=== PATIENT | male | born 1965 | race Caucasian/White ===

== ENCOUNTER → 2019-11-19 10:59 | Outpatient (BNVA) | payer OTHER, SELFPAY | PROVIDERS: PCP Internal Medicine; Visit Provider Urology | DX: Z76.89 Persons encountering health services in other specified circumstances (principal) ==

== ENCOUNTER 2020-01-13 11:42 | Outpatient (REF) | payer OTHER, SELFPAY | END 2020-01-13 11:43 | disposition home or self-care (01) | LOC: HO.XRAY 11:42 | PROVIDERS: PCP Internal Medicine; Visit Provider Physical Medicine & Rehabilitation | DX: Z13.89 Encounter for screening for other disorder (principal) ==

== ENCOUNTER 2020-01-25 09:16 | Outpatient (REF) | payer OTHER, SELFPAY ==
--- NOTE | 2020-01-25 09:24 | XR_ITS ---
EXAMINATION: XR SHOULDER, LEFT CLINICAL INFORMATION: Pain left shoulder. COMPARISON: None TECHNIQUE: AP external rotation, Grashey, scapular Y, and axillary views of the left shoulder. FINDINGS: The bones and soft tissues are normal. No fracture. Glenohumeral and acromioclavicular alignment is anatomic with normal joint space. No abnormal soft tissue calcifications. XR/XR shoulder LT min 2V IMPRESSION: Unremarkable left shoulder exam.
== END 2020-01-25 09:17 | disposition home or self-care (01) ==
LOC: HO.XRAY 09:16
PROVIDERS: PCP Internal Medicine; Visit Provider Physical Medicine & Rehabilitation
DX: M25.512 Pain in left shoulder (principal)
CPT/HCPCS: 73030

== ENCOUNTER 2020-04-26 10:04 | Outpatient (REF) | payer OTHER, SELFPAY ==
--- NOTE | ~2020-04-26 | XR_ITS ---
EXAMINATION: XR LUMBOSACRAL SPINE CLINICAL INFORMATION: Dorsal pain. COMPARISON: None TECHNIQUE: Three views of the lumbosacral spine. FINDINGS: There is normal lumbar lordosis. The vertebral heights and alignment is normal. There is loss of L1-L2, L2-L3, L4-L5 and L5-S1 disc heights. No visible acute fracture, dislocation or lytic process seen. There is mild ventral spondylosis at the L3-L4 and L4-L5 disc levels. No visible acute fracture, dislocation or lytic process seen. SI joints are symmetrical. The soft tissues are unremarkable. XR/XR lumbar spine 2-3V IMPRESSION: Mild degenerative disc changes of lumbar spine without visible acute fracture or dislocation. There is ventral spondylosis at the L4-L5 and L3-L4 disc levels.
== END 2020-04-26 10:05 | disposition home or self-care (01) ==
LOC: HO.XRAY 10:04
PROVIDERS: PCP Internal Medicine; Visit Provider Internal Medicine
DX: M54.9 Dorsalgia, unspecified (principal)
CPT/HCPCS: 72100

== ENCOUNTER 2020-07-26 07:45 | Outpatient (REF) | payer OTHER, SELFPAY ==
[2020-07-26 08:16] LABS: MANUAL DIFF FLAG NO
[2020-07-26 08:22] LABS: Basophils Absolute Auto 0.1 X10*3/uL (0.0-0.2); Basophils Percent Auto 0.8 % (0-2); Eosinophils Absolute Auto 0.4 X10*3/uL (0.0-0.4); Eosinophils Percent Auto 5.9 % (0-4); Hemoglobin 13.3 g/dl (14.0-18.0); Imm Gran Abs Auto 0.02 X10*3/uL (0.00-0.03); Imm Gran Pct Auto 0.3 % (0.0-0.4); Lymphocytes Absolute Auto 1.8 X10*3/uL (1.2-4.9); Lymphocytes Percent Auto 24.4 % (20-40); Mean Corpuscular HGB Conc 33.3 g/dl (31.0-36.0); Mean Corpuscular Volume 84.2 fL (80-98); Mean Platelet Volume 10.8 fL (9.4-12.4); Monocytes Absolute Auto 0.6 X10*3/uL (0.1-1.2); Monocytes Percent Auto 7.8 % (2-11); Neutrophils Absolute Auto 4.5 X10*3/uL (2.0-8.3); Neutrophils Percent Auto 60.8 % (45-73); Platelet Count 348 X10*3/uL (160-400); Red Blood Count 4.75 X10*6/uL (4.60-5.80); Red Cell Distribution Width 13.1 % (11.0-16.0); White Blood Count 7.3 X10*3/uL (4.8-10.8)
[2020-07-26 08:48] LABS: Alanine Aminotransferase 26 U/L (0-40); Albumin Level 4.6 g/dL (3.5-5.0); Alkaline Phosphatase 131 U/L (39-117); Anion Gap 10 (12-20); Aspartate Amino Transferase 23 U/L (5-37); Bilirubin Total 0.8 mg/dL (0.0-1.0); Blood Urea Nitrogen 17 mg/dL (9-16); Calcium 9.8 mg/dL (8.4-10.2); Carbon Dioxide 29 mmol/L (22-29); Chloride 106 mmol/L (96-108); Cholesterol 224 mg/dL; Estimated Glomerular Filt Rate > 60; Glucose Fasting 104 mg/dL (60-99); HDL Cholesterol 35 mg/dL; LDL Cholesterol Calculated 148 mg/dl; Potassium 4.4 mmol/L (3.3-5.1); Sodium 141 mmol/L (135-145); Total Protein 6.8 g/dL (6.5-8.0); Triglycerides 207 mg/dL
[2020-07-26 09:09] LABS: Thyroid Stimulating Hormone 5.77 uIU/mL (0.32-4.0)
== END 2020-07-26 07:46 | disposition home or self-care (01) ==
LOC: HO.LAB 07:45
PROVIDERS: PCP Internal Medicine; Visit Provider Internal Medicine
DX: Z00.00 Encounter for general adult medical examination without abnormal findings (principal); E11.9 Type 2 diabetes mellitus without complications; E03.9 Hypothyroidism, unspecified
CPT/HCPCS: 36415; 80053; 80061; 84443; 85025

== ENCOUNTER 2021-10-06 08:03 | Outpatient (REF) | payer OTHER, SELFPAY ==
[2021-10-06 08:21] LABS: MANUAL DIFF FLAG NO
[2021-10-06 08:33] LABS: Basophils Absolute Auto 0.1 X10*3/uL (0.0-0.2); Basophils Percent Auto 1.1 % (0-2); Eosinophils Absolute Auto 0.3 X10*3/uL (0.0-0.4); Eosinophils Percent Auto 5.6 % (0-4); Hematocrit 36.6 % (42.0-52.0); Hemoglobin 12.5 g/dl (14.0-18.0); Imm Gran Abs Auto 0.02 X10*3/uL (0.00-0.03); Imm Gran Pct Auto 0.3 % (0.0-0.4); Lymphocytes Absolute Auto 1.3 X10*3/uL (1.2-4.9); Mean Corpuscular HGB Conc 34.2 g/dl (31.0-36.0); Mean Corpuscular Hemoglobin 28.7 pg (27.0-33.0); Mean Corpuscular Volume 84.1 fL (80.0-98.0); Mean Platelet Volume 10.2 fL (9.4-12.4); Monocytes Absolute Auto 0.5 X10*3/uL (0.1-1.2); Monocytes Percent Auto 7.7 % (2-11); Neutrophils Absolute Auto 3.9 x10*3/uL (2.0-8.3); Neutrophils Percent Auto 63.3 % (45-73); Platelet Count 320 X10*3/uL (160-400); Red Blood Count 4.35 X10*6/uL (4.60-5.80); Red Cell Distribution Width 13.2 % (11.0-16.0); White Blood Count 6.1 X10*3/uL (4.8-10.8)
[2021-10-06 09:10] LABS: Alanine Aminotransferase 25 U/L (0-40); Albumin Level 4.4 g/dL (3.5-5.0); Alkaline Phosphatase 163 U/L (39-117); Anion Gap 13 (12-20); Aspartate Amino Transferase 26 U/L (5-37); Bilirubin Total 0.6 mg/dL (0.0-1.0); Blood Urea Nitrogen 16 mg/dL (9-16); Calcium 9.3 mg/dL (8.4-10.2); Carbon Dioxide 28 mmol/L (22-29); Chloride 106 mmol/L (96-108); Cholesterol 189 mg/dL; Estimated Glomerular Filt Rate > 60; Glucose Fasting 94 mg/dL (60-99); HDL Cholesterol 40 mg/dL; LDL Cholesterol Calculated 131 mg/dl; Potassium 4.2 mmol/L (3.3-5.1); Sodium 143 mmol/L (135-145); Total Protein 6.6 g/dL (6.5-8.0); Triglycerides 93 mg/dL
== END 2021-10-06 08:04 | disposition home or self-care (01) ==
LOC: HO.LAB 08:03
PROVIDERS: PCP Internal Medicine; Visit Provider Internal Medicine
DX: Z13.0 Encounter for screening for diseases of the blood and blood-forming organs and certain disorders involving the immune mechanism (principal); I10 Essential (primary) hypertension; E78.5 Hyperlipidemia, unspecified; E03.9 Hypothyroidism, unspecified
CPT/HCPCS: 36415; 80053; 80061; 84443; 85025

== ENCOUNTER 2022-02-23 09:40 | Outpatient (REF) | payer OTHER, SELFPAY ==
--- NOTE | ~2022-02-23 | XR_ITS ---
EXAMINATION: XR RIBS, RIGHT. Chest PA CLINICAL INFORMATION: Injury. COMPARISON: None TECHNIQUE: 3 views of the right ribs were obtained. FINDINGS: CHEST: The lungs are hyperexpanded. No consolidation, pneumothorax, or pleural effusion. The cardiomediastinal silhouette and pulmonary vasculature are normal. RIGHT RIBS: Osseous structures are unremarkable. Ribs are intact. No fractures are identified. XR/XR ribs RT min 3V w CXR1V IMPRESSION: Unremarkable chest and right rib examination.
== END 2022-02-23 09:41 | disposition home or self-care (01) ==
LOC: HO.XRAY 09:40
PROVIDERS: PCP Internal Medicine; Visit Provider Internal Medicine
DX: S29.9XXA Unspecified injury of thorax, initial encounter (principal); X58.XXXA Exposure to other specified factors, initial encounter; Y93.9 Activity, unspecified; Y92.9 Unspecified place or not applicable; Y99.9 Unspecified external cause status
CPT/HCPCS: 71101

== ENCOUNTER 2022-07-20 11:08 | Outpatient (REF) | payer OTHER, SELFPAY ==
--- NOTE | ~2022-07-20 | XR_ITS ---
EXAMINATION: XR LUMBOSACRAL SPINE WITH OBLIQUES CLINICAL INFORMATION: Back pain COMPARISON: Previous lumbar spine x-ray April 2020 TECHNIQUE: 4 views including flexion extension FINDINGS: Bone alignment is normal. No fracture or dislocation. Multilevel degenerative disc disease and spondylosis greatest at L4-L5 and L5-S1. No instability on flexion-extension views. Lower lumbar spine facet arthritis. Atherosclerotic disease. XR/XR lumbar spine 4V min IMPRESSION: Multilevel degenerative changes.
== END 2022-07-20 11:09 | disposition home or self-care (01) ==
LOC: HO.HOSX 11:08
PROVIDERS: PCP Internal Medicine; Visit Provider Physician Assistant
DX: M54.40 Lumbago with sciatica, unspecified side (principal)
CPT/HCPCS: 72110

== ENCOUNTER 2022-08-24 08:28 | Outpatient (REF) | payer OTHER, SELFPAY ==
--- NOTE | ~2022-08-24 | MR_ITS ---
EXAMINATION: MR LUMBAR SPINE WITHOUT CONTRAST CLINICAL INFORMATION: 57-year-old, lumbago with sciatica, unspecified laterality. Self-reported low back and bilateral leg pain and tingling in the right lower leg. COMPARISON: 08/15/2007 MRI, partial images. Axial images from the prior study are not available. TECHNIQUE: MRI of the lumbar spine was obtained using routine sequences without contrast. FINDINGS: Coronal Alignment: Normal. Sagittal Alignment: Normal. Lumbosacral Junction: Normal. There are 5 mtg-flt-elrplxx lumbar-type vertebral bodies. Vertebral Bodies: Stable vertebral body heights. No interval compression fractures. Disc Spaces and Endplates: Severe disc space height loss is at L4-L5, progressed from previous study now with partial ankylosis at this level. Itkthuoz-ua-gynhyd disc space height loss with disc desiccation at L5-S1 with a Schmorl's node along the superior endplate of S1 similar to previous study. Mild disc volume loss with disc desiccation and central Schmorl's nodes at L3-L4, unchanged, now with minor spondylosis. Moderate disc volume loss at L2-L3 progressed from previous study with progression of Schmorl's nodes along the superior endplate of L3 and a stable central Schmorl's node, with disc desiccation and minor spondylosis. Xhly-nr-dwzndvtr intervertebral disc space height loss at L1-L2 slightly progressed posteriorly, with Schmorl's nodes similar to the prior exam. Disc desiccation has progressed, now with the a linear zone of probable intradiscal calcification on the current study consistent with progression of disc degenerative changes. Disc desiccation and central Schmorl's nodes noted at the levels between T12-L1 and T10-T11 inclusive with progression of disc desiccation at these levels and progression of disc height loss posteriorly at T12-L1. Spinal Canal: No abnormal developmental findings. Bone Marrow: There are type I degenerative bone marrow signal changes seen along the endplates at L5-S1 progressed from previous study. There are type I marrow signal changes along the anterosuperior aspect of the L4 vertebral body progressed from previous exam. Type I marrow signal changes seen posteriorly asymmetric to the left at L2-L3 have developed since previous exam. Type I marrow signal changes along the superior endplate of L1 are new findings. There are type II degenerative marrow signal changes seen along the endplates at multiple levels progressed from the previous study, particularly at L4-L5 and L1-L2. Conus Medullaris: Terminates at L1. Morphology and signal is normal. Intradural Nerve Roots: Within normal limits. L5-S1: Mild concentric disc osteophyte complex with slight flattening of the ventral dural sac. Gwdc-cv-dpnukddi right and mild left-sided facet arthropathy noted with question of chronic postoperative changes involving the posterior elements on the right at this level with no significant central spinal canal stenosis. Mild crowding of the subarticular zones is noted bilaterally. There is mild Foraminal narrowing bilaterally. L4-L5: There is concentric osteophytic ridging with partial ankylosis at this level and chronic postoperative changes involving the posterior elements on the right. There is moderate right and mild left-sided facet hypertrophic changes with no significant canal stenosis. There is minor foraminal narrowing bilaterally. L3-L4: Mild right subarticular to foraminal disc protrusion noted without neural impingement. Broad-based central to left lateral foraminal disc osteophyte complex noted with mbdt-se-wadvdjps flattening the ventral thecal sac asymmetric to the left. Bvxe-it-qcrfntli bilateral facet hypertrophic degenerative changes are noted without significant central canal stenosis. Slight narrowing of the subarticular zones are noted bilaterally with mild left-sided foraminal stenosis. Facet spurring abuts the exiting left L3 nerve root. L2-L3: Concentric disc osteophyte complex is noted with slight flattening of the ventral dural sac and vudp-dh-twmwvakp facet arthrosis, left more than right, without significant canal or neuroforaminal stenosis. L1-L2: Concentric disc osteophyte complex is noted with no significant facet arthrosis, canal or neuroforaminal stenosis. Paravertebral and Included Extraspinal Soft Tissues: The visualized paravertebral soft tissues appear unremarkable. There are simple-appearing left renal parapelvic cysts, with the largest of these measuring 3.3 cm. Limited evaluation.?No specific follow up recommended based on the current ACR Best Practice Guidelines. There is a partially imaged 1.1 cm zone of low T1 signal in the left sacral alum adjacent to the left SI joint seen on the last axial T1-weighted images, which is a nonspecific finding. MR/MR lumbar spine wo con IMPRESSION: 1. Multilevel DDD and spondylosis, as described above, with partial ankylosis at the L4-L5 level and multilevel disc osteophyte complexes and a small right subarticular to foraminal disc protrusion at L3-L4 without neural impingement. No significant central spinal canal stenosis. See above for details. 2. Multilevel bilateral facet arthropathy with no significant neural foraminal stenosis or evidence of neural impingement. 3. Presumed chronic postoperative changes involving the posterior elements on the right at L4-L5 and L5-S1. Correlate with any previous surgical procedures. 4. A 1.1 cm zone of low T1 signal in the left sacral alum adjacent to the left SI joint which is a nonspecific finding. If clinically warranted, this could be further assessed with a CT of the pelvis.
== END 2022-08-24 08:29 | disposition home or self-care (01) ==
LOC: HO.MRI 08:28
PROVIDERS: PCP Internal Medicine; Visit Provider Physician Assistant
DX: M54.40 Lumbago with sciatica, unspecified side (principal)
CPT/HCPCS: 72148

== ENCOUNTER 2022-08-31 13:03 | Outpatient (AMB) | payer OTHER, SELFPAY ==
--- NOTE | 2022-08-31 13:06 | A.SPINEOV_ITS ---
Intake Intake Visit Reasons: MRI f/u Intake Note: Mr. Gibson is here today for follow up MRI done @ [facility] [place]. CT Scan still pending scheduling. 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 He has severe back pain giving him a severe pressure-like sensation which goes down into his hips. He had a previous L4-5 decompression done about 15 years ago which gave him great relief from leg pains. It was not until last year when back pain got significantly worse. There is no formal read back yet, but he has similar findings to last year on his MRI, this would include is severely collapsed disc with Modic endplate changes at L4-5. He also has degeneration higher up at L2-3. I do not see any nerve root compression. Unfortunately did not have the lumbar CT done yet so we can better evaluate if the L4-5 disc is already fused itself. That would be meaningful to review so his daughter is going to set that up. In the interim, he tells me he is had an injection at your office done a few weeks ago and that did give him 2-3 days of decent relief. Not complete relief but it did take the edge off things. He is not sure what part of the spine was injected or what was done. I would like to get that information as well as the CT scan and then call him with a better idea of what we can do for him. Total amount of time spent in this visit was 20 minutes in discussion of symptoms, lumbar MRI imaging results and subsequent plan of care Jason Gonzáles MD,PhD [facility] Coding Level of Care Code Est Pt Level 3 (45973) Diagnoses Back pain of lumbar region with sciatica M54.40
== END 2022-08-31 14:17 | disposition home or self-care (01) ==
PROVIDERS: PCP Internal Medicine; Visit Provider Physician Assistant
DX: M54.40 Lumbago with sciatica, unspecified side (principal)
CPT/HCPCS: 99213

== ENCOUNTER → 2022-08-31 13:03 | Outpatient (BNVA) | payer OTHER, SELFPAY | PROVIDERS: PCP Internal Medicine; Visit Provider Physician Assistant ==

== ENCOUNTER 2022-09-05 13:55 | Outpatient (REF) | payer OTHER, SELFPAY ==
--- NOTE | ~2022-09-05 | CT_ITS ---
EXAMINATION: CT LUMBAR SPINE WITHOUT CONTRAST CLINICAL INFORMATION: Dorsalgia. COMPARISON: MRI lumbar spine 08/15/2007. TECHNIQUE: Axial 2 mm thin and reformatted 2 mm thin sagittal and coronal images of lumbar spine were obtained. This CT examination was performed using dose optimization techniques as appropriate, variously including the following: *Automated exposure control *Adjustment of mA and/or kV according to patient size (this includes techniques or standardized protocols for targeted exams where dose is matched to indication/reason for exam; i.e. extremities or head) *Use of iterative reconstruction technique DLP; 400 mGy-cm FINDINGS: On sagittal reconstructed images is maintained lumbar lordosis. There is loss of L4-L5 and L5-S1 disc heights. The rest of the disc heights are normal. The vertebral heights and alignment is preserved normal. The L1-L2 and L2-L3 disc levels are unremarkable. At the L3-L4 disc level, there is mild flattening of ventral thecal sac from disc bulge resulting in mild canal stenosis. There is underlying mild facet joint hypertrophy as well. At the L4-L5 disc level, there is a left laminotomy defect. There is a posterior endplate spondylosis but no underlying disc bulge or spinal canal stenosis. There is mild bilateral narrowing of neural foramina from endplate spondylosis. At the L5-S1 disc level, there are endplate Schmorl's node and sclerosis. No aggressive lytic or sclerotic process seen. The neural foramina are patent bilaterally. The prevertebral and paravertebral soft tissues are normal. CT/CT lumbar spine wo IV con IMPRESSION: Degenerative disc changes with almost disc fusion L4-L5 disc level. There are degenerative disc changes at other disc levels but no visible disc herniation or nerve root impingement. There is mild disc bulge L3-L4 disc level with facet joint hypertrophy resulting in mild circumferential canal stenosis. There is possible left laminotomy defect at L4 vertebra from previous intervention. This findings was noted on the previous MRI lumbar spine 08/15/2007.
== END 2022-09-05 13:56 | disposition home or self-care (01) ==
LOC: HO.CT 13:55
PROVIDERS: Visit Provider Physician Assistant
DX: M54.50 Low back pain, unspecified (principal)
CPT/HCPCS: 72131

== ENCOUNTER 2022-09-26 08:42 | Outpatient (AMB) | payer OTHER, SELFPAY ==
--- NOTE | 2022-09-26 08:56 | A.OFFPC_ITS ---
Vital Signs 09/26/22 08:57 Height 5 ft 5 in Weight 151 lb 4 oz BMI 25.2 BP 132/78 Blood Pressure Location Lt brachial Position Sitting Pulse 80 Pulse Source Pulse Oximeter Pulse Oximetry (%) 97 Oxygen Delivery Method Room Air Intake Visit Reasons: Annual exam Intake Note: Patient is here today for a physical. Pharmacy Clinical Coordinator Required: No Silo Filler: Not Required per policy Accompanied by: Self / Same As Patient Allergies No Known Allergies Allergy (Verified 09/26/22 08:57) Medication List - Last Reconciled 09/26/22 by Morales Oneil MD acetaminophen (Tylenol Extra Strength) 1,000 mg PO Q6H PRN amlodipine 2.5 mg PO DAILY naproxen (Naprosyn) 500 mg PO BID PRN oxycodone mg PO topiramate 25 mg PO BID Tobacco use date assessed: 09/26/22 Dental Screening Dental Screen Date: 09/26/22 Did you have a dental visit in the last 12 months?: No Did you have a dental problem in the last 6 months where you did not have access to dental care?: No Was dental information given to patient?: No HPI Annual exam HPI Details HTN and chronic back pain; will be going to pain management [facility] Medical History (Updated 07/20/22 @ 11:59 by JANIS Bhakta) Hypertension Surgical History History of back surgery Family History (Updated 09/26/22 @ 08:56 by MOE Hanks) Father No problems noted. Mother No problems noted. Social History Housing: House Alcohol intake: never Patient Tobacco Use Status: Current everyday Tobacco user Tobacco use type: Smokeless Tobacco e-Cigarette/Vaping Use: Never Used Second Hand Smoke Exposure: No service: No Current occupational status: employed Cognitive needs: No Hearing needs: No Vision needs: No Questionnaire Thrive Questionnaire Date Thrive assessed: 02/23/22 OSORIO-7 AMB Questionnaire OSORIO-7 Date OSORIO - 7 assessed: 02/23/22 Source: Developed by Drs. Vipul Syed, Danielle Salas, Narayan Raines and colleagues, with an educational omar from [employer]. Review of Systems Const Denies chills, Denies fatigue, Denies headache(s) and Denies weight loss Eyes Denies change in vision, Denies diplopia and Denies eye pain ENT Denies vertigo, Denies dizziness, Denies headache(s) and Denies nasal discharge Card Denies chest pain, Denies rapid heart rate and Denies dyspnea on exertion Resp Denies chest congestion, Denies cough, Denies pain with cough and Denies dyspnea on exertion GI Denies abdominal pain, Denies hematochezia and Denies change in bowel habits Musc Denies myalgias, Denies arthralgias and Denies joint swelling Skin/Breast Denies lesions and Denies unusual bruising Neuro Denies vertigo, Denies dizziness, Denies headache(s) and Denies focal weakness Endo Denies fatigue Physical exam (Primary Care) Vital Signs: Last Vital Signs Pulse 80 09/26/22 08:57 BP 132/78 09/26/22 08:57 Pulse Ox 97 09/26/22 08:57 Oxygen Delivery Method Room Air 09/26/22 08:57 BMI result Body Mass Index 25.2 Tobacco/Smoking Status: Tobacco use Status Tobacco use date assessed 09/26/22 09/26/22 09:03 Patient Tobacco Use Status Current everyday Tobacco 09/26/22 09:03 Tobacco use type Smokeless Tobacco 09/26/22 09:03 e-Cigarette/Vaping Use Never Used 09/26/22 09:03 Thrive Assessment: Date of Thrive Assessment Date Thrive assessed 02/23/22 09/26/22 09:03 Const General: cooperative, healthy appearing and no acute distress Orientation/consciousness: oriented to person, oriented to place and oriented to time [facility] Head: Yes normal to inspection, Yes normocephalic and Yes atraumatic Mouth: Normal oral and palatal mucosa present and tongue normal Throat: Yes posterior oropharynx normal and Yes uvula midline Eyes General: appearance normal, both eyes and all related structures Neck Neck: Yes normal visual inspection, Yes full ROM and Yes no lymphadenopathy Thyroid: Thyroid normal Carotids: normal carotid upstroke Chest Chest palpation & inspection: normal inspection of the chest Resp Effort & Inspection: normal respiratory effort and able to speak in complete sentences Auscultation: clear to auscultation bilaterally Cardio Jugular venous distension: no JVD Palpation: normal PMI Rate: regular rate Rhythm: regular rhythm Heart sounds: S1 normal heart sound present and S2 normal heart sound present GI Inspection: Yes normal to inspection Palpation (GI): Soft to palpation and No hepatosplenomegaly present Auscultation: normal bowel sounds General: Yes no CVA tenderness Back/Spine/Pelvis Back: no CVA tenderness Skin General skin exam: no rashes or lesions noted Neuro General: oriented to person, oriented to place and oriented to time Extrem General: Yes normal to inspection and Yes full ROM Assessment and Plan Assessment & Plan (1) Physical exam: Code(s): Z00.00 - Encounter for general adult medical examination without abnormal findings Plan: do labs (2) Hypertension: Code(s): I10 - Essential (primary) hypertension Plan: same rx (3) Back pain: Code(s): M54.9 - Dorsalgia, unspecified Plan: as per pain management Orders: Orders Comprehensive Longs. Panel Fast Today N28.9 - Disorder of kidney and ureter, un specified Lipid Panel Today E78.5 - Hyperlipidemia, unspecified Complete Blood Count Auto Diff Today D64.9 - Anemia, unspecified Coding Level of Care Code Est Pt Prev Care 40-64y(95582) Diagnoses Physical exam Z00.00 Hypertension I10 Back pain M54.9
[2022-09-26 08:57] VITALS: BP 132/78; PULSE 80; O2SAT 97; BMI 25.2
== END 2022-09-26 09:33 | disposition home or self-care (01) ==
PROVIDERS: PCP Internal Medicine; Visit Provider Internal Medicine
DX: Z00.00 Encounter for general adult medical examination without abnormal findings (principal); I10 Essential (primary) hypertension; M54.9 Dorsalgia, unspecified
CPT/HCPCS: 99396

== ENCOUNTER 2022-09-26 09:48 | Outpatient (REF) | payer OTHER, SELFPAY ==
[2022-09-26 10:03] LABS: MANUAL DIFF FLAG NO
[2022-09-26 10:46] LABS: Basophils Absolute Auto 0.1 X10*3/uL (0.0-0.2); Basophils Percent Auto 1.4 % (0-2); Eosinophils Absolute Auto 0.5 X10*3/uL (0.0-0.4); Eosinophils Percent Auto 6.7 % (0-4); Hematocrit 37.1 % (42.0-52.0); Hemoglobin 12.3 g/dl (14.0-18.0); Imm Gran Abs Auto 0.02 X10*3/uL (0.00-0.03); Imm Gran Pct Auto 0.3 % (0.0-0.4); Lymphocytes Absolute Auto 1.7 X10*3/uL (1.2-4.9); Lymphocytes Percent Auto 24.6 % (20-40); Mean Corpuscular HGB Conc 33.2 g/dl (31.0-36.0); Mean Corpuscular Hemoglobin 28.2 pg (27.0-33.0); Mean Corpuscular Volume 85.1 fL (80.0-98.0); Mean Platelet Volume 10.7 fL (9.4-12.4); Monocytes Absolute Auto 0.6 X10*3/uL (0.1-1.2); Neutrophils Absolute Auto 4.1 x10*3/uL (2.0-8.3); Platelet Count 358 X10*3/uL (160-400); Red Blood Count 4.36 X10*6/uL (4.60-5.80); Red Cell Distribution Width 13.2 % (11.0-16.0); White Blood Count 6.9 X10*3/uL (4.8-10.8)
[2022-09-26 11:17] LABS: Alanine Aminotransferase 32 U/L (0-40); Albumin Level 4.3 g/dL (3.5-5.0); Alkaline Phosphatase 164 U/L (39-117); Anion Gap 11 (12-20); Aspartate Amino Transferase 34 U/L (5-37); Bilirubin Total 0.3 mg/dL (0.0-1.0); Blood Urea Nitrogen 15 mg/dL (9-16); Calcium 9.8 mg/dL (8.4-10.2); Carbon Dioxide 28 mmol/L (22-29); Chloride 107 mmol/L (96-108); Cholesterol 177 mg/dL; Estimated Glomerular Filt Rate > 60; Glucose Fasting 101 mg/dL (60-99); HDL Cholesterol 37 mg/dL; LDL Cholesterol Calculated 114 mg/dl; Potassium 3.9 mmol/L (3.3-5.1); Sodium 142 mmol/L (135-145); Total Protein 6.9 g/dL (6.5-8.0); Triglycerides 134 mg/dL
== END 2022-09-26 09:49 | disposition home or self-care (01) ==
LOC: HO.LAB 09:48
PROVIDERS: PCP Internal Medicine; Visit Provider Internal Medicine
DX: D64.9 Anemia, unspecified (principal); E78.5 Hyperlipidemia, unspecified; N28.9 Disorder of kidney and ureter, unspecified
CPT/HCPCS: 36415; 80053; 80061; 85025

== ENCOUNTER 2022-10-09 10:59 | Outpatient (AMB) | payer OTHER, SELFPAY ==
--- NOTE | 2022-10-09 11:00 | MHC.OFFVIS ---
Intake Vital Signs 10/09/22 11:06 Height 5 ft 5 in Weight 150 lb 2 oz BMI 25.0 BP 134/93 H Blood Pressure Location Lt brachial Position Sitting Pulse 97 Pulse Source Pulse Oximeter Pulse Oximetry (%) 99 Oxygen Delivery Method Room Air Intake Visit Reasons: Radiculopathy, lumbar region Intake Note: Pain today 09/27. Lead Systems Developer Required: No Accompanied by: Daughter Allergies No Known Allergies Allergy (Verified 10/09/22 11:11) HPI Radiculopathy, lumbar region HPI Details Patient is a pleasant 57 years old female with prior L4-L5 decompression in 2006 and lumbar degenerative disc disease presents today with significant low back pain with bilateral leg pain for over one year. Patient also reports right shoulder pain. He is accompanied by his daughter who assists with translation. Denies any recent trauma, injury or falls. Reports increase in right shoulder pain with overhead and backside pocket reaches due to repetitive motion at his work. He was seen in [facility] ER recently for right shoulder pain and received Ketorolac and lidocaine injection without any relief with imaging showing calcific tendinitis and bursitis. Patient reports increased falling due to worsening back pain and bilateral leg weakness and legs giving out due to pain. Back pain is axial and also radiates in lateral distribution of both legs and dorsal feet with numbness and tingling, worse on the right side. Patient describes his pain as sharp, shooting and significant pressure sensation that radiates into his lateral hips bilaterally. He was seen by multiple providers, including Dr. Bill at [facility] and Jason BRUCE at [facility] due to lumbar L4-L5 almost complete fusion but was deemed non surgical at this time. Per recent lumbar spine MRI and CT scan reports, patient also has significant degenerative changes on the endplates with almost disc fusion L4-L5 disc level, with Schmorl's nodes and Modic changes. These findings correlate with his symptoms of bilateral lower extremity pain and weakness as well as axial low back pain that has been interfering with his ability to ambulate. Reports history of back injections at [facility] with partial pain relief. He is currently takes oxycodone and Tylenol that provides him mild analgesia. Pain affects his daily activities, functioning, sleep, mood and quality of life. Given worsening of back pain with recent right shoulder pain, he does not believe he can continue to work, even with light duty arrangements. Denies any fever, weight loss, abdominal or groin pain, foot drop, bladder/bowel dysfunction or saddle anesthesia. Location Lower back pain with radiation to lower extremities, right shoulder pain Duration Chronic pain >1.5 years Characteristics of symptom or complaint Aching, heavy, pressure, numbness, burning, pinching, sharp, throbbing Aggravating or associated factors Walking, standing, prolonged sitting, bending, twisting, movements Relieving factors Oxycodone 10mg, Tylenol, ice/heat therapy, rest, activity modifications Treatment PT, back injections, right shoulder injection-minimal effects [facility] Medical History (Updated 10/13/22 @ 08:05 by RAYMOND Goetz) Cervicalgia Hemiplegia and hemiparesis following cerebral infarction affecting left non-dominant side History of kidney stones Hypertension Myalgia Occipital neuralgia Opioid dependence Pain in right shoulder Pain in thoracic spine Radiculopathy, cervical region Radiculopathy, lumbar region Segmental and somatic dysfunction of rib cage Stroke Surgical History (Updated 10/09/22 @ 11:20 by Akiko Ng) History of back surgery Family History (Updated 09/26/22 @ 08:56 by MOE Hanks) Father No problems noted. Mother No problems noted. Social History (Updated 10/09/22 @ 11:21 by Akiko Ng) Housing: House Alcohol intake: never Patient Tobacco Use Status: Former Tobacco user Quit Date: 2011 Tobacco use type: Cigarette e-Cigarette/Vaping Use: Never Used Second Hand Smoke Exposure: No service: No Current occupational status: employed Cognitive needs: No Hearing needs: No Vision needs: No Review of Systems Const All systems reviewed & are unremarkable except as noted in HPI and below Physical Exam Vital Signs: Last Vital Signs Pulse 97 10/09/22 11:06 BP 134/93 H 10/09/22 11:06 Pulse Ox 99 10/09/22 11:06 Oxygen Delivery Method Room Air 10/09/22 11:06 BMI result Body Mass Index 25.0 General: Appears afebrile. Alert and oriented. Mood and affect appropriate. Follows and participates in conversation appropriately. Respiratory effort is unlabored. No cough. Able to transition from sit to stand unassisted. Ambulates with bilaterally normal heel strike and toe off but unsteady with standing on toes or heels, worse on the right. Back/Spine/Pelvis Other: Patient is able to walk and stand on heels and tip toes with moderate difficulties bilaterally, right>left. Antalgic gait, no limping. Can flex forward to 65-70 degrees and extend to 5-10 degrees before experiencing lumbar pain. Demonstrates 5/5 strength of quadriceps bilaterally as well as flexion/dorsiflexion of bilateral feet against resistance. 2+ pedal pulses bilaterally. Seated straight leg rise with dorsiflexion negative bilaterally. +1 patellar and achilles reflexes bilaterally. Facet loading test positive bilaterally. Lynette sign, Daren?s, Gaenslen, Pelvic compression and Stinchfield tests are positive bilaterally. FADDIR negative bilaterally. No groin pain with I/E hip rotations. Valsalva maneuver negative. Cervical Spine: cervical ROM normal, No cervical muscular tenderness, Cervical spine tenderness and No step off deformity Thoracic/Lumbar Spine: thoracic and lumbar spine normal to inspection, Thoracic/lumbar spine scar(s), Lasegue's sign positive bilateral and localized, pain with thoraco-lumbar ROM, paraspinal muscle tenderness (L3-S1) bilaterally, thoraco-lumbar ROM limited, No thoracic spinal tenderness and lumbar spinal tenderness at L4 and at L5 Pelvis: buttock tenderness bilaterally Sacroiliac joints: bilaterally tender to palpation Results Reviewed Results Reviewed: Right Shoulder Xray 10/04/22 [facility] CT LUMBAR SPINE WITHOUT CONTRAST 09/05/22 COMPARISON: MRI lumbar spine 08/15/2007. FINDINGS: On sagittal reconstructed images is maintained lumbar lordosis. There is loss of L4-L5 and L5-S1 disc heights. The rest of the disc heights are normal. The vertebral heights and alignment is preserved normal. The L1-L2 and L2-L3 disc levels are unremarkable. At the L3-L4 disc level, there is mild flattening of ventral thecal sac from disc bulge resulting in mild canal stenosis. There is underlying mild facet joint hypertrophy as well. At the L4-L5 disc level, there is a left laminotomy defect. There is a posterior endplate spondylosis but no underlying disc bulge or spinal canal stenosis. There is mild bilateral narrowing of neural foramina from endplate spondylosis. At the L5-S1 disc level, there are endplate Schmorl's node and sclerosis. No aggressive lytic or sclerotic process seen. The neural foramina are patent bilaterally. The prevertebral and paravertebral soft tissues are normal. IMPRESSION: Degenerative disc changes with almost disc fusion L4-L5 disc level. There are degenerative disc changes at other disc levels but no visible disc herniation or nerve root impingement. There is mild disc bulge L3-L4 disc level with facet joint hypertrophy resulting in mild circumferential canal stenosis. There is possible left laminotomy defect at L4 vertebra from previous intervention. This findings was noted on the previous MRI lumbar spine 08/15/2007. MR LUMBAR SPINE WITHOUT CONTRAST 08/24/22 CLINICAL INFORMATION: 57-year-old, lumbago with sciatica, unspecified laterality. Self-reported low back and bilateral leg pain and tingling in the right lower leg. COMPARISON: 08/15/2007 MRI, partial images. Axial images from the prior study are not available. FINDINGS: Coronal Alignment: Normal. Sagittal Alignment: Normal. Lumbosacral Junction: Normal. There are 5 qgh-yck-wmgcgef lumbar-type vertebral bodies. Vertebral Bodies: Stable vertebral body heights. No interval compression fractures. Disc Spaces and Endplates: Severe disc space height loss is at L4-L5, progressed from previous study now with partial ankylosis at this level. Aerelicw-sw-izrlrr disc space height loss with disc desiccation at L5-S1 with a Schmorl's node along the superior endplate of S1 similar to previous study. Mild disc volume loss with disc desiccation and central Schmorl's nodes at L3-L4, unchanged, now with minor spondylosis. Moderate disc volume loss at L2-L3 progressed from previous study with progression of Schmorl's nodes along the superior endplate of L3 and a stable central Schmorl's node, with disc desiccation and minor spondylosis. Nptu-jg-hdftoeun intervertebral disc space height loss at L1-L2 slightly progressed posteriorly, with Schmorl's nodes similar to the prior exam. Disc desiccation has progressed, now with the a linear zone of probable intradiscal calcification on the current study consistent with progression of disc degenerative changes. Disc desiccation and central Schmorl's nodes noted at the levels between T12-L1 and T10-T11 inclusive with progression of disc desiccation at these levels and progression of disc height loss posteriorly at T12-L1. Spinal Canal: No abnormal developmental findings. Bone Marrow: There are type I degenerative bone marrow signal changes seen along the endplates at L5-S1 progressed from previous study. There are type I marrow signal changes along the anterosuperior aspect of the L4 vertebral body progressed from previous exam. Type I marrow signal changes seen posteriorly asymmetric to the left at L2-L3 have developed since previous exam. Type I marrow signal changes along the superior endplate of L1 are new findings. There are type II degenerative marrow signal changes seen along the endplates at multiple levels progressed from the previous study, particularly at L4-L5 and L1-L2. Conus Medullaris: Terminates at L1. Morphology and signal is normal. Intradural Nerve Roots: Within normal limits. L5-S1: Mild concentric disc osteophyte complex with slight flattening of the ventral dural sac. Hgqg-px-ppjjuyqq right and mild left-sided facet arthropathy noted with question of chronic postoperative changes involving the posterior elements on the right at this level with no significant central spinal canal stenosis. Mild crowding of the subarticular zones is noted bilaterally. There is mild Foraminal narrowing bilaterally. L4-L5: There is concentric osteophytic ridging with partial ankylosis at this level and chronic postoperative changes involving the posterior elements on the right. There is moderate right and mild left-sided facet hypertrophic changes with no significant canal stenosis. There is minor foraminal narrowing bilaterally. L3-L4: Mild right subarticular to foraminal disc protrusion noted without neural impingement. Broad-based central to left lateral foraminal disc osteophyte complex noted with rdzk-xg-hqjvcizk flattening the ventral thecal sac asymmetric to the left. Orjh-uo-yxamtnxu bilateral facet hypertrophic degenerative changes are noted without significant central canal stenosis. Slight narrowing of the subarticular zones are noted bilaterally with mild left-sided foraminal stenosis. Facet spurring abuts the exiting left L3 nerve root. L2-L3: Concentric disc osteophyte complex is noted with slight flattening of the ventral dural sac and mffn-vn-crrcatkp facet arthrosis, left more than right, without significant canal or neuroforaminal stenosis. L1-L2: Concentric disc osteophyte complex is noted with no significant facet arthrosis, canal or neuroforaminal stenosis. Paravertebral and Included Extraspinal Soft Tissues: The visualized paravertebral soft tissues appear unremarkable. There are simple-appearing left renal parapelvic cysts, with the largest of these measuring 3.3 cm. Limited evaluation.?No specific follow up recommended based on the current ACR Best Practice Guidelines. There is a partially imaged 1.1 cm zone of low T1 signal in the left sacral alum adjacent to the left SI joint seen on the last axial T1-weighted images, which is a nonspecific finding. IMPRESSION: 1. Multilevel DDD and spondylosis, as described above, with partial ankylosis at the L4-L5 level and multilevel disc osteophyte complexes and a small right subarticular to foraminal disc protrusion at L3-L4 without neural impingement. No significant central spinal canal stenosis. See above for details. 2. Multilevel bilateral facet arthropathy with no significant neural foraminal stenosis or evidence of neural impingement. 3. Presumed chronic postoperative changes involving the posterior elements on the right at L4-L5 and L5-S1. Correlate with any previous surgical procedures. 4. A 1.1 cm zone of low T1 signal in the left sacral alum adjacent to the left SI joint which is a nonspecific finding. If clinically warranted, this could be further assessed with a CT of the pelvis. XR LUMBOSACRAL SPINE WITH OBLIQUES 07/20/22 CLINICAL INFORMATION: Back pain COMPARISON: Previous lumbar spine x-ray April 2020 FINDINGS: Bone alignment is normal. No fracture or dislocation. Multilevel degenerative disc disease and spondylosis greatest at L4-L5 and L5-S1. No instability on flexion-extension views. Lower lumbar spine facet arthritis. Atherosclerotic disease. IMPRESSION: Multilevel degenerative changes. Assessment & Plan Assessment & Plan (1) Lumbar post-laminectomy syndrome: Code(s): M96.1 - Postlaminectomy syndrome, not elsewhere classified (2) Back pain of lumbar region with sciatica: Code(s): M54.40 - Lumbago with sciatica, unspecified side (3) Degeneration of lumbar intervertebral disc: Code(s): M51.36 - Other intervertebral disc degeneration, lumbar region (4) Chronic pain syndrome: Code(s): G89.4 - Chronic pain syndrome (5) Pain in right shoulder: Code(s): M25.511 - Pain in right shoulder (6) Vertebrogenic low back pain: Code(s): M54.51 - Vertebrogenic low back pain (7) Calcific tendinitis of right shoulder: Code(s): M75.31 - Calcific tendinitis of right shoulder Plan 1. For his axial low back pain and degenerative changes on the endplates with Modic Changes and Schmorl's nodes , he is a good candidate for Intracept procedure. 2. For his gait instability and frequent falls, recommend enrollment in Aqua therapy as well as continue physical therapy and daily physical activity to optimize his strength and balance. Patient reports due to significant pain, he is unable to participate in PT or HEP but will consider it after therapeutic injections for his back and right shoulder. 3. Caudal ANIA with catheter with local and fluoroscopy for radicular symptoms and frequent falls due to throbbing, sharp and shooting pain. Will also tentatively plan for bilateral SIJ injections. 4. Schedule Right Subacromial Steroid shoulder injection with local and US guidance for right shoulder pain related to calcific tendonitis. Recommend PT after injection to strengthen muscles. Continue ice/heat therapy, rest and NSAIDs. 4. We also discussed longer term pain management for patient's post laminectomy syndrome with multilevel degenerative changes and significant chronic daily pain that affects his general daily activity, sleep, and quality of life. He is interested in neuromodulation with SCS trial. Expectations, risks and benefits were reviewed for SCS trial and implant. Behavioral evaluation referral placed today. Informational pamphlets provided to patient and his family. All questions and concerns have been answered and patient agreed with the plan. Follow up after injections and sooner if needed. Coding Level of Care Code New Pt Level 4 (29098) Diagnoses Lumbar post-laminectomy syndrome M96.1 Back pain of lumbar region with sciatica M54.40 Degeneration of lumbar intervertebral disc M51.36 Chronic pain syndrome G89.4 Pain in right shoulder M25.511 Vertebrogenic low back pain M54.51 Calcific tendinitis of right shoulder M75.31
[2022-10-09 11:06] VITALS: BP 134/93; PULSE 97; O2SAT 99; BMI 25.0
== END 2022-10-09 11:50 | disposition home or self-care (01) ==
PROVIDERS: PCP Internal Medicine; Visit Provider Nurse Practitioner Family
DX: M96.1 Postlaminectomy syndrome, not elsewhere classified (principal); M54.40 Lumbago with sciatica, unspecified side; M51.36 Other intervertebral disc degeneration, lumbar region; G89.4 Chronic pain syndrome; M25.511 Pain in right shoulder; M54.51 Vertebrogenic low back pain; M75.31 Calcific tendinitis of right shoulder
CPT/HCPCS: 99204

== ENCOUNTER → 2022-10-09 10:59 | Outpatient (BNVA) | payer OTHER, SELFPAY | PROVIDERS: PCP Internal Medicine; Visit Provider Nurse Practitioner Family ==

== ENCOUNTER 2022-10-18 09:08 | Outpatient (AMB) | payer OTHER, SELFPAY ==
--- NOTE | 2022-10-18 09:08 | MHC.PC.OV ---
Vital Signs 10/18/22 09:09 Height 5 ft 5 in Weight 152 lb BMI 25.3 BP 128/76 Blood Pressure Location Lt brachial Position Sitting Pulse 78 Pulse Source Pulse Oximeter Pulse Oximetry (%) 98 Oxygen Delivery Method Room Air Intake Visit Reasons: [facility] Shoulder pain Slot Floorperson Required: No Fuel Attendant: Not Required per policy Allergies No Known Allergies Allergy (Verified 10/18/22 09:09) Medication List - Last Reconciled 10/18/22 by Morales Oneil MD acetaminophen (Tylenol Extra Strength) 1,000 mg PO Q6H PRN amlodipine 2.5 mg PO DAILY ibuprofen 600 mg PO QID naproxen (Naprosyn) 500 mg PO BID PRN oxycodone mg PO topiramate 25 mg PO BID Tobacco use date assessed: 09/26/22 Dental Screening Dental Screen Date: 10/18/22 Did you have a dental visit in the last 12 months?: No Did you have a dental problem in the last 6 months where you did not have access to dental care?: No Was dental information given to patient?: No HPI [facility]10/[facility] Shoulder pain HPI Details has chronic neck shoulder and back pain; going to [facility] pain management; has been on daily oxycodone through them and going to the ER too; [facility] Medical History Cervicalgia Hemiplegia and hemiparesis following cerebral infarction affecting left non-dominant side History of kidney stones Hypertension Myalgia Occipital neuralgia Opioid dependence Pain in right shoulder Pain in thoracic spine Radiculopathy, cervical region Radiculopathy, lumbar region Segmental and somatic dysfunction of rib cage Stroke Surgical History History of back surgery Family History Father No problems noted. Mother No problems noted. Social History Housing: House Alcohol intake: never Patient Tobacco Use Status: Former Tobacco user Quit Date: 2011 Tobacco use type: Cigarette e-Cigarette/Vaping Use: Never Used Second Hand Smoke Exposure: No service: No Current occupational status: employed Cognitive needs: No Hearing needs: No Vision needs: No Questionnaire PHQ-9 Over the last 2 weeks, how often have you been bothered by any of the following problems? 1. Little interest or pleasure in doing things: not at all 2. Feeling down, depressed, or hopeless: not at all 3. Trouble falling or staying asleep, or sleeping too much: not at all 4. Feeling tired or having little energy: not at all 5. Poor appetite or overeating: not at all 6. Feeling bad about yourself - or that you are a failure or have let yourself or your family down: not at all 7. Trouble concentrating on things, such as reading the newspaper or watching television: not at all 8. Moving or speaking so slowly that other people could have noticed. Or the opposite - being so fidgety or restless that you have been moving around a lot more than usual: not at all 9. Thoughts that you would be better off or of hurting yourself in some way: not at all Total score: 0 Depression Screening Interpretation: Negative 95573 - PHQ-9 Billing: Yes Source: Developed by Drs. Vipul Syed, Danielle Salas, Narayan Raines and colleagues, with an educational omar from [employer]. Thrive Questionnaire Date Thrive assessed: 02/23/22 AUDIT C Alcohol Use Questionnaire (AUDIT-C) 1. How often do you have a drink containing alcohol?: Never Total Score: 0 OSORIO-7 AMB Questionnaire OSORIO-7 Date OSORIO - 7 assessed: 02/23/22 Source: Developed by Drs. Vipul Syed, Danielle Salas, Narayan Raines and colleagues, with an educational omar from [employer]. Review of Systems Const Denies chills, Denies headache(s) and Denies weight loss ENT Denies headache(s) Card Denies chest pain, Denies syncope, Denies irregular heart rhythm and Denies dyspnea Resp Denies chest congestion, Denies cough and Denies dyspnea GI Denies abdominal pain, Denies change in stool character, Denies nausea and Denies vomiting Musc Denies deformity and Denies joint swelling Neuro Denies syncope and Denies headache(s) Physical exam (Primary Care) Vital Signs: Last Vital Signs Pulse 78 10/18/22 09:09 BP 128/76 10/18/22 09:09 Pulse Ox 98 10/18/22 09:09 Oxygen Delivery Method Room Air 10/18/22 09:09 BMI result Body Mass Index 25.3 Tobacco/Smoking Status: Tobacco use Status Tobacco use date assessed 09/26/22 10/18/22 09:11 Patient Tobacco Use Status Former Tobacco user 10/18/22 09:11 Tobacco use type Cigarette 10/18/22 09:11 e-Cigarette/Vaping Use Never Used 10/18/22 09:11 PHQ-9: PHQ-9 Score PHQ-9: Total score 0 10/18/22 12:32 Depression Screening Interpretation: Negative Thrive Assessment: Date of Thrive Assessment Date Thrive assessed 02/23/22 10/18/22 09:11 Const General: cooperative, healthy appearing and no acute distress Orientation/consciousness: oriented to person, oriented to place and oriented to time HENMT Head: Yes normal to inspection, Yes normocephalic and Yes atraumatic Mouth: Normal oral and palatal mucosa present and tongue normal Throat: Yes posterior oropharynx normal and Yes uvula midline Eyes General: appearance normal, both eyes and all related structures Neck Neck: Yes normal visual inspection, Yes full ROM and Yes no lymphadenopathy Thyroid: Thyroid normal Carotids: normal carotid upstroke Chest Chest palpation & inspection: normal inspection of the chest Resp Effort & Inspection: normal respiratory effort and able to speak in complete sentences Auscultation: clear to auscultation bilaterally Cardio Jugular venous distension: no JVD Palpation: normal PMI Rate: regular rate Rhythm: regular rhythm Heart sounds: S1 normal heart sound present and S2 normal heart sound present GI Inspection: Yes normal to inspection Palpation (GI): Soft to palpation and No hepatosplenomegaly present Auscultation: normal bowel sounds General: Yes no CVA tenderness Back/Spine/Pelvis Back: no CVA tenderness Skin General skin exam: no rashes or lesions noted Neuro General: oriented to person, oriented to place and oriented to time Extrem General: Yes normal to inspection and Yes full ROM Assessment and Plan Assessment & Plan (1) Vertebrogenic low back pain: Code(s): M54.51 - Vertebrogenic low back pain Plan: f/u with pain management (2) Pain in right shoulder: Code(s): M25.511 - Pain in right shoulder Plan: pain management (3) Chronic pain syndrome: Code(s): G89.4 - Chronic pain syndrome Plan: pain management Coding Level of Care Code Est Pt Level 3 (39867) Diagnoses Vertebrogenic low back pain M54.51 Pain in right shoulder M25.511 Chronic pain syndrome G89.4
[2022-10-18 09:09] VITALS: BP 128/76; PULSE 78; O2SAT 98; BMI 25.3
== END 2022-10-18 09:47 | disposition home or self-care (01) ==
PROVIDERS: PCP Internal Medicine; Visit Provider Internal Medicine
DX: M54.51 Vertebrogenic low back pain (principal); M25.511 Pain in right shoulder; G89.4 Chronic pain syndrome
CPT/HCPCS: 99213

== ENCOUNTER 2022-10-29 15:23 | Outpatient (AMB) | payer OTHER, SELFPAY ==
--- NOTE | 2022-10-29 15:35 | A.OFFVIS_ITS ---
Intake Vital Signs 10/29/22 15:46 Height 5 ft 5 in Weight 148 lb BMI 24.6 BP 134/82 Blood Pressure Location Rt brachial Position Sitting Respiration 14 Pulse 100 Pulse Source Pulse Oximeter Pulse Oximetry (%) 99 Oxygen Delivery Method Room Air Intake Visit Reasons: Right theraputic subacromial inj Allergies No Known Allergies Allergy (Verified 10/18/22 09:09) HPI Right theraputic subacromial inj HPI Details 57-year-old male who presents today to t office for a right therapeutic subacromial injections. Denies any recent cough, cold, infection, fever or other significant changes in medical history since last office visit. [facility] Medical History Cervicalgia Hemiplegia and hemiparesis following cerebral infarction affecting left non- dominant side History of kidney stones Hypertension Myalgia Occipital neuralgia Opioid dependence Pain in right shoulder Pain in thoracic spine Radiculopathy, cervical region Radiculopathy, lumbar region Segmental and somatic dysfunction of rib cage Stroke Surgical History History of back surgery Family History Father No problems noted. Mother No problems noted. Social History Housing: House Alcohol intake: never Patient Tobacco Use Status: Former Tobacco user Quit Date: 2011 Tobacco use type: Cigarette e-Cigarette/Vaping Use: Never Used Second Hand Smoke Exposure: No service: No Current occupational status: employed Cognitive needs: No Hearing needs: No Vision needs: No Review of Systems Const All systems reviewed & are unremarkable except as noted in HPI and below Physical Exam Vital Signs: Last Vital Signs Pulse 100 10/29/22 15:46 Resp 14 10/29/22 15:46 BP 134/82 10/29/22 15:46 Pulse Ox 99 10/29/22 15:46 Oxygen Delivery Method Room Air 10/29/22 15:46 BMI result Body Mass Index 24.6 General: Appears afebrile. Alert and oriented. Mood and affect appropriate. Follows and participates in conversation appropriately. Respiratory effort is unlabored. Able to transition from sit to stand unassisted. Ambulates with bilaterally normal heel strike and toe off. Office Procedures Joint Injection/Drain Joint Injection/Drain Details: Right therapeutic subacromial injection, US guided. Primary Site: right shoulder Prep: site was prepped using aseptic technique and site was prepped using sterile technique Injected: 40 mg of, Kenalog, with 3 mL of, 0.25% bupivacaine and in the subcromial space (right ) Procedure: The patient tolerated the procedure well Coding Details: An ultrasound image of the injection was taken and stored in the permanent record. [id number] - Acromioclavicular with ultrasound guidance Procedure code (CPT) selection complete Results Reviewed Results Reviewed: No imaging is available for review. Assessment & Plan Assessment & Plan (1) Pain in right shoulder: Code(s): M25.511 - Pain in right shoulder Plan Patient is status post right therapeutic subacromial injections. Patient tolerated procedure well and was discharged home in stable condition with discharge instructions. All questions were answered. We will follow-up in two weeks via telephone or in clinic to assess response to therapy. A follow-up appointment was made during today's visit. Scribed for Dr. Barksdale by Kirill Woods, medical office representative, on 10/29/2022. I, Dr. Barksdale, have personally reviewed and agree with the information entered by the scribe. Coding Level of Care Code Procedure Only Diagnoses Pain in right shoulder M25.511 CPT Codes Coding - Joint 6: - Acromioclavicular with ultrasound guidance ([id number])
[2022-10-29 15:46] VITALS: BP 134/82; PULSE 100; RESP 14; O2SAT 99; BMI 24.6
== END 2022-10-29 15:44 | disposition home or self-care (01) ==
PROVIDERS: PCP Internal Medicine; Visit Provider Internal Medicine
DX: M25.511 Pain in right shoulder (principal)
CPT/HCPCS: 20606; 20611

== ENCOUNTER → 2022-10-29 15:23 | Outpatient (BNVA) | payer OTHER, SELFPAY | PROVIDERS: PCP Internal Medicine; Visit Provider Internal Medicine | DX: M25.511 Pain in right shoulder (principal) | CPT/HCPCS: 20606; 20611; J3301 ==

== ENCOUNTER 2022-11-08 12:57 | Outpatient (AMB) | payer OTHER, SELFPAY ==
[2022-11-08 13:05] VITALS: BP 132/70; PULSE 85; O2SAT 98; BMI 24.6
--- NOTE | 2022-11-08 13:05 | A.OFFPC_ITS ---
Vital Signs 11/08/22 13:05 Height 5 ft 5 in Weight 148 lb BMI 24.6 BP 132/70 Blood Pressure Location Lt brachial Position Sitting Pulse 85 Pulse Source Pulse Oximeter Pulse Oximetry (%) 98 Oxygen Delivery Method Room Air Intake Visit Reasons: 3 week f/u [employer] Ii Inspector: Not Required per policy Accompanied by: Self / Same As Patient Allergies No Known Allergies Allergy (Verified 11/08/22 13:06) Medication List - Last Reconciled 11/08/22 by Morales Oneil MD acetaminophen (Tylenol Extra Strength) 1,000 mg PO Q6H PRN amlodipine 2.5 mg PO DAILY ibuprofen 600 mg PO QID naproxen (Naprosyn) 500 mg PO BID PRN oxycodone mg PO topiramate 25 mg PO BID Tobacco use date assessed: 09/26/22 Dental Screening Dental Screen Date: 11/08/22 Did you have a dental visit in the last 12 months?: Yes Did you have a dental problem in the last 6 months where you did not have access to dental care?: No Was dental information given to patient?: Patient has dentist HPI 3 week f/u HPI Details chronic back pain; has seen [facility] and getting injections; perhaps a nerve stimulator ir intra thecal device; can not work at present; receiving oxycodone from them too [facility] Medical History Segmental and somatic dysfunction of rib cage Occipital neuralgia Cervicalgia Pain in right shoulder Myalgia Hemiplegia and hemiparesis following cerebral infarction affecting left non- dominant side Radiculopathy, cervical region Pain in thoracic spine Radiculopathy, lumbar region Opioid dependence History of kidney stones Stroke Hypertension Surgical History History of back surgery Family History Father No problems noted. Mother No problems noted. Social History Housing: House Alcohol intake: never Patient Tobacco Use Status: Former Tobacco user Quit Date: 2011 Tobacco use type: Cigarette e-Cigarette/Vaping Use: Never Used Second Hand Smoke Exposure: No service: No Current occupational status: employed Cognitive needs: No Hearing needs: No Vision needs: No Questionnaire PHQ-9 Over the last 2 weeks, how often have you been bothered by any of the following problems? 1. Little interest or pleasure in doing things: not at all 2. Feeling down, depressed, or hopeless: not at all 3. Trouble falling or staying asleep, or sleeping too much: not at all 4. Feeling tired or having little energy: not at all 5. Poor appetite or overeating: not at all 6. Feeling bad about yourself - or that you are a failure or have let yourself or your family down: not at all 7. Trouble concentrating on things, such as reading the newspaper or watching television: not at all 8. Moving or speaking so slowly that other people could have noticed. Or the opposite - being so fidgety or restless that you have been moving around a lot more than usual: not at all 9. Thoughts that you would be better off or of hurting yourself in some way: not at all Total score: 0 Depression Screening Interpretation: Negative 14333 - PHQ-9 Billing: Yes Source: Developed by Drs. Vipul Syed, Danielle Salas, Narayan Raines and colleagues, with an educational omar from [employer]. Thrive Questionnaire Date Thrive assessed: 02/23/22 AUDIT C Alcohol Use Questionnaire (AUDIT-C) 1. How often do you have a drink containing alcohol?: Never Total Score: 0 OSORIO-7 AMB Questionnaire OSORIO-7 Date OSORIO - 7 assessed: 02/23/22 Source: Developed by Drs. Vipul Syed, Dnaielle Salas, Narayan Raines and colleagues, with an educational omar from [employer]. Review of Systems Const Denies chills, Denies headache(s) and Denies weight loss ENT Denies headache(s) Card Denies chest pain, Denies syncope, Denies irregular heart rhythm and Denies dyspnea Resp Denies chest congestion, Denies cough and Denies dyspnea GI Denies abdominal pain, Denies change in stool character, Denies nausea and Denies vomiting Musc Denies deformity and Denies joint swelling Neuro Denies syncope and Denies headache(s) Physical exam (Primary Care) Vital Signs: Last Vital Signs Pulse 85 11/08/22 13:05 BP 132/70 11/08/22 13:05 Pulse Ox 98 11/08/22 13:05 Oxygen Delivery Method Room Air 11/08/22 13:05 BMI result Body Mass Index 24.6 Tobacco/Smoking Status: Tobacco use Status Tobacco use date assessed 09/26/22 11/08/22 13:09 Patient Tobacco Use Status Former Tobacco user 11/08/22 13:09 Tobacco use type Cigarette 11/08/22 13:09 e-Cigarette/Vaping Use Never Used 11/08/22 13:09 PHQ-9: PHQ-9 Score PHQ-9: Total score 0 11/08/22 13:09 Depression Screening Interpretation: Negative Thrive Assessment: Date of Thrive Assessment Date Thrive assessed 02/23/22 11/08/22 13:09 Const General: cooperative, comfortable, no acute distress and alert Neck Neck: Yes no lymphadenopathy Thyroid: Thyroid normal Resp Effort & Inspection: normal respiratory effort Auscultation: clear to auscultation bilaterally Percussion: percussion normal Cardio Jugular venous distension: no JVD Palpation: normal PMI Rate: regular rate Rhythm: regular rhythm Heart sounds: S1 normal heart sound present and S2 normal heart sound present GI Inspection: Yes normal to inspection Palpation (GI): No hepatosplenomegaly present Skin General skin exam: no rashes or lesions noted Extrem General: Yes no clubbing, cyanosis or edema Assessment and Plan Assessment & Plan (1) Back pain, lumbosacral: Code(s): M54.50 - Low back pain, unspecified Plan: per [facility] Coding Level of Care Code Est Pt Level 3 (41872) Diagnoses Back pain, lumbosacral M54.50
== END 2022-11-08 13:29 | disposition home or self-care (01) ==
PROVIDERS: PCP Internal Medicine; Visit Provider Internal Medicine
DX: M54.50 Low back pain, unspecified (principal)
CPT/HCPCS: 99213

== ENCOUNTER 2022-11-09 09:52 | Outpatient (REF) | payer OTHER, SELFPAY ==
--- NOTE | ~2022-11-09 | XR_ITS ---
EXAMINATION: XR SHOULDER, LEFT CLINICAL INFORMATION: Left shoulder pain COMPARISON: X-ray 01/25/2020 TECHNIQUE: AP external rotation, Grashey, scapular Y, and axillary views of the left shoulder. FINDINGS: No fracture. Glenohumeral and acromioclavicular alignment is anatomic with normal joint space. No abnormal soft tissue calcifications. XR/XR shoulder LT min 2V IMPRESSION: No significant osseous abnormality
--- NOTE | ~2022-11-09 | XR_ITS ---
EXAMINATION: XR CERVICAL SPINE CLINICAL INFORMATION: Cervicalgia. COMPARISON: None available. TECHNIQUE: 3 views of the cervical spine were obtained. FINDINGS: The cervical spine is visualized from C1-mid C7 vertebral body. Slight straightening of the cervical curvature. There is mild retrolisthesis of C3 on C4, C4 on C5, C5 on C6. Vertebral body heights are maintained. No evidence of acute fracture. Multilevel disc degenerative changes. This includes mild-moderate disc degeneration at C3-C4, C5-C6. Alignment of the posterior elements appears intact. No significant prevertebral soft tissue swelling. Base of the dens is intact. On the swimmer's view, the visualized vertebral bodies grossly demonstrate normal height. Lung apices are clear. XR/XR cervical spine 3V IMPRESSION: Cervical spondylosis. This includes mild-moderate disc degeneration at C3-C4, C5-C6. No radiographic evidence of acute fracture.
== END 2022-11-09 09:53 | disposition home or self-care (01) ==
LOC: HO.XRAY 09:52
PROVIDERS: PCP Internal Medicine; Visit Provider Nurse Practitioner Family
DX: M25.512 Pain in left shoulder (principal); M54.2 Cervicalgia
CPT/HCPCS: 72040; 73030

== ENCOUNTER 2022-11-09 09:52 | Outpatient (AMB) | payer OTHER, SELFPAY ==
--- NOTE | 2022-11-09 10:19 | MHC.OFFVIS ---
Intake Vital Signs 11/09/22 10:22 Height 5 ft 5 in Weight 148 lb 5 oz BMI 24.7 BP 134/86 Blood Pressure Location Rt brachial Position Sitting Pulse 84 Pulse Source Pulse Oximeter Pulse Oximetry (%) 97 Oxygen Delivery Method Room Air Intake Visit Reasons: Left Shoulder Inj Discussion Intake Note: Pain today 08/27 Jewel Diameter Gauger Required: No Accompanied by: Self / Same As Patient Allergies No Known Allergies Allergy (Verified 11/09/22 10:23) HPI HPI Comments History of Present Illness Details Patient presents today for follow up to assess response to right therapeutic subacromial injections on 10/29/[address] Barksdale. Patient reports ongoing 50% pain relief in right shoulder with satisfactory improvement in his range of motion and movements on the right. Patient now reports similar symptoms on his left anterior aspect of shoulder with pain radiation to both sides of the neck. Patient denies any recent injury, trauma or falls. He has been on FMLA leave from work and finds some relief for his ongoing back and right shoulder symptoms but would like to proceed with injections for his left shoulder as well. Denies any recent cough, cold, infection, fever. headaches, visual changes, chest pain, shortness of breaths or other significant changes in medical history since last office visit. Past Procedures: 10/29/22: Right therapeutic subacromial injection-50% pain relief, ongoing [facility] Medical History (Updated 11/09/22 @ 10:30 by RAYMOND Goetz) Segmental and somatic dysfunction of rib cage Occipital neuralgia Cervicalgia Pain in right shoulder Myalgia Hemiplegia and hemiparesis following cerebral infarction affecting left non-dominant side Radiculopathy, cervical region Pain in thoracic spine Radiculopathy, lumbar region Opioid dependence History of kidney stones Stroke Hypertension Surgical History History of back surgery Family History Father No problems noted. Mother No problems noted. Social History Housing: House Alcohol intake: never Patient Tobacco Use Status: Former Tobacco user Quit Date: 2011 Tobacco use type: Cigarette e-Cigarette/Vaping Use: Never Used Second Hand Smoke Exposure: No service: No Current occupational status: employed Cognitive needs: No Hearing needs: No Vision needs: No Review of Systems Const All systems reviewed & are unremarkable except as noted in HPI and below Physical Exam Vital Signs: Last Vital Signs Pulse 84 11/09/22 10:22 BP 134/86 11/09/22 10:22 Pulse Ox 97 11/09/22 10:22 Oxygen Delivery Method Room Air 11/09/22 10:22 BMI result Body Mass Index 24.7 General: Appears afebrile. Alert and oriented. Mood and affect appropriate. Follows and participates in conversation appropriately. Respiratory effort is unlabored. Able to transition from sit to stand unassisted. Ambulates with bilaterally normal heel strike and toe off. Extrem General: Yes capillary refill normal and Yes no clubbing, cyanosis or edema Right upper extremity: shoulder/upper arm Details: normal to inspection, tenderness Location: of the A-C joint (mild TTP) and normal ROM Left upper extremity: shoulder/upper arm (Pain with overhead reaches. ) Details: inspection abnormal and tenderness Location: of the clavicle, of the A-C joint and over the biceps tendon; no swelling and no crepitus Assessment & Plan Assessment & Plan (1) Cervicalgia: Code(s): M54.2 - Cervicalgia (2) Left shoulder pain: Code(s): M25.512 - Pain in left shoulder (3) Pain in right shoulder: Code(s): M25.511 - Pain in right shoulder Plan Patient is status post right therapeutic subacromial injection with ongoing 50% pain relief with partial improvement in his function and pain. Left shoulder and neck x-rays to assess degree of degenerative changes prior to proceeding with interventional treatments for left shoulder pain and axial cervical pain. All questions and concerns have been answered and patient agreed with the plan. Follow up for xray results and sooner if needed. Orders: Orders XR shoulder LT min 2V 11/09/22 M25.512 - Pain in left shoulder XR cervical spine 3V 11/09/22 M54.2 - Cervicalgia Coding Level of Care Code Est Pt Level 3 (57447) Diagnoses Cervicalgia M54.2 Left shoulder pain M25.512 Pain in right shoulder M25.511
[2022-11-09 10:22] VITALS: BP 134/86; PULSE 84; O2SAT 97; BMI 24.7
== END 2022-11-09 10:29 | disposition home or self-care (01) ==
PROVIDERS: PCP Internal Medicine; Visit Provider Nurse Practitioner Family
DX: M54.2 Cervicalgia (principal); M25.512 Pain in left shoulder; M25.511 Pain in right shoulder
CPT/HCPCS: 99213

== ENCOUNTER 2022-11-21 05:58 | Outpatient (REF) | payer OTHER, SELFPAY | END 2022-11-21 05:59 | disposition home or self-care (01) | LOC: CF 05:58 | PROVIDERS: Visit Provider Internal Medicine | DX: M96.1 Postlaminectomy syndrome, not elsewhere classified (principal); M54.16 Radiculopathy, lumbar region | CPT/HCPCS: 62323; J1040 ==

== ENCOUNTER 2022-11-21 09:07 | Outpatient (AMB) | payer OTHER, SELFPAY ==
[2022-11-21 09:11] VITALS: BP 116/68; PULSE 81; RESP 14; O2SAT 100
--- NOTE | 2022-11-21 09:11 | MHC.OFFVIS ---
Intake Vital Signs 11/21/22 09:11 11/21/22 10:12 BP 116/68 140/62 H Blood Pressure Location Rt brachial Rt brachial Position Sitting Sitting Respiration 14 14 Pulse 81 81 Pulse Source Pulse Oximeter Pulse Oximeter Pulse Oximetry (%) 100 100 Oxygen Delivery Method Room Air Room Air Intake Visit Reasons: caudal ANIA w/ cath Allergies No Known Allergies Allergy (Verified 11/21/22 09:11) HPI caudal ANIA w/ cath HPI Details Patient presents for scheduled procedure. Denies any recent cough, cold, infection, fever or other significant changes in medical history since last office visit. [facility] Medical History (Updated 11/21/22 @ 09:40 by Adam Barksdale MD) Segmental and somatic dysfunction of rib cage Occipital neuralgia Cervicalgia Pain in right shoulder Myalgia Hemiplegia and hemiparesis following cerebral infarction affecting left non-dominant side Radiculopathy, cervical region Pain in thoracic spine Radiculopathy, lumbar region Opioid dependence History of kidney stones Stroke Hypertension Surgical History History of back surgery Family History Father No problems noted. Mother No problems noted. Social History Housing: House Alcohol intake: never Patient Tobacco Use Status: Former Tobacco user Quit Date: 2011 Tobacco use type: Cigarette e-Cigarette/Vaping Use: Never Used Second Hand Smoke Exposure: No service: No Current occupational status: employed Cognitive needs: No Hearing needs: No Vision needs: No Physical Exam Vital Signs: Last Vital Signs Pulse 81 11/21/22 10:12 Resp 14 11/21/22 10:12 BP 140/62 H 11/21/22 10:12 Pulse Ox 100 11/21/22 10:12 Oxygen Delivery Method Room Air 11/21/22 10:12 Office Procedures Joint Injection/Drain Joint Injection/Drain Details: Caudal ANIA with catheter After obtaining written consent, pre-procedure blood pressure and pulse were measured. Standard monitors were applied. The patient was placed in the prone position. The lumbosacral area was widely prepped with chloraprep and draped in sterile fashion. The skin overlying the target was anesthetized with 0.5% lidocaine. A 17 G needle was used to access the caudal epidural space using anatomic landmarks and x-ray guidance. We then threaded a catheter up to the S1 level and injected contrast 1cc omnipaque 180 for verification of epidural spread. Following negative aspiration of heme or CSF, 10 mL of normal saline was injected followed by a mixture of 5 ml 0.5% lidocaine with 80 mg methylprednisolone with minimal pressure into the epidural space. The needle was removed, skin cleansed and a sterile bandage was applied. The patient tolerated the procedure well and no complications were encountered. Following the procedure the patient's vital signs were stable. The patient was discharged home in good condition with post-procedural instructions. Time Out: Immediately prior to the procedure, the following was verbally confirmed that there is a signed consent form and that the correct patient, planned procedure, site and side are consistent with documentation and that necessary equipment and/or blood products are available prior to the start of the case. Complications: none EBL: <5 cc Coding 16308 - Caudal/Lumbar Epidural/Interlaminar with fluoroscopy Procedure code (CPT) selection complete Assessment & Plan Assessment & Plan (1) Lumbar post-laminectomy syndrome: Code(s): M96.1 - Postlaminectomy syndrome, not elsewhere classified (2) Lumbar radicular pain: Code(s): M54.16 - Radiculopathy, lumbar region Plan Patient is status post caudal ANIA with catheter. Patient tolerated procedure well and was discharged home in stable condition with discharge instructions. All questions were answered. We will follow-up via telephone or in clinic to assess response to therapy. A follow-up appointment was made during today's visit. Orders: Orders FL guidance in treatment room Today M96.1 - Postlaminectomy syndrome, not elsewhere classified Coding Level of Care Code Procedure Only Diagnoses Lumbar post-laminectomy syndrome M96.1 Lumbar radicular pain M54.16 CPT Codes Coding - Joint 11: 27992 - Caudal/Lumbar Epidural/Interlaminar with fluoroscopy ([id number])
[2022-11-21 10:12] VITALS: BP 140/62; PULSE 81; RESP 14; O2SAT 100
== END 2022-11-21 10:06 | disposition home or self-care (01) ==
LOC: HO.PMCPRC 09:07
PROVIDERS: PCP Internal Medicine; Visit Provider Internal Medicine
DX: M96.1 Postlaminectomy syndrome, not elsewhere classified (principal); M54.16 Radiculopathy, lumbar region
CPT/HCPCS: 62323

== ENCOUNTER 2022-12-07 09:54 | Outpatient (AMB) | payer OTHER, SELFPAY ==
--- NOTE | 2022-12-07 10:03 | MHC.OFFVIS ---
Intake Vital Signs 12/07/22 10:07 Height 5 ft 5 in Weight 145 lb 2 oz BMI 24.1 BP 140/89 H Blood Pressure Location Rt brachial Position Sitting Pulse 100 Pulse Source Pulse Oximeter Pulse Oximetry (%) 99 Oxygen Delivery Method Room Air Intake Visit Reasons: s/p caudal ANIA Allergies No Known Allergies Allergy (Verified 12/07/22 10:08) HPI HPI Comments History of Present Illness Details Patient presents today to assess response to Caudal ANIA with catheter on 11/21/[address] Barksdale. Patient reports 0% pain relief since procedure with ongoing low back pain and bilateral leg pain, worse on the left. Patient reports he has been deemed non surgical by two Neurosurgeons, including our [facility]. Patient has passed behavioral assessment and would like to proceed with Spinal Cord Stimulation trial for post laminectomy syndrome. He also reports occasional mid back pain without midline tenderness. He reports neck pain has been better. Cervical spine xray was reviewed with patient today and is noted below. Denies any fever, bladder or bowel dysfunction or saddle anesthesia. Past Procedures: 11/21/22: Caudal ANIA with catheter-0% pain relief 10/29/22: Right therapeutic subacromial injection-50% pain relief, ongoing PRIOR: Patient is a pleasant 57 years old female with prior L4-L5 decompression in 2006 and lumbar degenerative disc disease presents today with significant low back pain with bilateral leg pain for over one year. Patient also reports right shoulder pain. He is accompanied by his daughter who assists with translation. Denies any recent trauma, injury or falls. Reports increase in right shoulder pain with overhead and backside pocket reaches due to repetitive motion at his work. He was seen in [facility] ER recently for right shoulder pain and received Ketorolac and lidocaine injection without any relief with imaging showing calcific tendinitis and bursitis. Patient reports increased falling due to worsening back pain and bilateral leg weakness and legs giving out due to pain. Back pain is axial and also radiates in lateral distribution of both legs and dorsal feet with numbness and tingling, worse on the right side. Patient describes his pain as sharp, shooting and significant pressure sensation that radiates into his lateral hips bilaterally. He was seen by multiple providers, including Dr. Bill at [facility] and Jason BRUCE at [facility] due to lumbar L4-L5 almost complete fusion but was deemed non surgical at this time. Per recent lumbar spine MRI and CT scan reports, patient also has significant degenerative changes on the endplates with almost disc fusion L4-L5 disc level, with Schmorl's nodes and Modic changes. These findings correlate with his symptoms of bilateral lower extremity pain and weakness as well as axial low back pain that has been interfering with his ability to ambulate. Reports history of back injections at [facility] with partial pain relief. He is currently takes oxycodone and Tylenol that provides him mild analgesia. Pain affects his daily activities, functioning, sleep, mood and quality of life. Given worsening of back pain with recent right shoulder pain, he does not believe he can continue to work, even with light duty arrangements. Denies any fever, weight loss, abdominal or groin pain, foot drop, bladder/bowel dysfunction or saddle anesthesia. Location Lower back pain with radiation to lower extremities, right shoulder pain Duration Chronic pain >1.5 years Characteristics of symptom or complaint Aching, heavy, pressure, numbness, burning, pinching, sharp, throbbing Aggravating or associated factors Walking, standing, prolonged sitting, bending, twisting, movements Relieving factors Oxycodone 10mg, Tylenol, ice/heat therapy, rest, activity modifications Treatment PT, back injections, right shoulder injection-minimal effects [facility] Medical History Segmental and somatic dysfunction of rib cage Occipital neuralgia Cervicalgia Pain in right shoulder Myalgia Hemiplegia and hemiparesis following cerebral infarction affecting left non-dominant side Radiculopathy, cervical region Pain in thoracic spine Radiculopathy, lumbar region Opioid dependence History of kidney stones Stroke Hypertension Surgical History History of back surgery Family History Father No problems noted. Mother No problems noted. Social History Housing: House Alcohol intake: never Patient Tobacco Use Status: Former Tobacco user Quit Date: 2014 Tobacco use type: Cigarette Smoked in Last 30 Days: No e-Cigarette/Vaping Use: Never Used Second Hand Smoke Exposure: No Are you DNR?: No Advance Directives: No Advance Directives Information Provided: Yes Recently lost weight without trying: Yes How much weight loss: 24-33 pounds Eating poorly because of decreased appetite: No Nutrition screen score: 5 Nutrition Risks: No Nutritional Risk Poor oral hygiene: No service: No Current occupational status: employed Cognitive needs: No Hearing needs: No Vision needs: No Review of Systems Const All systems reviewed & are unremarkable except as noted in HPI and below Physical Exam Vital Signs: Last Vital Signs Pulse 100 12/07/22 10:07 BP 140/89 H 12/07/22 10:07 Pulse Ox 99 12/07/22 10:07 Oxygen Delivery Method Room Air 12/07/22 10:07 BMI result Body Mass Index 24.1 General: Appears afebrile. Alert and oriented. Mood and affect appropriate. Follows and participates in conversation appropriately. Respiratory effort is unlabored. No cough. Able to transition from sit to stand unassisted. Ambulates with bilaterally normal heel strike and toe off but reports unsteadiness on the left. Neck Neck: Yes normal visual inspection, Yes no lymphadenopathy, Yes supple, No anterior neck swelling and Yes no JVD Back/Spine/Pelvis Other: Limited lumbar ROM, bending, extension, flexion reproduce his mid to lower back pain. Antalgic gait, no limping. Seated straight leg rise with dorsiflexion positive on the left. +1 patellar and achilles reflexes bilaterally. Facet loading test positive bilaterally. Daren's test and pelvic compression reproduces left lateral hip pain and left lower back pain. Cervical Spine: cervical muscular tenderness, Cervical spine tenderness and No step off deformity Thoracic/Lumbar Spine: thoracic and lumbar spine normal to inspection, Thoracic/lumbar spine scar(s), Lasegue's sign positive on the left and localized, pain with thoraco-lumbar ROM, paraspinal muscle tenderness (L3-S1) bilaterally, thoraco-lumbar ROM limited, thoracic spinal tenderness at T9 and at T10 and lumbar spinal tenderness at L4 and at L5 Pelvis: buttock tenderness on the left Sacroiliac joints: bilaterally tender to palpation Results Reviewed Results Reviewed: XR CERVICAL SPINE 11/09/22 FINDINGS: The cervical spine is visualized from C1-mid C7 vertebral body. Slight straightening of the cervical curvature. There is mild retrolisthesis of C3 on C4, C4 on C5, C5 on C6. Vertebral body heights are maintained. No evidence of acute fracture. Multilevel disc degenerative changes. This includes mild-moderate disc degeneration at C3-C4, C5-C6. Alignment of the posterior elements appears intact. No significant prevertebral soft tissue swelling. Base of the dens is intact. On the swimmer's view, the visualized vertebral bodies grossly demonstrate normal height. Lung apices are clear. IMPRESSION: Cervical spondylosis. This includes mild-moderate disc degeneration at C3-C4, C5-C6. No radiographic evidence of acute fracture. CT LUMBAR SPINE WITHOUT CONTRAST CLINICAL INFORMATION: Dorsalgia. COMPARISON: MRI lumbar spine 08/15/2007. FINDINGS: On sagittal reconstructed images is maintained lumbar lordosis. There is loss of L4-L5 and L5-S1 disc heights. The rest of the disc heights are normal. The vertebral heights and alignment is preserved normal. The L1-L2 and L2-L3 disc levels are unremarkable. At the L3-L4 disc level, there is mild flattening of ventral thecal sac from disc bulge resulting in mild canal stenosis. There is underlying mild facet joint hypertrophy as well. At the L4-L5 disc level, there is a left laminotomy defect. There is a posterior endplate spondylosis but no underlying disc bulge or spinal canal stenosis. There is mild bilateral narrowing of neural foramina from endplate spondylosis. At the L5-S1 disc level, there are endplate Schmorl's node and sclerosis. No aggressive lytic or sclerotic process seen. The neural foramina are patent bilaterally. The prevertebral and paravertebral soft tissues are normal. IMPRESSION: Degenerative disc changes with almost disc fusion L4-L5 disc level. There are degenerative disc changes at other disc levels but no visible disc herniation or nerve root impingement. There is mild disc bulge L3-L4 disc level with facet joint hypertrophy resulting in mild circumferential canal stenosis. There is possible left laminotomy defect at L4 vertebra from previous intervention. This findings was noted on the previous MRI lumbar spine 08/15/2007. Assessment & Plan Assessment & Plan (1) Thoracic back pain: Code(s): M54.6 - Pain in thoracic spine (2) Lumbar radicular pain: Code(s): M54.16 - Radiculopathy, lumbar region (3) Chronic pain syndrome: Code(s): G89.4 - Chronic pain syndrome (4) Degeneration of lumbar intervertebral disc: Code(s): M51.36 - Other intervertebral disc degeneration, lumbar region (5) Lumbar post-laminectomy syndrome: Code(s): M96.1 - Postlaminectomy syndrome, not elsewhere classified Plan Patient is status post Caudal ANIA injection with no pain relief. He was completed two Neurosurgical evaluations, including with our collegues and was deemed non-surgical candidate. Patient would like to proceed with Nevro Lumbar Spinal Cord Stimulation trial with sedation and fluoroscopy. Patient has passed Behavioral evaluation and report was scanned into his EMR. The trialed and failed therapy has been reviewed with the patient. The risks, consequences, alternatives, and benefits of various treatment options were discussed with the patient in great detail, including conservative management, injections and procedures. Patient not on anticoagulant All questions were answered and the patient is in agreement of plan. Follow-up after SCS trial and sooner as needed. Justification for interventional therapy: ? Patient with average pain > 6/10 ? Patient has exhausted conservative therapy The risks, consequences, alternatives, and benefits of various treatment options were discussed with the patient in great detail, including conservative management, injections and procedures. Orders: Orders XR thoracic spine 3V 12/07/22 M54.6 - Pain in thoracic spine Coding Level of Care Code Est Pt Level 3 (93447) Diagnoses Thoracic back pain M54.6 Lumbar radicular pain M54.16 Chronic pain syndrome G89.4 Degeneration of lumbar intervertebral disc M51.36 Lumbar post-laminectomy syndrome M96.1
[2022-12-07 10:07] VITALS: BP 140/89; PULSE 100; O2SAT 99; BMI 24.1
== END 2022-12-07 10:32 | disposition home or self-care (01) ==
PROVIDERS: PCP Internal Medicine; Visit Provider Nurse Practitioner Family
DX: M54.6 Pain in thoracic spine (principal); M54.16 Radiculopathy, lumbar region; G89.4 Chronic pain syndrome; M96.1 Postlaminectomy syndrome, not elsewhere classified
CPT/HCPCS: 99213

== ENCOUNTER 2022-12-07 12:52 | Day surgery (SDC) | payer OTHER, SELFPAY ==
--- NOTE | 2022-12-06 11:53 | HO.ANESPROP2 ---
Documented by User: Torri Kerr NP 12/06/22 11:54 HPI - Anesthesia Eval Consult details Narrative: 57yo M for Colonoscopy Chronic opioids PMFSH Active Problems Active Problems: All Active Problems (Updated 11/21/22 @ 09:40 by Adam Barksdale MD) Lumbar radicular pain (Acute) Left shoulder pain (Acute) Cervicalgia (Acute) Back pain, lumbosacral (Acute) Calcific tendinitis of right shoulder (Acute) Vertebrogenic low back pain (Acute) Pain in right shoulder (Acute) Chronic pain syndrome (Acute) Degeneration of lumbar intervertebral disc (Acute) Lumbar post-laminectomy syndrome (Acute) Back pain of lumbar region with sciatica (Acute) Blunt trauma of rib (Acute) Hypertension (Acute) Physical exam (Acute) Back pain (Acute) Past Medical History Medical History Segmental and somatic dysfunction of rib cage Occipital neuralgia Cervicalgia Pain in right shoulder Myalgia Hemiplegia and hemiparesis following cerebral infarction affecting left non-dominant side Radiculopathy, cervical region Pain in thoracic spine Radiculopathy, lumbar region Opioid dependence History of kidney stones Stroke Hypertension Family History Family History Father No problems noted. Mother No problems noted. Surgical History Surgical History History of back surgery Social History Social History Housing: House Alcohol intake: never Patient Tobacco Use Status: Former Tobacco user Quit Date: 2014 Tobacco use type: Cigarette Smoked in Last 30 Days: No e-Cigarette/Vaping Use: Never Used Second Hand Smoke Exposure: No Are you DNR?: No Advance Directives: No Advance Directives Information Provided: Yes Recently lost weight without trying: Yes How much weight loss: 24-33 pounds Eating poorly because of decreased appetite: No Nutrition screen score: 5 Nutrition Risks: No Nutritional Risk Poor oral hygiene: No service: No Current occupational status: employed Cognitive needs: No Hearing needs: No Vision needs: No Meds Allergies Allergy/AdvReac Type Severity Reaction Status Date / Time No Known Allergies Allergy Verified 12/07/22 10:08 Home Medications Medication Instructions Recorded Confirmed Last Taken Type topiramate 25 mg tablet 25 mg PO BID 11/17/19 11/08/22 Unknown History acetaminophen 500 mg tablet 1,000 mg PO Q6H PRN Pain, Moderate 09/26/22 11/08/22 12/04/22 History (Tylenol Extra Strength) oxycodone 5 mg tablet mg PO 09/26/22 11/08/22 12/04/22 History ibuprofen 600 mg tablet 600 mg PO QID 10/18/22 11/08/22 12/04/22 History Exam Exam Date and Time: December 06, 2022 1153 Pertinent Lab Results Pertinent Lab Results: Laboratory Tests 09/26/22 10:02 WBC 6.9 Hgb 12.3 L Hct 37.1 L Plt Count 358 Sodium 142 Potassium 3.9 Chloride 107 Carbon Dioxide 28 BUN 15 Creatinine 0.91 Assessment and Plan Assessment Anesthesia Assessment: Chart Reviewed Documented by User: Wicho Villalta MD 12/07/22 14:29 [facility] Past Medical History Medical History Segmental and somatic dysfunction of rib cage Occipital neuralgia Cervicalgia Pain in right shoulder Myalgia Hemiplegia and hemiparesis following cerebral infarction affecting left non-dominant side Radiculopathy, cervical region Pain in thoracic spine Radiculopathy, lumbar region Opioid dependence History of kidney stones Stroke Hypertension Family History Family History Father No problems noted. Mother No problems noted. Family history of problems with anesthesia: No Surgical History Surgical History History of back surgery History of Problems with Anesthesia: No Social History Social History Housing: House Alcohol intake: never Patient Tobacco Use Status: Former Tobacco user Quit Date: 2014 Tobacco use type: Cigarette Smoked in Last 30 Days: No e-Cigarette/Vaping Use: Never Used Second Hand Smoke Exposure: No Are you DNR?: No Advance Directives: No Advance Directives Information Provided: Yes Recently lost weight without trying: Yes How much weight loss: 24-33 pounds Eating poorly because of decreased appetite: No Nutrition screen score: 5 Nutrition Risks: No Nutritional Risk Poor oral hygiene: No service: No Current occupational status: employed Cognitive needs: No Hearing needs: No Vision needs: No Meds Allergies Allergy/AdvReac Type Severity Reaction Status Date / Time No Known Allergies Allergy Verified 12/07/22 10:08 Home Medications Medication Instructions Recorded Confirmed Last Taken Type topiramate 25 mg tablet 25 mg PO BID 11/17/19 11/08/22 Unknown History acetaminophen 500 mg tablet 1,000 mg PO Q6H PRN Pain, Moderate 09/26/22 11/08/22 12/04/22 History (Tylenol Extra Strength) oxycodone 5 mg tablet mg PO 09/26/22 11/08/22 12/04/22 History ibuprofen 600 mg tablet 600 mg PO QID 10/18/22 11/08/22 12/04/22 History Exam Airway Mallampati Class: III TM Dist: >3cm Neck ROM: Full Assessment and Plan Assessment Anesthesia Assessment: Anesthesia Plan Discussed Final Anesthetic Review Family History of Problems with Anesthesia: No History of Problems with Anesthesia: No NPO: Yes ASA Class: II Final Preanesthetic Review: No Changes in Pt Med Stat, Meds/Allgs Chart Reviewed, Consent Obtained/Reviewed and Anes Risks/Benef Reviewed Patient Risk: Low Procedure Risk: Low Anesthetic Plan Anesthetic Plan: MAC: Disposition: Standard PACU
[2022-12-07 13:37] VITALS: BMI 24.1
[2022-12-07 13:43] VITALS: BP 137/85; PULSE 94; RESP 18; TEMP 36.4; O2SAT 96
[2022-12-07] MEDS: Lactated Ringers 1,000 ML 100 ML IVCONT (13:58)
--- NOTE | 2022-12-07 14:19 | PC.NURSE ---
Pt reports loss of 30 lbs over the past year without trying
--- NOTE | 2022-12-07 14:30 | PC.NURSE ---
Both Dr Villalta and Dr Stock made aware of pt reported weight loss over last year. Pt states his PCP is aware.
[2022-12-07 15:22] VITALS: BP 117/70; PULSE 75; RESP 15; TEMP 36.4; O2SAT 99
--- NOTE | 2022-12-07 15:24 | PM.OP ---
Brief Operative Note Date of Service: 12/07/22 Pre-op diagnosis: Screening Post-op diagnosis: other (Polyp) Procedure: Colonoscopy to the cecum and TI with biopsy/removal of polyp Surgeon: Vipul Stock MD Anesthesia: MAC Was an Interface Designer used for this Procedure?: No Estimated blood loss (mL): 2.0 Pathology: other (A. Transverse colon polyp) Condition: stable Disposition: PACU
[2022-12-07 15:37] VITALS: BP 120/72; PULSE 88; RESP 18; O2SAT 99
[2022-12-07 15:50] VITALS: BP 128/76; PULSE 73; RESP 16; TEMP 36.2; O2SAT 98
--- NOTE | 2022-12-07 21:22 | OP_ITS ---
DATE OF SERVICE: 12/07/2022 SURGEON: Vipul Stock MD INDICATIONS: The patient presents for evaluation of colorectal cancer screening. Full consent was obtained from him for this, including risks of bleeding and perforation. PREOPERATIVE DIAGNOSIS: Colorectal cancer screening. POSTOPERATIVE DIAGNOSIS: PROCEDURE PERFORMED: ESTIMATED BLOOD LOSS: COMPLICATIONS: ANESTHESIA: Monitored anesthesia care. ASSISTANTS: SPECIMENS: POSTOPERATIVE DIAGNOSES: Colorectal cancer screening, small colon polyp, mild sigmoid diverticulosis, and small internal hemorrhoids. PROCEDURES PERFORMED: Colonoscopy to the cecum and terminal ileum with biopsy and removal of polyp. DESCRIPTION OF PROCEDURE: The patient was placed in the left lateral decubitus position. The digital rectal exam revealed no abnormalities. The Olympus video pediatric colonoscope was entered into the rectum and advanced easily to the cecum. Once in the cecum, I did identify normal-appearing cecal pouch with appendiceal orifice and a normal-appearing ileocecal valve. The terminal ileum was cannulated and appeared normal. Scope was withdrawn back in the colon. The entire cecum and ileocecal valve appeared normal. The scope was slowly withdrawn assessing all mucosal surfaces carefully. Preparation was excellent. In the transverse colon, there was a flat, approximately 3 or 4 mm polyp, which was biopsied and completely removed with cold biopsy forceps. I did not visualize any other polyps, colitis, nor angiodysplasia. There was a mild amount of sigmoid diverticulosis. In the rectum, scope was retroflexed visualizing internal hemorrhoids, but no other pathology. The rectal mucosa appeared normal. The scope was straightened and withdrawn from the patient. He tolerated the procedure well and was returned to the recovery area in stable condition. IMPRESSION: 1. Small colon polyp. 2. Diverticulosis. 3. Internal hemorrhoids. PLAN: The results of the biopsy will be checked. If this is a tubular adenoma, I would recommend a followup coloscopy in 5 years. If it is only hyperplastic, I would recommend a followup coloscopy in 10 years. Of note, he did mention that he has been losing weight, but has no GI symptoms whatsoever. He specifically denied any anorexia, dysphagia, early satiety, nor abdominal pain. I did advise him to continue to monitor his weight and follow up with his primary care physician for any further testing as indicated. He says he feels well and at this point does not seem like there is a particular GI problem contributing to the weight loss. This has been discussed with his daughter, Keren as well. MD ANSELMO Alcantara/MORIAH / [phone] MTDKannan
== END 2022-12-07 16:07 | disposition home or self-care (01) ==
PROVIDERS: PCP Internal Medicine; Visit Provider Internal Medicine
PROC: 0DJD8ZZ Inspection of Lower Intestinal Tract, Via Natural or Artificial Opening Endoscopic (ICD-10-PCS; CPT 45378; principal; 2022-12-07 14:00)
DX: Z12.11 Encounter for screening for malignant neoplasm of colon (principal); D12.3 Benign neoplasm of transverse colon; K57.30 Diverticulosis of large intestine without perforation or abscess without bleeding; K64.8 Other hemorrhoids; R63.4 Abnormal weight loss; Z68.24 Body mass index [BMI] 24.0-24.9, adult; G89.4 Chronic pain syndrome; M54.16 Radiculopathy, lumbar region; M51.36 Other intervertebral disc degeneration, lumbar region; M54.81 Occipital neuralgia; M96.1 Postlaminectomy syndrome, not elsewhere classified; I69.354 Hemiplegia and hemiparesis following cerebral infarction affecting left non-dominant side; I10 Essential (primary) hypertension; F11.20 Opioid dependence, uncomplicated; Z87.891 Personal history of nicotine dependence; Z98.890 Other specified postprocedural states
CPT/HCPCS: 45380; 88305

== ENCOUNTER 2022-12-11 09:32 | Outpatient (REF) | payer OTHER, SELFPAY ==
--- NOTE | ~2022-12-11 | XR_ITS ---
EXAMINATION: XR THORACIC SPINE CLINICAL INFORMATION: Pain. COMPARISON: None available. TECHNIQUE: Frontal, lateral and swimmer's views of the thoracic spine were obtained. FINDINGS: There is no fracture or bone destruction seen, and the vertebral alignment is normal. There is mild disc space narrowing, particularly at T5-T6. There is multi-level mild to moderate spondylosis, most pronounced at T8-T9. The posterior elements are intact. There is no abnormality of the paraspinal soft tissues. XR/XR thoracic spine 3V IMPRESSION: 1. There is multi-level mild thoracic disc space narrowing, most pronounced at T5-T6. 2. There is multi-level mild to moderate thoracic spondylosis, most pronounced at T8-T9.
== END 2022-12-11 09:33 | disposition home or self-care (01) ==
LOC: HO.XRAY 09:32
PROVIDERS: PCP Internal Medicine; Visit Provider Nurse Practitioner Family
DX: M54.6 Pain in thoracic spine (principal)
CPT/HCPCS: 72072

== ENCOUNTER 2023-01-16 11:46 | Day surgery (SDC) | payer OTHER, SELFPAY ==
[2023-01-14 10:01] VITALS: BMI 24.1
--- NOTE | 2023-01-15 09:30 | P.CONAN_ITS ---
Documented by User: Torri Kerr NP 01/15/23 09:31 HPI - Anesthesia Eval Consult details Narrative: 57yo M for Spinal Cord Stimulation Trial Chronic opioids s/p colo 11/2022 with [facility]A PMF[facility] Active Problems Active Problems: All Active Problems (Updated 12/07/22 @ 10:30 by RAYMOND Goetz) Thoracic back pain (Acute) Lumbar radicular pain (Acute) Left shoulder pain (Acute) Cervicalgia (Acute) Back pain, lumbosacral (Acute) Calcific tendinitis of right shoulder (Acute) Vertebrogenic low back pain (Acute) Pain in right shoulder (Acute) Chronic pain syndrome (Acute) Degeneration of lumbar intervertebral disc (Acute) Lumbar post-laminectomy syndrome (Acute) Back pain of lumbar region with sciatica (Acute) Blunt trauma of rib (Acute) Hypertension (Acute) Physical exam (Acute) Back pain (Acute) Past Medical History Medical History Segmental and somatic dysfunction of rib cage Occipital neuralgia Cervicalgia Pain in right shoulder Myalgia Hemiplegia and hemiparesis following cerebral infarction affecting left non- dominant side Radiculopathy, cervical region Pain in thoracic spine Radiculopathy, lumbar region Opioid dependence History of kidney stones Stroke Hypertension Family History Family History Father No problems noted. Mother No problems noted. Family history of problems with anesthesia: No Surgical History Surgical History History of back surgery History of Problems with Anesthesia: No Social History Social History Housing: House Alcohol intake: never Patient Tobacco Use Status: Former Tobacco user Quit Date: 10 years ago; uses nicotine gum. Tobacco use type: Cigarette e-Cigarette/Vaping Use: Never Used Second Hand Smoke Exposure: No Use of substances other than those prescribed or required for medical reasons: No Are you DNR?: No Advance Directives: No Advance Directives Information Provided: Yes service: No Current occupational status: employed Cognitive needs: No Hearing needs: No Vision needs: No Meds Allergies Allergy/AdvReac Type Severity Reaction Status Date / Time No Known Allergies Allergy Verified 01/16/23 12:23 Home Medications Medication Instructions Recorded Confirmed Last Taken Type topiramate 25 mg tablet 25 mg PO BID 11/17/19 01/16/23 01/16/23 History acetaminophen 500 mg tablet 1,000 mg PO Q6H PRN Pain, Moderate 09/26/22 11/08/22 12/04/22 History (Tylenol Extra Strength) oxycodone 5 mg tablet 5 mg PO NEEDED 09/26/22 01/16/23 01/16/23 History ibuprofen 600 mg tablet 600 mg PO QID 10/18/22 11/08/22 12/04/22 History Exam Height,Weight and Vital Signs: Height 5 ft 5 in Weight 65.771 kg Pertinent Lab Results Pertinent Lab Results: Laboratory Tests 09/26/22 10:02 WBC 6.9 Hgb 12.3 L Hct 37.1 L Plt Count 358 Sodium 142 Potassium 3.9 Chloride 107 Carbon Dioxide 28 BUN 15 Creatinine 0.91 Assessment and Plan Assessment Anesthesia Assessment: Chart Reviewed Final Anesthetic Review Family History of Problems with Anesthesia: No History of Problems with Anesthesia: No Documented by User: Rosetta Brandt MD 01/16/23 12:27 [facility] Past Medical History Medical History Segmental and somatic dysfunction of rib cage Occipital neuralgia Cervicalgia Pain in right shoulder Myalgia Hemiplegia and hemiparesis following cerebral infarction affecting left non-d ominant side Radiculopathy, cervical region Pain in thoracic spine Radiculopathy, lumbar region Opioid dependence History of kidney stones Stroke Hypertension Family History Family History Father No problems noted. Mother No problems noted. Surgical History Surgical History History of back surgery Social History Social History Housing: House Alcohol intake: never Patient Tobacco Use Status: Former Tobacco user Quit Date: 10 years ago; uses nicotine gum. Tobacco use type: Cigarette e-Cigarette/Vaping Use: Never Used Second Hand Smoke Exposure: No Use of substances other than those prescribed or required for medical reasons: No Are you DNR?: No Advance Directives: No Advance Directives Information Provided: Yes service: No Current occupational status: employed Cognitive needs: No Hearing needs: No Vision needs: No Meds Allergies Allergy/AdvReac Type Severity Reaction Status Date / Time No Known Allergies Allergy Verified 01/16/23 12:23 Home Medications Medication Instructions Recorded Confirmed Last Taken Type topiramate 25 mg tablet 25 mg PO BID 11/17/19 01/16/23 01/16/23 History acetaminophen 500 mg tablet 1,000 mg PO Q6H PRN Pain, Moderate 09/26/22 11/08/22 12/04/22 History (Tylenol Extra Strength) oxycodone 5 mg tablet 5 mg PO NEEDED 09/26/22 01/16/23 01/16/23 History ibuprofen 600 mg tablet 600 mg PO QID 10/18/22 11/08/22 12/04/22 History Exam Airway Mallampati Class: II TM Dist: >3cm Neck ROM: Full Heart: rrr Lungs: cta Assessment and Plan Final Anesthetic Review NPO: Yes ASA Class: II Final Preanesthetic Review: No Changes in Pt Med Stat, Meds/Allgs Chart Reviewed and Consent Obtained/Reviewed Patient Risk: Intermediate Procedure Risk: Intermediate Anesthetic Plan Anesthetic Plan: MAC: Disposition: Standard PACU
--- NOTE | ~2023-01-16 | FL_ITS ---
EXAMINATION: XR FLUOROSCOPY WITH IMAGES CLINICAL INFORMATION: Spinal cord stimulation trial. COMPARISON: None available. TECHNIQUE: Fluoroscopy Supervised By: Dr. Adam Barksdale. Fluoroscopy Time: 2.1 minutes. Cumulative Dose: 34.9 mGy. DAP: 3.52 Gycm2. Images: 2. FINDINGS: Images demonstrate 2 leads projecting over the lower thoracic spinal canal. FL/FL guidance in OR IMPRESSION: Fluoroscopy guidance for pain management procedure
[2023-01-16 12:14] VITALS: BMI 25.4
[2023-01-16 12:41] VITALS: BP 140/71; PULSE 78; RESP 16; TEMP 36.1; O2SAT 98
[2023-01-16] MEDS: Lactated Ringers 1,000 ML 100 ML IVCONT (12:41)
[2023-01-16 15:41] VITALS: BP 133/73; PULSE 72; RESP 20; TEMP 36.6; O2SAT 99
--- NOTE | 2023-01-16 15:53 | MHC.SHP ---
Pre-Procedural Eval Section A Date of Service: 01/16/23 The patient is an INPATIENT: No Changes since office visit: Yes Patient answered all questions The History & Physical has been completed within 30 days and I have reviewed it.: No Section B Chief Complaint: Radiculopathy, lumbar region,Postlaminectomy syndr Relevant Family History (Specify if Yes): No Relevant Social History: None Present Medications: see Short Stay Collaborative assessment Medical History: No relevant PMH History of Previous Operations: Relevant previous surgery/procedure and date(s) (Lumbar spine surgery) Allergies: Allergies Allergy/AdvReac Type Severity Reaction Status Date / Time No Known Allergies Allergy Verified 01/16/23 12:23 Review of Systems Sugical H&P ROS: Negative: Constitution, Cardiovascular and Respiratory Exam Surgical H&P Exam: Normal: HEENT, Normal: Heart and Normal: Lungs Plan Diagnosis/Plan: Unchanged I have reviewed the history and physical and performed a pertinent physical examination on my patient. No changes have occurred unless specified. Time Spent With Patient Time: Total time managing care of this patient today ____ minutes.
--- NOTE | 2023-01-16 15:54 | P.BOP_ITS ---
Brief Operative Note Date of Service: 01/16/23 Pre-op diagnosis: Postlaminectomy syndrome Post-op diagnosis: same Procedure: Spinal cord stimulation trial leads placement Implants: Nevro SCS trial leads Surgeon: Adam Barksdale MD Anesthesia: MAC Was an Trigonometry Teacher used for this Procedure?: No Estimated blood loss (mL): 1 Pathology: none sent Condition: stable Disposition: PACU
--- NOTE | 2023-01-16 15:55 | W.PM.OPN ---
Operative Note Operative Note Date of Service: 01/16/23 Narrative: Percutaneous Spinal Cord Stimulator Trial, Lumbar After obtaining written consent, pre-procedure blood pressure and heart rate were recorded and are in the nursing record for review. A peripheral IV was started. Antibiotics, cefazolin 2 gram, were given intraoperatively. The patient was placed in a prone position. The patient was sedated by the anesthesiologist. The thoracolumbar area was widely prepped with ChloraPrep, allowed to dry and draped in sterile fashion. Fluoroscopy was used to identify the target interlaminar spaces and appropriate needle insertion sites. The skin and subcutaneous tissue was anesthetized with 0.5% lidocaine. Two separate 14 gauge Epimed coude epidural needles were then advanced from this point in a paramedian approach to the epidural space opening at T12/L1 interspace, where lost of resistance was found using air. No paresthesias were elicited with needle placement. No CSF or heme was present upon needle placement. The 1x8 stimulator lead wire was then threaded to the top of T8 in the right and left parasagittal positions under live fluoroscopy. The leads advanced midline and dorsally.?The needles were then completely removed under live fluoroscopy. The stimulator wires were then secured with 2-0 silk sutures, steristrips, gauze and tegaderm for skin dressing. The patient tolerated the procedure well and no complications were encountered. Following the procedure the patient's vital signs were stable. The patient was discharged home in good condition after being given discharge instructions. Time Out: Immediately prior to the procedure, the following was verbally confirmed that there is a signed consent form and that the correct patient, planned procedure, site and side are consistent with documentation and that necessary equipment and/or blood products are available prior to the start of the case. Complications: none EBL: <2 cc
[2023-01-16 15:56] VITALS: BP 136/71; PULSE 82; RESP 14; O2SAT 100
[2023-01-16 16:11] VITALS: BP 133/80; PULSE 73; RESP 15; TEMP 36.2; O2SAT 99
[2023-01-16 16:18] LABS: MRSA Nasal PCR NEGATIVE (Negative); SA Nasal PCR NEGATIVE (Negative)
== END 2023-01-16 16:27 | disposition home or self-care (01) ==
PROVIDERS: Registered Nurse Emergency; PCP Internal Medicine; Visit Provider Internal Medicine
PROC: (CPT 63650; principal; 2023-01-16 13:30)
DX: M54.16 Radiculopathy, lumbar region (principal); M96.1 Postlaminectomy syndrome, not elsewhere classified; M51.36 Other intervertebral disc degeneration, lumbar region; G89.4 Chronic pain syndrome; M54.50 Low back pain, unspecified; M79.605 Pain in left leg; M79.604 Pain in right leg; I69.354 Hemiplegia and hemiparesis following cerebral infarction affecting left non-dominant side; Z87.891 Personal history of nicotine dependence; Z91.81 History of falling; Z79.1 Long term (current) use of non-steroidal anti-inflammatories (NSAID); Z79.899 Other long term (current) drug therapy
CPT/HCPCS: 63650 ×2; 87640; 87641; C1897; J0690; J1885; J2250; J2704; J3010

== ENCOUNTER → 2023-01-16 11:46 | Outpatient (BNV) | payer OTHER, SELFPAY | PROVIDERS: PCP Internal Medicine; Visit Provider Internal Medicine | DX: M96.1 Postlaminectomy syndrome, not elsewhere classified (principal); M54.16 Radiculopathy, lumbar region | CPT/HCPCS: 63650 ==

== ENCOUNTER 2023-01-22 09:57 | Outpatient (AMB) | payer OTHER, SELFPAY ==
[2023-01-22 10:12] VITALS: BP 160/96; PULSE 94; RESP 16; O2SAT 96
--- NOTE | 2023-01-22 10:12 | A.OFFVIS_ITS ---
Intake Vital Signs 01/22/23 10:12 Height 5 ft BP 160/96 H Blood Pressure Location Lt brachial Position Left Lateral Respiration 16 Pulse 94 Pulse Source Pulse Oximeter Pulse Oximetry (%) 96 Oxygen Delivery Method Room Air Intake Visit Reasons: S/p Nevro SCS Trial 01/16/23/lvm Allergies No Known Allergies Allergy (Verified 01/22/23 10:11) PFSH Medical History Segmental and somatic dysfunction of rib cage Occipital neuralgia Cervicalgia Pain in right shoulder Myalgia Hemiplegia and hemiparesis following cerebral infarction affecting left non- dominant side Radiculopathy, cervical region Pain in thoracic spine Radiculopathy, lumbar region Opioid dependence History of kidney stones Stroke Hypertension Surgical History History of back surgery Family History Father No problems noted. Mother No problems noted. Social History Housing: House Alcohol intake: never Comment: NO COUNTS NEEDED Patient Tobacco Use Status: Former Tobacco user Quit Date: 10 years ago; uses nicotine gum. Tobacco use type: Cigarette e-Cigarette/Vaping Use: Never Used Second Hand Smoke Exposure: No service: No Current occupational status: employed Cognitive needs: No Hearing needs: No Vision needs: No Coding
--- NOTE | 2023-01-22 12:11 | MHC.OFFVIS ---
Intake Vital Signs 01/22/23 10:12 Height 5 ft BP 160/96 H Blood Pressure Location Lt brachial Position Left Lateral Respiration 16 Pulse 94 Pulse Source Pulse Oximeter Pulse Oximetry (%) 96 Oxygen Delivery Method Room Air Intake Visit Reasons: S/p Nevro SCS Trial 01/16/23/lvm Allergies No Known Allergies Allergy (Verified 01/22/23 10:11) HPI HPI Comments History of Present Illness Details Patient presents today status post Nevro SCS trial on 01/16/[address] Barksdale. Patient reports 80% pain relief since procedure with significant improvement in his low back pain and partially in bilateral leg pain. Patient notices increased mobility, better functioning, better range of motion in his back and better sleep. Patient would like to proceed with an implant of SCS with Nevro. Denies any fever, bladder or bowel dysfunction or saddle anesthesia. Past Procedures: 01/16/23: Lumbar Nevro SCS trial-80% pain relief 11/21/22: Caudal ANIA with catheter-0% pain relief 10/29/22: Right therapeutic subacromial injection-50% pain relief, ongoing PRIOR: Patient is a pleasant 57 years old female with prior L4-L5 decompression in 2006 and lumbar degenerative disc disease presents today with significant low back pain with bilateral leg pain for over one year. Patient also reports right shoulder pain. He is accompanied by his daughter who assists with translation. Denies any recent trauma, injury or falls. Reports increase in right shoulder pain with overhead and backside pocket reaches due to repetitive motion at his work. He was seen in [facility] ER recently for right shoulder pain and received Ketorolac and lidocaine injection without any relief with imaging showing calcific tendinitis and bursitis. Patient reports increased falling due to worsening back pain and bilateral leg weakness and legs giving out due to pain. Back pain is axial and also radiates in lateral distribution of both legs and dorsal feet with numbness and tingling, worse on the right side. Patient describes his pain as sharp, shooting and significant pressure sensation that radiates into his lateral hips bilaterally. He was seen by multiple providers, including Dr. Bill at [facility] and Jason BRUCE at [facility] due to lumbar L4-L5 almost complete fusion but was deemed non surgical at this time. Per recent lumbar spine MRI and CT scan reports, patient also has significant degenerative changes on the endplates with almost disc fusion L4-L5 disc level, with Schmorl's nodes and Modic changes. These findings correlate with his symptoms of bilateral lower extremity pain and weakness as well as axial low back pain that has been interfering with his ability to ambulate. Reports history of back injections at [facility] with partial pain relief. He is currently takes oxycodone and Tylenol that provides him mild analgesia. Pain affects his daily activities, functioning, sleep, mood and quality of life. Given worsening of back pain with recent right shoulder pain, he does not believe he can continue to work, even with light duty arrangements. Denies any fever, weight loss, abdominal or groin pain, foot drop, bladder/bowel dysfunction or saddle anesthesia. Location Lower back pain with radiation to lower extremities, right shoulder pain Duration Chronic pain >1.5 years Characteristics of symptom or complaint Aching, heavy, pressure, numbness, burning, pinching, sharp, throbbing Aggravating or associated factors Walking, standing, prolonged sitting, bending, twisting, movements Relieving factors Oxycodone 10mg, Tylenol, ice/heat therapy, rest, activity modifications Treatment PT, back injections, right shoulder injection-minimal effects [facility] Medical History Segmental and somatic dysfunction of rib cage Occipital neuralgia Cervicalgia Pain in right shoulder Myalgia Hemiplegia and hemiparesis following cerebral infarction affecting left non-dominant side Radiculopathy, cervical region Pain in thoracic spine Radiculopathy, lumbar region Opioid dependence History of kidney stones Stroke Hypertension Surgical History History of back surgery Family History Father No problems noted. Mother No problems noted. Social History Housing: House Alcohol intake: never Comment: NO COUNTS NEEDED Patient Tobacco Use Status: Former Tobacco user Quit Date: 10 years ago; uses nicotine gum. Tobacco use type: Cigarette e-Cigarette/Vaping Use: Never Used Second Hand Smoke Exposure: No service: No Current occupational status: employed Cognitive needs: No Hearing needs: No Vision needs: No Review of Systems Const All systems reviewed & are unremarkable except as noted in HPI and below Physical Exam Vital Signs: Last Vital Signs Pulse 94 01/22/23 10:12 Resp 16 01/22/23 10:12 BP 160/96 H 01/22/23 10:12 Pulse Ox 96 01/22/23 10:12 Oxygen Delivery Method Room Air 01/22/23 10:12 General: Appears afebrile. Alert and oriented. Mood and affect appropriate. Follows and participates in conversation appropriately. Respiratory effort is unlabored. No cough. Able to transition from sit to stand unassisted. Ambulates with bilaterally normal heel strike and toe off but reports unsteadiness on the left. Back/Spine/Pelvis Other: The tape was removed. The stimulating battery pad was disconnected from the epidural leads. These sites of the insertion were cleansed with ChloraPrep and sutures were severed. The epidural leads were removed and the tips were intact. No erythema, swelling, tenderness or pathological discharge was noted. Bacitracin ointment, dry sterile and Tegaderm dressing were applied. Cervical Spine: cervical ROM normal and No Cervical spine tenderness Thoracic/Lumbar Spine: thoracic and lumbar spine normal to inspection, Thoracic/lumbar spine scar(s), thoraco-lumbar ROM limited, No thoracic spinal tenderness and No lumbar spinal tenderness Results Reviewed Results Reviewed: XR CERVICAL SPINE 11/09/22 FINDINGS: The cervical spine is visualized from C1-mid C7 vertebral body. Slight straightening of the cervical curvature. There is mild retrolisthesis of C3 on C4, C4 on C5, C5 on C6. Vertebral body heights are maintained. No evidence of acute fracture. Multilevel disc degenerative changes. This includes mild-moderate disc degeneration at C3-C4, C5-C6. Alignment of the posterior elements appears intact. No significant prevertebral soft tissue swelling. Base of the dens is intact. On the swimmer's view, the visualized vertebral bodies grossly demonstrate normal height. Lung apices are clear. IMPRESSION: Cervical spondylosis. This includes mild-moderate disc degeneration at C3-C4, C5-C6. No radiographic evidence of acute fracture. CT LUMBAR SPINE WITHOUT CONTRAST CLINICAL INFORMATION: Dorsalgia. COMPARISON: MRI lumbar spine 08/15/2007. FINDINGS: On sagittal reconstructed images is maintained lumbar lordosis. There is loss of L4-L5 and L5-S1 disc heights. The rest of the disc heights are normal. The vertebral heights and alignment is preserved normal. The L1-L2 and L2-L3 disc levels are unremarkable. At the L3-L4 disc level, there is mild flattening of ventral thecal sac from disc bulge resulting in mild canal stenosis. There is underlying mild facet joint hypertrophy as well. At the L4-L5 disc level, there is a left laminotomy defect. There is a posterior endplate spondylosis but no underlying disc bulge or spinal canal stenosis. There is mild bilateral narrowing of neural foramina from endplate spondylosis. At the L5-S1 disc level, there are endplate Schmorl's node and sclerosis. No aggressive lytic or sclerotic process seen. The neural foramina are patent bilaterally. The prevertebral and paravertebral soft tissues are normal. IMPRESSION: Degenerative disc changes with almost disc fusion L4-L5 disc level. There are degenerative disc changes at other disc levels but no visible disc herniation or nerve root impingement. There is mild disc bulge L3-L4 disc level with facet joint hypertrophy resulting in mild circumferential canal stenosis. There is possible left laminotomy defect at L4 vertebra from previous intervention. This findings was noted on the previous MRI lumbar spine 08/15/2007. XR THORACIC SPINE 12/11/22 FINDINGS: There is no fracture or bone destruction seen, and the vertebral alignment is normal. There is mild disc space narrowing, particularly at T5-T6. There is multi-level mild to moderate spondylosis, most pronounced at T8-T9. The posterior elements are intact. There is no abnormality of the paraspinal soft tissues. IMPRESSION: 1. There is multi-level mild thoracic disc space narrowing, most pronounced at T5-T6. 2. There is multi-level mild to moderate thoracic spondylosis, most pronounced at T8-T9. Assessment & Plan Assessment & Plan (1) Lumbar radicular pain: Code(s): M54.16 - Radiculopathy, lumbar region (2) Chronic pain syndrome: Code(s): G89.4 - Chronic pain syndrome (3) Degeneration of lumbar intervertebral disc: Code(s): M51.36 - Other intervertebral disc degeneration, lumbar region (4) Lumbar post-laminectomy syndrome: Code(s): M96.1 - Postlaminectomy syndrome, not elsewhere classified Plan Schedule for Lumbar SCS Implant with Nevro for post laminectomy syndrome given good relief seen from trial with sedation and fluoroscopy. Patient not on anticoagulant. All questions were answered and the patient is in agreement of plan. Follow-up after SCS trial and sooner as needed. Justification for interventional therapy: ? Patient with average pain > 6/10 ? Patient has exhausted conservative therapy ? Lumbar SCS trial with Nevro-80% pain relief The risks, consequences, alternatives, and benefits of various treatment options were discussed with the patient in great detail, including conservative management, injections and procedures. Coding Level of Care Code Est Pt Level 4 (66674) Diagnoses Lumbar radicular pain M54.16 Chronic pain syndrome G89.4 Degeneration of lumbar intervertebral disc M51.36 Lumbar post-laminectomy syndrome M96.1
== END 2023-01-22 10:34 | disposition home or self-care (01) ==
PROVIDERS: PCP Internal Medicine; Visit Provider Nurse Practitioner Family
DX: M54.16 Radiculopathy, lumbar region (principal); G89.4 Chronic pain syndrome; M51.36 Other intervertebral disc degeneration, lumbar region; M96.1 Postlaminectomy syndrome, not elsewhere classified
CPT/HCPCS: 99024

== ENCOUNTER → 2023-01-22 09:57 | Outpatient (BNVA) | payer OTHER, SELFPAY | PROVIDERS: PCP Internal Medicine; Visit Provider Nurse Practitioner Family ==

== ENCOUNTER 2023-03-21 10:38 | Outpatient (AMB) | payer OTHER, SELFPAY ==
[2023-03-21 10:42] VITALS: BP 110/72; PULSE 77; O2SAT 100; BMI 30.5
--- NOTE | 2023-03-21 10:42 | MHC.PC.OV ---
Vital Signs 03/21/23 10:42 Height 5 ft Weight 156 lb BMI 30.5 BP 110/72 Blood Pressure Location Lt brachial Position Sitting Pulse 77 Pulse Source Pulse Oximeter Pulse Oximetry (%) 100 Oxygen Delivery Method Room Air Intake Visit Reasons: follow up/from pain management, Tool Marker Required: No Gas Meter Checker: Not Required per policy Accompanied by: Self / Same As Patient Allergies No Known Allergies Allergy (Verified 03/21/23 10:43) Medication List - Last Reconciled 03/22/23 by Morales Oneil MD acetaminophen (Tylenol Extra Strength) 1,000 mg PO Q6H PRN amlodipine 2.5 mg PO DAILY ibuprofen 600 mg PO QID naproxen (Naprosyn) 500 mg PO BID PRN oxycodone 5 mg PO NEEDED topiramate 25 mg PO BID Tobacco use date assessed: 03/21/23 Dental Screening Dental Screen Date: 03/21/23 Did you have a dental visit in the last 12 months?: Yes Did you have a dental problem in the last 6 months where you did not have access to dental care?: No Was dental information given to patient?: Patient has dentist HPI follow up/from pain management, HPI Details has 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 and lumbar disc disease; will be getting a spinal stimulator implanted; filing for disability and has some paperwork; he can not work at all and is 100% disabled from this [facility] Medical History Segmental and somatic dysfunction of rib cage Occipital neuralgia Cervicalgia Pain in right shoulder Myalgia Hemiplegia and hemiparesis following cerebral infarction affecting left non-dominant side Radiculopathy, cervical region Pain in thoracic spine Radiculopathy, lumbar region Opioid dependence History of kidney stones Stroke Hypertension Surgical History History of back surgery Family History Father No problems noted. Mother No problems noted. Social History Housing: House Alcohol intake: never Comment: NO COUNTS NEEDED Patient Tobacco Use Status: Former Tobacco user Quit Date: 10 years ago; uses nicotine gum. Tobacco use type: Cigarette e-Cigarette/Vaping Use: Never Used Second Hand Smoke Exposure: No service: No Current occupational status: employed Cognitive needs: No Hearing needs: No Vision needs: No Questionnaire PHQ-9 Over the last 2 weeks, how often have you been bothered by any of the following problems? 1. Little interest or pleasure in doing things: not at all 2. Feeling down, depressed, or hopeless: not at all 3. Trouble falling or staying asleep, or sleeping too much: not at all 4. Feeling tired or having little energy: not at all 5. Poor appetite or overeating: not at all 6. Feeling bad about yourself - or that you are a failure or have let yourself or your family down: not at all 7. Trouble concentrating on things, such as reading the newspaper or watching television: not at all 8. Moving or speaking so slowly that other people could have noticed. Or the opposite - being so fidgety or restless that you have been moving around a lot more than usual: not at all 9. Thoughts that you would be better off or of hurting yourself in some way: not at all Total score: 0 Depression Screening Interpretation: Negative Depression Screening Done: Yes [id number] - PHQ-9 Billing: Yes Source: Developed by Drs. Vipul Syed, Danielle Salas, Narayan Raines and colleagues, with an educational omar from [employer]. Thrive Questionnaire Date Thrive assessed: 03/21/23 I am a: Patient What is your living situation today?: I have a steady place to live Within the past 12 months, did the food you bought not last and you didn't have the money to get more?: Never true Within the past 12 months, did you worry whether your food would run out before you got money to buy more?: Never true Do you have trouble paying for medicines?: No Do you have trouble getting transportation to medical appointments?: No Do you have trouble paying your heating and electricity bill?: No Do you have trouble taking care of your child, family member or friend?: No Do you have trouble with day-to-day activities such as bathing, preparing meals, shopping, managing finances, etc.?: No Are you currently unemployed and looking for a job?: No Are you interested in more education?: No Please select the resources that you would like help with: None THRIVE Score: 0 AUDIT C Alcohol Use Questionnaire (AUDIT-C) 1. How often do you have a drink containing alcohol?: Never Total Score: 0 OSORIO-7 AMB Questionnaire OSORIO-7 Date OSORIO - 7 assessed: 03/21/23 Feeling nervous, anxious, or on edge: 0 = Not at all Not being able to stop or control worryin = Not at all Worrying too much about different things: 0 = Not at all Trouble relaxin = Not at all Being so restless that it is hard to sit still: 0 = Not at all Becoming easily annoyed or irritable: 0 = Not at all Feeling afraid as if something awful might happen: 0 = Not at all Total OSORIO-7 score (0-4 normal; 5-9 mild; 10-14 moderate; 15-21 severe): 0 Source: Developed by Drs. Vipul Syed, Danielle Salas, Narayan Raines and colleagues, with an educational omar from [employer]. Review of Systems Const Denies chills, Denies fatigue, Denies headache(s) and Denies weight loss Eyes Denies change in vision, Denies diplopia and Denies eye pain ENT Denies vertigo, Denies dizziness, Denies headache(s) and Denies nasal discharge Card Denies chest pain, Denies rapid heart rate and Denies dyspnea on exertion Resp Denies chest congestion, Denies cough, Denies pain with cough and Denies dyspnea on exertion GI Denies abdominal pain, Denies hematochezia and Denies change in bowel habits Musc Denies myalgias, Denies arthralgias and Denies joint swelling Skin/Breast Denies lesions and Denies unusual bruising Neuro Denies vertigo, Denies dizziness, Denies headache(s) and Denies focal weakness Endo Denies fatigue Physical exam (Primary Care) Vital Signs: Last Vital Signs Pulse 77 03/21/23 10:42 BP 110/72 03/21/23 10:42 Pulse Ox 100 03/21/23 10:42 Oxygen Delivery Method Room Air 03/21/23 10:42 BMI result Body Mass Index 30.5 Tobacco/Smoking Status: Tobacco use Status Tobacco use date assessed 03/21/23 03/21/23 10:45 Patient Tobacco Use Status Former Tobacco user 03/21/23 10:45 Tobacco use type Cigarette 03/21/23 10:45 e-Cigarette/Vaping Use Never Used 03/21/23 10:45 PHQ-9: PHQ-9 Score PHQ-9: Total score 0 03/21/23 10:45 Depression Screening Interpretation: Negative Thrive Assessment: Date of Thrive Assessment Date Thrive assessed 03/21/23 03/21/23 10:45 Const General: cooperative, healthy appearing and no acute distress Orientation/consciousness: oriented to person, oriented to place and oriented to time HENMT Head: Yes normal to inspection, Yes normocephalic and Yes atraumatic Mouth: Normal oral and palatal mucosa present and tongue normal Throat: Yes posterior oropharynx normal and Yes uvula midline Eyes General: appearance normal, both eyes and all related structures Neck Neck: Yes normal visual inspection, Yes full ROM and Yes no lymphadenopathy Thyroid: Thyroid normal Carotids: normal carotid upstroke Chest Chest palpation & inspection: normal inspection of the chest Resp Effort & Inspection: normal respiratory effort and able to speak in complete sentences Auscultation: clear to auscultation bilaterally Cardio Jugular venous distension: no JVD Palpation: normal PMI Rate: regular rate Rhythm: regular rhythm Heart sounds: S1 normal heart sound present and S2 normal heart sound present GI Inspection: Yes normal to inspection Palpation (GI): Soft to palpation and No hepatosplenomegaly present Auscultation: normal bowel sounds General: Yes no CVA tenderness Back/Spine/Pelvis Back: no CVA tenderness Skin General skin exam: no rashes or lesions noted Neuro General: oriented to person, oriented to place and oriented to time Extrem General: Yes normal to inspection and Yes full ROM Assessment and Plan Assessment & Plan (1) Failed back syndrome: Code(s): M96.1 - Postlaminectomy syndrome, not elsewhere classified Plan: as per pain management (2) Lumbar radicular pain: Code(s): M54.16 - Radiculopathy, lumbar region Plan: as per pain management Coding Level of Care Code Est Pt Level 3 (73753) Diagnoses Failed back syndrome M96.1 Lumbar radicular pain M54.16
== END 2023-03-21 11:20 | disposition home or self-care (01) ==
PROVIDERS: PCP Internal Medicine; Visit Provider Internal Medicine
DX: M96.1 Postlaminectomy syndrome, not elsewhere classified (principal); M54.16 Radiculopathy, lumbar region
CPT/HCPCS: 99213

== ENCOUNTER 2023-05-01 10:00 | Day surgery (SDC) | payer OTHER, SELFPAY ==
--- NOTE | 2023-04-29 15:11 | P.CONAN_ITS ---
Documented by User: Torri Kerr NP 04/29/23 15:12 HPI - Anesthesia Eval Consult details Narrative: 57yo M for Spinal Cord Stimulation Implant s/p Spinal Cord Stimulation Trial 12/2022 with MAC Chronic opioids PMFSH Active Problems Active Problems: All Active Problems (Updated 03/22/23 @ 12:21 by Morales Oneil MD) Failed back syndrome (Acute) Thoracic back pain (Acute) Lumbar radicular pain (Acute) Left shoulder pain (Acute) Cervicalgia (Acute) Back pain, lumbosacral (Acute) Calcific tendinitis of right shoulder (Acute) Vertebrogenic low back pain (Acute) Pain in right shoulder (Acute) Chronic pain syndrome (Acute) Degeneration of lumbar intervertebral disc (Acute) Lumbar post-laminectomy syndrome (Acute) Back pain of lumbar region with sciatica (Acute) Blunt trauma of rib (Acute) Hypertension (Acute) Physical exam (Acute) Back pain (Acute) Past Medical History Medical History Segmental and somatic dysfunction of rib cage Occipital neuralgia Cervicalgia Pain in right shoulder Myalgia Hemiplegia and hemiparesis following cerebral infarction affecting left non- dominant side Radiculopathy, cervical region Pain in thoracic spine Radiculopathy, lumbar region Opioid dependence History of kidney stones Stroke Hypertension Family History Family History Father No problems noted. Mother No problems noted. Family history of problems with anesthesia: No Surgical History Surgical History History of back surgery History of Problems with Anesthesia: No Social History Social History Housing: House Alcohol intake: never Comment: NO COUNTS NEEDED Patient Tobacco Use Status: Former Tobacco user Quit Date: 8 years Tobacco use type: Cigarette e-Cigarette/Vaping Use: Never Used Patient Interested in Nicotine Replacement: Yes (uses nicotene guim) Second Hand Smoke Exposure: No Use of substances other than those prescribed or required for medical reasons: No Are you DNR?: No Advance Directives: No Advance Directives Information Provided: Yes service: No Current occupational status: employed Cognitive needs: No Hearing needs: No Vision needs: No Meds Allergies Allergy/AdvReac Type Severity Reaction Status Date / Time No Known Allergies Allergy Verified 03/21/23 10:43 Home Medications Medication Instructions Recorded Confirmed Last Taken Type acetaminophen 500 mg tablet 1,000 mg PO Q6H PRN Pain, Moderate 09/26/22 05/01/23 12/04/22 History (Tylenol Extra Strength) oxycodone 5 mg tablet 5 mg PO NEEDED 09/26/22 05/01/23 01/16/23 History ibuprofen 600 mg tablet 600 mg PO QID 10/18/22 05/01/23 12/04/22 History carisoprodol 350 mg tablet 350 mg PO QID PRN muscle spasm 05/01/23 05/01/23 Unknown History Assessment and Plan Assessment Anesthesia Assessment: Chart Reviewed Final Anesthetic Review Family History of Problems with Anesthesia: No History of Problems with Anesthesia: No Documented by User: Alesha Wilkinson MD 05/01/23 13:47 [facility] Active Problems Active Problems: All Active Problems (Updated 05/01/23 @ 10:40 by Alesha Wilkinson MD) Failed back syndrome (Acute) Thoracic back pain (Acute) Lumbar radicular pain (Acute) Left shoulder pain (Acute) Cervicalgia (Acute) Back pain, lumbosacral (Acute) Calcific tendinitis of right shoulder (Acute) Vertebrogenic low back pain (Acute) Pain in right shoulder (Acute) Chronic pain syndrome (Acute) Degeneration of lumbar intervertebral disc (Acute) Lumbar post-laminectomy syndrome (Acute) Back pain of lumbar region with sciatica (Acute) Blunt trauma of rib (Acute) Hypertension (Acute) Physical exam (Acute) Back pain (Acute) H/o CVA with Left edith paresis/ -plegia. Ambulates with cane Past Medical History Medical History Segmental and somatic dysfunction of rib cage Occipital neuralgia Cervicalgia Pain in right shoulder Myalgia Hemiplegia and hemiparesis following cerebral infarction affecting left non- dominant side Radiculopathy, cervical region Pain in thoracic spine Radiculopathy, lumbar region Opioid dependence History of kidney stones Stroke Hypertension Family History Family History Father No problems noted. Mother No problems noted. Family history of problems with anesthesia: No Surgical History Surgical History History of back surgery History of Problems with Anesthesia: No Social History Social History Housing: House Alcohol intake: never Comment: NO COUNTS NEEDED Patient Tobacco Use Status: Former Tobacco user Quit Date: 8 years Tobacco use type: Cigarette e-Cigarette/Vaping Use: Never Used Patient Interested in Nicotine Replacement: Yes (uses nicotene guim) Second Hand Smoke Exposure: No Use of substances other than those prescribed or required for medical reasons: No Are you DNR?: No Advance Directives: No Advance Directives Information Provided: Yes service: No Current occupational status: employed Cognitive needs: No Hearing needs: No Vision needs: No Meds Allergies Allergy/AdvReac Type Severity Reaction Status Date / Time No Known Allergies Allergy Verified 03/21/23 10:43 Home Medications Medication Instructions Recorded Confirmed Last Taken Type acetaminophen 500 mg tablet 1,000 mg PO Q6H PRN Pain, Moderate 09/26/22 05/01/23 12/04/22 History (Tylenol Extra Strength) oxycodone 5 mg tablet 5 mg PO NEEDED 09/26/22 05/01/23 01/16/23 History ibuprofen 600 mg tablet 600 mg PO QID 10/18/22 05/01/23 12/04/22 History carisoprodol 350 mg tablet 350 mg PO QID PRN muscle spasm 05/01/23 05/01/23 Unknown History Exam Height,Weight and Vital Signs: Height 5 ft 5 in Weight 70.942 kg Vital Signs Temp Pulse Resp BP Pulse Ox O2 Del Method 05/01/23 10:20 98.0 F 78 18 151/87 H 99 Room Air Pertinent Lab Results Pertinent Lab Results: Lab Results 05/01/23 Range/Units Unknown Nasal Screen MRSA (PCR) NEGATIVE (Negative) Nasal S. aureus Screen NEGATIVE (Negative) Nasal MRSA/S.aureus Interp SEE NOTE Airway Mallampati Class: II TM Dist: >3cm Neck ROM: Full Loose/Missing/Broken Teeth: Yes (Many missing. Chipped teeth front. Denies loose teeth) Heart: RRR Lungs: CTAB Assessment and Plan Assessment Anesthesia Assessment: Anesthesia Plan Discussed and Chart Reviewed Final Anesthetic Review Family History of Problems with Anesthesia: No History of Problems with Anesthesia: No NPO: Yes ASA Class: III Final Preanesthetic Review: No Changes in Pt Med Stat, Meds/Allgs Chart Reviewed, Consent Obtained/Reviewed and Anes Risks/Benef Reviewed Patient Risk: Intermediate Procedure Risk: Intermediate Assessment/Block/Sedation in SS: Assess/Block/Sedation-SS Anesthetic Plan Anesthetic Plan: GA Disposition: Standard PACU
[2023-05-01] VITALS (10 sets, daily range): BP systolic 136–160; BP diastolic 75–88; PULSE 73–83; RESP 14–18; TEMP 36.1–36.7; O2SAT 96–100; BMI 26.0
--- NOTE | ~2023-05-01 | FL_ITS ---
INDICATION: Intraoperative fluoroscopy. FLUOROSCOPY: Fluoroscopy Time: 17 minutes 23.5 seconds Dose/air kerma: 240.64 mGy Images saved: 5 FINDINGS: Multiple intraoperative fluoroscopic images are submitted during reported spinal cord stimulator device implant. Correlation with operative report. Evaluation is limited secondary to fluoroscopic technique. IMPRESSION: Intra-operative fluoroscopic imaging provided by radiology during reported spinal cord stimulator device implant. Please refer to operative note for further information.
[2023-05-01] MEDS: Lactated Ringers 1,000 ML 100 ML IVCONT (10:36)
--- NOTE | 2023-05-01 11:31 | MHC.SHP ---
Pre-Procedural Eval Section A - 24 Hr Update-Section A only Date of Service: 05/01/23 The patient is an INPATIENT: No Changes since office visit: Yes Patient answered all questions The patient has been examined within 24 hours of the surgical procedure. The History & Physical has been completed within 30 days and I have reviewed it.: No Section B - Complete if H&P > 30 days Chief Complaint: Postlaminectomy syndrome,chronic pain syndrome Relevant Family History (Specify if Yes): No Relevant Social History: None Present Medications: see Short Stay Collaborative assessment Medical History: No relevant PMH History of Previous Operations: Relevant previous surgery/procedure and date(s) (Lumbar fusion) Allergies: Allergies Allergy/AdvReac Type Severity Reaction Status Date / Time No Known Allergies Allergy Verified 03/21/23 10:43 Review of Systems Sugical H&P ROS: Negative: Constitution, Cardiovascular and Respiratory Exam Surgical H&P Exam: Normal: HEENT, Normal: Heart and Normal: Lungs Plan Diagnosis/Plan: Unchanged I have reviewed the history and physical and performed a pertinent physical examination on my patient. No changes have occurred unless specified. Time Spent With Patient Time: Total time managing care of this patient today ____ minutes.
[2023-05-01 12:06] LABS: MRSA Nasal PCR NEGATIVE (Negative); SA Nasal PCR NEGATIVE (Negative)
--- NOTE | 2023-05-01 14:55 | PM.OP ---
Brief Operative Note Date of Service: 05/01/23 Pre-op diagnosis: Post-laminectomy syndrome Post-op diagnosis: same Procedure: Spinal cord stimulation implant Implants: Nevro Omnia SCS system Surgeon: Adam Barksdale MD Anesthesia: GETA Was an Contract Negotiator used for this Procedure?: No Estimated blood loss (mL): 25 Pathology: none sent Condition: stable Disposition: PACU
--- NOTE | 2023-05-02 11:17 | W.PM.OPN ---
Operative Note Operative Note Date of Service: 05/01/23 Narrative: Lumbar SCS Implant After proper identification, the patient was brought to the operating room. General anesthesia was induced and the patient was placed in the prone position. Care was taken during positioning to protect and pad all pressure points. Cefazolin 2gm was given as preoperative antibiotic prophylaxis. The back was prepped and draped in the usual sterile fashion using Chloroprep. The fluoroscope unit was sterilely draped and brought into field, the vertebral target and the L1/L2 interspace was localized with fluoroscopy. A 5 cm incision was then made in the midline back with a 15 blade between the L2 and L3 spinous processes. Electrocautery was used to dissect down to the prevertebral fascia. Two 14-gauge introducer curved tip epidural needles were advanced using AP and contralateral oblique fluoroscopy views to the target interspace on either side of the L2 spinous process. Upon loss of resistance, the left electrode was threaded up to the middle of T8 vertebral body. The right electrode was threaded to the top of T8 vertebral body. With the needles covering the leads, we placed 2 sets of Tycron 1-0 sutures per electrode for the anchor stitches. We then backed out the needle under live fluoroscopy, verifying that the electrodes were in the correct position and we then used the locking anchors to secure the electrodes down to the prevertebral fascia, tying them down with the Tycron sutures. At this point, a pocket for the generator was made in the right iliac fossa. A horizontal 2-inch incision was made using a 15 blade and combination of sharp dissection, blunt dissection and electrocautery was used. A pocket was created about half an inch below the skin. The pocket was then irrigated with normal saline containing vancomycin. Hemostasis was attained with electrocautery. We then tunneled the electrodes from the back into the pocket using the tunneling device. The electrodes were then connected to the generator. A single Tycron suture was thrown across the floor of the pocket and through the medial anchor hold of the generator. After interrogation with impedance check the generator was placed into the subcutaneous pocket and the anchoring suture tied. Care was taken not to get fluid in the generator connector block. The excess lead was closed beneath the generator creating a loop of strain relief as well. The neurostimulator generator was placed parallel to the skin at a depth of half an inch along for successful telemetry and impedence. The pocket was reirrigated and closed with the generator name facing out. Final electronic analysis was performed to ensure proper functioning. Positioning of the leads were rechecked and confirmed with fluoroscopy and images saved. Both incisions were closed with a deep layer of 2-0 Vicryl sutures, the deep dermal layer with 3-0 Vicryl sutures, simple interrupted and a running 4-0 Monocryl for the subcutaneous layer. We then secured the incision with Dermabond, steristrips, telfa and tegaderm over both incisions. The patient tolerated the procedure well. The patient was then flipped back into the supine position, woken up and brought to the PACU in stable condition. Complications: None EBL: 25 mL
== END 2023-05-01 16:27 | disposition home or self-care (01) ==
PROVIDERS: Nurse Practitioner Family; PCP Internal Medicine; Visit Provider Internal Medicine
PROC: (CPT 63685; principal; 2023-05-01 11:30)
DX: M96.1 Postlaminectomy syndrome, not elsewhere classified (principal); G89.4 Chronic pain syndrome; M54.16 Radiculopathy, lumbar region; M51.36 Other intervertebral disc degeneration, lumbar region; M79.10 Myalgia, unspecified site; I69.354 Hemiplegia and hemiparesis following cerebral infarction affecting left non-dominant side; Z91.81 History of falling; I10 Essential (primary) hypertension; F11.20 Opioid dependence, uncomplicated; Z79.1 Long term (current) use of non-steroidal anti-inflammatories (NSAID); Z79.899 Other long term (current) drug therapy; Z98.890 Other specified postprocedural states; Z99.89 Dependence on other enabling machines and devices; Z87.891 Personal history of nicotine dependence
CPT/HCPCS: 63685; 63650 ×2; 87640; 87641; C1713; C1778; C1787; C1816; J0690; J2250; J2405; J2704; J2795; J3010; J3370

== ENCOUNTER → 2023-05-01 10:00 | Outpatient (BNV) | payer OTHER, SELFPAY | PROVIDERS: PCP Internal Medicine; Visit Provider Internal Medicine | DX: M96.1 Postlaminectomy syndrome, not elsewhere classified (principal) | CPT/HCPCS: 63650; 63685 ==

== ENCOUNTER 2023-05-07 11:38 | Outpatient (AMB) | payer OTHER, SELFPAY ==
[2023-05-07 11:43] VITALS: BP 180/89; PULSE 90; O2SAT 98; BMI 30.5
--- NOTE | 2023-05-07 11:43 | A.OFFVIS_ITS ---
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 Barksdale. Irving Gomez[employer] rep is also present during today's visit. Patient reports minimal pain relief since procedure and has been experiencing post-operative pain and mild relief for his chronic back and leg pain so far. He has been taking Tylenol and Oxycodone for pain relief. He rates his pain at 8/10 today. No program adjustments needed per [employer] rep today. Denies any recent cough, cold, infection, fever, any significant changes in her medical history, medications or recent hospitalizations. The wound dressing was removed and the wound cleansed with ChloraPrep. The midline incision and right upper buttock battery wound site are clean, no pathological discharge, no redness and no swelling. Steri-strips and surgical skin-glue are intact. There is no erythema or local temperature. Bacitracin ointment was applied to the wounds. Tegaderm dressing was applied. Patient is wearing an abdominal binder.? Past Procedures: 05/01/23: Lumbar Nevro SCS implant-minim al pain relief 01/16/23: Lumbar Nevro SCS trial-80% mady n relief 11/21/22: Caudal ANIA with catheter-0% pa in relief 10/29/22: Right therapeutic subacromial injection-50% pain relief, ongoing PRIOR: Patient is a pleasant 57 years old female with prior L4-L5 decompression in 2006 and lumbar degenerative disc disease presents today with significant low back pain with bilateral leg pain for over one year. Patient also reports right shoulder pain. He is accompanied by his daughter who assists with translation. Denies any recent trauma, injury or falls. Reports increase in right shoulder pain with overhead and backside pocket reaches due to repetitive motion at his work. He was seen in [facility] recently for right shoulder pain and received Ketorolac and lidocaine injection without any relief with imaging showing calcific tendinitis and bursitis. Patient reports increased falling due to worsening back pain and bilateral leg weakness and legs giving out due to pain. Back pain is axial and also radiates in lateral distribution of both legs and dorsal feet with numbness and tingling, worse on the right side. Patient describes his pain as sharp, shooting and significant pressure sensation that radiates into his lateral hips bilaterally. He was seen by multiple providers, including Dr. Bill at [facility] and Jason BRUCE at [facility] due to lumbar L4-L5 almost complete fusion but was deemed non surgical at this time. Per recent lumbar spine MRI and CT scan reports, patient also has significant degenerative changes on the endplates with almost disc fusion L4-L5 disc level, with Schmorl's nodes and Modic changes. These findings correlate with his symptoms of bilateral lower extremity pain and weakness as well as axial low back pain that has been interfering with his ability to ambulate. Reports history of back injections at [facility] with partial pain relief. He is currently takes oxycodone and Tylenol that provides him mild analgesia. Pain affects his daily activities, functioning, sleep, mood and quality of life. Given worsening of back pain with recent right shoulder pain, he does not believe he can continue to work, even with light duty arrangements. Denies any fever, weight loss, abdominal or groin pain, foot drop, bladder/bowel dysfunction or saddle anesthesia. Location Lower back pain with radiation to lower extremities, right shoulder pain Duration Chronic pain >1.5 years Characteristics of symptom or complaint Aching, heavy, pressure, numbness, burning, pinching, sharp, throbbing Aggravating or associated factors Walking, standing, prolonged sitting, bending, twisting, movements Relieving factors Oxycodone 10mg, Tylenol, ice/heat therapy, rest, activity modifications Treatment PT, back injections, right shoulder injection-minimal effects [facility] Medical History Segmental and somatic dysfunction of rib cage Occipital neuralgia Cervicalgia Pain in right shoulder Myalgia Hemiplegia and hemiparesis following cerebral infarction affecting left non- dominant side Radiculopathy, cervical region Pain in thoracic spine Radiculopathy, lumbar region Opioid dependence History of kidney stones Stroke Hypertension Surgical History History of back surgery Family History Father No problems noted. Mother No problems noted. Social History Housing: House Alcohol intake: never Comment: NO COUNTS NEEDED Patient Tobacco Use Status: Former Tobacco user Quit Date: 8 years Tobacco use type: Cigarette e-Cigarette/Vaping Use: Never Used Second Hand Smoke Exposure: No service: No Current occupational status: employed Cognitive needs: No Hearing needs: No Vision needs: No Review of Systems Const All systems reviewed & are unremarkable except as noted in HPI and below Physical Exam Vital Signs: Last Vital Signs Pulse 90 05/07/23 11:43 BP 180/89 H 05/07/23 11:43 Pulse Ox 98 05/07/23 11:43 Oxygen Delivery Method Room Air 05/07/23 11:43 BMI result Body Mass Index 30.5 General: Appears afebrile. Alert and oriented. Mood and affect appropriate. Follows and participates in conversation appropriately. Respiratory effort is unlabored. No cough. Able to transition from sit to stand unassisted. Ambulates with bilaterally normal heel strike and toe off but reports unsteadiness on the left. Back/Spine/Pelvis Other: All incisions are clean dry and intact. Dressings were changed in the office today. Cervical Spine: cervical ROM normal and No Cervical spine tenderness Thoracic/Lumbar Spine: thoracic and lumbar spine normal to inspection, Thoracic/lumbar spine scar(s), pain with thoraco-lumbar ROM, thoraco-lumbar ROM limited, No thoracic spinal tenderness and No lumbar spinal tenderness Assessment & Plan Assessment & Plan (1) Lumbar radicular pain: Code(s): M54.16 - Radiculopathy, lumbar region (2) Chronic pain syndrome: Code(s): G89.4 - Chronic pain syndrome (3) Degeneration of lumbar intervertebral disc: Code(s): M51.36 - Other intervertebral disc degeneration, lumbar region (4) Lumbar post-laminectomy syndrome: Code(s): M96.1 - Postlaminectomy syndrome, not elsewhere classified Plan The dressings were changed today in the office. Patient may remove dressings in 4-5 days and start showering. Continue wearing abdominal binder as much as possible. The patient and his daughter were also educated by Bing greco today about SCS implant device, its current program and potential program adjustment next week. Patient will follow up next week for a wound check. All questions and concerns have been answered and the patient agreed with the plan. Follow up as needed. Coding Level of Care Code Est Pt Level 3 (03262) Diagnoses Lumbar radicular pain M54.16 Chronic pain syndrome G89.4 Degeneration of lumbar intervertebral disc M51.36 Lumbar post-laminectomy syndrome M96.1
[2023-05-07 12:09] VITALS: BP 130/70
== END 2023-05-07 12:08 | disposition home or self-care (01) ==
PROVIDERS: PCP Internal Medicine; Visit Provider Nurse Practitioner Family
DX: M54.16 Radiculopathy, lumbar region (principal); G89.4 Chronic pain syndrome; M51.36 Other intervertebral disc degeneration, lumbar region; M96.1 Postlaminectomy syndrome, not elsewhere classified
CPT/HCPCS: 99024

== ENCOUNTER → 2023-05-07 11:38 | Outpatient (BNVA) | payer OTHER, SELFPAY | PROVIDERS: PCP Internal Medicine; Visit Provider Nurse Practitioner Family ==

== ENCOUNTER 2023-05-08 10:32 | Outpatient (AMB) | payer OTHER, SELFPAY ==
[2023-05-08 10:46] VITALS: BP 140/78; PULSE 74; O2SAT 98; BMI 29.9
--- NOTE | 2023-05-08 10:46 | A.OFFPC_ITS ---
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 Accompanied by: Self / Same As Patient Allergies No Known Allergies Allergy (Verified 05/08/23 10:47) Medication List - Last Reconciled 05/08/23 by Morales Oneil MD acetaminophen (Tylenol Extra Strength) 1,000 mg PO Q6H PRN amlodipine 2.5 mg PO DAILY carisoprodol 350 mg PO QID PRN ibuprofen 600 mg PO QID naproxen (Naprosyn) 500 mg PO BID PRN oxycodone 10 mg PO BID PRN oxycodone 5 mg PO NEEDED Tobacco use date assessed: 03/21/23 HPI 1 Week Post Surgery F/U HPI Details had a spinal cord stimulator placed for spinal stenosis a week ago; no complications PFSH Medical History Segmental and somatic dysfunction of rib cage Occipital neuralgia Cervicalgia Pain in right shoulder Myalgia Hemiplegia and hemiparesis following cerebral infarction affecting left non- dominant side Radiculopathy, cervical region Pain in thoracic spine Radiculopathy, lumbar region Opioid dependence History of kidney stones Stroke Hypertension Surgical History History of back surgery Family History Father No problems noted. Mother No problems noted. Social History Housing: House Alcohol intake: never Comment: NO COUNTS NEEDED Patient Tobacco Use Status: Former Tobacco user Quit Date: 8 years Tobacco use type: Cigarette e-Cigarette/Vaping Use: Never Used Second Hand Smoke Exposure: No service: No Current occupational status: employed Cognitive needs: No Hearing needs: No Vision needs: No Questionnaire Thrive Questionnaire Date Thrive assessed: 03/21/23 OSORIO-7 AMB Questionnaire OSORIO-7 Date OSORIO - 7 assessed: 03/21/23 Source: Developed by Drs. Vipul Syed, Danielle Salas, Narayan Raines and colleagues, with an educational omar from [employer]. Review of Systems Const Denies chills, Denies headache(s) and Denies weight loss ENT Denies headache(s) Card Denies chest pain, Denies syncope, Denies irregular heart rhythm and Denies dyspnea Resp Denies chest congestion, Denies cough and Denies dyspnea GI Denies abdominal pain, Denies change in stool character, Denies nausea and Denies vomiting Musc Denies deformity and Denies joint swelling Neuro Denies syncope and Denies headache(s) Physical exam (Primary Care) Vital Signs: Last Vital Signs Pulse 74 05/08/23 10:46 BP 140/78 H 05/08/23 10:46 Pulse Ox 98 05/08/23 10:46 Oxygen Delivery Method Room Air 05/08/23 10:46 BMI result Body Mass Index 29.9 Tobacco/Smoking Status: Tobacco use Status Tobacco use date assessed 03/21/23 05/08/23 10:47 Patient Tobacco Use Status Former Tobacco user 05/08/23 10:47 Tobacco use type Cigarette 05/08/23 10:47 e-Cigarette/Vaping Use Never Used 05/08/23 10:47 Thrive Assessment: Date of Thrive Assessment Date Thrive assessed 03/21/23 05/08/23 10:47 Const General: cooperative, comfortable, no acute distress and alert Neck Neck: Yes no lymphadenopathy Thyroid: Thyroid normal Resp Effort & Inspection: normal respiratory effort Auscultation: clear to auscultation bilaterally Percussion: percussion normal Cardio Jugular venous distension: no JVD Palpation: normal PMI Rate: regular rate Rhythm: regular rhythm Heart sounds: S1 normal heart sound present and S2 normal heart sound present GI Inspection: Yes normal to inspection Palpation (GI): No hepatosplenomegaly present Skin General skin exam: no rashes or lesions noted Extrem General: Yes no clubbing, cyanosis or edema Assessment and Plan Assessment & Plan (1) S/P insertion of spinal cord stimulator: Code(s): Z96.89 - Presence of other specified functional implants Plan: stable; per surgeon Coding Level of Care Code Est Pt Level 3 (41609) Diagnoses S/P insertion of spinal cord stimulator Z96.89
== END 2023-05-08 10:58 | disposition home or self-care (01) ==
PROVIDERS: PCP Internal Medicine; Visit Provider Internal Medicine
DX: Z96.89 Presence of other specified functional implants (principal)
CPT/HCPCS: 99213

== ENCOUNTER → 2023-05-14 08:55 | Outpatient (BNVA) | payer OTHER, SELFPAY | PROVIDERS: PCP Internal Medicine; Visit Provider Nurse Practitioner Family ==

== ENCOUNTER 2023-05-14 11:21 | Outpatient (AMB) | payer OTHER, SELFPAY ==
[2023-05-14 11:25] VITALS: BP 141/74; PULSE 88; O2SAT 98; BMI 29.9
--- NOTE | 2023-05-14 11:25 | A.OFFVIS_ITS ---
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 Barksdale. Bing Gomez rep is also present during today's visit. Patient continues to report minimal pain relief since procedure. Patient reports his post-operative pain is getting better and his chronic back and leg pain, especially left leg, has been more prominent. Patient reports he also has been sleeping more on the left side to avoid sleeping on his back or right buttock battery pocket. Per rep Gomez, patient's SCS device is at 14% out of full program during post-op healing and plans are to increase steady to the full capacity. Patient continues to take Tylenol and Oxycodone for pain relief which helps his back but not left leg pain. He rates his pain at 8/10 today. Denies any recent cough, cold, infection, fever, any significant changes in her medical history, medications or recent hospitalizations. The right buttock wound dressing was removed and the wound cleansed with ChloraPrep. The midline incision is well healing, no pathological discharge or tenderness. Right upper buttock battery wound site is clean, no pathological discharge, no redness and no swelling. Steri-strips are intact. There is no erythema or local temperature. Patient is wearing an abdominal binder.? Past Procedures: 05/01/23: Lumbar Nevro SCS implant- 20% pain relief at 14% SCS program 01/16/23: Lumbar Nevro SCS trial-80% mady n relief 11/21/22: Caudal ANIA with catheter-0% pa in relief 10/29/22: Right therapeutic subacromial injection-50% pain relief, ongoing PRIOR: Patient is a pleasant 57 years old female with prior L4-L5 decompression in 2006 and lumbar degenerative disc disease presents today with significant low back pain with bilateral leg pain for over one year. Patient also reports right shoulder pain. He is accompanied by his daughter who assists with translation. Denies any recent trauma, injury or falls. Reports increase in right shoulder pain with overhead and backside pocket reaches due to repetitive motion at his work. He was seen in [facility] ER recently for right shoulder pain and received Ketorolac and lidocaine injection without any relief with imaging showing calcific tendinitis and bursitis. Patient reports increased falling due to worsening back pain and bilateral leg weakness and legs giving out due to pain. Back pain is axial and also radiates in lateral distribution of both legs and dorsal feet with numbness and tingling, worse on the right side. Patient describes his pain as sharp, shooting and significant pressure sensation that radiates into his lateral hips bilaterally. He was seen by multiple providers, including Dr. Bill at [facility] and Jason BRUCE at [facility] due to lumbar L4-L5 almost complete fusion but was deemed non surgical at this time. Per recent lumbar spine MRI and CT scan reports, patient also has significant degenerative changes on the endplates with almost disc fusion L4-L5 disc level, with Schmorl's nodes and Modic changes. These findings correlate with his symptoms of bilateral lower extremity pain and weakness as well as axial low back pain that has been interfering with his ability to ambulate. Reports history of back injections at [facility] with partial pain relief. He is currently takes oxycodone and Tylenol that provides him mild analgesia. Pain affects his daily activities, functioning, sleep, mood and quality of life. Given worsening of back pain with recent right shoulder pain, he does not believe he can continue to work, even with light duty arrangements. Denies any fever, weight loss, abdominal or groin pain, foot drop, bladder/bowel dysfunction or saddle anesthesia. Location Lower back pain with radiation to lower extremities, right shoulder pain Duration Chronic pain >1.5 years Characteristics of symptom or complaint Aching, heavy, pressure, numbness, burning, pinching, sharp, throbbing Aggravating or associated factors Walking, standing, prolonged sitting, bending, twisting, movements Relieving factors Oxycodone 10mg, Tylenol, ice/heat therapy, rest, activity modifications Treatment PT, back injections, right shoulder injection-minimal effects [facility] Medical History Segmental and somatic dysfunction of rib cage Occipital neuralgia Cervicalgia Pain in right shoulder Myalgia Hemiplegia and hemiparesis following cerebral infarction affecting left non- dominant side Radiculopathy, cervical region Pain in thoracic spine Radiculopathy, lumbar region Opioid dependence History of kidney stones Stroke Hypertension Surgical History History of back surgery Family History Father No problems noted. Mother No problems noted. Social History Housing: House Alcohol intake: never Comment: NO COUNTS NEEDED Patient Tobacco Use Status: Former Tobacco user Quit Date: 8 years Tobacco use type: Cigarette e-Cigarette/Vaping Use: Never Used Second Hand Smoke Exposure: No service: No Current occupational status: employed Cognitive needs: No Hearing needs: No Vision needs: No Review of Systems Const All systems reviewed & are unremarkable except as noted in HPI and below Physical Exam Vital Signs: Last Vital Signs Pulse 88 05/14/23 11:25 BP 141/74 H 05/14/23 11:25 Pulse Ox 98 05/14/23 11:25 Oxygen Delivery Method Room Air 05/14/23 11:25 BMI result Body Mass Index 29.9 General: Appears afebrile. Alert and oriented. Mood and affect appropriate. Follows and participates in conversation appropriately. Respiratory effort is unlabored. No cough. Able to transition from sit to stand unassisted. Ambulates with bilaterally normal heel strike and toe off but reports unsteadiness on the left due to pain. Back/Spine/Pelvis Other: All incisions are clean dry and intact. Dressings were changed in the office today. Cervical Spine: cervical ROM normal and No Cervical spine tenderness Thoracic/Lumbar Spine: thoracic and lumbar spine normal to inspection, Thoracic/lumbar spine scar(s), pain with thoraco-lumbar ROM, thoraco-lumbar ROM limited, No thoracic spinal tenderness and No lumbar spinal tenderness Results Reviewed Results Reviewed: XR CERVICAL SPINE 11/09/22 FINDINGS: The cervical spine is visualized from C1-mid C7 vertebral body. Slight straightening of the cervical curvature. There is mild retrolisthesis of C3 on C4, C4 on C5, C5 on C6. Vertebral body heights are maintained. No evidence of acute fracture. Multilevel disc degenerative changes. This includes mild-moderate disc degeneration at C3-C4, C5-C6. Alignment of the posterior elements appears intact. No significant prevertebral soft tissue swelling. Base of the dens is intact. On the swimmer's view, the visualized vertebral bodies grossly demonstrate normal height. Lung apices are clear. IMPRESSION: Cervical spondylosis. This includes mild-moderate disc degeneration at C3-C4, C5-C6. No radiographic evidence of acute fracture. CT LUMBAR SPINE WITHOUT CONTRAST CLINICAL INFORMATION: Dorsalgia. COMPARISON: MRI lumbar spine 08/15/2007. FINDINGS: On sagittal reconstructed images is maintained lumbar lordosis. There is loss of L4-L5 and L5-S1 disc heights. The rest of the disc heights are normal. The vertebral heights and alignment is preserved normal. The L1-L2 and L2-L3 disc levels are unremarkable. At the L3-L4 disc level, there is mild flattening of ventral thecal sac from disc bulge resulting in mild canal stenosis. There is underlying mild facet joint hypertrophy as well. At the L4-L5 disc level, there is a left laminotomy defect. There is a posterior endplate spondylosis but no underlying disc bulge or spinal canal stenosis. There is mild bilateral narrowing of neural foramina from endplate spondylosis. At the L5-S1 disc level, there are endplate Schmorl's node and sclerosis. No aggressive lytic or sclerotic process seen. The neural foramina are patent bilaterally. The prevertebral and paravertebral soft tissues are normal. IMPRESSION: Degenerative disc changes with almost disc fusion L4-L5 disc level. There are degenerative disc changes at other disc levels but no visible disc herniation or nerve root impingement. There is mild disc bulge L3-L4 disc level with facet joint hypertrophy resulting in mild circumferential canal stenosis. There is possible left laminotomy defect at L4 vertebra from previous intervention. This findings was noted on the previous MRI lumbar spine 08/15/2007. XR THORACIC SPINE 12/11/22 FINDINGS: There is no fracture or bone destruction seen, and the vertebral alignment is normal. There is mild disc space narrowing, particularly at T5-T6. There is multi-level mild to moderate spondylosis, most pronounced at T8-T9. The posterior elements are intact. There is no abnormality of the paraspinal soft tissues. IMPRESSION: 1. There is multi-level mild thoracic disc space narrowing, most pronounced at T5-T6. 2. There is multi-level mild to moderate thoracic spondylosis, most pronounced at T8-T9. Assessment & Plan Assessment & Plan (1) Lumbar radicular pain: Code(s): M54.16 - Radiculopathy, lumbar region (2) Chronic pain syndrome: Code(s): G89.4 - Chronic pain syndrome (3) Degeneration of lumbar intervertebral disc: Code(s): M51.36 - Other intervertebral disc degeneration, lumbar region (4) Lumbar post-laminectomy syndrome: Code(s): M96.1 - Postlaminectomy syndrome, not elsewhere classified Plan The dressings were changed today in the office. Steri strips are intact. Continue wearing abdominal binder as much as possible. The patient and his were educated by Bing greco today about SCS implant device, its current program and minor program adjustment today. Patient will continue to monitor his functioning, mobility and sleep improvement as SCS implant is adjusted to full programm. All questions and concerns have been answered and the patient agreed with the plan. Follow up as needed. Coding Level of Care Code Est Pt Level 3 (93816) Diagnoses Lumbar radicular pain M54.16 Chronic pain syndrome G89.4 Degeneration of lumbar intervertebral disc M51.36 Lumbar post-laminectomy syndrome M96.1
== END 2023-05-14 12:03 | disposition home or self-care (01) ==
PROVIDERS: PCP Internal Medicine; Visit Provider Nurse Practitioner Family
DX: M54.16 Radiculopathy, lumbar region (principal); G89.4 Chronic pain syndrome; M51.36 Other intervertebral disc degeneration, lumbar region; M96.1 Postlaminectomy syndrome, not elsewhere classified
CPT/HCPCS: 99213

== ENCOUNTER 2023-06-21 10:05 | Outpatient (AMB) | payer OTHER, SELFPAY ==
--- NOTE | 2023-06-21 10:09 | MHC.OFFVIS ---
Vital Signs 06/21/23 10:12 Height 5 ft Weight 148 lb BMI 28.9 BP 153/80 H Blood Pressure Location Lt brachial Position Sitting Respiration 14 Pulse 97 Pulse Source Pulse Oximeter Pulse Oximetry (%) 100 Oxygen Delivery Method Room Air Intake Visit Reasons: SCS FOLLOW UP Allergies No Known Allergies Allergy (Verified 06/21/23 10:12) Medication List - Last Reconciled 06/21/23 by Elva Booth LPN acetaminophen (Tylenol Extra Strength) 1,000 mg PO Q6H PRN amlodipine 2.5 mg PO DAILY carisoprodol 350 mg PO QID PRN ibuprofen 600 mg PO QID naproxen (Naprosyn) 500 mg PO BID PRN oxycodone 10 mg PO BID PRN HPI HPI SCS FOLLOW UP: Details: 58-year-old male who presents today to the office for a SCS follow up. The patient reports minimal pain relief following the procedure. He still continues to experience pain in his lower back. He had a good response during the trial. He states that his pain never improved post-surgery. He turned off the device for some relief, but the pain remained the same. The x-ray showed that there had been no change in the lead position since the implant. He reports knee pain that started 10 days ago. His knee pain is bothersome. He rates his pain at 10/10 in intensity. He has been walking on his toes and putting little pressure on his foot. He describes his pain as sharp in nature. Past Procedures: 05/01/23: Lumbar Nevro SCS implant: Unable to program appropriately during the last month. No significant relief yet. 01/16/23: Lumbar Nevro SCS trial-80% pain relief 11/21/22: Caudal ANIA with catheter-0% pain relief 10/29/22: Right therapeutic subacromial injection-50% pain relief, ongoing [facility] Medical History Segmental and somatic dysfunction of rib cage Occipital neuralgia Cervicalgia Pain in right shoulder Myalgia Hemiplegia and hemiparesis following cerebral infarction affecting left non-dominant side Radiculopathy, cervical region Pain in thoracic spine Radiculopathy, lumbar region Opioid dependence History of kidney stones Stroke Hypertension Surgical History History of back surgery Family History Father No problems noted. Mother No problems noted. Social History Housing: House Alcohol intake: never Comment: NO COUNTS NEEDED Patient Tobacco Use Status: Former Tobacco user Quit Date: 8 years Tobacco use type: Cigarette e-Cigarette/Vaping Use: Never Used Second Hand Smoke Exposure: No service: No Current occupational status: employed Cognitive needs: No Hearing needs: No Vision needs: No Review of Systems Const All systems reviewed & are unremarkable except as noted in HPI and below Physical Exam Vital Signs: Last Vital Signs Pulse 97 06/21/23 10:12 Resp 14 06/21/23 10:12 BP 153/80 H 06/21/23 10:12 Pulse Ox 100 06/21/23 10:12 Oxygen Delivery Method Room Air 06/21/23 10:12 BMI result Body Mass Index 28.9 General: Appears afebrile. Alert and oriented. Mood and affect appropriate. Follows and participates in conversation appropriately. Respiratory effort is unlabored. Able to transition from sit to stand unassisted. Ambulates with bilaterally normal heel strike and toe off. Significant tenderness to palpation in the medial knee compartment on the left side. Office Procedures Joint Injection/Drain Joint Injection/Drain Details: Left knee intraarticular injection, ultrasound guided Primary Site: left knee Prep: site was prepped using sterile technique Injected: 40 mg of, Kenalog, with 3 mL of (Ropivacaine 0.5%) and in the joint Approach Used: medial parapatellar Procedure: The patient tolerated the procedure well Coding Details: An ultrasound image of the injection was taken and stored in the permanent record. 83922 - Large joint Procedure code (CPT) selection complete Results Reviewed Results Reviewed: Spine x-rays reveal stable lead position for the SCS implant. Knee x-ray reveals a calcification in the medial compartment of the left knee which could be secondary to a prior meniscal injury and likely a source of his severe medial knee pain at this time. Assessment & Plan Assessment & Plan (1) Left knee pain: Code(s): M25.562 - Pain in left knee Category: Medical (2) S/P insertion of spinal cord stimulator: Code(s): Z96.89 - Presence of other specified functional implants Category: Medical (3) Failed back syndrome: Code(s): M96.1 - Postlaminectomy syndrome, not elsewhere classified Category: Medical Plan We ordered and reviewed x-rays of the lumbar and thoracic spines today as well as the knees. The results of the x-rays are noted in my review above. For his left knee, I injected his left medial compartment under ultrasound guidance. A left knee medial meniscus calcification was noted on the ultrasound exam as well. Following the injection the patient reported his knee pain to decreased from a 10/10 to 5/10. His range of motion improved as well. For his SCS optimization, I discussed his x-rays with a financial services representative from [facility]. We reprogrammed the device with programs for both paresthesia based non paresthesia based high-frequency stimulation. Good paresthesia coverage was obtained during programming in the office today. He will continue with the combination of HF/tonic programming and see if his back pain symptoms improve after the initial wash in period since his device had been off for the last few days. He will follow-up as needed for repeat knee injection or reprogramming of his SCS device. More than 40 minutes were spent in evaluation, counseling, review of results, coordination of care and documentation of this visit. Scribed for Dr. Barksdale by Kirill Woods, medical receptionist biller, on 06/21/2023. I, Dr. Barksdale, have personally reviewed and agree with the information entered by the scribe. Orders: Orders XR thoracic spine 2V Today Z96.89 - Presence of other specified functional implants XR lumbar spine 2-3V Today Z96.89 - Presence of other specified functional implants XR knee standing BI Today M25.562 - Pain in left knee Coding Level of Care Code Est Pt Level 5 (33372) Diagnoses Left knee pain M25.562 S/P insertion of spinal cord stimulator Z96.89 Failed back syndrome M96.1 CPT Codes Coding - Large joint: 14079 - Large joint ([id number])
[2023-06-21 10:12] VITALS: BP 153/80; PULSE 97; RESP 14; O2SAT 100; BMI 28.9
== END 2023-06-21 12:06 | disposition home or self-care (01) ==
PROVIDERS: PCP Internal Medicine; Visit Provider Internal Medicine
DX: M25.562 Pain in left knee (principal); Z96.89 Presence of other specified functional implants; M96.1 Postlaminectomy syndrome, not elsewhere classified
CPT/HCPCS: 20611; 99214

== ENCOUNTER 2023-06-21 10:05 | Outpatient (REF) | payer OTHER, SELFPAY ==
--- NOTE | ~2023-06-21 | XR_ITS ---
EXAMINATION: XR KNEE AP STANDING CLINICAL INFORMATION: Pain in left knee COMPARISON: None available. TECHNIQUE: AP bilateral standing view of the knees was obtained. FINDINGS: No fracture. There is mild narrowing of the left medial joint compartment with associated chondrocalcinosis. Joint compartment of the right knee are within normal limits. XR/XR knee standing BI IMPRESSION: 1. Mild narrowing of the left medial joint compartment with associated chondrocalcinosis. 2. Normal right knee.
--- NOTE | ~2023-06-21 | XR_ITS ---
EXAMINATION: XR LUMBOSACRAL SPINE CLINICAL INFORMATION: Presence of other specified functional implants COMPARISON: None available. TECHNIQUE: Three views of the lumbosacral spine. FINDINGS: There 5 nonrib-bearing lumbar-type vertebral bodies. The height of the vertebral bodies is well-maintained. There is marked disc space narrowing, endplate sclerosis marginal ossified formation at L4-L5 and L5-S1. There is no spondylolisthesis. There is straightening of the usual lumbar lordosis which can be seen with muscle spasm. A spinal cord stimulator pack projects over the right hemipelvis. Spinal cord stimulator projects over the cervical spine. There is multilevel degenerative facet joint disease. XR/XR lumbar spine 2-3V IMPRESSION: 1. Degenerative disc disease at L4-L5 and L5-S1. 2. Muscle spasm. 3. Multilevel degenerative facet joint disease.
--- NOTE | ~2023-06-21 | XR_ITS ---
EXAMINATION: XR THORACOLUMBAR SPINE CLINICAL INFORMATION: Presence of unspecified functional implants COMPARISON: Same-day lumbar spine TECHNIQUE: 3 views of the thoracic spine. FINDINGS: The vertebral alignment is normal. No intrinsic bony abnormality. There is multilevel disc space narrowing with marginal spur formation with discogenic sclerosis at some levels. The posterior elements are normal. No fracture or subluxation. The surrounding prevertebral soft tissues are unremarkable. Spinal cord stimulator device is seen in the mid and lower thoracic spine. XR/XR thoracic spine 2V IMPRESSION: Spinal cord stimulator device in the mid and lower thoracic spine. Multilevel degenerative disc disease.
== END 2023-06-21 10:06 | disposition home or self-care (01) ==
LOC: HO.XRAY 10:05
PROVIDERS: PCP Internal Medicine; Visit Provider Internal Medicine
DX: M51.34 Other intervertebral disc degeneration, thoracic region (principal); Z96.89 Presence of other specified functional implants; M96.1 Postlaminectomy syndrome, not elsewhere classified; M51.36 Other intervertebral disc degeneration, lumbar region; M11.262 Other chondrocalcinosis, left knee
CPT/HCPCS: 20611; 72070; 72100; 73565; J2795; J3301

== ENCOUNTER 2023-07-26 10:01 | Outpatient (AMB) | payer OTHER, SELFPAY ==
--- NOTE | 2023-07-26 10:06 | MHC.OFFVIS ---
Intake Visit Reasons: Pain in left knee Intake Note: Ruben is a 58 year old male who presents today as a new patient with complaints of left knee pain. Patient reports that he has had pain in the left knee for about 2 months now. No history of injury. He has pain all the time and increased pain with dleg extension. He sleeps on his stomach and has increased pain at night. He also is taking ibuprofen PRN. Hx of cortisone injection on 06/21/23, patient reports mild relief with the injection. He is on a pain contract and is taking Oxycodone 10mg - this is prescribed by pain mgmt Allergies No Known Allergies Allergy (Verified 07/26/23 10:06) HPI HPI Pain in left knee: Details: 58 yo M with left severe knee pain. Recently had an injection with Pain that was 50% helpful. His pain is anteromedial. It is worse with standing and sleeping on his stomach. He has a spinal stimulator. He denies burning but describes sharp stabbing left knee pain. He also has occasional severe pain over anterolateral distal thigh but anterior to ITB. [facility] Medical History Segmental and somatic dysfunction of rib cage Occipital neuralgia Cervicalgia Pain in right shoulder Myalgia Hemiplegia and hemiparesis following cerebral infarction affecting left non-dominant side Radiculopathy, cervical region Pain in thoracic spine Radiculopathy, lumbar region Opioid dependence History of kidney stones Stroke Hypertension Surgical History History of back surgery Family History Father No problems noted. Mother No problems noted. Social History Housing: House Alcohol intake: never Comment: NO COUNTS NEEDED Patient Tobacco Use Status: Former Tobacco user Tobacco use type: Cigarette e-Cigarette/Vaping Use: Never Used Second Hand Smoke Exposure: No service: No Current occupational status: employed Cognitive needs: No Hearing needs: No Vision needs: No Physical Exam Extrem Other: Full ROM with mild effusion Stable to v/v stress Pain with axial compression Neg Steinmen's Mild ttp over anteromedial joint line with terminal extension. Otherwise benign exam Results Reviewed Results Reviewed: I personally reviewed relevant radiographs. Chondrocalcinosis left knee Otherwsie unremarkable Assessment & Plan Assessment & Plan (1) Effusion, left knee: Code(s): M25.462 - Effusion, left knee Category: Medical Plan: Ongoing pain that is severe and only partially alleviated with injection. He has recurrent effusion and I recommend MRI. Orders: Orders MR knee LT wo con Today M25.462 - Effusion, left knee Coding Level of Care Code New Pt Level 4 (80287) Diagnoses Effusion, left knee M25.462
== END 2023-07-26 11:40 | disposition home or self-care (01) ==
PROVIDERS: PCP Internal Medicine; Visit Provider Orthopaedic Surgery
DX: M25.462 Effusion, left knee (principal)
CPT/HCPCS: 99204

== ENCOUNTER → 2023-07-26 10:01 | Outpatient (BNVA) | payer OTHER, SELFPAY | PROVIDERS: PCP Internal Medicine; Visit Provider Orthopaedic Surgery ==

== ENCOUNTER 2023-09-04 10:01 | Outpatient (AMB) | payer OTHER, SELFPAY ==
--- NOTE | 2023-09-04 10:14 | MHC.PC.OV ---
Vital Signs 09/04/23 10:15 Height 5 ft Weight 146 lb 8 oz BMI 28.6 BP 130/84 Blood Pressure Location Lt brachial Position Sitting Pulse 72 Pulse Source Pulse Oximeter Pulse Oximetry (%) 99 Oxygen Delivery Method Room Air Intake Visit Reasons: 3mof\u Point Of Care Specialist Required: No Accompanied by: Self / Same As Patient Allergies No Known Allergies Allergy (Verified 09/04/23 10:15) Medication List - Last Reconciled 09/04/23 by Morales Oneil MD acetaminophen (Tylenol Extra Strength) 1,000 mg PO Q6H PRN amlodipine 2.5 mg PO DAILY carisoprodol 350 mg PO QID PRN ibuprofen 600 mg PO QID naproxen (Naprosyn) 500 mg PO BID PRN oxycodone 10 mg PO BID PRN Tobacco use date assessed: 03/21/23 Dental Screening Dental Screen Date: 03/21/23 HPI 3mof\u HPI Details htn on rx; doing well and compliant [facility] Medical History Segmental and somatic dysfunction of rib cage Occipital neuralgia Cervicalgia Pain in right shoulder Myalgia Hemiplegia and hemiparesis following cerebral infarction affecting left non-dominant side Radiculopathy, cervical region Pain in thoracic spine Radiculopathy, lumbar region Opioid dependence History of kidney stones Stroke Hypertension Surgical History History of back surgery Family History Father No problems noted. Mother No problems noted. Social History Housing: House Alcohol intake: never Comment: NO COUNTS NEEDED Patient Tobacco Use Status: Former Tobacco user Tobacco use type: Cigarette e-Cigarette/Vaping Use: Never Used Second Hand Smoke Exposure: No service: No Current occupational status: employed Cognitive needs: No Hearing needs: No Vision needs: No Questionnaire Thrive Questionnaire Date Thrive assessed: 03/21/23 OSORIO-7 AMB Questionnaire OSORIO-7 Date OSORIO - 7 assessed: 03/21/23 Source: Developed by Drs. Vipul Syed, Danielle Salas, Narayan Raines and colleagues, with an educational omar from [employer]. Review of Systems Const Denies chills, Denies headache(s) and Denies weight loss ENT Denies headache(s) Card Denies chest pain, Denies syncope, Denies irregular heart rhythm and Denies dyspnea Resp Denies chest congestion, Denies cough and Denies dyspnea GI Denies abdominal pain, Denies change in stool character, Denies nausea and Denies vomiting Musc Denies deformity and Denies joint swelling Neuro Denies syncope and Denies headache(s) Physical exam (Primary Care) Vital Signs: Last Vital Signs Pulse 72 09/04/23 10:15 BP 130/84 09/04/23 10:15 Pulse Ox 99 09/04/23 10:15 Oxygen Delivery Method Room Air 09/04/23 10:15 BMI result Body Mass Index 28.6 Tobacco/Smoking Status: Tobacco use Status Tobacco use date assessed 03/21/23 09/04/23 10:16 Patient Tobacco Use Status Former Tobacco user 09/04/23 10:16 Tobacco use type Cigarette 09/04/23 10:16 e-Cigarette/Vaping Use Never Used 09/04/23 10:16 Thrive Assessment: Date of Thrive Assessment Date Thrive assessed 03/21/23 09/04/23 10:16 Const General: cooperative, comfortable, no acute distress and alert Neck Neck: Yes no lymphadenopathy Thyroid: Thyroid normal Resp Effort & Inspection: normal respiratory effort Auscultation: clear to auscultation bilaterally Percussion: percussion normal Cardio Jugular venous distension: no JVD Palpation: normal PMI Rate: regular rate Rhythm: regular rhythm Heart sounds: S1 normal heart sound present and S2 normal heart sound present GI Inspection: Yes normal to inspection Palpation (GI): No hepatosplenomegaly present Skin General skin exam: no rashes or lesions noted Extrem General: Yes no clubbing, cyanosis or edema Assessment and Plan Assessment & Plan (1) Hypertension: Code(s): I10 - Essential (primary) hypertension Plan: stable; same rx Coding Level of Care Code Est Pt Level 3 (58805) Diagnoses Hypertension I10
[2023-09-04 10:15] VITALS: BP 130/84; PULSE 72; O2SAT 99; BMI 28.6
== END 2023-09-04 10:32 | disposition home or self-care (01) ==
PROVIDERS: PCP Internal Medicine; Visit Provider Internal Medicine
DX: I10 Essential (primary) hypertension (principal)
CPT/HCPCS: 99213

== ENCOUNTER 2023-09-06 18:51 | Outpatient (REF) | payer OTHER, SELFPAY ==
--- NOTE | ~2023-09-06 | MR_ITS ---
EXAMINATION: MR KNEE WITHOUT CONTRAST, LEFT CLINICAL INFORMATION: Left knee effusion. COMPARISON: None available. TECHNIQUE: MRI of the knee without contrast was performed using routine sequences on a high-field scanner. FINDINGS: MENISCI: Medial Meniscus: There is a horizontal cleavage tear of the posterior horn with degenerative intrasubstance signal and a complex multilocular parameniscal cyst posteriorly measuring 4 x 1 x 0.5 cm. Lateral Meniscus: Intact LIGAMENTS: Cruciate: Ill-defined increased intrasubstance signal in the ACL is most likely due to mucoid degeneration. No tears or laxity. PCL is normal. Collateral: Intact EXTENSOR MECHANISM: Enthesopathic spurring is present in the quadriceps tendon insertion on the patella. Quadriceps and patellar tendons are intact. ARTICULAR CARTILAGE/BONE: Patellofemoral Compartment: Mild nonuniform chondral thinning at the patella and trochlea, more pronounced at the medial facet. Tiny marginal osteophytes. Medial Compartment: Minimal nonuniform chondral thinning is present at the anterior weightbearing surface of the medial femoral condyle. Lateral Compartment: Normal JOINT FLUID AND BURSAE: Trace effusion. No Silva's cyst. MR/MR knee LT wo con IMPRESSION: 1. Horizontal cleavage tear of the posterior horn of the medial meniscus with a complex 4 cm parameniscal cyst. 2. Minimal patellofemoral and medial compartment osteoarthritis. 3. Trace joint effusion. 4. Mucoid degeneration of the ACL.
== END 2023-09-06 18:52 | disposition home or self-care (01) ==
LOC: HO.MRI 18:51
PROVIDERS: PCP Internal Medicine; Visit Provider Orthopaedic Surgery
DX: M25.462 Effusion, left knee (principal)
CPT/HCPCS: 73721

== ENCOUNTER 2023-10-04 11:17 | Outpatient (AMB) | payer OTHER, SELFPAY ==
--- NOTE | 2023-10-04 11:26 | MHC.OFFVIS ---
Intake Visit Reasons: OV- LT knee MRI follow up Intake Note: Ruben is a 58 year old male who presents today for an MRI review of his left knee. Allergies No Known Allergies Allergy (Verified 09/04/23 10:15) HPI HPI OV- LT knee MRI follow up: Details: Ruben is a 58 year old male who presents today for an MRI review of his left knee. He has sharp medial-sided knee pain. It keeps him up at night and prevents him from walking comfortably. He is unable to exercise and uses a cane to walk. [facility] Medical History Segmental and somatic dysfunction of rib cage Occipital neuralgia Cervicalgia Pain in right shoulder Myalgia Hemiplegia and hemiparesis following cerebral infarction affecting left non-dominant side Radiculopathy, cervical region Pain in thoracic spine Radiculopathy, lumbar region Opioid dependence History of kidney stones Stroke Hypertension Surgical History History of back surgery Family History Father No problems noted. Mother No problems noted. Social History Housing: House Alcohol intake: never Comment: NO COUNTS NEEDED Patient Tobacco Use Status: Former Tobacco user Tobacco use type: Cigarette e-Cigarette/Vaping Use: Never Used Second Hand Smoke Exposure: No service: No Current occupational status: employed Cognitive needs: No Hearing needs: No Vision needs: No Physical Exam Extrem Other: Medial joint line tenderness to palpation and sharp medial Tunde's. No effusion full range of motion. Mild gait antalgia with gait initiation. Results Reviewed Results Reviewed: I personally reviewed the MR images. MR/MR knee LT wo con IMPRESSION: 1. Horizontal cleavage tear of the posterior horn of the medial meniscus with a complex 4 cm parameniscal cyst. 2. Minimal patellofemoral and medial compartment osteoarthritis. 3. Trace joint effusion. 4. Mucoid degeneration of the ACL. Assessment & Plan Assessment & Plan (1) Tear of medial meniscus of left knee: Code(s): S83.242A - Other tear of medial meniscus, current injury, left knee, initial encounter Category: Medical Plan: This is a 58-year-old with a complicated medical history including left-sided weakness. He has chronic pain syndrome and a spinal cord stimulator. Unfortunately also has a very large medial meniscus tear that is symptomatic. I recommend surgical intervention. I reviewed with him the MRI findings. I reviewed with him the fact that he has some hemiplegia on that side and this may affect his recovery and his gait but he is symptomatic and I think he would benefit from arthroscopy. He expressed understanding and we will proceed forward accordingly. (2) Chronic pain syndrome: Code(s): G89.4 - Chronic pain syndrome Category: Medical Plan: Spinal cord stimulator in place. He has known chronic pain syndrome. He is opioid dependent although doses are low. Coding Level of Care Code Est Pt Level 4 (00510) Complex EM visit Add On G2211 Diagnoses Tear of medial meniscus of left knee S83.242A Chronic pain syndrome G89.4
== END 2023-10-04 11:53 | disposition home or self-care (01) ==
PROVIDERS: PCP Internal Medicine; Visit Provider Orthopaedic Surgery
DX: S83.242A Other tear of medial meniscus, current injury, left knee, initial encounter (principal); G89.4 Chronic pain syndrome
CPT/HCPCS: 99214

== ENCOUNTER → 2023-10-04 11:17 | Outpatient (BNVA) | payer OTHER, SELFPAY | PROVIDERS: PCP Internal Medicine; Visit Provider Orthopaedic Surgery ==

== ENCOUNTER 2023-10-09 06:12 | Day surgery (SDC) | payer OTHER, SELFPAY ==
--- NOTE | 2023-10-08 10:10 | P.CONAN_ITS ---
Documented by User: Torri Kerr NP 10/08/23 10:12 HPI - Anesthesia Eval Consult details Narrative: 58yo M for Left Knee Arthroscopy s/p spinal stim implant 04/2023 with GA-ETT 7 CVA 2018 with Left side weakness Chronic opioids PMFSH Active Problems Active Problems: All Active Problems Effusion, left knee (Acute) Left knee pain (Acute) S/P insertion of spinal cord stimulator (Acute) Failed back syndrome (Acute) Thoracic back pain (Acute) Lumbar radicular pain (Acute) Left shoulder pain (Acute) Cervicalgia (Acute) Back pain, lumbosacral (Acute) Calcific tendinitis of right shoulder (Acute) Vertebrogenic low back pain (Acute) Pain in right shoulder (Acute) Chronic pain syndrome (Acute) Degeneration of lumbar intervertebral disc (Acute) Lumbar post-laminectomy syndrome (Acute) Back pain of lumbar region with sciatica (Acute) Blunt trauma of rib (Acute) Hypertension (Acute) Physical exam (Acute) Back pain (Acute) Past Medical History Medical History Abnormal angiogram of head Segmental and somatic dysfunction of rib cage Occipital neuralgia Cervicalgia Pain in right shoulder Myalgia Hemiplegia and hemiparesis following cerebral infarction affecting left non- dominant side Radiculopathy, cervical region Pain in thoracic spine Radiculopathy, lumbar region Opioid dependence History of kidney stones Stroke Hypertension Family History Family History Father No problems noted. Mother No problems noted. Family history of problems with anesthesia: No Surgical History Surgical History History of back surgery History of Problems with Anesthesia: No Social History Social History Household Members Other:: daughter Housing: House Are you a primary career development associate to a significant other at home: No Do you presently have visiting nurse or other home services: No Alcohol intake: never Comment: NO COUNTS NEEDED Patient Tobacco Use Status: Former Tobacco user Tobacco use type: Cigarette e-Cigarette/Vaping Use: Never Used Second Hand Smoke Exposure: No Use of substances other than those prescribed or required for medical reasons: No Are you DNR?: No Advance Directives: No Advance Directives Information Provided: Yes service: No Current occupational status: employed Cognitive needs: No Hearing needs: No Vision needs: No Meds Allergies Allergy/AdvReac Type Severity Reaction Status Date / Time No Known Allergies Allergy Verified 10/09/23 06:49 Home Medications ?Medication ?Instructions ?Recorded ?Confirmed ?Last Taken ?Type acetaminophen 500 mg tablet 1,000 mg PO Q6H PRN Pain, Moderate 09/26/22 10/09/23 12/04/22 History (Tylenol Extra Strength) ibuprofen 600 mg tablet 600 mg PO QID 10/18/22 10/09/23 12/04/22 History carisoprodol 350 mg tablet 350 mg PO QID PRN muscle spasm 05/07/23 10/09/23 Unknown History Assessment and Plan Assessment Anesthesia Assessment: Chart Reviewed Final Anesthetic Review Family History of Problems with Anesthesia: No History of Problems with Anesthesia: No Documented by User: Sera Rivas MD 10/09/23 07:27 [facility] Past Medical History Medical History Abnormal angiogram of head Segmental and somatic dysfunction of rib cage Occipital neuralgia Cervicalgia Pain in right shoulder Myalgia Hemiplegia and hemiparesis following cerebral infarction affecting left non- dominant side Radiculopathy, cervical region Pain in thoracic spine Radiculopathy, lumbar region Opioid dependence History of kidney stones Stroke Hypertension Family History Family History Father No problems noted. Mother No problems noted. Surgical History Surgical History History of back surgery Social History Social History Household Members Other:: daughter Housing: House Are you a primary career development associate to a significant other at home: No Do you presently have visiting nurse or other home services: No Alcohol intake: never Comment: NO COUNTS NEEDED Patient Tobacco Use Status: Former Tobacco user Tobacco use type: Cigarette e-Cigarette/Vaping Use: Never Used Second Hand Smoke Exposure: No Use of substances other than those prescribed or required for medical reasons: No Are you DNR?: No Advance Directives: No Advance Directives Information Provided: Yes service: No Current occupational status: employed Cognitive needs: No Hearing needs: No Vision needs: No Meds Allergies Allergy/AdvReac Type Severity Reaction Status Date / Time No Known Allergies Allergy Verified 10/09/23 06:49 Home Medications ?Medication ?Instructions ?Recorded ?Confirmed ?Last Taken ?Type acetaminophen 500 mg tablet 1,000 mg PO Q6H PRN Pain, Moderate 09/26/22 10/09/23 12/04/22 History (Tylenol Extra Strength) ibuprofen 600 mg tablet 600 mg PO QID 10/18/22 10/09/23 12/04/22 History carisoprodol 350 mg tablet 350 mg PO QID PRN muscle spasm 05/07/23 10/09/23 Unknown History Exam Airway Mallampati Class: II TM Dist: >3cm Neck ROM: Limited Heart: rrr Lungs: cta Assessment and Plan Assessment Anesthesia Assessment: Anesthesia Plan Discussed Final Anesthetic Review NPO: Yes ASA Class: III Final Preanesthetic Review: No Changes in Pt Med Stat, Meds/Allgs Chart Reviewed, Consent Obtained/Reviewed and Anes Risks/Benef Reviewed Patient Risk: Intermediate Procedure Risk: Low Anesthetic Plan Anesthetic Plan: GA Disposition: Standard PACU
[2023-10-09 06:48] VITALS: BMI 24.6
[2023-10-09 06:58] VITALS: BP 137/70; PULSE 64; RESP 16; TEMP 36.8; O2SAT 97
[2023-10-09] MEDS: Lactated Ringers 1,000 ML 100 ML IVCONT (07:18)
--- NOTE | 2023-10-09 07:28 | MHC.SHP ---
Pre-Procedural Eval Section A - 24 Hr Update-Section A only Date of Service: 10/09/23 The patient is an INPATIENT: No Changes since office visit: No Cold of Flu in the past 2 weeks, No New Medical Problems, No Changes in Medication and No Patient answered all questions The patient has been examined within 24 hours of the surgical procedure. The History & Physical has been completed within 30 days and I have reviewed it.: Yes Section B - Complete if H&P > 30 days Chief Complaint: Other tear of medial meniscus, current injury, lef Allergies: Allergies Allergy/AdvReac Type Severity Reaction Status Date / Time No Known Allergies Allergy Verified 10/09/23 06:49 Plan I have reviewed the history and physical and performed a pertinent physical examination on my patient. No changes have occurred unless specified. Time Spent With Patient Time: Total time managing care of this patient today ____ minutes.
--- NOTE | 2023-10-09 08:25 | PC.NURSE ---
Addendum entered by Madalyn Cornejo RN 10/09/23 08:42: Correction- Spinal Cord Stimulator Remote brought into front end application developer by Daughter. Original Note: Spinal cord stimulator brought in to front end application developer by Daughter. No lights lit up on SCS remote. Call placed to daughter regarding how to turn device off. Per daughter If you point it at my fathers back, and press the red button on the back, it will beep. Then the monitor will be off . This nurse followed these steps. Single beep heard and lights on the front of remote lit up. After a minute or so, all lights off again. Patient confused if monitor off or on, unable to feel difference. Dr. Gonzalez, Dr. Rivas, Dr. Carey, and Ciara OR nurse all made aware. Remote lights remained unlit. Okay to proceed at this time per Dr. Carey.
[2023-10-09 09:26] VITALS: BP 142/77; PULSE 55; RESP 16; TEMP 36.2; O2SAT 100
[2023-10-09 09:30] VITALS: BP 146/68; PULSE 70; RESP 16; O2SAT 100
--- NOTE | 2023-10-09 09:31 | P.BOP_ITS ---
Brief Operative Note Date of Service: 10/09/23 Pre-op diagnosis: left knee MMT Post-op diagnosis: same Procedure: Partial medial meniscectomy left knee Implants: none Surgeon: Norberto Gonzalez MD Anesthesia: GETA Was an Retail Store Associate used for this Procedure?: No Estimated blood loss (mL): 5 Tourniquet time (min): 22 IV fluids (mL): 500 Pathology: none sent Condition: stable Disposition: PACU
--- NOTE | 2023-10-09 09:34 | P.OP_ITS ---
Operative Note Operative Note Date of Service: 10/09/23 Narrative: Date of Service: 10/09/23 Pre-op diagnosis: left knee MMT Post-op diagnosis: same Procedure: Partial medial meniscectomy left knee Implants: none Surgeon: Norberto Gonzalez MD Anesthesia: GETA Was an Junior Systems Engineer used for this Procedure?: No Estimated blood loss (mL): 5 Tourniquet time (min): 22 IV fluids (mL): 500 Pathology: none sent Condition: stable Disposition: PACU Procedure in detail: Patient was brought to the operating room placed supine on the arthroscopic table and prepped and draped in standard sterile fashion. A time-out was called to identify proper site proper procedure proper surgeon and IV antibiotics per weight were administered. I began by exsanguinating the limb and insufflating tourniquet to 300 mm Hg. Then made a standard anterolateral stab incision. The knee was insufflated with water and 30 degree arthroscope was placed. There was grade 1 fibrillations of the patella but overall the suprapatellar pouch and the gutters were clean. I descended into the medial compartment where I made my medial portal under direct visualization. There was obvious of complex tear of the posterior horn of the medial meniscus. The root was intact and there was grade 0 changes in the tibial plateaul. I used a combination of biter shaver and cautery to remove unstable portions of the meniscus. Apporximately 30% meniscal volume was removed. Once I was satsfied with this the ACL was examined and found to be intact and the lateral compartment also was without the need for intervention. I then removed all instrumentation and closed the portals with skin glue. 25 mL of 2% Marcaine with epinephrine was injected into the joint and the surrounding soft tissues. Patient was then placed in sterile dressing extubated brought recovery room stable condition. There were no known complications.
[2023-10-09 09:35] VITALS: BP 125/63; PULSE 67; RESP 16; O2SAT 98
[2023-10-09 09:40] VITALS: BP 136/65; PULSE 63; RESP 16; O2SAT 98
[2023-10-09 09:55] VITALS: BP 116/71; PULSE 59; RESP 16; TEMP 36.1; O2SAT 99
== END 2023-10-09 10:41 | disposition home or self-care (01) ==
PROVIDERS: PCP Internal Medicine; Visit Provider Orthopaedic Surgery
PROC: (CPT 29870; principal; 2023-10-09 07:30)
DX: S83.242A Other tear of medial meniscus, current injury, left knee, initial encounter (principal); M25.562 Pain in left knee; G89.4 Chronic pain syndrome; M54.81 Occipital neuralgia; M54.12 Radiculopathy, cervical region; M54.16 Radiculopathy, lumbar region; Z96.82 Presence of neurostimulator; I69.354 Hemiplegia and hemiparesis following cerebral infarction affecting left non-dominant side; M79.10 Myalgia, unspecified site; I10 Essential (primary) hypertension; Z87.891 Personal history of nicotine dependence; Z99.89 Dependence on other enabling machines and devices; F11.20 Opioid dependence, uncomplicated; Z98.890 Other specified postprocedural states; S83.232A Complex tear of medial meniscus, current injury, left knee, initial encounter; X58.XXXA Exposure to other specified factors, initial encounter; Y93.9 Activity, unspecified; Y92.9 Unspecified place or not applicable; Y99.9 Unspecified external cause status
CPT/HCPCS: 29881; J0131; J0171; J0690; J1100; J2405; J2704; J2795; J3010

== ENCOUNTER → 2023-10-09 06:12 | Outpatient (BNV) | payer OTHER, SELFPAY | PROVIDERS: PCP Internal Medicine; Visit Provider Orthopaedic Surgery | DX: S83.232A Complex tear of medial meniscus, current injury, left knee, initial encounter (principal) | CPT/HCPCS: 29881 ==

== ENCOUNTER 2023-10-17 13:56 | Outpatient (AMB) | payer OTHER, SELFPAY ==
--- NOTE | 2023-10-17 14:12 | A.OFFVIS_ITS ---
Intake Visit Reasons: PO LT Knee 10/09/23 NE Intake Note: Ruben hickey 58 year old male presents today for a post operative left knee on 10/09/23 NE. Patient reports ongoing pain and swelling however the past couple of days his pain has improved. His current pain level is 6-7 out of 10. Accompanied by: Daughter Allergies No Known Allergies Allergy (Verified 10/17/23 14:17) Medication List - Last Reconciled 10/17/23 by Marylin Faustin PA-C acetaminophen (Tylenol Extra Strength) 1,000 mg PO Q6H PRN amlodipine 2.5 mg PO DAILY carisoprodol 350 mg PO QID PRN ibuprofen 600 mg PO QID naproxen (Naprosyn) 500 mg PO BID PRN oxycodone 10 mg PO BID PRN oxycodone-acetaminophen 5-325 mg 1 tab PO Q12H PRN 7 days HPI HPI PO LT Knee 10/09/23 NE: Details: 58-year-old male who returns to the office today for post-op left knee , 10/09/[address] Gonzalez. He continues to have ongoing pain and swelling in his knee and rates the pain as about 7 on the scale of 0-10. He reports episodes of chronic pain in his knee that is aggravated in the nighttime. He occasionally takes narcotics for his pain. He has discontinued taking ibuprofen. [facility] Medical History Abnormal angiogram of head Segmental and somatic dysfunction of rib cage Occipital neuralgia Cervicalgia Pain in right shoulder Myalgia Hemiplegia and hemiparesis following cerebral infarction affecting left non- dominant side Radiculopathy, cervical region Pain in thoracic spine Radiculopathy, lumbar region Opioid dependence History of kidney stones Stroke Hypertension Surgical History History of back surgery Family History Father No problems noted. Mother No problems noted. Social History Household Members Other:: daughter Housing: House Are you a primary foster care social worker to a significant other at home: No Do you presently have visiting nurse or other home services: No Alcohol intake: never Comment: NO COUNTS NEEDED Patient Tobacco Use Status: Former Tobacco user Tobacco use type: Cigarette e-Cigarette/Vaping Use: Never Used Second Hand Smoke Exposure: No service: No Current occupational status: employed Cognitive needs: No Hearing needs: No Vision needs: No Review of Systems Const All systems reviewed & are unremarkable except as noted in HPI and below Physical Exam Extrem Other: Left knee: Incision clean, dry and intact. No redness or joint effusion. ROM is 0-95 degrees. Calf supple, nontender. NVI. ? Results Reviewed Results Reviewed: Brief Operative Note Date of Service: 10/09/23 Pre-op diagnosis: left knee MMT Post-op diagnosis: same Procedure: Partial medial meniscectomy left knee Implants: none Surgeon: Norberto Gonzalez MD Assessment & Plan Assessment & Plan (1) Tear of medial meniscus of left knee: Code(s): S83.242A - Other tear of medial meniscus, current injury, left knee, initial encounter Category: Medical (2) Chronic pain syndrome: Code(s): G89.4 - Chronic pain syndrome Category: Medical Plan I did offer him a course of physical therapy which he declined but was open to home exercises which I did provide him with in the office today. He will avoid any type of deep bending, kneeling, twisting, pivoting, or squatting for the next 4-6 weeks. I did refill his prescription of Percocet to take twice a day or at night as he has episodes of severe pain. I recommend ice and modification of activities as tolerated. I would like to see him back in [address] Gonzalez, sooner if needed. Medications: Changed From oxycodone-acetaminophen 5-325 mg Partial Fill upon patient request. 1 tab PO Q8H PRN 21 tabs 0RF pain 7 days To oxycodone-acetaminophen 5-325 mg Partial Fill upon patient request. 1 tab PO Q12H PRN 14 tabs 0RF pain 7 days Patient Instructions: Scribed for Marylin Faustin PA-C, by Teja Yeager pediatric medical assistant, on 10/17/2023 at 2:00 PM EST.? I, Marylin Faustin PA-C, have personally reviewed and agree with the information entered by the scribe. Coding Level of Care Code Global (74072) Diagnoses Tear of medial meniscus of left knee S83.242A Chronic pain syndrome G89.4
== END 2023-10-17 14:54 | disposition home or self-care (01) ==
PROVIDERS: PCP Internal Medicine; Visit Provider Physician Assistant
DX: S83.242A Other tear of medial meniscus, current injury, left knee, initial encounter (principal); G89.4 Chronic pain syndrome
CPT/HCPCS: 99024

== ENCOUNTER → 2023-10-17 13:56 | Outpatient (BNVA) | payer OTHER, SELFPAY | PROVIDERS: PCP Internal Medicine; Visit Provider Physician Assistant ==

== ENCOUNTER 2023-11-14 13:41 | Outpatient (AMB) | payer OTHER, SELFPAY ==
--- NOTE | 2023-11-14 14:11 | MHC.OFFVIS ---
Vital Signs 11/14/23 14:13 Height 5 ft 5 in Weight 148 lb BMI 24.6 Intake Visit Reasons: PO-LT knee as 10/09/23 ne-book with NE Intake Note: Ruben is a 58 year old male who presents today for a post operative appointment s/p LT knee as 10/09/23. Patient reports that he has continued pain on the medial aspect of the left knee. Allergies No Known Allergies Allergy (Verified 10/17/23 14:17) HPI HPI PO-LT knee as 10/09/23 ne-book with NE: Details: Ruben is a 58 year old male who presents today for a post operative appointment s/p LT knee as 10/09/23. Patient reports that he has continued pain on the medial aspect of the left knee. Overall his knee feels much better than before the surgery but he is still 1 area of tenderness posteromedially. [facility] Medical History Abnormal angiogram of head Segmental and somatic dysfunction of rib cage Occipital neuralgia Cervicalgia Pain in right shoulder Myalgia Hemiplegia and hemiparesis following cerebral infarction affecting left non-dominant side Radiculopathy, cervical region Pain in thoracic spine Radiculopathy, lumbar region Opioid dependence History of kidney stones Stroke Hypertension Surgical History History of back surgery Family History Father No problems noted. Mother No problems noted. Social History Household Members Other:: daughter Housing: House Are you a primary cattle care worker to a significant other at home: No Do you presently have visiting nurse or other home services: No Alcohol intake: never Comment: NO COUNTS NEEDED Patient Tobacco Use Status: Former Tobacco user Tobacco use type: Cigarette e-Cigarette/Vaping Use: Never Used Second Hand Smoke Exposure: No service: No Current occupational status: employed Cognitive needs: No Hearing needs: No Vision needs: No Physical Exam Vital Signs: BMI result Body Mass Index 24.6 Extrem Other: Portals clean dry and intact Full range of motion Negative Tunde's There is tenderness to palpation at 1 point posteriorly along the posteromedial aspect of the joint line/medial femoral condyle Assessment & Plan Assessment & Plan (1) Tear of medial meniscus of left knee: Code(s): S83.242A - Other tear of medial meniscus, current injury, left knee, initial encounter Category: Medical Plan: I reviewed intraoperative findings with patient. He is improving. He is still little sore posteromedially. This should resolve. I recommend continued strengthening and activity as tolerated. Follow up as needed. Coding Level of Care Code Global (08812) Diagnoses Tear of medial meniscus of left knee S83.242A
[2023-11-14 14:13] VITALS: BMI 24.6
== END 2023-11-14 14:33 | disposition home or self-care (01) ==
PROVIDERS: PCP Internal Medicine; Visit Provider Orthopaedic Surgery
DX: S83.242A Other tear of medial meniscus, current injury, left knee, initial encounter (principal)
CPT/HCPCS: 99024

== ENCOUNTER → 2023-11-14 13:41 | Outpatient (BNVA) | payer OTHER, SELFPAY | PROVIDERS: PCP Internal Medicine; Visit Provider Orthopaedic Surgery ==

== ENCOUNTER 2023-11-29 13:14 | Outpatient (AMB) | payer OTHER, SELFPAY ==
[2023-11-29 13:20] VITALS: BP 144/88; PULSE 87; O2SAT 96; BMI 25.0
--- NOTE | 2023-11-29 13:20 | MHC.PC.OV ---
Vital Signs 11/29/23 13:20 Height 5 ft 5 in Weight 150 lb BMI 25.0 BP 144/88 H Blood Pressure Location Lt brachial Position Sitting Pulse 87 Pulse Source Pulse Oximeter Pulse Oximetry (%) 96 Oxygen Delivery Method Room Air Intake Visit Reasons: Knee Pain Allergies No Known Allergies Allergy (Verified 10/17/23 14:17) Tobacco use date assessed: 03/21/23 Dental Screening Dental Screen Date: 03/21/23 HPI Knee Pain HPI Details HTN on Rx; doing well; compliant [facility] Medical History Abnormal angiogram of head Segmental and somatic dysfunction of rib cage Occipital neuralgia Cervicalgia Pain in right shoulder Myalgia Hemiplegia and hemiparesis following cerebral infarction affecting left non-dominant side Radiculopathy, cervical region Pain in thoracic spine Radiculopathy, lumbar region Opioid dependence History of kidney stones Stroke Hypertension Surgical History History of back surgery Family History Father No problems noted. Mother No problems noted. Social History Household Members Other:: daughter Housing: House Are you a primary respiratory care program director to a significant other at home: No Do you presently have visiting nurse or other home services: No Alcohol intake: never Comment: NO COUNTS NEEDED Patient Tobacco Use Status: Former Tobacco user Tobacco use type: Cigarette e-Cigarette/Vaping Use: Never Used Second Hand Smoke Exposure: No service: No Current occupational status: employed Cognitive needs: No Hearing needs: No Vision needs: No Questionnaire PHQ-9 Over the last 2 weeks, how often have you been bothered by any of the following problems? 1. Little interest or pleasure in doing things: not at all 2. Feeling down, depressed, or hopeless: not at all 3. Trouble falling or staying asleep, or sleeping too much: not at all 4. Feeling tired or having little energy: not at all 5. Poor appetite or overeating: not at all 6. Feeling bad about yourself - or that you are a failure or have let yourself or your family down: not at all 7. Trouble concentrating on things, such as reading the newspaper or watching television: not at all 8. Moving or speaking so slowly that other people could have noticed. Or the opposite - being so fidgety or restless that you have been moving around a lot more than usual: not at all 9. Thoughts that you would be better off or of hurting yourself in some way: not at all Total score: 0 Depression Screening Interpretation: Negative Depression Screening Done: Yes 15038 - PHQ-9 Billing: Yes Source: Developed by Drs. Vipul Syed, Danielle Salas, Narayan Raines and colleagues, with an educational omar from [employer]. Thrive Questionnaire Date Thrive assessed: 03/21/23 Are you currently unemployed and looking for a job?: Yes AUDIT C Alcohol Use Questionnaire (AUDIT-C) 1. How often do you have a drink containing alcohol?: Never Total Score: 0 OSORIO-7 AMB Questionnaire OSORIO-7 Date OSORIO - 7 assessed: 03/21/23 Source: Developed by Drs. Vipul Syed, Danielle Salas, Narayan Raines and colleagues, with an educational omar from [employer]. Review of Systems Const Denies chills, Denies headache(s) and Denies weight loss ENT Denies headache(s) Card Denies chest pain, Denies syncope, Denies irregular heart rhythm and Denies dyspnea Resp Denies chest congestion, Denies cough and Denies dyspnea GI Denies abdominal pain, Denies change in stool character, Denies nausea and Denies vomiting Musc Denies deformity and Denies joint swelling Neuro Denies syncope and Denies headache(s) Physical exam (Primary Care) Vital Signs: Last Vital Signs Pulse 87 11/29/23 13:20 BP 144/88 H 11/29/23 13:20 Pulse Ox 96 11/29/23 13:20 Oxygen Delivery Method Room Air 11/29/23 13:20 BMI result Body Mass Index 25.0 Tobacco/Smoking Status: Tobacco use Status Tobacco use date assessed 03/21/23 11/29/23 13:22 Patient Tobacco Use Status Former Tobacco user 11/29/23 13:22 Tobacco use type Cigarette 11/29/23 13:22 e-Cigarette/Vaping Use Never Used 10/11/24 13:22 PHQ-9: PHQ-9 Score PHQ-9: Total score 0 11/29/23 13:24 Depression Screening Interpretation: Negative Thrive Assessment: Date of Thrive Assessment Date Thrive assessed 03/21/23 11/29/23 13:22 Const General: cooperative, comfortable, no acute distress and alert Neck Neck: Yes no lymphadenopathy Thyroid: Thyroid normal Resp Effort & Inspection: normal respiratory effort Auscultation: clear to auscultation bilaterally Percussion: percussion normal Cardio Jugular venous distension: no JVD Palpation: normal PMI Rate: regular rate Rhythm: regular rhythm Heart sounds: S1 normal heart sound present and S2 normal heart sound present GI Inspection: Yes normal to inspection Palpation (GI): No hepatosplenomegaly present Skin General skin exam: no rashes or lesions noted Extrem General: Yes no clubbing, cyanosis or edema Coding Level of Care Code Est Pt Level 3 (80850) Diagnoses Hypertension I10 Assessment & Plan Assessment & Plan (1) Hypertension: Code(s): I10 - Essential (primary) hypertension Category: Medical Plan: stable; same rx Orders: Orders Complete Blood Count Auto Diff Today Z13.0 - Encounter for screening for diseases of the blood and blood-forming organs and certain disorders involving the immune mechanism Lipid Panel Today Z13.220 - Encounter for screening for lipoid disorders Thyroid Stimulating Hormone Today Z13.29 - Encounter for screening for other suspected endocrine disorder Comprehensive [place]. Panel Fast Today Z13.9 - Encounter for screening, unspecified
== END 2023-11-29 13:37 | disposition home or self-care (01) ==
PROVIDERS: PCP Internal Medicine; Visit Provider Internal Medicine
DX: I10 Essential (primary) hypertension (principal)

== ENCOUNTER → 2023-11-29 13:14 | Outpatient (BNVA) | payer OTHER, SELFPAY | PROVIDERS: PCP Internal Medicine; Visit Provider Internal Medicine ==

== ENCOUNTER 2023-12-05 10:25 | Outpatient (AMB) | payer OTHER, SELFPAY ==
[2023-12-05 10:26] VITALS: BP 152/84; PULSE 87; O2SAT 97; BMI 25.1
--- NOTE | 2023-12-05 10:26 | MHC.PC.OV ---
Vital Signs 12/05/23 10:26 Height 5 ft 5 in Weight 151 lb BMI 25.1 BP 152/84 H Blood Pressure Location Lt brachial Position Sitting Pulse 87 Pulse Source Pulse Oximeter Pulse Oximetry (%) 97 Oxygen Delivery Method Room Air Intake Visit Reasons: 3mth f/u Intake Note: Pt c/o of pain in LT leg and back Garment Cutter Required: No Accompanied by: Self / Same As Patient Allergies No Known Allergies Allergy (Verified 12/05/23 10:27) Medication List - Last Reconciled 12/05/23 by Morales Oneil MD acetaminophen (Tylenol Extra Strength) 1,000 mg PO Q6H PRN amlodipine 2.5 mg PO DAILY carisoprodol 350 mg PO QID PRN ibuprofen 600 mg PO QID naproxen (Naprosyn) 500 mg PO BID PRN oxycodone 10 mg PO BID PRN oxycodone-acetaminophen 5-325 mg 1 tab PO Q12H PRN 7 days Tobacco use date assessed: 03/21/23 Dental Screening Dental Screen Date: 03/21/23 HPI 3mth f/u HPI Details has an internal derangement left knee; not improving and will probably require surgery; has seen ortho already [facility] Medical History Abnormal angiogram of head Segmental and somatic dysfunction of rib cage Occipital neuralgia Cervicalgia Pain in right shoulder Myalgia Hemiplegia and hemiparesis following cerebral infarction affecting left non-dominant side Radiculopathy, cervical region Pain in thoracic spine Radiculopathy, lumbar region Opioid dependence History of kidney stones Stroke Hypertension Surgical History History of back surgery Family History Father No problems noted. Mother No problems noted. Social History Household Members Other:: daughter Housing: House Are you a primary progressive care nurse to a significant other at home: No Do you presently have visiting nurse or other home services: No Alcohol intake: never Comment: NO COUNTS NEEDED Patient Tobacco Use Status: Former Tobacco user Tobacco use type: Cigarette e-Cigarette/Vaping Use: Never Used Second Hand Smoke Exposure: No service: No Current occupational status: employed Cognitive needs: No Hearing needs: No Vision needs: No Questionnaire PHQ-9 Over the last 2 weeks, how often have you been bothered by any of the following problems? 1. Little interest or pleasure in doing things: not at all 2. Feeling down, depressed, or hopeless: not at all 3. Trouble falling or staying asleep, or sleeping too much: not at all 4. Feeling tired or having little energy: not at all 5. Poor appetite or overeating: not at all 6. Feeling bad about yourself - or that you are a failure or have let yourself or your family down: not at all 7. Trouble concentrating on things, such as reading the newspaper or watching television: not at all 8. Moving or speaking so slowly that other people could have noticed. Or the opposite - being so fidgety or restless that you have been moving around a lot more than usual: not at all 9. Thoughts that you would be better off or of hurting yourself in some way: not at all Total score: 0 Depression Screening Interpretation: Negative Depression Screening Done: Yes 18635 - PHQ-9 Billing: Yes Source: Developed by Drs. Vipul Syed, Danielle Salas, Narayan Raines and colleagues, with an educational moar from [employer]. Thrive Questionnaire Date Thrive assessed: 03/21/23 Are you currently unemployed and looking for a job?: Yes AUDIT C Alcohol Use Questionnaire (AUDIT-C) 1. How often do you have a drink containing alcohol?: Never Total Score: 0 OSORIO-7 AMB Questionnaire OSORIO-7 Date OSORIO - 7 assessed: 03/21/23 Source: Developed by Drs. Vipul Syed, Danielle Salas, Narayan Raines and colleagues, with an educational oamr from [employer]. Review of Systems Const Denies chills, Denies headache(s) and Denies weight loss ENT Denies headache(s) Card Denies chest pain, Denies syncope, Denies irregular heart rhythm and Denies dyspnea Resp Denies chest congestion, Denies cough and Denies dyspnea GI Denies abdominal pain, Denies change in stool character, Denies nausea and Denies vomiting Musc Denies deformity and Denies joint swelling Neuro Denies syncope and Denies headache(s) Physical exam (Primary Care) Vital Signs: Last Vital Signs Pulse 87 12/05/23 10:26 BP 152/84 H 12/05/23 10:26 Pulse Ox 97 12/05/23 10:26 Oxygen Delivery Method Room Air 12/05/23 10:26 BMI result Body Mass Index 25.1 Tobacco/Smoking Status: Tobacco use Status Tobacco use date assessed 03/21/23 12/05/23 10:28 Patient Tobacco Use Status Former Tobacco user 12/05/23 10:28 Tobacco use type Cigarette 12/05/23 10:28 e-Cigarette/Vaping Use Never Used 12/05/23 10:28 PHQ-9: PHQ-9 Score PHQ-9: Total score 0 12/05/23 10:28 Depression Screening Interpretation: Negative Thrive Assessment: Date of Thrive Assessment Date Thrive assessed 03/21/23 12/05/23 10:28 Const General: cooperative, comfortable, no acute distress and alert Neck Neck: Yes no lymphadenopathy Thyroid: Thyroid normal Resp Effort & Inspection: normal respiratory effort Auscultation: clear to auscultation bilaterally Percussion: percussion normal Cardio Jugular venous distension: no JVD Palpation: normal PMI Rate: regular rate Rhythm: regular rhythm Heart sounds: S1 normal heart sound present and S2 normal heart sound present GI Inspection: Yes normal to inspection Palpation (GI): No hepatosplenomegaly present Skin General skin exam: no rashes or lesions noted Extrem General: Yes no clubbing, cyanosis or edema Coding Level of Care Code Est Pt Level 3 (43491) Diagnoses Tear of medial meniscus of left knee S83.242A Assessment & Plan Assessment & Plan (1) Tear of medial meniscus of left knee: Code(s): S83.242A - Other tear of medial meniscus, current injury, left knee, initial encounter Category: Medical Plan: as per ortho
== END 2023-12-05 10:39 | disposition home or self-care (01) ==
PROVIDERS: PCP Internal Medicine; Visit Provider Internal Medicine
DX: S83.242A Other tear of medial meniscus, current injury, left knee, initial encounter (principal)

== ENCOUNTER → 2023-12-05 10:25 | Outpatient (BNVA) | payer OTHER, SELFPAY | PROVIDERS: PCP Internal Medicine; Visit Provider Internal Medicine ==

== ENCOUNTER 2024-02-24 11:18 | Outpatient (AMB) | payer OTHER, SELFPAY ==
--- NOTE | 2024-02-24 11:47 | MHC.PC.OV ---
Vital Signs 02/24/24 11:50 Height 5 ft 5 in Weight 154 lb BMI 25.6 BP 140/80 H Blood Pressure Location Lt brachial Position Sitting Pulse 76 Pulse Source Pulse Oximeter Pulse Oximetry (%) 99 Oxygen Delivery Method Room Air Intake Visit Reasons: 3 month f/u-Implant Intake Note: Patient is here to follow up on Chronic pain syndrone, HTN, Implant. Data Coder Operator Required: No Rotary Drill Operator Helper: Not Required per policy Accompanied by: Self / Same As Patient Allergies No Known Allergies Allergy (Verified 02/24/24 11:49) Medication List - Last Reconciled 02/25/24 by Morales Oneil MD acetaminophen (Tylenol Extra Strength) 1,000 mg PO Q6H PRN amlodipine 2.5 mg PO DAILY carisoprodol 350 mg PO QID PRN ibuprofen 600 mg PO QID naproxen (Naprosyn) 500 mg PO BID PRN oxycodone 10 mg PO BID PRN oxycodone-acetaminophen 5-325 mg 1 tab PO Q12H PRN 7 days Tobacco use date assessed: 02/24/24 Dental Screening Dental Screen Date: 02/24/24 Did you have a dental visit in the last 12 months?: No Did you have a dental problem in the last 6 months where you did not have access to dental care?: No Was dental information given to patient?: No HPI 3 month f/u-Implant HPI Details chronic back pain; has an implantable device but not helping; would like referral to pain management [facility] Medical History Abnormal angiogram of head Segmental and somatic dysfunction of rib cage Occipital neuralgia Cervicalgia Pain in right shoulder Myalgia Hemiplegia and hemiparesis following cerebral infarction affecting left non-dominant side Radiculopathy, cervical region Pain in thoracic spine Radiculopathy, lumbar region Opioid dependence History of kidney stones Stroke Hypertension Surgical History History of back surgery Family History Father No problems noted. Mother No problems noted. Social History (Updated 02/24/24 @ 11:56 by MOE Hanks) Household Members Other:: daughter Housing: House Are you a primary cna caregiver to a significant other at home: No Do you presently have visiting nurse or other home services: No Alcohol intake: never Comment: NO COUNTS NEEDED Patient Tobacco Use Status: Current everyday Tobacco user (Chewing tobacco) e-Cigarette/Vaping Use: Never Used Second Hand Smoke Exposure: Yes service: No Current occupational status: employed Cognitive needs: No Hearing needs: No Vision needs: No Questionnaire PHQ-9 Over the last 2 weeks, how often have you been bothered by any of the following problems? 1. Little interest or pleasure in doing things: not at all 2. Feeling down, depressed, or hopeless: not at all 3. Trouble falling or staying asleep, or sleeping too much: not at all 4. Feeling tired or having little energy: not at all 5. Poor appetite or overeating: not at all 6. Feeling bad about yourself - or that you are a failure or have let yourself or your family down: not at all 7. Trouble concentrating on things, such as reading the newspaper or watching television: not at all 8. Moving or speaking so slowly that other people could have noticed. Or the opposite - being so fidgety or restless that you have been moving around a lot more than usual: not at all 9. Thoughts that you would be better off or of hurting yourself in some way: not at all Total score: 0 Depression Screening Interpretation: Negative Depression Screening Done: Yes Source: Developed by Drs. Vipul Syed, Danielle Salas, Narayan Raines and colleagues, with an educational omar from [employer]. Thrive Questionnaire Date Thrive assessed: 02/24/24 I am a: Patient What is your living situation today?: I have a steady place to live Within the past 12 months, did the food you bought not last and you didn't have the money to get more?: Never true Within the past 12 months, did you worry whether your food would run out before you got money to buy more?: Never true Do you have trouble paying for medicines?: No Do you have trouble getting transportation to medical appointments?: No Do you have trouble paying your heating and electricity bill?: No Do you have trouble taking care of your child, family member or friend?: No Do you have trouble with day-to-day activities such as bathing, preparing meals, shopping, managing finances, etc.?: No Are you currently unemployed and looking for a job?: No Are you interested in more education?: No Currently or been in a relationship where the following occur: No concerns reported THRIVE Score: 0 AUDIT C Alcohol Use Questionnaire (AUDIT-C) 1. How often do you have a drink containing alcohol?: Never Total Score: 0 OSORIO-7 AMB Questionnaire OSORIO-7 Date OSORIO - 7 assessed: 02/24/24 Feeling nervous, anxious, or on edge: 0 = Not at all Not being able to stop or control worryin = Not at all Worrying too much about different things: 0 = Not at all Trouble relaxin = Not at all Being so restless that it is hard to sit still: 0 = Not at all Becoming easily annoyed or irritable: 0 = Not at all Feeling afraid as if something awful might happen: 0 = Not at all Total OSORIO-7 score (0-4 normal; 5-9 mild; 10-14 moderate; 15-21 severe): 0 Source: Developed by Drs. Vipul Syed, Danielle Salas, Narayan Raines and colleagues, with an educational omar from [employer]. Review of Systems Const Denies chills, Denies headache(s) and Denies weight loss ENT Denies headache(s) Card Denies chest pain, Denies syncope, Denies irregular heart rhythm and Denies dyspnea Resp Denies chest congestion, Denies cough and Denies dyspnea GI Denies abdominal pain, Denies change in stool character, Denies nausea and Denies vomiting Musc Denies deformity and Denies joint swelling Neuro Denies syncope and Denies headache(s) Physical exam (Primary Care) Vital Signs: Last Vital Signs Pulse 76 02/24/24 11:50 BP 140/80 H 02/24/24 11:50 Pulse Ox 99 02/24/24 11:50 Oxygen Delivery Method Room Air 02/24/24 11:50 BMI result Body Mass Index 25.6 Tobacco/Smoking Status: Tobacco use Status Tobacco use date assessed 02/24/24 02/24/24 11:58 Patient Tobacco Use Status Current everyday Tobacco ( 02/24/24 11:58 Chewing tobacco) Tobacco use type 02/24/24 11:58 e-Cigarette/Vaping Use Never Used 02/24/24 11:58 PHQ-9: PHQ-9 Score PHQ-9: Total score 0 02/24/24 11:58 Depression Screening Interpretation: Negative Thrive Assessment: Date of Thrive Assessment Date Thrive assessed 02/24/24 02/24/24 11:58 Currently or been in a relationship where the following occur: No concerns reported Const General: cooperative, comfortable, no acute distress and alert Neck Neck: Yes no lymphadenopathy Thyroid: Thyroid normal Resp Effort & Inspection: normal respiratory effort Auscultation: clear to auscultation bilaterally Percussion: percussion normal Cardio Jugular venous distension: no JVD Palpation: normal PMI Rate: regular rate Rhythm: regular rhythm Heart sounds: S1 normal heart sound present and S2 normal heart sound present GI Inspection: Yes normal to inspection Palpation (GI): No hepatosplenomegaly present Skin General skin exam: no rashes or lesions noted Extrem General: Yes no clubbing, cyanosis or edema Coding Level of Care Code Est Pt Level 3 (91189) Diagnoses Lumbar radicular pain M54.16 Assessment & Plan Assessment & Plan (1) Lumbar radicular pain: Code(s): M54.16 - Radiculopathy, lumbar region Category: Medical Plan: referred Orders: Referrals Pain Management Referral M54.16 - Radiculopathy, lumbar region
[2024-02-24 11:50] VITALS: BP 140/80; PULSE 76; O2SAT 99; BMI 25.6
--- OUTSIDE RECORDS SUMMARY | 2024-02-24 12:59 | XMS_ITS | Patient Health Record ---
Author Organization [facility] Address [address] [place] [id number] Care Team Providers Care Emergency Care Attendant Name Role Phone Morales Oneil MD Primary Care Provider Vipul Littlejohn [phone] ALLERGIES No Known Allergies REASON FOR REFERRAL No Information MEDICATIONS Medication SIG (Take, Route, Frequency, Duration) Notes Start Date End Date Status oxyCODONE HCl 5 MG Oral for 8 Active amLODIPine Besylate 2.5 MG TAKE 1 TABLET BY MOUTH EVERY DAY Oral for 90 Active SOCIAL HISTORY Tobacco Use: Social History Observation Description Date Details (start date - stop date) Former Smoker NA - NA Sex Assigned At : Social History Observation Description Sex Assigned At Unknown Tobacco Use/Smoking Question Answer Notes Patient is a former smoker How long has it been since you last smoked? 3-6 months PROBLEMS Problem Type ICD Code Onset Dates Problem Status W/U Status Risk SNOMED Code Notes Problem Colon cancer screening (Z12.11) Active confirmed 861800463 Problem Preprocedural examination (Z01.818) Active confirmed [id number] Problem Diverticulosis of large intestine without perforation or abscess without bleeding (K57.30) Active confirmed Diverticul ar disease of colon ([id number]) PLAN OF TREATMENT Pending Test Test Name Order Date Pathology 12/07/2022 Future Test Test Name Order Date COLONOSCOPY 09/20/2022 Insurance Providers Payer Name Payer Address Payer Phone Subscriber Number Group Number Insured Name Patient Relationship to Insured Coverage Start Date Coverage End Date [facility] [address] [place] [phone] [id number] VICKIE RODRIGUEZ Self - patient is the insured MEDICAL (GENERAL) HISTORY Medical History History ICD Code Hypertension CVA from a bleed--?SAH--no residual-2019 Back pain Denies ID,DM,Lung disease,renal disease Kidney stone Surgical History Surgery Date(Month/Year) Back surgery 2006
--- OUTSIDE RECORDS SUMMARY | 2024-02-24 12:59 | XMS_ITS ---
Author Organization [facility] Address [address] [place] [phone] Care Team Providers Care Locomotive Observer Name Role Phone Morales Oneil MD Primary Care Provider Vipul Littlejohn Unavailable [phone] REASON FOR VISIT screening PROBLEMS Problem Type ICD Code Onset Dates Problem Status W/U Status Risk SNOMED Code Notes Problem Diverticulosis of large intestine without perforation or abscess without bleeding (K57.30) Active confirmed Diverticul ar disease of colon (612884055) Encounters Encounter Location Date Provider Diagnosis [facility] [place] [address] [place] [phone] 12/07/2022 Vipul Stock Encounter for scre ening colonoscopy Z12.11 ; Colon polyps K63.5 ; Diverticulosis of large intestine without perforation or abscess without bleeding K57.30 and Other hemorrhoids K64.8 ASSESSMENTS Encounter Date Diagnosis Assessment Notes Treatment Notes Treatment Clinical Notes 12/07/2022 Encounter for screening colonoscopy (ICD-10 - Z12.11) 12/07/2022 Colon polyps (ICD-10 - K63.5) 12/07/2022 Diverticulosis of large intestine without perforation or abscess without bleeding (ICD-10 - K57.30) 12/07/2022 Other hemorrhoids (ICD-10 - K64.8) PLAN OF TREATMENT No Information
--- OUTSIDE RECORDS SUMMARY | 2024-02-24 12:59 | XMS_ITS ---
Author Organization [facility] Address [address] [place] [phone] Care Team Providers Care Bank And Savings Securities Trader Name Role Phone Morales Oneil MD Primary Care Provider Vipul Littlejohn [phone] ALLERGIES No Known Allergies REASON FOR VISIT patient presents today for colon screening MEDICATIONS Medication SIG (Take, Route, Frequency, Duration) [...] Problem Colon cancer screening (Z12.11) Active confirmed [id number] Problem Preprocedural examination (Z01.818) Active confirmed [id number] VITAL SIGNS BMI 24.79 kg/m2 09/20/2022 Blood pressure systolic 000 mm Hg 09/21/19 23 Blood pressure diastolic 00 mm Hg 023 Height 65 in 09/20/2022 Temperature 97.8 degrees Fahrenheit 09/21/19 23 Weight 149 lbs 09/20/2022 Encounters Encounter Location Date Provider Diagnosis [place] [facility] [address] [place] [phone] 09/20/2022 Vipul Stock Colon cancer screeni ng Z12.11 and Preprocedural examination Z01.818 ASSESSMENTS Encounter Date Diagnosis Assessment Notes Treatment Notes Treatment Clinical Notes 09/20/2022 Colon cancer screening (ICD-10 - Z12.11) 09/20/2022 Preprocedural examination (ICD-10 - Z01.818) PLAN OF TREATMENT Future Test Test Name Order Date COLONOSCOPY 09/20/2022 Next Appt Details Follow Up: prn, Reason: Progress Notes * Examination Category Sub-Category Detail Notes General Examination GENERAL APPEARANCE: pleasant , well nourished, well developed, in no acute distress HEAD: EYES: sclera non-icteric EARS: NOSE: THROAT: NECK/THYROID: no cervical lymphade nopathy, neck supple HEART: S1, S2 normal CHEST: LUNGS: clear to auscultatio n bilaterally ABDOMEN: normal bowel sounds, no guarding or rigidity, no guarding or rigidity, no masses palpable, soft, nontender, nondistended NEUROLOGIC: alert and oriented SKIN: nonjaundiced, no spi elsie angiomata EXTREMITIES: no edema PERIPHERAL PULSES: BACK: BREASTS: MUSCULOSKELETAL: MALE GENITOURINARY: LYMPH NODES: RECTAL EXAM: FEMALE GENITOURINARY: ORAL CAVITY: mucosa moist
== END 2024-02-24 12:13 | disposition home or self-care (01) ==
PROVIDERS: PCP Internal Medicine; Visit Provider Internal Medicine
DX: M54.16 Radiculopathy, lumbar region (principal)

== ENCOUNTER 2024-03-03 08:15 | Outpatient (REF) | payer OTHER, SELFPAY ==
--- NOTE | ~2024-03-03 | XR_ITS ---
EXAMINATION: XR RIBS, BILATERAL CLINICAL INFORMATION: R07.81 - Pleurodynia COMPARISON: None available. TECHNIQUE: 3 views of the bilateral ribs were obtained. FINDINGS: Lungs are clear. No consolidation, pneumothorax, or pleural effusion. The cardiomediastinal silhouette and pulmonary vasculature are normal. Dual spinal electrodes in the mid thoracic spinal canal Osseous structures are unremarkable. Ribs are intact. No fractures are identified. XR/XR ribs BI min 4V w CXR1V IMPRESSION: Unremarkable chest and right rib exam Electronically signed by: Yariel Yung MD 03/04/2024 10:10 AM [facility]
--- NOTE | 2024-03-03 10:51 | ECG_ITS ---
Test Reason : Chest Pain Blood Pressure : */* mmHG Vent. Rate : 80 BPM Atrial Rate : 80 BPM P-R Int : 126 ms QRS Dur : 108 ms QT Int : 376 ms P-R-T Axes : 73 35 43 degrees QTcB Int : 433 ms Normal sinus rhythm Normal ECG When compared with ECG of 28-Feb-2015 12:42, No significant change was found Referred By: Celina Diamond Electronically Signed By: Vlad Jaramillo
[2024-03-03 11:32] LABS: Troponin-I High Sensitivity < 2.7 ng/L (<3.5-35.0)
== END 2024-03-03 08:16 | disposition home or self-care (01) ==
LOC: HO.LAB 08:15
PROVIDERS: PCP Internal Medicine; Referring Provider Internal Medicine; Visit Provider Nurse Practitioner Family
DX: R07.9 Chest pain, unspecified (principal); R07.81 Pleurodynia; M54.6 Pain in thoracic spine
CPT/HCPCS: 36415; 71111; 82550; 84484; 93005

== ENCOUNTER 2024-03-03 08:15 | Outpatient (AMB) | payer OTHER, SELFPAY ==
--- NOTE | 2024-03-03 08:21 | A.OFFVIS_ITS ---
Vital Signs 03/03/24 08:24 Height 5 ft 5 in Weight 150 lb BMI 25.0 BP 147/72 H Blood Pressure Location Rt brachial Position Sitting Pulse 83 Pulse Source Pulse Oximeter Temp 98.2 F Temp Source Temporal Artery Scan Pulse Oximetry (%) 98 Oxygen Delivery Method Room Air Intake Visit Reasons: F/U Radiculopathy, lumbar region/reff again Intake Note: Pain today 10/28 After School Program Director Required: No Accompanied by: Self / Same As Patient Allergies No Known Allergies Allergy (Verified 03/03/24 08:25) HPI Comments Details: Patient presents today for follow up for mid back pain with bilateral rib pain and chest pain. He reports history of right sided rib pain 2 years ago following a mechanical fall injury, which was associated with chest pain at that time per patient. Denies any recent trauma, injury, falls or recent fever, chills, cough, infection, respiratory illness or exposure to known sick contacts. Pain has started about 2 weeks ago on the right side of mid back pain. Patient reports he contacted [employer] and his programming was adjusted and pain was better for a few days. His spine xrays from a year ago show stable lead position of SCS implant. Patient reports increasing rib pain on the left and chest discomfort radiating into his left shoulder at rest and with activities. He tried to shut off SCS device for a day without changes in his pain or discomfort symptoms. He experiences occasional shortness of breaths and avoids breathing deeply or coughing due to increase in pain. Patient reports seeing his provider for similar symptoms on 02/24/24 with referral back to our office for further evaluation. Denies any changes to medications, medical history or recent hospitalizations or Urgent care/ER visits. PRIOR 05/14/23: Patient presents today 2 weeks status post Nevro SCS Implant on 05/01/[address] Barksdale. Bing Gomez is also present during today's visit. Patient continues to report minimal pain relief since procedure. Patient reports his post-operative pain is getting better and his chronic back and leg pain, especially left leg, has been more prominent. Patient reports he also has been sleeping more on the left side to avoid sleeping on his back or right buttock battery pocket. Per rep Gomez, patient's SCS device is at 14% out of full program during post-op healing and plans are to increase steady to the full capacity. Patient continues to take Tylenol and Oxycodone for pain relief which helps his back but not left leg pain. He rates his pain at 8/10 today. Denies any recent cough, cold, infection, fever, any significant changes in her medical history, medications or recent hospitalizations. The right buttock wound dressing was removed and the wound cleansed with ChloraPrep. The midline incision is well healing, no pathological discharge or tenderness. Right upper buttock battery wound site is clean, no pathological discharge, no redness and no swelling. Steri-strips are intact. There is no erythema or local temperature. Patient is wearing an abdominal binder.? Past Procedures: 05/01/23: Lumbar Nevro SCS implant- 20% pain relief at 14% SCS program 01/16/23: Lumbar Nevro SCS trial-80% pain relief 11/21/22: Caudal ANIA with catheter-0% pain relief 10/29/22: Right therapeutic subacromial injection-50% pain relief, ongoing PRIOR: Patient is a pleasant 57 years old female with prior L4-L5 decompression in 2006 and lumbar degenerative disc disease presents today with significant low back pain with bilateral leg pain for over one year. Patient also reports right shoulder pain. He is accompanied by his daughter who assists with translation. Denies any recent trauma, injury or falls. Reports increase in right shoulder pain with overhead and backside pocket reaches due to repetitive motion at his work. He was seen in [facility] ER recently for right shoulder pain and received Ketorolac and lidocaine injection without any relief with imaging showing calcific tendinitis and bursitis. Patient reports increased falling due to worsening back pain and bilateral leg weakness and legs giving out due to pain. Back pain is axial and also radiates in lateral distribution of both legs and dorsal feet with numbness and tingling, worse on the right side. Patient describes his pain as sharp, shooting and significant pressure sensation that radiates into his lateral hips bilaterally. He was seen by multiple providers, including Dr. Bill at [facility] and Jason BRUCE at [facility] due to lumbar L4-L5 almost complete fusion but was deemed non surgical at this time. Per recent lumbar spine MRI and CT scan reports, patient also has significant degenerative changes on the endplates with almost disc fusion L4-L5 disc level, with Schmorl's nodes and Modic changes. These findings correlate with his symptoms of bilateral lower extremity pain and weakness as well as axial low back pain that has been interfering with his ability to ambulate. Reports history of back injections at [facility] with partial pain relief. He is currently takes oxycodone and Tylenol that provides him mild analgesia. Pain affects his daily activities, functioning, sleep, mood and quality of life. Given worsening of back pain with recent right shoulder pain, he does not believe he can continue to work, even with light duty arrangements. Denies any fever, weight loss, abdominal or groin pain, foot drop, bladder/bowel dysfunction or saddle anesthesia. Location Lower back pain with radiation to lower extremities, right shoulder pain Duration Chronic pain >1.5 years Characteristics of symptom or complaint Aching, heavy, pressure, numbness, burning, pinching, sharp, throbbing Aggravating or associated factors Walking, standing, prolonged sitting, bending, twisting, movements Relieving factors Oxycodone 10mg, Tylenol, ice/heat therapy, rest, activity modifications Treatment PT, back injections, right shoulder injection-minimal effects COUNTS INCLUDE 234 BEDS AT THE [facility] Medical History Abnormal angiogram of head Segmental and somatic dysfunction of rib cage Occipital neuralgia Cervicalgia Pain in right shoulder Myalgia Hemiplegia and hemiparesis following cerebral infarction affecting left non- dominant side Radiculopathy, cervical region Pain in thoracic spine Radiculopathy, lumbar region Opioid dependence History of kidney stones Stroke Hypertension Surgical History History of back surgery Family History Father No problems noted. Mother No problems noted. Social History Household Members Other:: daughter Housing: House Are you a primary healthcare science specialist to a significant other at home: No Do you presently have visiting nurse or other home services: No Alcohol intake: never Comment: NO COUNTS NEEDED Patient Tobacco Use Status: Current everyday Tobacco user e-Cigarette/Vaping Use: Never Used Second Hand Smoke Exposure: Yes service: No Current occupational status: employed Cognitive needs: No Hearing needs: No Vision needs: No Review of Systems Const All systems reviewed & are unremarkable except as noted in HPI and below Reports as per HPI, Denies body aches, Denies chills, Reports difficulty sleeping, Reports fatigue, Denies fever(s), Denies headache(s), Denies malaise, Reports poor appetite, Denies weakness and Reports weight loss ENT Denies headache(s) Card Reports as per HPI, Reports chest pain at rest, Reports chest pain with activity, Denies rapid heart rate, Denies pedal edema, Denies irregular heart rhythm, Denies claudication, Denies lightheadedness, Reports radiating jaw, neck or arm pain (radiating left shoulder pain), Denies palpitations, Reports dyspnea on exertion, Denies orthopnea and Denies slow heart rate Resp Reports dyspnea on exertion Neuro Denies headache(s) and Denies weakness Endo Reports fatigue and Denies palpitations Physical Exam Vital Signs: Last Vital Signs Temp 98.2 F 03/03/24 08:24 Pulse 83 03/03/24 08:24 BP 147/72 H 03/03/24 08:24 Pulse Ox 98 03/03/24 08:24 Oxygen Delivery Method Room Air 03/03/24 08:24 BMI result Body Mass Index 25.0 General: Appears afebrile. Alert and oriented. Mood and affect appropriate. Follows and participates in conversation appropriately. Respiratory effort is unlabored. No cough. Able to transition from sit to stand unassisted. Uses cane with ambulation. Ambulates with bilaterally normal heel strike and toe off. Const General: cooperative, no acute distress, alert, awake and tired appearing; No anxious or diaphoretic Nutritional Appearance: average body habitus Orientation/consciousness: patient oriented x3 Limitations: no limitations Chest Chest palpation & inspection: normal inspection of the chest and localized rib tenderness with anteroposterior compression bilateral, left>right lower ribs Resp Effort & Inspection: normal respiratory effort, able to speak in complete sentences, no cough, decreased respiratory effort, no nasal flaring, no stridor and symmetric chest movement Auscultation: crackles, no wheezes and diminished lung sounds bilateral in the lower lung mayen and diffuse Cardio Jugular venous distension: no JVD Palpation: normal PMI Rate: regular rate Heart sounds: S1 normal heart sound present and S2 normal heart sound present Peripheral pulses: Peripheral pulses 2+ throughout General: Yes no CVA tenderness Back/Spine/Pelvis Back: no CVA tenderness Cervical Spine: cervical ROM normal and No Cervical spine tenderness Thoracic/Lumbar Spine: thoracic and lumbar spine normal to inspection, Thoracic/lumbar spine scar(s), Lasegue's sign negative, straight leg raise negative bilaterally, pain with thoraco-lumbar ROM, thoraco-lumbar ROM limited, No thoracic spinal tenderness and No lumbar spinal tenderness Neuro General: patient oriented x3 Results Reviewed Results Reviewed: XR CERVICAL SPINE 11/09/22 FINDINGS: The cervical spine is visualized from C1-mid C7 vertebral body. Slight straightening of the cervical curvature. There is mild retrolisthesis of C3 on C4, C4 on C5, C5 on C6. Vertebral body heights are maintained. No evidence of acute fracture. Multilevel disc degenerative changes. This includes mild-moderate disc degeneration at C3-C4, C5-C6. Alignment of the posterior elements appears intact. No significant prevertebral soft tissue swelling. Base of the dens is intact. On the swimmer's view, the visualized vertebral bodies grossly demonstrate normal height. Lung apices are clear. IMPRESSION: Cervical spondylosis. This includes mild-moderate disc degeneration at C3-C4, C5-C6. No radiographic evidence of acute fracture. CT LUMBAR SPINE WITHOUT CONTRAST CLINICAL INFORMATION: Dorsalgia. COMPARISON: MRI lumbar spine 08/15/2007. FINDINGS: On sagittal reconstructed images is maintained lumbar lordosis. There is loss of L4-L5 and L5-S1 disc heights. The rest of the disc heights are normal. The vertebral heights and alignment is preserved normal. The L1-L2 and L2-L3 disc levels are unremarkable. At the L3-L4 disc level, there is mild flattening of ventral thecal sac from disc bulge resulting in mild canal stenosis. There is underlying mild facet joint hypertrophy as well. At the L4-L5 disc level, there is a left laminotomy defect. There is a posterior endplate spondylosis but no underlying disc bulge or spinal canal stenosis. There is mild bilateral narrowing of neural foramina from endplate spondylosis. At the L5-S1 disc level, there are endplate Schmorl's node and sclerosis. No aggressive lytic or sclerotic process seen. The neural foramina are patent bilaterally. The prevertebral and paravertebral soft tissues are normal. IMPRESSION: Degenerative disc changes with almost disc fusion L4-L5 disc level. There are degenerative disc changes at other disc levels but no visible disc herniation or nerve root impingement. There is mild disc bulge L3-L4 disc level with facet joint hypertrophy resulting in mild circumferential canal stenosis. There is possible left laminotomy defect at L4 vertebra from previous intervention. This findings was noted on the previous MRI lumbar spine 08/15/2007. XR THORACIC SPINE 12/11/22 FINDINGS: There is no fracture or bone destruction seen, and the vertebral alignment is normal. There is mild disc space narrowing, particularly at T5-T6. There is multi-level mild to moderate spondylosis, most pronounced at T8-T9. The posterior elements are intact. There is no abnormality of the paraspinal soft tissues. IMPRESSION: 1. There is multi-level mild thoracic disc space narrowing, most pronounced at T5-T6. 2. There is multi-level mild to moderate thoracic spondylosis, most pronounced at T8-T9. XR RIBS, RIGHT. Chest PA 02/23/22 CLINICAL INFORMATION: Injury. COMPARISON: None TECHNIQUE: 3 views of the right ribs were obtained. FINDINGS: CHEST: The lungs are hyperexpanded. No consolidation, pneumothorax, or pleural effusion. The cardiomediastinal silhouette and pulmonary vasculature are normal. RIGHT RIBS: Osseous structures are unremarkable. Ribs are intact. No fractures are identified. IMPRESSION: Unremarkable chest and right rib examination. Assessment & Plan Assessment & Plan (1) Rib pain: Code(s): R07.81 - Pleurodynia Category: Medical (2) Thoracic back pain: Code(s): M54.6 - Pain in thoracic spine Category: Medical (3) Chest pain: Code(s): R07.9 - Chest pain, unspecified Category: Medical (4) Failed back syndrome: Code(s): M96.1 - Postlaminectomy syndrome, not elsewhere classified Category: Medical (5) Chronic pain syndrome: Code(s): G89.4 - Chronic pain syndrome Category: Medical (6) Spinal cord stimulator status: Code(s): Z96.89 - Presence of other specified functional implants Category: Medical Plan Patient presents with bilateral rib pain, chest pain, intermittent shortness of breaths with activity and rest for past 2 weeks. His SCS device programming was adjusted last week with minimal improvement in his mid and lower back pain pain. He was seen by PCP on 02/24/24 and believed his symptoms were related to chronic back pain. We will obtain thoracic spine xrays to rule out SCS lead migration and rib with CXR imaging to further evaluate rib discomfort. Patient was also advised to see PCP or seek medical evaluation at ER or Urgent clinic, he is hesitant for ER/Urgent clinic and reports his most concerning pain is rib pain, left worse than right. I will send him for 12-lead EKG and troponin with creatine kinase labs to follow up on chest pain with radiation to his left shoulder. Patient will be called once results are in. Patient is aware to call if his symptoms worsen or if he develops any red flag symptoms to seek emergency care. All questions and concerns have been answered and patient agreed with the plan. Follow up for xray/lab/EKG results and sooner as needed. Orders: Orders XR ribs BI min 4V w CXR1V Today M54.6 - Pain in thoracic spine, R07.81 - Pleurodynia ECG 12 lead EKG Today R07.9 - Chest pain, unspecified Troponin-I High Sensitivity Today R07.9 - Chest pain, unspecified Creatine Kinase Total Today R07.9 - Chest pain, unspecified Coding Level of Care Code Est Pt Level 4 (86857) Complex EM visit Add On G2211 Diagnoses Rib pain R07.81 Thoracic back pain M54.6 Chest pain R07.9 Failed back syndrome M96.1 Chronic pain syndrome G89.4 Spinal cord stimulator status Z96.89
--- OUTSIDE RECORDS SUMMARY | 2024-03-03 08:23 | XMS_ITS ---
Author Organization [facility] Address [address] [place] [phone] Care Team Providers Care Disciplinary Hearing Officer Name Role Phone Morales Oneil MD Primary Care Provider Vipul Littlejohn [phone] ALLERGIES No Known Allergies REASON FOR VISIT [...] Problem Colon cancer screening (Z12.11) Active confirmed 629956329 Problem Preprocedural examination (Z01.818) Active confirmed [id number] VITAL SIGNS BMI 24.79 kg/m2 09/20/2022 Blood pressure systolic 000 mm Hg 09/21/19 23 Blood pressure diastolic 00 mm Hg 023 Height 65 in 09/20/2022 Temperature 97.8 degrees Fahrenheit 09/21/19 23 Weight 149 lbs 09/20/2022 Encounters Encounter Location Date Provider Diagnosis [facility] [address] [place] [phone] 09/20/2022 Vipul Stock Colon cancer screeni ng [...]
--- OUTSIDE RECORDS SUMMARY | 2024-03-03 08:23 | XMS_ITS ---
Author Organization [facility] Address [address] [place] [phone] Care Team Providers Care Spring Layer Name Role Phone Morales Oneil MD Primary Care Provider Vipul Littlejohn Unavailable [phone] REASON FOR VISIT screening PROBLEMS Problem Type ICD Code Onset Dates Problem Status W/U Status Risk SNOMED Code Notes Problem Diverticulosis of large intestine without perforation or abscess without bleeding (K57.30) Active confirmed Diverticul ar disease of colon (640651422) Encounters Encounter Location Date Provider Diagnosis [facility] [place] [address] [place] [phone] 12/07/2022 Vipul Stock Encounter for scre ening [...]
--- OUTSIDE RECORDS SUMMARY | 2024-03-03 08:23 | XMS_ITS | Patient Health Record ---
Author Organization [facility] Address [address] [place] [phone] Care Team Providers Care Potato Loader Name Role Phone Morales Oneil MD Primary Care Provider Vipul Littlejohn [phone] ALLERGIES No Known Allergies REASON FOR REFERRAL [...] Problem Colon cancer screening (Z12.11) Active confirmed 971504552 Problem Preprocedural examination (Z01.818) Active confirmed [id number] Problem Diverticulosis of large intestine without perforation or abscess without bleeding (K57.30) Active confirmed Diverticul ar disease of colon (001571307) PLAN OF TREATMENT Pending Test Test Name Order Date Pathology 12/07/2022 Future Test Test Name Order Date COLONOSCOPY 09/20/2022 Insurance Providers Payer Name Payer Address Payer Phone Subscriber Number Group Number Insured Name Patient Relationship to Insured Coverage Start Date Coverage End Date [facility] [address] [place] [phone] [id number] VICKIE RODRIGUEZ Self - patient is the insured MEDICAL (GENERAL) HISTORY Medical History History ICD Code Hypertension CVA from a bleed--?SAH--no residual-2019 Back pain Denies [place],DM,Lung disease,renal disease Kidney stone Surgical History Surgery Date(Month/Year) Back surgery 2006
--- OUTSIDE RECORDS SUMMARY | 2024-03-03 08:23 | XMS_ITS ---
Author Organization [facility] Address [address] [place] [address] Care Team Providers Care Inspector Metal Fabricating Name Role Phone Morales Oneil MD Primary Care Provider Vipul Littlejohn [phone] REASON FOR VISIT colon screening Encounters Encounter Location Date Provider Diagnosis [facility] [address] [place] [address] 01/25/2023 Vipul Stock PLAN OF TREATMENT No Information
[2024-03-03 08:24] VITALS: BP 147/72; PULSE 83; TEMP 36.8; O2SAT 98; BMI 25.0
== END 2024-03-03 08:56 | disposition home or self-care (01) ==
PROVIDERS: PCP Internal Medicine; Referring Provider Internal Medicine; Visit Provider Nurse Practitioner Family
DX: R07.81 Pleurodynia (principal); M54.6 Pain in thoracic spine; R07.9 Chest pain, unspecified; M96.1 Postlaminectomy syndrome, not elsewhere classified; G89.4 Chronic pain syndrome; Z96.89 Presence of other specified functional implants
CPT/HCPCS: 99214

== ENCOUNTER → 2024-03-03 10:51 | Outpatient (BNV) | payer OTHER, SELFPAY | PROVIDERS: PCP Internal Medicine; Referring Provider Internal Medicine; Visit Provider Internal Medicine Cardiovascular Disease | DX: R07.9 Chest pain, unspecified (principal) | CPT/HCPCS: 93010 ==

== ENCOUNTER → 2024-03-03 11:02 | Outpatient (BNV) | payer OTHER, SELFPAY | PROVIDERS: PCP Internal Medicine; Referring Provider Internal Medicine; Visit Provider Radiology Diagnostic Radiology | DX: R07.81 Pleurodynia (principal) | CPT/HCPCS: 71111 ==

== ENCOUNTER 2024-03-16 08:20 | Outpatient (AMB) | payer OTHER, SELFPAY ==
--- NOTE | 2024-03-16 08:25 | A.OFFVIS_ITS ---
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 Patient reports feeling partially better since last visit but continues to experience ribcage discomfort if he increases SCS program stimulation. Unfortunately, Bing Gomez was unable to be present during today's visit to adjust device programming. Cardiac enzymes, EKG and xray results were normal. His thoracic leads are in stable position. Patient reports he recently restarted Soma and tizanidine for increased muscle spasms on his right side of the neck especially when he increases SCS program stimulation. He is also on [facility] for oxycodone 10 mg BID prn for chronic pain, prescribed by Dr. Bill. Denies any recent cough, cold, infection, fever or any other significant changes in medical history since last office visit. PRIOR: Patient presents today for follow up for mid back pain with bilateral rib pain and chest pain. He reports history of right sided rib pain 2 years ago following a mechanical fall injury, which was associated with chest pain at that time per patient. Denies any recent trauma, injury, falls or recent fever, chills, cough, infection, respiratory illness or exposure to known sick contacts. Pain has started about 2 weeks ago on the right side of mid back pain. Patient reports he contacted Bing greco and his programming was adjusted and pain was better for a few days. His spine xrays from a year ago show stable lead position of SCS impla nt. Patient reports increasing rib pain on the left and chest discomfort radiating into his left shoulder at rest and with activities. He tried to shut off SCS device for a day without changes in his pain or discomfort symptoms. He experiences occasional shortness of breaths and avoids breathing deeply or coughing due to increase in pain. Patient reports seeing his provider for similar symptoms on 02/24/24 with referral back to our office for further evaluation. Denies any changes to medications, medical history or recent hospitalizations or Urgent care/ER visits. PRIOR 05/14/23: Patient presents today 2 weeks status post Nevro SCS Implant on 05/01/[address] Barksdale. Bing Gomez is also present during today's visit. Patient continues to report minimal pain relief since procedure. Patient reports his post-operative pain is getting better and his chronic back and leg pain, especially left leg, has been more prominent. Patient reports he also has been sleeping more on the left side to avoid sleeping on his back or right buttock battery pocket. Per rep Jason, patient's SCS device is at 14% out of full program during post-op healing and plans are to increase steady to the full capacity. Patient continues to take Tylenol and Oxycodone for pain relief which helps his back but not left leg pain. He rates his pain at 8/10 today. Denies any recent cough, cold, infection, fever, any significant changes in her medical history, medications or recent hospitalizations. The right buttock wound dressing was removed and the wound cleansed with ChloraPrep. The midline incision is well healing, no pathological discharge or tenderness. Right upper buttock battery wound site is clean, no pathological discharge, no redness and no swelling. Steri-strips are intact. There is no sonny thema or local temperature. Patient is wearing an abdominal binder.? Past Procedures: 05/01/23: Lumbar Nevro SCS implant- 20% pain relief at 14% SCS program 01/16/23: Lumbar Nevro SCS trial-80% pain relief 11/21/22: Caudal ANIA with catheter-0% pain relief 10/29/22: Right therapeutic subacromial injection-50% pain relief, ongoing PRIOR: Patient is a pleasant 57 years old female with prior L4-L5 decompression in 2006 and lumbar degenerative disc disease presents today with significant low back pain with bilateral leg pain for over one year. Patient also reports right shoulder pain. He is accompanied by his daughter who assists with translation. Denies any recent trauma, injury or falls. Reports increase in right shoulder pain with overhead and backside pocket reaches due to repetitive motion at his work. He was seen in [facility] ER recently for right shoulder pain and received Ketorolac and lidocaine injection without any relief with imaging showing calcific tendinitis and bursitis. Patient reports increased falling due to worsening back pain and bilateral leg weakness and legs giving out due to pain. Back pain is axial and also radiates in lateral distribution of both legs and dorsal feet with numbness and tingling, worse on the right side. Patient describes his pain as sharp, shooting and significant pressure sensation that radiates into his lateral hips bilaterally. He was seen by multiple providers, including Dr. Bill at [facility] and Jason BRUCE at [facility] due to lumbar L4-L5 almost complete fusion but was deemed non surgical at this time. Per recent lumbar spine MRI and CT scan reports, patient also has significant degenerative changes on the endplates with almost disc fusion L4-L5 disc level, with Schmorl's nodes and Modic changes. These findings correlate with his symptoms of bilateral lower extremity pain and weakness as well as axial low back pain that has been interfering with his ability to ambulate. Reports history of back injections at [facility] with partial pain relief. He is currently takes oxycodone and Tylenol that provides him mild analgesia. Pain affects his daily activities, functioning, sleep, mood and quality of life. Given worsening of back pain with recent right shoulder pain, he does not believe he can continue to work, even with light duty arrangements. Denies any fever, weight loss, abdominal or groin pain, foot drop, bladder/bowel dysfunction or saddle anesthesia. Location Lower back pain with radiation to lower extremities, right shoulder pain Duration Chronic pain >1.5 years Characteristics of symptom or complaint Aching, heavy, pressure, numbness, burning, pinching, sharp, throbbing Aggravating or associated factors Walking, standing, prolonged sitting, bending, twisting, movements Relieving factors Oxycodone 10mg, Tylenol, ice/heat therapy, rest, activity modifications Treatment PT, back injections, right shoulder injection-minimal effects [facility] Medical History Abnormal angiogram of head Segmental and somatic dysfunction of rib cage Occipital neuralgia Cervicalgia Pain in right shoulder Myalgia Hemiplegia and hemiparesis following cerebral infarction affecting left non- dominant side Radiculopathy, cervical region Pain in thoracic spine Radiculopathy, lumbar region Opioid dependence History of kidney stones Stroke Hypertension Surgical History History of back surgery Family History Father No problems noted. Mother No problems noted. Social History Household Members Other:: daughter Housing: House Are you a primary director career to a significant other at home: No Do you presently have visiting nurse or other home services: No Alcohol intake: never Comment: NO COUNTS NEEDED Patient Tobacco Use Status: Current everyday Tobacco user e-Cigarette/Vaping Use: Never Used Second Hand Smoke Exposure: Yes service: No Current occupational status: employed Cognitive needs: No Hearing needs: No Vision needs: No Review of Systems Const All systems reviewed & are unremarkable except as noted in HPI and below Physical Exam Vital Signs: Last Vital Signs Pulse 69 03/16/24 08:26 BP 165/69 H 03/16/24 08:26 BMI result Body Mass Index 25.0 General: Appears afebrile. Alert and oriented. Mood and affect appropriate. Follows and participates in conversation appropriately. Respiratory effort is unlabored. No cough. Able to transition from sit to stand unassisted. Uses cane with ambulation. Ambulates with bilaterally normal heel strike and toe off. Back/Spine/Pelvis Cervical Spine: cervical ROM normal, cervical muscular tenderness and No Cervical spine tenderness Thoracic/Lumbar Spine: thoracic and lumbar spine normal to inspection, Thoracic/lumbar spine scar(s), Lasegue's sign negative, straight leg raise negative bilaterally, pain with thoraco-lumbar ROM, thoraco-lumbar ROM limited, No thoracic spinal tenderness and No lumbar spinal tenderness Results Reviewed Results Reviewed: XR RIBS, BILATERAL 03/03/24 CLINICAL INFORMATION: R07.81 - Pleurodynia FINDINGS: Lungs are clear. No consolidation, pneumothorax, or pleural effusion. The cardiomediastinal silhouette and pulmonary vasculature are normal. Dual spinal electrodes in the mid thoracic spinal canal Osseous structures are unremarkable. Ribs are intact. No fractures are identified. IMPRESSION: Unremarkable chest and right rib exam ECG 12 lead EKG 03/03/24 Test Reason : Chest Pain Blood Pressure : */* mmHG Vent. Rate : 80 BPM Atrial Rate : 80 BPM P-R Int : 126 ms QRS Dur : 108 ms QT Int : 376 ms P-R-T Axes : 73 35 43 degrees QTcB Int : 433 ms Normal sinus rhythm Normal ECG When compared with ECG of 28-Feb-2015 12:42, No significant change was found Assessment & Plan Assessment & Plan (1) Rib pain: Code(s): R07.81 - Pleurodynia Category: Medical (2) Thoracic back pain: Code(s): M54.6 - Pain in thoracic spine Category: Medical (3) Failed back syndrome: Code(s): M96.1 - Postlaminectomy syndrome, not elsewhere classified Category: Medical (4) Chronic pain syndrome: Code(s): G89.4 - Chronic pain syndrome Category: Medical (5) Spinal cord stimulator status: Code(s): Z96.89 - Presence of other specified functional implants Category: Medical Plan CXR and rib xray, EKG and cardiac enzymes results were reviewed with patient and are unremarkable. We will reschedule in office visit for patient with Bing rep to reprogram and adjust his SCS device. Patient is aware to call if his symptoms worsen or if he develops any red flag symptoms to seek emergency care. All questions and concerns have been answered and patient agreed with the plan. Follow up as needed. Coding Level of Care Code Est Pt Level 3 (60228) Complex EM visit Add On G2211 Diagnoses Rib pain R07.81 Thoracic back pain M54.6 Failed back syndrome M96.1 Chronic pain syndrome G89.4 Spinal cord stimulator status Z96.89
[2024-03-16 08:26] VITALS: BP 165/69; PULSE 69; BMI 25.0
--- OUTSIDE RECORDS SUMMARY | 2024-03-16 12:39 | XMS_ITS ---
Author Organization [facility] Address [address] [place] [address] Care Team Providers Care Senior Construction Estimator Name Role Phone Morales Oneil MD Primary Care Provider Vipul Littlejohn [phone] REASON FOR VISIT colon screening Encounters Encounter Location Date Provider Diagnosis [facility] [address] [place] [address] 01/25/2023 Vipul Stock PLAN OF TREATMENT No Information
--- OUTSIDE RECORDS SUMMARY | 2024-03-16 12:39 | XMS_ITS | Patient Health Record ---
Author Organization [facility] Address [address] [place] [phone] Care Team Providers Care Central Supply Supervisor Name Role Phone Morales Oneil MD Primary Care Provider Vipul Littlejohn [phone] ALLERGIES No Known Allergies REASON FOR REFERRAL [...] Problem Colon cancer screening (Z12.11) Active confirmed [id number] Problem Preprocedural examination (Z01.818) Active confirmed [id number] Problem Diverticulosis of large intestine without perforation or abscess without bleeding (K57.30) Active confirmed Diverticul ar disease of colon (402819903) PLAN OF TREATMENT Pending Test Test Name Order Date Pathology 12/07/2022 Future Test Test Name Order Date COLONOSCOPY 09/20/2022 Insurance Providers Payer Name Payer Address Payer Phone Subscriber Number Group Number Insured Name Patient Relationship to Insured Coverage Start Date Coverage End Date [facility] [address] [place] [phone] [id number] VICKIE RODRIGUEZ Self - patient is the insured MEDICAL (GENERAL) HISTORY Medical History History ICD Code Hypertension CVA from a bleed--?SAH--no residual-2019 Back pain Denies PA,DM,Lung disease,renal disease Kidney stone Surgical History Surgery Date(Month/Year) Back surgery 2006
--- OUTSIDE RECORDS SUMMARY | 2024-03-16 12:39 | XMS_ITS ---
Author Organization [facility] Address [address] [place] [phone] Care Team Providers Care Shop Firer/Fireman Name Role Phone Morales Oneil MD Primary Care Provider Vipul Littlejohn [phone] ALLERGIES No Known Allergies REASON FOR VISIT [...] Problem Colon cancer screening (Z12.11) Active confirmed [id number] Problem Preprocedural examination (Z01.818) Active confirmed [id number] VITAL SIGNS BMI 24.79 kg/m2 09/20/2022 Blood pressure systolic 000 mm Hg 09/21/19 23 Blood pressure diastolic 00 mm Hg 023 Height 65 in 09/20/2022 Temperature 97.8 degrees Fahrenheit 09/21/19 23 Weight 149 lbs 09/20/2022 Encounters Encounter Location Date Provider Diagnosis [facility] [address] [place] [phone] 09/20/2022 Vipul Stock Colon cancer screeni ng [...]
--- OUTSIDE RECORDS SUMMARY | 2024-03-16 12:39 | XMS_ITS ---
Author Organization [facility] Address [address] [place] [phone] Care Team Providers Care Airplane Inspector Name Role Phone Morales Oneil MD Primary Care Provider Vipul Littlejohn Unavailable [phone] REASON FOR VISIT screening PROBLEMS Problem Type ICD Code Onset Dates Problem Status W/U Status Risk SNOMED Code Notes Problem Diverticulosis of large intestine without perforation or abscess without bleeding (K57.30) Active confirmed Diverticul ar disease of colon ([id number]) Encounters Encounter Location Date Provider Diagnosis [facility] [address] [place] [phone] 12/07/2022 Vipul Stock Encounter for scre ening [...]
== END 2024-03-16 09:08 | disposition home or self-care (01) ==
PROVIDERS: PCP Internal Medicine; Visit Provider Nurse Practitioner Family
DX: R07.81 Pleurodynia (principal); M54.6 Pain in thoracic spine; M96.1 Postlaminectomy syndrome, not elsewhere classified; G89.4 Chronic pain syndrome; Z96.89 Presence of other specified functional implants
CPT/HCPCS: 99213

== ENCOUNTER → 2024-03-16 08:20 | Outpatient (BNVA) | payer OTHER, SELFPAY | PROVIDERS: PCP Internal Medicine; Visit Provider Nurse Practitioner Family ==

== ENCOUNTER 2024-06-03 13:45 | Outpatient (AMB) | payer OTHER, SELFPAY ==
[2024-06-03 13:48] VITALS: BP 142/72; PULSE 70; O2SAT 98; BMI 25.6
--- NOTE | 2024-06-03 13:48 | MHC.PC.OV ---
Vital Signs 06/03/24 13:48 06/03/24 14:22 Height 5 ft 5 in Weight 154 lb BMI 25.6 BP 142/72 H 124/60 Blood Pressure Location Lt brachial Lt brachial Position Sitting Sitting Pulse 70 Pulse Source Pulse Oximeter Pulse Oximetry (%) 98 Oxygen Delivery Method Room Air Intake Visit Reasons: ashlye Dr Oneil Allergies No Known Allergies Allergy (Verified 06/03/24 13:48) Medication List - Last Reconciled 06/03/24 by Carmen Jacobsen MD acetaminophen (Tylenol Extra Strength) 1,000 mg PO Q6H PRN amlodipine 2.5 mg PO DAILY carisoprodol 350 mg PO QID PRN ibuprofen 600 mg PO QID magnesium glycinate 100 mg PO DAILY oxycodone 10 mg PO BID PRN Tobacco use date assessed: 02/24/24 Dental Screening Dental Screen Date: 06/03/24 Did you have a dental visit in the last 12 months?: No Did you have a dental problem in the last 6 months where you did not have access to dental care?: No Was dental information given to patient?: Patient has dentist [facility] Medical History (Updated 06/03/24 @ 14:30 by Carmen Jacobsen MD) Abnormal angiogram of head Segmental and somatic dysfunction of rib cage Occipital neuralgia Cervicalgia Pain in right shoulder Myalgia Hemiplegia and hemiparesis following cerebral infarction affecting left non-dominant side Radiculopathy, cervical region Pain in thoracic spine Radiculopathy, lumbar region Opioid dependence History of kidney stones Stroke Hypertension Surgical History (Updated 06/03/24 @ 14:30 by Carmen Jacobsen MD) H/O left knee surgery History of back surgery Family History Father No problems noted. Mother No problems noted. Social History Household Members Other:: daughter Housing: House Are you a primary childcare center director to a significant other at home: No Do you presently have visiting nurse or other home services: No Alcohol intake: never Comment: NO COUNTS NEEDED Patient Tobacco Use Status: Current everyday Tobacco user Tobacco use type: Cigarette e-Cigarette/Vaping Use: Never Used Second Hand Smoke Exposure: Yes service: No Current occupational status: employed Cognitive needs: No Hearing needs: No Vision needs: Yes Questionnaire PHQ-9 Over the last 2 weeks, how often have you been bothered by any of the following problems? 1. Little interest or pleasure in doing things: not at all 2. Feeling down, depressed, or hopeless: not at all 3. Trouble falling or staying asleep, or sleeping too much: not at all 4. Feeling tired or having little energy: not at all 5. Poor appetite or overeating: not at all 6. Feeling bad about yourself - or that you are a failure or have let yourself or your family down: not at all 7. Trouble concentrating on things, such as reading the newspaper or watching television: not at all 8. Moving or speaking so slowly that other people could have noticed. Or the opposite - being so fidgety or restless that you have been moving around a lot more than usual: not at all 9. Thoughts that you would be better off or of hurting yourself in some way: not at all Total score: 0 Depression Screening Interpretation: Negative Depression Screening Done: Yes Source: Developed by Drs. Vipul Syed, Narayan Mo and colleagues, with an educational omar from [employer]. Thrive Questionnaire Date Thrive assessed: 02/24/24 AUDIT C Alcohol Use Questionnaire (AUDIT-C) 1. How often do you have a drink containing alcohol?: Never Total Score: 0 OSORIO-7 AMB Questionnaire OSORIO-7 Date OSORIO - 7 assessed: 02/24/24 Source: Developed by Drs. Vipul Syed, Danielle Salas, Narayan Raines and colleagues, with an educational omar from [employer]. Physical exam (Primary Care) Vital Signs: Last Vital Signs Pulse 70 06/03/24 13:48 BP 124/60 06/03/24 14:22 Pulse Ox 98 06/03/24 13:48 Oxygen Delivery Method Room Air 06/03/24 13:48 BMI result Body Mass Index 25.6 Tobacco/Smoking Status: Tobacco use Status Tobacco use date assessed 02/24/24 06/03/24 13:56 Patient Tobacco Use Status Current everyday Tobacco 06/03/24 13:56 Tobacco use type Cigarette 06/03/24 13:56 e-Cigarette/Vaping Use Never Used 06/03/24 13:56 PHQ-9: PHQ-9 Score PHQ-9: Total score 0 06/03/24 14:42 Depression Screening Interpretation: Negative Thrive Assessment: Date of Thrive Assessment Date Thrive assessed 02/24/24 06/03/24 13:56 Const General: alert; No acute distress Eyes Conjunctivae: conjunctivae normal Resp Auscultation: clear to auscultation bilaterally Cardio Rate: regular rate Rhythm: regular rhythm GI Inspection: Yes normal to inspection Extrem General: Yes normal to inspection and No edema Immunizations Boostrix Tdap 2.5 Lf unit-8 mcg-5 Lf/0.5 mL intramuscular syringe Performing Provider: Carmen Jacobsen MD Performing Location: [facility] Administered by: Ana Fry CMA on 06/03/24 14:42 Dose Route Admin Location Dispensed Lot Number Expiration Date NDC Leather Polisher 0.5 mL IM Left Deltoid 0.5 mL [id number] 10/14/26 [id number] [employer] VIS Given Date VIS Provided VIS Publication Date 06/03/24 Single Vaccine 24 Eligibility Eligibility Date Funding Source Not [facility] Eligible 06/03/24 Private Coding Level of Care Code New Pt Level 4 (18055) Diagnoses Lumbar post-laminectomy syndrome M96.1 Spinal cord stimulator status Z96.89 Elevated blood sugar R73.9 TSH elevation R79.89 Hypertension I10 Nephrolithiasis N20.0 Assessment & Plan Assessment & Plan (1) Lumbar post-laminectomy syndrome: Code(s): M96.1 - Postlaminectomy syndrome, not elsewhere classified Category: Medical Plan: Patient follows up with pain management (2) Spinal cord stimulator status: Comment: 2023 Code(s): Z96.89 - Presence of other specified functional implants Category: Medical Plan: Patient follows up with pain management (3) Elevated blood sugar: Code(s): R73.9 - Hyperglycemia, unspecified Category: Medical Plan: Discussed about repeating blood work (4) TSH elevation: Code(s): R79.89 - Other specified abnormal findings of blood chemistry Category: Medical Plan: Discussed about repeating TSH (5) Hypertension: Code(s): I10 - Essential (primary) hypertension Category: Medical Plan: Continue with blood pressure medication. Decrease salt intake and exercise on amlodipine (6) Nephrolithiasis: Comment: L renal stone s/pESWL Dr. Sesay 2018 Code(s): N20.0 - Calculus of kidney Category: Medical Plan History of Present Illness The patient is a 59-year-old male presenting with a need for chronic pain management and follow-up on hypertension and blood work findings. This history includes essential hypertension, managed with home blood pressure monitoring and treatment regimen adjustments. Despite a spinal cord stimulator implant for pain management, chronic pain persists owing to previous lumbar interventions and post-laminectomy syndrome. An elevated TSH was recorded in 2021, with mild anemia and mildly elevated blood sugar noted in recent tests. These conditions require ongoing monitoring and management to prevent further complications. Previous medical events include a subarachnoid hemorrhage in January 2019 with subsequent recovery and resolution of any weakness. Surgical history includes kidney stone treatment in 2017 and a torn meniscus surgery last year. The patient adheres to a diet emphasizing organic foods, and although he experiences limitations due to pain, he engages in light activities. His last colonoscopy in November 2022 revealed a tubular adenoma, which was addressed through polyp removal. Health Maintenance - Anticipatory guidance around the importance of maintaining a balanced diet with plant proteins, managing weight, and encouraging physical activity within limits. - Recommendations for hydration to support kidney function, considering the history of kidney stones. - Monitoring of blood pressure at home, with specific guidance to ensure appropriate resting periods before measurements. - Blood work including fasting tests for sugars, TSH, prostate-specific antigen (PSA), cholesterol, B12, and magnesium levels were discussed. - Follow-up for prostate health with plans for rectal examination in future visits. - Updated tetanus vaccination recommended to stay current with preventative health measures. - Colonoscopy follow-up scheduled in five years post last tubular adenoma removal. - Encouragement to reduce intake of nonsteroidal anti-inflammatory drugs (NSAIDs) to minimize risks associated with kidney and gastrointestinal health. Social History - Limited physical activity due to chronic back pain but ambulates with dogs, maintains light exercise. - Prefers organic and plant-based foods, endeavoring to manage dietary intake. - History of high activity levels diminished due to chronic pain. - Reports sufficient water consumption with reminders to increase intake to aid kidney health. - Engages in regular home blood pressure monitoring and adjusts lifestyle to address dietary impacts on cardiovascular health. - Resident of an area with noted access to medical services, evidenced by previous treatments and specialty follow-ups. Review of Systems - Musculoskeletal: Reports chronic low back pain, post-laminectomy; Denies fall history but notes instability and potential for imbalance. - Cardiovascular: Reports history of hypertension and subarachnoid hemorrhage. - Endocrine: Reports previous elevated TSH and mildly elevated blood sugar. - Gastrointestinal: Denies recent gastrointestinal complaints; history of kidney stones. - Neurological: Reports prior weakness post subarachnoid hemorrhage; no current neurological deficits noted. Physical Exam - Vital Signs- Blood pressure elevated compared to usual home readings. - Musculoskeletal- Tenderness in lumbar region. - Neurological- Upper extremity strength intact; Toe pointing and dorsiflexion of feet both adequate. - General- Well-nourished appearance, erythema at recent burn site. Results - Labs: Mild anemia, normal electrolytes, normal renal function, mildly elevated blood sugar, elevated TSH from 2021, normal cholesterol. - Screening Tests: Colonoscopy (November 2022) - tubular adenoma with polyp removal. Plan I will manage the patient's chronic pain by supporting the existing use of the spinal cord stimulator and ensuring follow-ups for any adjustments. The hypertension will be monitored closely, with continuation of amlodipine at the current dosage and reinforcement of blood pressure tracking. We will conduct blood work to evaluate blood sugar and TSH levels, adjusting treatment as indicated by the results. The patient is advised to discontinue NSAIDs to minimize gastric and renal complications and to increase their intake of plant proteins and fluids. Health maintenance updates include administering a tetanus shot and a reevaluation for prostate health. Lab results will guide future clinic visits and necessary adjustments of the management plan. Patient was informed and verbally consented to the use of an ambient scribe for clinic note documentation during this visit. Discussion Notes During our visit, I reviewed the patient's history of post-laminectomy syndrome and current pain management through a spinal cord stimulator. I emphasized the importance of home blood pressure monitoring, especially given the history of essential hypertension and previous subarachnoid hemorrhage. We deliberated on the need for blood work, including repeat assessments for blood sugar and TSH, and the patient's kidney health was discussed concerning the history of kidney stones. I advised avoidance of NSAIDs to reduce gastrointestinal risks and encouraged the adaptation of dietary shifts towards increased plant proteins and hydration. Vaccinations were reviewed, specifically recommending a tetanus booster. I encouraged the patient to maintain physical activity within tolerated limits to prevent functional decline. Patient Instructions - Monitor your blood pressure daily at home, ensuring rest before each measurement. - Avoid NSAID medications like naproxen and take any required medications with food. - Follow up with fasting blood work for blood sugar, TSH, cholesterol, B12, and magnesium levels. - Maintain a balanced diet rich in plant proteins and ensure adequate hydration. - Schedule a tetanus booster with the nurse. - Plan your prostate health evaluations, and complete blood work as scheduled before the next visit. - Refrain from strenuous activities that exacerbate your back pain but engage in light exercise as tolerated. - Stay informed about health maintenance practices, like colon cancer screenings and appropriate vaccinations. Orders: Orders Hemoglobin A1c Today R73.9 - Hyperglycemia, unspecified Complete Blood Count Auto Diff Today R73.9 - Hyperglycemia, unspecified Vitamin B12 and Folate Today R73.9 - Hyperglycemia, unspecified Prostate Specific Antigen Scr Today R73.9 - Hyperglycemia, unspecified Thyroid Stimulating Hormone Today R73.9 - Hyperglycemia, unspecified Vitamin D 25-OH Total Today R73.9 - Hyperglycemia, unspecified T Spot TB Today R73.9 - Hyperglycemia, unspecified TDaP Immunization Today Z23 - Encounter for immunization Free T4 (Free Thyroxine) Today R73.9 - Hyperglycemia, unspecified Comprehensive Met. Panel Today R73.9 - Hyperglycemia, unspecified Magnesium Today R73.9 - Hyperglycemia, unspecified Lipid Panel Today E78.00 - Pure hypercholesterolemia, unspecified, R73.9 - Hyperglycemia, unspecified UA CC w/rflx Micro + Cult Today R30.0 - Dysuria, R73.9 - Hyperglycemia, unspecified Ferritin Today R73.9 - Hyperglycemia, unspecified Reticulocyte Count Today R73.9 - Hyperglycemia, unspecified IRON PROFILE Today R73.9 - Hyperglycemia, unspecified
[2024-06-03 14:22] VITALS: BP 124/60
--- OUTSIDE RECORDS SUMMARY | 2024-06-03 16:25 | XMS_ITS ---
Author Organization [facility] Address [address] [place] [id number] Care Team Providers Care Back Shoe Worker Name Role Phone Thad DOMINIQUE, Morales Primary Care Provider Vipul Littlejohn [phone] REASON FOR VISIT colon screening Encounters Encounter Location Date Provider Diagnosis [facility] [address] [place] [id number] 01/25/2023 Vipul Stock Plan Of Treatment No Information Progress Notes * ANALICHRISTINEPENG FERCHOOB:1965 (59 yo M)Acc No.[id number]:01/25/2023 Progress Notes Patient:?VICKIE HUBER Provider:?Vipul Stock MD :1965???Age:57 Y???Sex:Male Ayaan e:01/25/2023 [facility] Pcp:Morales Oneil MD Subjective: * Chief Complaints: * ???1. Colon screening. * Medical History:? Objective: * Vitals:? Assessment: Plan: * Treatment: * * The named appointment provid er may or may not be the originator of this progress note, and it is not deemed complete until electronically signed by the appointment provider. Sign off status: Pending * Provider:?Vipul Stock MD Date:? 023 Generated for Subhai lauryn/Famargotg/eTransmitting on:?06/03/2024 04:25 PM EDT
--- OUTSIDE RECORDS SUMMARY | 2024-06-03 16:25 | XMS_ITS ---
Author Organization [facility] Address [address] [place] [id number] Care Team Providers Care Nocturnist Physician Name Role Phone Morales Oneil MD Primary Care Provider Vipul Littlejohn Unavailable [phone] REASON FOR VISIT screening Problems Problem Type SNOMED Code ICD Code Onset Dates Problem Status W/U Status Risk Notes Problem Diverticular disease of colon (835231444) Diverticulosis of large intestine without perforation or abscess without bleeding (K57.30) Active confirmed Encounters Encounter Location Date Provider Diagnosis [facility] Out[facility] [address] [place] [phone] 12/07/2022 Vipul Stock Encounter for scre ening colonoscopy Z12.11 ; Colon polyps K63.5 ; Diverticulosis of large intestine without perforation or abscess without bleeding K57.30 and Other hemorrhoids K64.8 Assessments Encounter Date Diagnosis (ICD Code) Assessment Notes Treatment Notes Treatment Clinical Notes Section Notes 12/07/2022 Encounter for screening colonoscopy (ICD-10 - Z12.11) 12/07/2022 Colon polyps (ICD-10 - K63.5) 12/07/2022 Diverticulosis of large intestine without perforation or abscess without bleeding (ICD-10 - K57.30) 12/07/2022 Other hemorrhoids (ICD-10 - K64.8) Plan Of Treatment No Information Progress Notes * FERCHO HUBEROB:1965 (59 yo M)Acc No.[id number]:12/07/2022 COLON WITH MAC Patient:?VICKIE HUBER Provider:?Vipul Stock MD :1965???Age:57 Y???Sex:Male Ayaan e:12/07/2022 Address:[place], [id number] Pcp:Morales Oneil MD Subjective: * Chief Complaints: * ???1. Screening. * Medical History:? Objective: * Vitals:? Assessment: * Assessment: 1.?Encounter for screening c olonoscopy - Z12.11 (Primary)???2.?Colon polyps - K63.5???3.?Diverticulosis of large intestine without perforation or abscess without bleeding - K57.30???4.?Other hemorrhoids - K64.8??? Plan: * Treatment: * Procedure Codes:?10849 COLON OSCOPY AND BIOPSY, Modifiers: 33 * * The named appointment provid er may or may not be the originator of this progress note, and it is not deemed complete until electronically signed by the appointment provider. Sign off status: Pending * Provider:?Vipul Stock MD Date:? 023 Generated for Jonh combs/Irene/eTransmitting on:?06/03/2024 04:25 PM EDT
--- OUTSIDE RECORDS SUMMARY | 2024-06-03 16:25 | XMS_ITS | Patient Health Record ---
Author Organization [facility] Address [address] [place] [phone] Care Team Providers Care Pattern Scratcher Name Role Phone Morales Oneil MD Primary Care Provider Vipul Littlejohn [phone] Allergies No Known Allergies Reason For Referral No Information Medications Medication SIG (Take, Route, Frequency, Duration) Notes Start Date End Date Status oxyCODONE HCl 5 MG Oral for 8 Active amLODIPine Besylate 2.5 MG TAKE 1 TABLET BY MOUTH EVERY DAY Oral for 90 Active Social History Tobacco Use: Social History Observation Description Date Details (start date - stop date) Former Smoker NA - NA Tobacco Use/Smoking Question Answer Notes Patient is a former smoker How long has it been since you last smoked? 3-6 months Section Notes: Nonsmoker; no sig alcohol. Came from [facility] in 1999 Problems Problem Type SNOMED Code ICD Code Onset Dates Problem Status W/U Status Risk Notes Problem [id number] Colon cancer screening (Z12.11) Active confirmed Problem Diverticular disease of colon (587019824) Diverticulosis of large intestine without perforation or abscess without bleeding (K57.30) Active confirmed Problem [id number] Preprocedural examination (Z01.818) Active confirmed Plan Of Treatment Pending Test Test Name Order Date Pathology 12/07/2022 Future Test Test Name Order Date COLONOSCOPY 09/20/2022 Insurance Providers Payer Name Payer Address Payer Phone Subscriber Number Group Number Insured Name Patient Relationship to Insured Coverage Start Date Coverage End Date [facility] [address] [place] [phone] [id number] VICKIE RODRIGUEZ Self - patient is the insured Medical (General) History Medical History History ICD Code Hypertension CVA from a bleed--?SAH--no residual-2019 Back pain Denies NV,DM,Lung disease,renal disease Kidney stone Surgical History Surgery Date(Month/Year) Back surgery 2006
== END 2024-06-03 14:53 | disposition home or self-care (01) ==
PROVIDERS: PCP Internal Medicine; Visit Provider Internal Medicine
DX: R73.9 Hyperglycemia, unspecified (principal); M96.1 Postlaminectomy syndrome, not elsewhere classified; Z96.89 Presence of other specified functional implants; I10 Essential (primary) hypertension; N20.0 Calculus of kidney; Z23 Encounter for immunization

== ENCOUNTER → 2024-06-03 13:45 | Outpatient (BNVA) | payer OTHER, SELFPAY | PROVIDERS: PCP Internal Medicine; Visit Provider Internal Medicine | DX: M96.1 Postlaminectomy syndrome, not elsewhere classified (principal); Z23 Encounter for immunization; R73.9 Hyperglycemia, unspecified; R94.6 Abnormal results of thyroid function studies; I10 Essential (primary) hypertension; Z96.89 Presence of other specified functional implants; Z87.442 Personal history of urinary calculi | CPT/HCPCS: 90471; 90715; 96127 ==

== ENCOUNTER 2024-06-08 07:48 | Outpatient (REF) | payer OTHER, SELFPAY ==
[2024-06-08 08:04] LABS: MANUAL DIFF FLAG NO
[2024-06-08 08:24] LABS: Basophils Absolute Auto 0.1 X10*3/uL (0.0-0.2); Basophils Percent Auto 1.2 % (0-2); Eosinophils Absolute Auto 0.3 X10*3/uL (0.0-0.4); Eosinophils Percent Auto 5.3 % (0-4); Hematocrit 37.4 % (42.0-52.0); Hemoglobin 12.8 g/dl (14.0-18.0); Imm Gran Abs Auto 0.02 X10*3/uL (0.00-0.03); Imm Gran Pct Auto 0.3 % (0.0-0.4); Lymphocytes Absolute Auto 1.3 X10*3/uL (1.2-4.9); Lymphocytes Percent Auto 21.9 % (20-40); Mean Corpuscular HGB Conc 34.2 g/dl (31.0-36.0); Mean Corpuscular Hemoglobin 28.7 pg (27.0-33.0); Mean Corpuscular Volume 83.9 fL (80.0-98.0); Mean Platelet Volume 10.6 fL (9.4-12.4); Monocytes Absolute Auto 0.4 X10*3/uL (0.1-1.2); Monocytes Percent Auto 7.2 % (2-11); Neutrophils Absolute Auto 3.8 x10*3/uL (2.0-8.3); Neutrophils Percent Auto 64.1 % (45-73); Platelet Count 350 X10*3/uL (160-400); Red Blood Count 4.46 X10*6/uL (4.60-5.80); Retic HGB Equivalent 31.9 pg (30.0-35.0); Reticulocyte Percent 1.2 % (0.5-1.8); Reticulocytes Absolute 0.054 X10*6/uL (0.026-0.095)
[2024-06-08 08:43] LABS: Estimated Average Glucose 94 mg/dL; Hemoglobin A1C 99.6847 umol/L; Hemoglobin A1c % 4.9 % (<6.0); Total Hemoglobin (HGBA1C) 3315.5646 umol/L
[2024-06-08 09:10] LABS: Alanine Aminotransferase 42 U/L (0-40); Albumin Level 4.3 g/dL (3.5-5.0); Alkaline Phosphatase 178 U/L (39-117); Anion Gap 10 (12-20); Aspartate Amino Transferase 39 U/L (5-37); Bilirubin Total 0.4 mg/dL (0.0-1.0); Blood Urea Nitrogen 25 mg/dL (9-16); Calcium 9.4 mg/dL (8.4-10.2); Carbon Dioxide 27 mmol/L (22-29); Chloride 110 mmol/L (96-108); Cholesterol 173 mg/dL (<200); Estimated Glomerular Filt Rate > 60; Glucose Random 95 mg/dL (60-115); HDL Cholesterol 37 mg/dL (>40); Iron 64 mcg/dL (45-160); LDL Cholesterol Calculated 117 mg/dL (<100); Magnesium 2.1 mg/dL (1.6-2.6); Percent Iron Saturation 25 % (15-50); Potassium 4.5 mmol/L (3.3-5.1); Sodium 142 mmol/L (135-145); Total Iron Binding Capacity 251 mcg/dL (228-428); Total Protein 6.7 g/dL (6.5-8.0); Triglycerides 98 mg/dL (<150); Unsaturated Iron Binding 187 ug/dL
[2024-06-08 09:24] LABS: Appearance Urine Clear; Color Urine Yellow; Glucose Urine UA Negative (Negative); Leukocyte Esterase Urine Negative (Negative); Nitrite Urine Negative (Negative); PH 5.5 (5.0-9.0); Specific Gravity - Urine >= 1.030 (1.005-1.025); Urine Blood Negative (Negative); Urine Ketones Negative (Negative); Urine Protein Negative (Neg-Trace)
[2024-06-08 09:29] LABS: Ferritin 294 ng/mL (20-250); Free T4 (Free Thyroxine) 1.03 ng/dL (0.71-1.85); Thyroid Stimulating Hormone 4.94 uIU/mL (0.32-4.0)
[2024-06-08 09:33] LABS: Folate 10.2 ng/mL (> or = 4.0); Prostate Specific Antigen Scr 1.36 ng/mL (<0.05-4.0); Vitamin B12 389 pg/mL (200-900)
[2024-06-11 06:44] LABS: TS Negative Control Passed; TS Panel A 1; TS Panel B 0; TS Positive Control Passed; TSpotTB Negative (Negative)
== END 2024-06-08 07:49 | disposition home or self-care (01) ==
LOC: HO.LAB 07:48
PROVIDERS: PCP Internal Medicine; Visit Provider Internal Medicine
DX: R73.9 Hyperglycemia, unspecified (principal); R30.0 Dysuria; E78.00 Pure hypercholesterolemia, unspecified; Z12.5 Encounter for screening for malignant neoplasm of prostate
CPT/HCPCS: 36415; 80053; 80061; 81003; 82306; 82607; 82728; 82746; 83036; 83540; 83735; 84153; 84439; 84443; 85025; 85045; 86481

== ENCOUNTER 2024-06-23 13:21 | Outpatient (AMB) | payer OTHER, SELFPAY ==
--- NOTE | 2024-06-23 13:35 | MHC.OFFVIS ---
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 This pain is chronic in nature and has been symptomatic since the first back surgery in 2006. The patient reports that the pain is localized near the lower spine and extends to the right>left buttock, with occasional radiation to the groin. Previous treatments included the placement of Nevro spinal cord stimulator and administration of oxycodone for analgesia. The patient noted improvement in leg pain predominantly after SCS implant, but sacroiliac joint discomfort remains prominent. Recent examinations have revealed a right leg length discrepancy, which might contribute to the sacroiliac dysfunction. The patient experienced minimal benefit from the multiple attempts at pain management adjustments, including altered stimulator settings and prior physical therapy. Bing Gomez is also present during today's visit to adjust and reprogram SCS settings. Despite the ongoing usage of oxycodone, there is consistent pain recurrence in the sacroiliac region. Patient is interested to undergo diagnostic SI joint nerve blocks to confirm this. - Onset: Persistent since 2006, post initial back surgery - Quality: Aching and radiating, 08/27 - Location: Lower back, sacroiliac region, buttocks - Radiation: Occasionally to the groin area - Aggravating Factors: Certain movements, extended sitting - Alleviating Factors: None significantly effective - Interference: Limits regular activity and impacts quality of life - Affect: Chronic pain impacting daily life and emotional well-being - Analgesia: Currently using oxycodone 10 mg QID prn; pain remains high despite medication - Adverse Effects: None specifically reported - Activities of Daily Living: Pain interferes with mobility and comfort - Aberrant Drug Related Behaviors: None reported PRIOR: Patient presents today for follow up to review recent chest xray and rib xrays, cardiac lab work and EKG results. Patient reports feeling partially better since last visit but continues to experience ribcage discomfort if he increases SCS program stimulation. Unfortunately, Bing Gomez was unable to be present during today's visit to adjust device programming. Cardiac enzymes, EKG and xray results were normal. His thoracic leads are in stable position. Patient reports he recently restarted Soma and tizanidine for increased muscle spasms on his right side of the neck especially when he increases SCS program stimulation. He is also on CSC for oxycodone 10 mg BID prn for chronic pain, prescribed by Dr. Bill. Denies any recent cough, cold, infection, fever or any other significant changes in medical history since last office visit. PRIOR: Patient presents today for follow up for mid back pain with bilateral rib pain and chest pain. He reports history of right sided rib pain 2 years ago following a mechanical fall injury, which was associated with chest pain at that time per patient. Denies any recent trauma, injury, falls or recent fever, chills, cough, infection, respiratory illness or exposure to known sick contacts. Pain has started about 2 weeks ago on the right side of mid back pain. Patient reports he contacted Bing greco and his programming was adjusted and pain was better for a few days. His spine xrays from a year ago show stable lead position of SCS implant. Patient reports increasing rib pain on the left and chest discomfort radiating into his left shoulder at rest and with activities. He tried to shut off SCS device for a day without changes in his pain or discomfort symptoms. He experiences occasional shortness of breaths and avoids breathing deeply or coughing due to increase in pain. Patient reports seeing his provider for similar symptoms on 02/24/24 with referral back to our office for further evaluation. Denies any changes to medications, medical history or recent hospitalizations or Urgent care/ER visits. PRIOR 05/14/23: Patient presents today 2 weeks status post Nevro SCS Implant on 05/01/[address] Barksdale. Bing Gomez is also present during today's visit. Patient continues to report minimal pain relief since procedure. Patient reports his post-operative pain is getting better and his chronic back and leg pain, especially left leg, has been more prominent. Patient reports he also has been sleeping more on the left side to avoid sleeping on his back or right buttock battery pocket. Per rep Gomez, patient's SCS device is at 14% out of full program during post-op healing and plans are to increase steady to the full capacity. Patient continues to take Tylenol and Oxycodone for pain relief which helps his back but not left leg pain. He rates his pain at 8/10 today. Denies any recent cough, cold, infection, fever, any significant changes in her medical history, medications or recent hospitalizations. The right buttock wound dressing was removed and the wound cleansed with ChloraPrep. The midline incision is well healing, no pathological discharge or tenderness. Right upper buttock battery wound site is clean, no pathological discharge, no redness and no swelling. Steri-strips are intact. There is no erythema or local temperature. Patient is wearing an abdominal binder.? Past Procedures: 05/01/23: Lumbar Nevro SCS implant- 20% pain relief at 14% SCS program 01/16/23: Lumbar Nevro SCS trial-80% pain relief 11/21/22: Caudal ANIA with catheter-0% pain relief 10/29/22: Right therapeutic subacromial injection-50% pain relief, ongoing PRIOR: Patient is a pleasant 57 years old female with prior L4-L5 decompression in 2006 and lumbar degenerative disc disease presents today with significant low back pain with bilateral leg pain for over one year. Patient also reports right shoulder pain. He is accompanied by his daughter who assists with translation. Denies any recent trauma, injury or falls. Reports increase in right shoulder pain with overhead and backside pocket reaches due to repetitive motion at his work. He was seen in [facility] ER recently for right shoulder pain and received Ketorolac and lidocaine injection without any relief with imaging showing calcific tendinitis and bursitis. Patient reports increased falling due to worsening back pain and bilateral leg weakness and legs giving out due to pain. Back pain is axial and also radiates in lateral distribution of both legs and dorsal feet with numbness and tingling, worse on the right side. Patient describes his pain as sharp, shooting and significant pressure sensation that radiates into his lateral hips bilaterally. He was seen by multiple providers, including Dr. Bill at [facility] and Jason BRUCE at [facility] due to lumbar L4-L5 almost complete fusion but was deemed non surgical at this time. Per recent lumbar spine MRI and CT scan reports, patient also has significant degenerative changes on the endplates with almost disc fusion L4-L5 disc level, with Schmorl's nodes and Modic changes. These findings correlate with his symptoms of bilateral lower extremity pain and weakness as well as axial low back pain that has been interfering with his ability to ambulate. Reports history of back injections at [facility] with partial pain relief. He is currently takes oxycodone and Tylenol that provides him mild analgesia. Pain affects his daily activities, functioning, sleep, mood and quality of life. Given worsening of back pain with recent right shoulder pain, he does not believe he can continue to work, even with light duty arrangements. Denies any fever, weight loss, abdominal or groin pain, foot drop, bladder/bowel dysfunction or saddle anesthesia. Location Lower back pain with radiation to lower extremities, right shoulder pain Duration Chronic pain >1.5 years Characteristics of symptom or complaint Aching, heavy, pressure, numbness, burning, pinching, sharp, throbbing Aggravating or associated factors Walking, standing, prolonged sitting, bending, twisting, movements Relieving factors Oxycodone 10mg, Tylenol, ice/heat therapy, rest, activity modifications Treatment PT, back injections, right shoulder injection-minimal effects [facility] Medical History (Updated 06/23/24 @ 13:59 by RAYMOND Goetz) Abnormal angiogram of head Segmental and somatic dysfunction of rib cage Occipital neuralgia Cervicalgia Pain in right shoulder Myalgia Hemiplegia and hemiparesis following cerebral infarction affecting left non-dominant side Radiculopathy, cervical region Pain in thoracic spine Radiculopathy, lumbar region Opioid dependence History of kidney stones Stroke Hypertension Surgical History (Updated 06/03/24 @ 14:30 by Carmen Jacobsen MD) H/O left knee surgery History of back surgery Family History Father No problems noted. Mother No problems noted. Social History Household Members Other:: daughter Housing: House Are you a primary animal care taker to a significant other at home: No Do you presently have visiting nurse or other home services: No Alcohol intake: never Comment: NO COUNTS NEEDED Patient Tobacco Use Status: Current everyday Tobacco user Tobacco use type: Cigarette e-Cigarette/Vaping Use: Never Used Second Hand Smoke Exposure: Yes service: No Current occupational status: employed Cognitive needs: No Hearing needs: No Vision needs: Yes Review of Systems Const Details: - Musculoskeletal: Reports pain in the sacroiliac region and buttocks - Neurological: Denies leg pain, bladder or bowel dysfunction or saddle anesthesia - Reproductive: Reports occasional radiation of pain to the groin All systems reviewed & are unremarkable except as noted in HPI and below Physical Exam Vital Signs: Last Vital Signs Pulse 82 06/23/24 13:36 BP 146/67 H 06/23/24 13:36 Pulse Ox 99 06/23/24 13:36 Oxygen Delivery Method Room Air 06/23/24 13:36 BMI result Body Mass Index 25.0 General: Appears afebrile. Alert and oriented. Mood and affect appropriate. Follows and participates in conversation appropriately. Respiratory effort is unlabored. No cough. Able to transition from sit to stand unassisted. Uses cane with ambulation. Ambulates with bilaterally normal heel strike and toe off. Mildly antalgic gait, non-spastic. Right leg shorter than left, indicative of leg length discrepancy General: Yes no CVA tenderness Back/Spine/Pelvis Back: no CVA tenderness Cervical Spine: cervical ROM normal, cervical muscular tenderness and No Cervical spine tenderness Thoracic/Lumbar Spine: thoracic and lumbar spine normal to inspection, Thoracic/lumbar spine scar(s), Lasegue's sign negative, straight leg raise negative bilaterally, pain with thoraco-lumbar ROM, thoraco-lumbar ROM limited, No thoracic spinal tenderness and No lumbar spinal tenderness Pelvis: buttock tenderness bilaterally Sacroiliac joints: bilaterally (Daren's, Stinchfield, Pelvic Compression and Gaenslen's test positive R>L) tender to palpation Assessment & Plan Assessment & Plan (1) Lumbar post-laminectomy syndrome: Code(s): M96.1 - Postlaminectomy syndrome, not elsewhere classified Category: Medical (2) Back pain, lumbosacral: Code(s): M54.50 - Low back pain, unspecified Category: Medical (3) Sacroiliac joint pain: Code(s): M53.3 - Sacrococcygeal disorders, not elsewhere classified Category: Medical (4) Leg length discrepancy: Code(s): M21.70 - Unequal limb length (acquired), unspecified site Category: Medical (5) Spinal cord stimulator status: Comment: 2023 Code(s): Z96.89 - Presence of other specified functional implants Category: Medical Plan To manage the patient's sacroiliac joint dysfunction, I propose diagnostic bilateral sacroiliac joint injections with local and fluoroscopy to confirm his pain source and offer potential relief. These will guide further treatment strategies. Expectations, risks and benefits were reviewed. Patient is aware he will be contacted to schedule this procedure. The goal is to alleviate existing pain symptoms while maintaining current analgesic measures, including oxycodone and the spinal cord stimulator. The patient will pursue [facility] evaluation for gentle adjustment for the identified leg length discrepancy. This approach aims to achieve a balanced alignment and improve the sacroiliac joint function. Continued monitoring and potential adjustments to treatment will depend on responses to the interventions outlined. SCS device programming was reviewed and adjusted by Bing Gomez, today and follow up with Bing was scheduled for check up via phone with patient. All questions and concerns have been answered and patient agreed with the plan. Follow up after injections and sooner as needed. Patient was informed and verbally consented to the use of an ambient scribe for clinic note documentation during this visit. Orders: Referrals Chiropractic Referral M21.70 - Unequal limb length (acquired), unspecified site, M53.3 - Sacrococcygeal disorders, not elsewhere classified, M54.50 - Low back pain, unspecified, M96.1 - Postlaminectomy syndrome, not elsewhere classified, Z96.89 - Presence of other specified functional implants Coding Level of Care Code Est Pt Level 4 (17557) Complex EM visit Add On G2211 Diagnoses Lumbar post-laminectomy syndrome M96.1 Back pain, lumbosacral M54.50 Sacroiliac joint pain M53.3 Leg length discrepancy M21.70 Spinal cord stimulator status Z96.89
[2024-06-23 13:36] VITALS: BP 146/67; PULSE 82; O2SAT 99; BMI 25.0
--- OUTSIDE RECORDS SUMMARY | 2024-06-23 14:36 | XMS_ITS ---
Author Organization [facility] Address [address] [place] [phone] Care Team Providers Care Trophy Assembler Name Role Phone Thad DOMINIQUE, Morales Primary Care Provider Vipul Littlejohn [phone] REASON FOR VISIT colon screening Encounters Encounter Location Date Provider Diagnosis [facility] [address] [place] [id number] 01/25/2023 Vipul Stock Plan Of Treatment No Information Progress Notes * ANALICHRISTINEPENG FERCHOOB:1965 (59 yo M)Acc No.[id number]:01/25/2023 Progress Notes Patient:?VICKIE HUBER Provider:?Vipul Stock MD :1965???Age:57 Y???Sex:Male Ayaan e:01/25/2023 [facility] Pcp:Morales Oneil MD Subjective: * Chief Complaints: [...] Stock MD Date:? 023 Generated for Subhai lauryn/Momog/eTransmitting on:?06/23/2024 02:36 PM EDT
--- OUTSIDE RECORDS SUMMARY | 2024-06-23 14:36 | XMS_ITS | Patient Health Record ---
Author Organization [facility] Address [address] [place] [phone] Care Team Providers Care Chief Reservoir Engineering Name Role Phone Morales Oneil MD Primary Care Provider Vipul Littlejohn [phone] Allergies No Known Allergies Reason For Referral [...] Notes: Nonsmoker; no sig alcohol. Came from [facility] in 1999 Problems Problem Type SNOMED Code ICD Code Onset Dates Problem Status W/U Status Risk Notes Problem 080984319 Colon cancer screening (Z12.11) Active confirmed Problem Diverticular disease of colon (383689378) Diverticulosis of large intestine without perforation or abscess without bleeding (K57.30) Active confirmed Problem 961572517845134 Preprocedural examination (Z01.818) Active confirmed Plan Of Treatment Pending Test Test Name Order Date Pathology 12/07/2022 Future Test Test Name Order Date COLONOSCOPY 09/20/2022 Insurance Providers Payer Name Payer Address Payer Phone Subscriber Number Group Number Insured Name Patient Relationship to Insured Coverage Start Date Coverage End Date [facility] [address] [place] [phone] [id number] VICKIE RODRIGUEZ Self - patient is the insured Medical (General) History Medical History History ICD Code Hypertension CVA from a bleed--?SAH--no residual-2019 Back pain Denies NM,DM,Lung disease,renal disease Kidney stone Surgical History Surgery Date(Month/Year) Back surgery 2006
== END 2024-06-23 14:04 | disposition home or self-care (01) ==
LOC: HO.PMC 13:21
PROVIDERS: PCP Internal Medicine; Visit Provider Nurse Practitioner Family
DX: M96.1 Postlaminectomy syndrome, not elsewhere classified (principal); M54.50 Low back pain, unspecified; M53.3 Sacrococcygeal disorders, not elsewhere classified; M21.70 Unequal limb length (acquired), unspecified site; Z96.89 Presence of other specified functional implants
CPT/HCPCS: 99214

== ENCOUNTER → 2024-06-23 13:21 | Outpatient (BNVA) | payer OTHER, SELFPAY | PROVIDERS: PCP Internal Medicine; Visit Provider Nurse Practitioner Family ==

== ENCOUNTER 2024-07-06 08:43 | Outpatient (REF) | payer OTHER, SELFPAY ==
--- NOTE | ~2024-07-06 | US_ITS ---
CLINICAL HISTORY: R79.89 - Other specified abnormal findings of blood chemistry --- Additional Notes or Special Instructions: LFT elevation US abdomen complete with color Doppler Comparison: None Findings: The visualized pancreas, aorta, and inferior vena cava are unremarkable. Liver normal size and echotexture. Right lobe 16.0 cm length. No focal hepatic masses. Common duct 3.7 mm diameter. Physiologic distention of the gallbladder. No gallstones or sludge. No gallbladder wall thickening. No pericholecystic fluid. No sonographic Tejada sign. Right kidney normal size, 10.8 cm in length. Normal cortical width and echotexture. No solid renal masses. Incidental parapelvic cyst midpole measuring 1.4 x 2.2 x 2.0 cm Left kidney normal, 10.3 cm in length. Normal cortical width and echotexture. Pelvicaliectasis rather than parapelvic cysts can be correlated with CT urogram. No nephrolithiasis. Spleen measures 14.0 cm. No splenic masses. No ascites. No lymphadenopathy. Impression: 1. Liver normal size and echotexture no focal hepatic lesions. 2. Mild splenomegaly 3. Incidental parapelvic cyst on the right. Suspect pelvicaliectasis rather than parapelvic cysts on the left. CT urogram would be confirmatory. This document has been electronically signed by: Jesus Mccord MD on 07/06/2024 11:11:37
--- OUTSIDE RECORDS SUMMARY | 2024-07-06 08:48 | XMS_ITS | Patient Health Record ---
Author Organization [facility] Address [address] [place] [phone] Care Team Providers Care Coiled Coil Inspector Name Role Phone Morales Oneil MD Primary Care Provider Vipul Littlejohn Unavailable [phone] Allergies No Known Allergies Reason For Referral [...] Notes: Nonsmoker; no sig alcohol. Came from [facility] in 1999 Problems Problem Type SNOMED Code ICD Code Onset Dates Problem Status W/U Status Risk Notes Problem 714915229 Colon cancer screening (Z12.11) Active confirmed Problem Diverticulosis o f large intestine without perforation or abscess without bleeding (K57.30) Active confirmed Problem 978155306489392 Preprocedural examination (Z01.818) Active confirmed Plan Of Treatment Pending Test Test Name Order Date Pathology 12/07/2022 Future Test Test Name Order Date COLONOSCOPY 09/20/2022 Insurance Providers Payer Name Payer Address Payer Phone Subscriber Number Group Number Insured Name Patient Relationship to Insured Coverage Start Date Coverage End Date [facility] [address] [place] [phone] [id number] VICKIE RODRIGUEZ Self - patient is the insured Medical (General) History Medical History History ICD Code Hypertension CVA from a bleed--?SAH--no residual-2019 Back pain Denies NM,DM,Lung disease,renal disease Kidney stone Surgical History Surgery Date(Month/Year) Back surgery 2006
--- OUTSIDE RECORDS SUMMARY | 2024-07-06 08:48 | XMS_ITS ---
Author Organization [facility] Address [address] [place] [phone] Care Team Providers Care Welder Fitter Helper Name Role Phone Thad DOMINIQUE, Morales Primary Care Provider Vipul Littlejohn [phone] REASON FOR VISIT colon screening Encounters Encounter Location Date Provider Diagnosis [facility] [address] [place] [phone] 01/25/2023 Vipul Stock Plan Of Treatment No Information Progress Notes * ANALICHRISTINEPENG FERCHOOB:1965 (59 yo M)Acc No.[id number]:01/25/2023 Progress Notes Patient:?VICKIE HUBER Provider:?Vipul Stock MD :1965???Age:57 Y???Sex:Male Ayaan e:01/25/2023 [id number] Pcp:Morales Oneil MD Subjective: * Chief Complaints: [...] MD Date:? 023 Generated for Subhai lauryn/Famargotg/eTransmitting on:?07/06/2024 08:48 AM EDT
== END 2024-07-06 08:44 | disposition home or self-care (01) ==
LOC: HO.HMGCX 08:43
PROVIDERS: PCP Internal Medicine; Visit Provider Internal Medicine
DX: R79.89 Other specified abnormal findings of blood chemistry (principal)
CPT/HCPCS: 76700

== ENCOUNTER → 2024-07-06 08:44 | Outpatient (BNV) | payer OTHER, SELFPAY | PROVIDERS: PCP Internal Medicine; Visit Provider Radiology Diagnostic Radiology | DX: N28.1 Cyst of kidney, acquired (principal) | CPT/HCPCS: 76700 ==

== ENCOUNTER 2024-07-23 08:44 | Outpatient (AMB) | payer OTHER, SELFPAY ==
--- NOTE | 2024-07-23 08:46 | A.OFFPC_ITS ---
Vital Signs 07/23/24 08:49 Height 5 ft 5 in Weight 152 lb BMI 25.3 BP 120/78 Blood Pressure Location Lt brachial Position Sitting Pulse 79 Pulse Source Pulse Oximeter Temp 97.1 F Temp Source Temporal Artery Scan Pulse Oximetry (%) 98 Oxygen Delivery Method Room Air Intake Visit Reasons: f/u labs Intake Note: Patient is here to follow up on Labs. Human Resources Leader Required: No Coke Burner: Not Required per policy Accompanied by: Self / Same As Patient Allergies No Known Allergies Allergy (Verified 07/23/24 08:49) Tobacco use date assessed: 07/23/24 Dental Screening Dental Screen Date: 06/03/24 [facility] Medical History (Updated 07/23/24 @ 09:09 by Carmen Jacobsen MD) Caliectasis determined by ultrasound of kidney Abnormal angiogram of head Segmental and somatic dysfunction of rib cage Occipital neuralgia Cervicalgia Pain in right shoulder Myalgia Hemiplegia and hemiparesis following cerebral infarction affecting left non- dominant side Radiculopathy, cervical region Pain in thoracic spine Radiculopathy, lumbar region Opioid dependence History of kidney stones Stroke Hypertension Surgical History H/O left knee surgery History of back surgery Family History Father No problems noted. Mother No problems noted. Social History Household Members Other:: daughter Housing: House Are you a primary congregational care pastor to a significant other at home: No Do you presently have visiting nurse or other home services: No Alcohol intake: never Comment: NO COUNTS NEEDED Patient Tobacco Use Status: Current everyday Tobacco user (chewing tobacco) e-Cigarette/Vaping Use: Never Used Second Hand Smoke Exposure: Yes service: No Current occupational status: employed Cognitive needs: No Hearing needs: No Vision needs: Yes Questionnaire Thrive Questionnaire Date Thrive assessed: 02/24/24 OSORIO-7 AMB Questionnaire OSORIO-7 Date OSORIO - 7 assessed: 02/24/24 Source: Developed by Drs. Vipul Syed, Danielle Salas, Narayan Raines and colleagues, with an educational omar from [employer]. Physical exam (Primary Care) Vital Signs: Last Vital Signs Temp 97.1 F 07/23/24 08:49 Pulse 79 07/23/24 08:49 BP 120/78 07/23/24 08:49 Pulse Ox 98 07/23/24 08:49 Oxygen Delivery Method Room Air 07/23/24 08:49 BMI result Body Mass Index 25.3 Tobacco/Smoking Status: Tobacco use Status Tobacco use date assessed 07/23/24 07/23/24 08:54 Patient Tobacco Use Status Current everyday Tobacco ( 07/23/24 08:54 chewing tobacco) Tobacco use type 07/23/24 08:54 e-Cigarette/Vaping Use Never Used 07/23/24 08:46 Thrive Assessment: Date of Thrive Assessment Date Thrive assessed 02/24/24 07/23/24 08:46 Const General: alert; No acute distress Eyes Conjunctivae: conjunctivae normal Resp Auscultation: clear to auscultation bilaterally Cardio Rate: regular rate Rhythm: regular rhythm GI Inspection: Yes normal to inspection Extrem General: Yes normal to inspection and No edema Coding Level of Care Code Est Pt Level 4 (86025) Diagnoses TSH elevation R79.89 LFT elevation R79.89 Hypertension I10 Failed back syndrome M96.1 Caliectasis determined by ultrasound of kidney N28.89 Assessment & Plan Assessment & Plan (1) TSH elevation: Code(s): R79.89 - Other specified abnormal findings of blood chemistry Category: Medical Plan: Will continue to monitor (2) LFT elevation: Comment: US negative 2024 Code(s): R79.89 - Other specified abnormal findings of blood chemistry Category: Medical Plan: Patient had ultrasound done revealing negative results. Will continue to follow-up liver function to (3) Hypertension: Code(s): I10 - Essential (primary) hypertension Category: Medical Plan: Continue with blood pressure medication. Decrease salt intake and exercise on amlodipine 2.5 mg once a day (4) Failed back syndrome: Code(s): M96.1 - Postlaminectomy syndrome, not elsewhere classified Category: Medical Plan: Patient is under pain management right now taking muscle relaxants. (5) Caliectasis determined by ultrasound of kidney: Code(s): N28.89 - Other specified disorders of kidney and ureter Category: Medical Plan History of Present Illness The patient is a 59-year-old male presenting for follow-up concerning postlaminectomy syndrome, hypertension, and nephrolithiasis. Notably, his longstanding hypertension is managed with amlodipine, and his chronic lumbar pain following laminectomy persists despite conservative management including recent bilateral sacroiliac injections and healthcare analyst. Past significant medical history includes a subarachnoid hemorrhage and nephrolithiasis, with chronic anemia noted. Reviewing laboratory results over time, the patient maintains stable hemoglobin levels indicative of chronic anemia, alongside normal renal function and electrolytes. Elevations in liver enzymes were noted, prompting an abdominal ultrasound that revealed mild splenomegaly and a renal cyst without acute implications. The patient reports a mildly elevated TSH, with improvement over time from previous assessments, and vitamin D deficiency due to limited sunlight exposure. Past screenings showed a tubular adenoma in the colon. The patient remains under vigilant monitoring for these chronic conditions. Health Maintenance - Last colonoscopy in 2022 showed tubular adenoma. - Blood pressure management with amlodipine 2.5 mg daily. - Monitoring of vitamin D levels and TSH adjustments as necessary. - Recommendation to increase sun exposure for vitamin D synthesis. - Routine evaluation of hypertension with occasional blood work and imaging follow-ups as necessary. - No indication for immediate intervention on renal cyst or mild splenomegaly. Social History - Patient reported involvement in regular chiropractic sessions for back pain management. Review of Systems - Musculoskeletal: Reports chronic low back pain. - Gastrointestinal: Reports history of kidney stones. - Endocrine: Reports a mild vitamin D deficiency. - Hematologic: Denies new or significant changes in chronic anemia symptoms. Physical Exam Results - Labs: Hemoglobin 12.8 g/dL, Hematocrit 37.4%, Normal electrolytes, TSH 4.94 ?IU/mL, AST 39 U/L, ALT 42 U/L. - Imaging: Abdominal ultrasound shows mild splenomegaly and renal cyst. Plan 1. 5 mg daily for hypertension. The elevated liver function tests do not necessitate immediate action, but monitoring will continue. Chronic anemia is stable, thus requires ongoing observation. As the TSH levels improve, they will be watched but not intervened upon at present. The patient is advised to increase sun exposure for vitamin D synthesis and offered a urology consultation for the renal cyst evaluation. Pain management should include alternating ibuprofen and acetaminophen to minimize adverse effects on liver and renal function.: Patient was informed and verbally consented to the use of an ambient scribe for clinic note documentation during this visit. Discussion Notes During our discussion, I explained the nature of the patient's mildly elevated liver function tests and ensured him there was no need for alarm given the negative ultrasound results. We agreed to continue monitoring both the liver enzymes and TSH levels. I emphasized the significance of vitamin D for bone health, providing advice for increasing sun exposure while cautioning against skin damage from prolonged exposure. An option to consult a urologist for the mildly dilated renal cyst was presented, and the patient consented to seeking this opinion. I reiterated the importance of managing chronic pain through alternating medications to mitigate risks to hepatic and renal health. Patient Instructions - Continue taking amlodipine 2.5 mg daily. - Increase sun exposure from 8:00 to 10:00 A.M. for vitamin D. - Alternate between ibuprofen and acetaminophen for pain relief. - Ensure adequate hydration and take ibuprofen with food. - Schedule urologist consultation for renal cyst evaluation. - Report any new or worsening symptoms promptly. Orders: Referrals Urology Referral N28.89 - Other specified disorders of kidney and ureter
[2024-07-23 08:49] VITALS: BP 120/78; PULSE 79; TEMP 36.2; O2SAT 98; BMI 25.3
--- OUTSIDE RECORDS SUMMARY | 2024-07-23 09:14 | XMS_ITS ---
Author Organization [facility] Address [address] [place] [id number] Care Team Providers Care Framework Developer Name Role Phone Thad DOMINIQUE, Morales Primary Care Provider Vipul Littlejohn [phone] REASON FOR VISIT colon screening Encounters Encounter Location Date Provider Diagnosis [facility] [address] [place] [id number] 01/25/2023 Vipul Stock Plan Of Treatment No Information Progress Notes * ANALICHRISTINEPENG FERCHOOB:1965 (59 yo M)Acc No.[id number]:01/25/2023 Progress Notes Patient:?VICKIE HUBER Provider:?Vipul Stock MD :1965???Age:57 Y???Sex:Male Ayaan e:01/25/2023 [facility] Pcp:Morales Oneil MD Subjective: * Chief Complaints: [...] Stock MD Date:? 023 Generated for Subhai lauryn/Irene/eTransmitting on:?07/23/2024 09:13 AM EDT
== END 2024-07-23 09:15 | disposition home or self-care (01) ==
LOC: HO.HMCH 08:45
PROVIDERS: PCP Internal Medicine; Visit Provider Internal Medicine
DX: R79.89 Other specified abnormal findings of blood chemistry (principal); I10 Essential (primary) hypertension; M96.1 Postlaminectomy syndrome, not elsewhere classified; N28.89 Other specified disorders of kidney and ureter

== ENCOUNTER → 2024-07-23 08:44 | Outpatient (BNVA) | payer OTHER, SELFPAY | PROVIDERS: PCP Internal Medicine; Visit Provider Internal Medicine | DX: Z13.89 Encounter for screening for other disorder (principal) ==

== ENCOUNTER 2024-08-27 06:45 | Outpatient (REF) | payer OTHER, SELFPAY ==
--- NOTE | ~2024-08-27 | FL_ITS ---
EXAMINATION: FL GUIDANCE ONLY HISTORY: M53.3 - Sacrococcygeal disorders, not elsewhere classified COMPARISON: None available. TECHNIQUE: Fluoroscopy time: 0.2 minutes. Cumulative Dose: 2.08 mGy. DAP: 0.0140 mGym2 Images: 2. FINDINGS: Fluoroscopic spot films of the pelvis demonstrate a needle in the region of the right sacroiliac joint. FL/FL guidance in treatment room IMPRESSION: Fluoroscopy during procedure. Please see procedure report for additional information. Electronically signed by: Vipul Mejia MD 08/27/2024 03:11 PM EDT
--- OUTSIDE RECORDS SUMMARY | 2024-08-27 06:47 | XMS_ITS | Patient Health Record ---
Author Organization [facility] Address [address] [place] [id number] Care Team Providers Care Clinical Safety Manager Name Role Phone Morales Oneil MD Primary Care Provider Vipul Littlejohn [phone] Allergies No Known Allergies Reason For Referral [...] Problem Status W/U Status Risk Notes Problem 407860857 Colon cancer screening (Z12.11) Active confirmed Problem Diverticular disease of colon (580763249) Diverticulosis of large intestine without perforation or abscess without bleeding (K57.30) Active confirmed Problem [id number] Preprocedural examination (Z01.818) Active confirmed Plan Of Treatment Pending Test Test Name Order Date Pathology 12/07/2022 Future Test Test Name Order Date COLONOSCOPY 09/20/2022 Insurance Providers Payer Name Payer Address Payer Phone Subscriber Number Group Number Insured Name Patient Relationship to Insured Coverage Start Date Coverage End Date [facility] [address] [place] [phone] [id number] VICKIE RODRIGUEZ Self - patient is the insured Medical (General) History Medical History History ICD Code Hypertension CVA from a bleed--?SAH--no residual-2019 Back pain Denies NE,DM,Lung disease,renal disease Kidney stone Surgical History Surgery Date(Month/Year) Back surgery 2006
== END 2024-08-27 06:46 | disposition home or self-care (01) ==
LOC: CF 06:45
PROVIDERS: Visit Provider Internal Medicine
DX: M53.3 Sacrococcygeal disorders, not elsewhere classified (principal)
CPT/HCPCS: 27096; J2003; J2795

== ENCOUNTER 2024-08-27 13:50 | Outpatient (AMB) | payer OTHER, SELFPAY ==
[2024-08-27 13:56] VITALS: BP 144/85; PULSE 81; RESP 16; BMI 25.3
--- NOTE | 2024-08-27 13:56 | MHC.OFFVIS ---
Vital Signs 08/27/24 13:56 08/27/24 14:12 Height 5 ft 5 in 5 ft 5 in Weight 152 lb 152 lb BMI 25.3 25.3 BP 144/85 H 150/70 H Blood Pressure Location Lt brachial Lt brachial Position Sitting Sitting Respiration 16 16 Pulse 81 73 Pulse Source Pulse Oximeter Pulse Oximeter Pulse Oximetry (%) 100 Oxygen Delivery Method Room Air Intake Visit Reasons: Shant Dx SIJ inj Allergies No Known Allergies Allergy (Verified 08/28/24 09:08) [facility] Medical History (Updated 08/28/24 @ 09:54 by Carmen Jacobsen MD) Caliectasis determined by ultrasound of kidney Abnormal angiogram of head Segmental and somatic dysfunction of rib cage Occipital neuralgia Cervicalgia Pain in right shoulder Myalgia Hemiplegia and hemiparesis following cerebral infarction affecting left non-dominant side Radiculopathy, cervical region Pain in thoracic spine Radiculopathy, lumbar region Opioid dependence History of kidney stones Stroke Hypertension Surgical History H/O left knee surgery History of back surgery Family History Father No problems noted. Mother No problems noted. Social History Household Members Other:: daughter Housing: House Are you a primary care tech to a significant other at home: No Do you presently have visiting nurse or other home services: No Alcohol intake: never Comment: NO COUNTS NEEDED Patient Tobacco Use Status: Current everyday Tobacco user e-Cigarette/Vaping Use: Never Used Second Hand Smoke Exposure: Yes service: No Current occupational status: employed Cognitive needs: No Hearing needs: No Vision needs: Yes Physical Exam Vital Signs: Last Vital Signs Pulse 73 08/27/24 14:12 Resp 16 08/27/24 14:12 BP 150/70 H 08/27/24 14:12 Pulse Ox 100 08/27/24 14:12 Oxygen Delivery Method Room Air 08/27/24 14:12 BMI result Body Mass Index 25.3 Office Procedures AMB Joint Injection/Aspiration Joint Injection/Aspiration Details: Diagnostic Sacroiliac Joint Injection, Bilateral The procedure, its benefits, and its risks were explained and written informed consent was obtained from the patient. Immediately prior to starting the procedure, a time-out safety check was conducted. The patient's identification, procedure name, procedure site, and procedure laterality were confirmed with the patient. ? Patient was placed prone on the fluoroscopy table and the lumbosacral area was prepped using ChloraPrep and draped with sterile draped in standard fashion. The C-arm was rotated in a contralateral oblique fashion until the medial border of the iliac crest no longer foreshadowed the posterior sacroiliac joint line. The skin and subcutaneous tissue was anesthetized using 1 mL of 0.75% plain lidocaine with 1.5-inch 25-gauge needle in the middle region of the joint line.? A 3.5-inch 22-gauge spinal needle with small bend on the tip was slowly advanced towards the joint line, coaxial to the x-ray beam. Once bony content was obtained, the needle was easily slid into the intra-articular space.? Intra-articular needle position was confirmed using lateral fluoroscopy.? A total volume of 2.5mL of solution containing 0.5% of ropivacaine was injected intra-articularly. The stylet was reinserted and needle was removed. The same procedure was repeated on the other side. The patient tolerated the procedure well. Patient denied any lower extremity weakness or numbness. Patient was observed for 30 min and was discharged after fulfilling the standard discharge criteria. Coding 42759 - Sacroiliac (bilateral) Procedure code (CPT) selection complete Assessment & Plan Assessment & Plan (1) Sacroiliac joint pain: Code(s): M53.3 - Sacrococcygeal disorders, not elsewhere classified Category: Medical Plan Patient is status post bilateral diagnostic SIJ injections. Patient tolerated procedure well and was discharged home in stable condition with discharge instructions. All questions were answered. We will follow-up via telephone or in clinic to assess response to therapy. A follow-up appointment was made during today's visit. Orders: Orders FL guidance in treatment room 08/27/24 M53.3 - Sacrococcygeal disorders, not elsewhere classified Coding Level of Care Code Procedure Only Diagnoses Sacroiliac joint pain M53.3 CPT Codes Coding - Joint 9: 92897 - Sacroiliac ([id number])
[2024-08-27 14:12] VITALS: BP 150/70; PULSE 73; RESP 16; O2SAT 100; BMI 25.3
== END 2024-08-27 14:15 | disposition home or self-care (01) ==
LOC: HO.PMCPRC 13:50
PROVIDERS: PCP Internal Medicine; Visit Provider Internal Medicine
DX: M53.3 Sacrococcygeal disorders, not elsewhere classified (principal)
CPT/HCPCS: 27096

== ENCOUNTER 2024-08-28 08:58 | Outpatient (AMB) | payer OTHER, SELFPAY ==
--- NOTE | 2024-08-28 09:07 | MHC.PC.OV ---
Vital Signs 08/28/24 09:08 Height 5 ft 5 in Weight 147 lb 4 oz BMI 24.5 BP 124/80 Blood Pressure Location Lt brachial Position Sitting Pulse 80 Pulse Source Pulse Oximeter Temp 97.3 F Temp Source Temporal Artery Scan Pulse Oximetry (%) 98 Oxygen Delivery Method Room Air Intake Visit Reasons: discuss paperwork per Dr. Jacobsen Senior Health Consultant Required: No Accompanied by: Self / Same As Patient Allergies No Known Allergies Allergy (Verified 08/28/24 09:08) Medication List - Last Reconciled 08/28/24 by Carmen Jacobsen MD acetaminophen (Tylenol Extra Strength) 1,000 mg PO Q6H PRN amlodipine 2.5 mg PO DAILY carisoprodol 350 mg PO QID PRN fluticasone propionate 50 mcg/actuation 2 sprays intranasal DAILY ibuprofen 600 mg PO QID magnesium glycinate 100 mg PO DAILY uitqjknx-ponjmwbhx-QT 3.5-10,000-1 mg/mL-unit/mL-% 4 drps otic (ear) left Q8H 10 days oxycodone 10 mg PO BID PRN Tobacco use date assessed: 07/23/24 Dental Screening Dental Screen Date: 06/03/24 HPI discuss paperwork per Dr. Jacobsen HPI Details 59-year-old male noted 5 lb weight loss with a history of hypertension lumbar post laminectomy syndrome history of subarachnoid hemorrhage in 2018 coming in for follow-up last seen in 07/23/2024. Patient follows up with pain management. Last seen pain management in August 27 with bilateral diagnostic S IJ injection. Had blood work June 08 with anemia of 12.8 and 37.4. Electrolytes normal with normal renal function normal blood sugar enough iron with a mildly elevated liver function tests with an ALT of 42 low vitamin-D and mildly elevated TSH at 4.94. Back problem [facility] Medical History (Updated 08/28/24 @ 09:54 by Carmen Jacobsen MD) Caliectasis determined by ultrasound of kidney Abnormal angiogram of head Segmental and somatic dysfunction of rib cage Occipital neuralgia Cervicalgia Pain in right shoulder Myalgia Hemiplegia and hemiparesis following cerebral infarction affecting left non-dominant side Radiculopathy, cervical region Pain in thoracic spine Radiculopathy, lumbar region Opioid dependence History of kidney stones Stroke Hypertension Surgical History H/O left knee surgery History of back surgery Family History Father No problems noted. Mother No problems noted. Social History Household Members Other:: daughter Housing: House Are you a primary managed care liaison to a significant other at home: No Do you presently have visiting nurse or other home services: No Alcohol intake: never Comment: NO COUNTS NEEDED Patient Tobacco Use Status: Current everyday Tobacco user e-Cigarette/Vaping Use: Never Used Second Hand Smoke Exposure: Yes service: No Current occupational status: employed Cognitive needs: No Hearing needs: No Vision needs: Yes Questionnaire Thrive Questionnaire Date Thrive assessed: 02/24/24 OSORIO-7 AMB Questionnaire OSORIO-7 Date OSORIO - 7 assessed: 02/24/24 Source: Developed by Drs. Vipul Syed, Danielle Salas, Narayan Raines and colleagues, with an educational omar from [employer]. Physical exam (Primary Care) Vital Signs: Last Vital Signs Temp 97.3 F 08/28/24 09:08 Pulse 80 08/28/24 09:08 BP 124/80 08/28/24 09:08 Pulse Ox 98 08/28/24 09:08 Oxygen Delivery Method Room Air 08/28/24 09:08 BMI result Body Mass Index 24.5 Tobacco/Smoking Status: Tobacco use Status Tobacco use date assessed 07/23/24 08/28/24 09:12 Patient Tobacco Use Status Current everyday Tobacco 08/28/24 09:12 Tobacco use type 08/20/24 08:25 e-Cigarette/Vaping Use Never Used 08/28/24 09:12 Thrive Assessment: Date of Thrive Assessment Date Thrive assessed 02/24/24 08/28/24 09:12 Const Other: Patient walks with cane on the right hand and limps and in mild distress General: alert; No acute distress Eyes Other: TM intact for both ears with tragal and pinna tenderness on the left Conjunctivae: conjunctivae normal Resp Auscultation: clear to auscultation bilaterally Cardio Rate: regular rate Rhythm: regular rhythm GI Inspection: Yes normal to inspection Extrem General: Yes normal to inspection and No edema Coding Level of Care Code Est Pt Level 4 (86552) Diagnoses Failed back syndrome M96.1 Hypertension I10 TSH elevation R79.89 LFT elevation R79.89 Other noninfective acute otitis externa of left ear H60.592 Otitis externa type: noninfectious Noninfectious otitis externa type: other type Chronicity: acute Assessment & Plan Assessment & Plan (1) Failed back syndrome: Code(s): M96.1 - Postlaminectomy syndrome, not elsewhere classified Category: Medical Plan: Patient is being followed up by pain management. Form filled (2) Hypertension: Code(s): I10 - Essential (primary) hypertension Category: Medical Plan: Continue with blood pressure medication. Decrease salt intake and exercise on amlodipine 2.5 mg once a day (3) TSH elevation: Code(s): R79.89 - Other specified abnormal findings of blood chemistry Category: Medical Plan: Advised to repeat blood test (4) LFT elevation: Comment: US negative 2024 Code(s): R79.89 - Other specified abnormal findings of blood chemistry Category: Medical Plan: Ultrasound done negative. Advised repeat blood test (5) Otitis externa, left: Code(s): H60.92 - Unspecified otitis externa, left ear Category: Medical Qualifiers: Otitis externa type: noninfectious Noninfectious otitis externa type: other type Chronicity: acute Qualified Code(s): H60.592 - Other noninfective acute otitis externa, left ear Plan: Antibiotic eardrops prescription sent in Medications: New fpigufcw-uhwfwlcsw-DS 3.5-10,000-1 mg/mL-unit/mL-% 4 drps otic (ear) left Q8H 10 mL 0RF 10 days
[2024-08-28 09:08] VITALS: BP 124/80; PULSE 80; TEMP 36.3; O2SAT 98; BMI 24.5
--- OUTSIDE RECORDS SUMMARY | 2024-08-28 09:10 | XMS_ITS | Patient Health Record ---
Author Organization [facility] Address [address] [place] [id number] Care Team Providers Care Pattern Fitter Name Role Phone Morales Oneil MD Primary Care Provider Vipul Littlejohn Unavailable [phone] Allergies No Known Allergies Reason For Referral [...] Notes: Nonsmoker; no sig alcohol. Came from [facility] in 1999 Problems Problem Type SNOMED Code ICD Code Onset Dates Problem Status W/U Status Risk Notes Problem [id number] Colon cancer screening (Z12.11) Active confirmed Problem Diverticulosis o f large intestine without perforation or abscess without bleeding (K57.30) Active confirmed Problem [id number] Preprocedural examination (Z01.818) Active confirmed Plan Of Treatment Pending Test Test Name Order Date Pathology 12/07/2022 Future Test Test Name Order Date COLONOSCOPY 09/20/2022 Insurance Providers Payer Name Payer Address Payer Phone Subscriber Number Group Number Insured Name Patient Relationship to Insured Coverage Start Date Coverage End Date [facility] [address] [place] [phone] [id number] VICKIE RODRIGUEZ Self - patient is the insured Medical (General) History Medical History History ICD Code Hypertension CVA from a bleed--?SAH--no residual-2019 Back pain Denies NC,DM,Lung disease,renal disease Kidney stone Surgical History Surgery Date(Month/Year) Back surgery 2006
== END 2024-08-28 09:52 | disposition home or self-care (01) ==
LOC: HO.HMCH 08:59
PROVIDERS: PCP Internal Medicine; Visit Provider Internal Medicine
DX: M96.1 Postlaminectomy syndrome, not elsewhere classified (principal); I10 Essential (primary) hypertension; R79.89 Other specified abnormal findings of blood chemistry; H60.592 Other noninfective acute otitis externa, left ear

== ENCOUNTER 2024-09-10 10:39 | Outpatient (AMB) | payer OTHER, SELFPAY ==
--- NOTE | 2024-09-10 10:49 | MHC.OFFVIS ---
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 The patient underwent bilateral diagnostic sacroiliac joint injections on August 27, which did not alleviate the pain. The pain is described as severe, with a rating of 7-8 out of 10, primarily located in the hips and lower back. The patient reports that chiropractic evaluations have not improved his condition, and a recent reprogramming of his Nevro spinal cord stimulator also failed to provide relief. He experiences shooting and knife-like pain, particularly when making a wrong step or hitting something, which causes a shock-like sensation throughout his body. Denies any recent trauma, injury or falls. The patient denies any back pain radiating to the legs but reports weakness, heaviness and imbalance, predominantly affecting the left side. He has a history of kidney stones but denies diabetes or kidney disease. Denies any recent cough, cold, infection, fever or any other significant changes in medical history since last office visit. Past Procedures: 08/27/24: Bilateral Diagnostic SI joint injections- 0% pain relief 05/01/23: Lumbar Nevro SCS implant- minimal pain relief 01/16/23: Lumbar Nevro SCS trial-80% pain relief 11/21/22: Caudal ANIA with catheter-0% pain relief 10/29/22: Right therapeutic subacromial injection-50% pain relief, ongoing PRIOR: Patient is a pleasant 57 years old female with prior L4-L5 decompression in 2006 and lumbar degenerative disc disease presents today with significant low back pain with bilateral leg pain for over one year. Patient also reports right shoulder pain. He is accompanied by his daughter who assists with translation. Denies any recent trauma, injury or falls. Reports increase in right shoulder pain with overhead and backside pocket reaches due to repetitive motion at his work. He was seen in [facility] ER recently for right shoulder pain and received Ketorolac and lidocaine injection without any relief with imaging showing calcific tendinitis and bursitis. Patient reports increased falling due to worsening back pain and bilateral leg weakness and legs giving out due to pain. Back pain is axial and also radiates in lateral distribution of both legs and dorsal feet with numbness and tingling, worse on the right side. Patient describes his pain as sharp, shooting and significant pressure sensation that radiates into his lateral hips bilaterally. He was seen by multiple providers, including Dr. Bill at [facility] and Jason BRUCE at [facility] due to lumbar L4-L5 almost complete fusion but was deemed non surgical at this time. Per recent lumbar spine MRI and CT scan reports, patient also has significant degenerative changes on the endplates with almost disc fusion L4-L5 disc level, with Schmorl's nodes and Modic changes. These findings correlate with his symptoms of bilateral lower extremity pain and weakness as well as axial low back pain that has been interfering with his ability to ambulate. Reports history of back injections at [facility] with partial pain relief. He is currently takes oxycodone and Tylenol that provides him mild analgesia. Pain affects his daily activities, functioning, sleep, mood and quality of life. Given worsening of back pain with recent right shoulder pain, he does not believe he can continue to work, even with light duty arrangements. Denies any fever, weight loss, abdominal or groin pain, foot drop, bladder/bowel dysfunction or saddle anesthesia. Location Lower back pain with radiation to lower extremities, right shoulder pain Duration Chronic pain >1.5 years Characteristics of symptom or complaint Aching, heavy, pressure, numbness, burning, pinching, sharp, throbbing Aggravating or associated factors Walking, standing, prolonged sitting, bending, twisting, movements Relieving factors Oxycodone 10mg, Tylenol, ice/heat therapy, rest, activity modifications Treatment PT, back injections, right shoulder injection-minimal effects [facility] Medical History (Updated 09/10/24 @ 11:10 by RAYMOND Goetz) Caliectasis determined by ultrasound of kidney Abnormal angiogram of head Segmental and somatic dysfunction of rib cage Occipital neuralgia Cervicalgia Pain in right shoulder Myalgia Hemiplegia and hemiparesis following cerebral infarction affecting left non-dominant side Radiculopathy, cervical region Pain in thoracic spine Radiculopathy, lumbar region Opioid dependence History of kidney stones Stroke Hypertension Surgical History H/O left knee surgery History of back surgery Family History Father No problems noted. Mother No problems noted. Social History Household Members Other:: daughter Housing: House Are you a primary certified social workers in health care to a significant other at home: No Do you presently have visiting nurse or other home services: No Alcohol intake: never Comment: NO COUNTS NEEDED Patient Tobacco Use Status: Current everyday Tobacco user e-Cigarette/Vaping Use: Never Used Second Hand Smoke Exposure: Yes service: No Current occupational status: employed Cognitive needs: No Hearing needs: No Vision needs: Yes Review of Systems Const Details: - Musculoskeletal: Reports chronic hip pain, denies radiation to legs - Neurological: Reports weakness and imbalance, worse on the left side. Denies bladder or bowel dysfunction or saddle anesthesia. - Genitourinary: Denies diabetes or kidney disease, reports history of kidney stones All systems reviewed & are unremarkable except as noted in HPI and below Physical Exam General: Appears afebrile. Alert and oriented. Mood and affect appropriate. Follows and participates in conversation appropriately. Respiratory effort is unlabored. No cough. Able to transition from sit to stand unassisted. Uses cane with ambulation. Ambulates with bilaterally normal heel strike and toe off. Mildly antalgic gait, non-spastic. Leg length discrepancy present, right<left. General: Yes no CVA tenderness Back/Spine/Pelvis Other: Limited lumbar ROM due to pain. Antalgic gait, no limping. Lumbar flexion forward, bending and extension reproduces moderate-severe pain. Demonstrates 5/5 right and 4/5 left strength of quadriceps bilaterally as well as flexion/dorsiflexion of bilateral feet against resistance. 2+ pedal pulses bilaterally. Seated straight leg rise with dorsiflexion positive bilaterally, left>right. +1 patellar and achilles reflexes bilaterally. Facet loading test positive bilaterally. Daren?s and Stinchfield tests are positive bilaterally. No groin pain with I/E hip rotations. Valsalva maneuver is positive. Back: no CVA tenderness Cervical Spine: cervical ROM normal, cervical muscular tenderness and No Cervical spine tenderness Thoracic/Lumbar Spine: thoracic and lumbar spine normal to inspection, Thoracic/lumbar spine scar(s), Lasegue's sign negative, straight leg raise negative bilaterally, pain with thoraco-lumbar ROM, thoraco-lumbar ROM limited, No thoracic spinal tenderness and No lumbar spinal tenderness Pelvis: buttock tenderness on the left Sacroiliac joints: bilaterally (Daren's, Stinchfield, Pelvic Compression and Gaenslen's test positive R>L) tender to palpation Extrem General: Yes capillary refill normal, Yes no clubbing, cyanosis or edema and Yes no calf tenderness Results Reviewed Results Reviewed: XR CERVICAL SPINE 11/09/22 FINDINGS: The cervical spine is visualized from C1-mid C7 vertebral body. Slight straightening of the cervical curvature. There is mild retrolisthesis of C3 on C4, C4 on C5, C5 on C6. Vertebral body heights are maintained. No evidence of acute fracture. Multilevel disc degenerative changes. This includes mild-moderate disc degeneration at C3-C4, C5-C6. Alignment of the posterior elements appears intact. No significant prevertebral soft tissue swelling. Base of the dens is intact. On the swimmer's view, the visualized vertebral bodies grossly demonstrate normal height. Lung apices are clear. IMPRESSION: Cervical spondylosis. This includes mild-moderate disc degeneration at C3-C4, C5-C6. No radiographic evidence of acute fracture. CT LUMBAR SPINE WITHOUT CONTRAST CLINICAL INFORMATION: Dorsalgia. COMPARISON: MRI lumbar spine 08/15/2007. FINDINGS: On sagittal reconstructed images is maintained lumbar lordosis. There is loss of L4-L5 and L5-S1 disc heights. The rest of the disc heights are normal. The vertebral heights and alignment is preserved normal. The L1-L2 and L2-L3 disc levels are unremarkable. At the L3-L4 disc level, there is mild flattening of ventral thecal sac from disc bulge resulting in mild canal stenosis. There is underlying mild facet joint hypertrophy as well. At the L4-L5 disc level, there is a left laminotomy defect. There is a posterior endplate spondylosis but no underlying disc bulge or spinal canal stenosis. There is mild bilateral narrowing of neural foramina from endplate spondylosis. At the L5-S1 disc level, there are endplate Schmorl's node and sclerosis. No aggressive lytic or sclerotic process seen. The neural foramina are patent bilaterally. The prevertebral and paravertebral soft tissues are normal. IMPRESSION: Degenerative disc changes with almost disc fusion L4-L5 disc level. There are degenerative disc changes at other disc levels but no visible disc herniation or nerve root impingement. There is mild disc bulge L3-L4 disc level with facet joint hypertrophy resulting in mild circumferential canal stenosis. There is possible left laminotomy defect at L4 vertebra from previous intervention. This findings was noted on the previous MRI lumbar spine 08/15/2007. XR THORACIC SPINE 12/11/22 FINDINGS: There is no fracture or bone destruction seen, and the vertebral alignment is normal. There is mild disc space narrowing, particularly at T5-T6. There is multi-level mild to moderate spondylosis, most pronounced at T8-T9. The posterior elements are intact. There is no abnormality of the paraspinal soft tissues. IMPRESSION: 1. There is multi-level mild thoracic disc space narrowing, most pronounced at T5-T6. 2. There is multi-level mild to moderate thoracic spondylosis, most pronounced at T8-T9. XR RIBS, RIGHT. Chest PA 02/23/22 CLINICAL INFORMATION: Injury. COMPARISON: None TECHNIQUE: 3 views of the right ribs were obtained. FINDINGS: CHEST: The lungs are hyperexpanded. No consolidation, pneumothorax, or pleural effusion. The cardiomediastinal silhouette and pulmonary vasculature are normal. RIGHT RIBS: Osseous structures are unremarkable. Ribs are intact. No fractures are identified. IMPRESSION: Unremarkable chest and right rib examination. Assessment & Plan Assessment & Plan (1) Lumbar post-laminectomy syndrome: Code(s): M96.1 - Postlaminectomy syndrome, not elsewhere classified Category: Medical (2) Degeneration of lumbar intervertebral disc: Code(s): M51.36 - Other intervertebral disc degeneration, lumbar region Category: Medical (3) Lumbar radicular pain: Code(s): M54.16 - Radiculopathy, lumbar region Category: Medical (4) Spinal cord stimulator status: Comment: 2023 Code(s): Z96.89 - Presence of other specified functional implants Category: Medical (5) Lumbar spinal stenosis: Code(s): M48.061 - Spinal stenosis, lumbar region without neurogenic claudication Category: Medical Plan The plan includes obtaining an updated MRI of the back with contrast to assess for any changes since the last imaging two years ago. The patient will start a course of oral steroid to address potential spinal stenosis, with instructions to follow the dosing schedule provided. The patient is advised to avoid ibuprofen or NSAIDs while on Medrol Elliott and to monitor for any red flags. Patient will continue to use SCS device with recent program adjustments and reach out to [facility] for any concerns. Patient is aware to call if pain worsens or if he develops any red flag symptoms to seek emergency care. All questions and concerns have been answered and patient agrees with the plan. Follow up for MRI results and sooner as needed. Patient was informed and verbally consented to the use of an ambient scribe for clinic note documentation during this visit. Orders: Orders MR lumbar spine wo/w con Today M48.061 - Spinal stenosis, lumbar region without neurogenic claudication, M51.36 - Other intervertebral disc degeneration, lumbar region, M54.16 - Radiculopathy, lumbar region, M96.1 - Postlaminectomy syndrome, not elsewhere classified, Z96.89 - Presence of other specified functional implants Medications: New methylprednisolone (Medrol (Elliott)) PO PER PKG DIR 21 ea 0RF pain M48.061 - Spinal stenosis, lumbar region without neurogenic claudication, M54.16 - Radiculopathy, lumbar region, M96.1 - Postlaminectomy syndrome, not elsewhere classified Coding Level of Care Code Est Pt Level 4 (33864) Complex EM visit Add On G2211 Diagnoses Lumbar post-laminectomy syndrome M96.1 Degeneration of lumbar intervertebral disc M51.36 Lumbar radicular pain M54.16 Spinal cord stimulator status Z96.89 Lumbar spinal stenosis M48.061
--- OUTSIDE RECORDS SUMMARY | 2024-09-10 11:31 | XMS_ITS | Patient Health Record ---
Author Organization [facility] Address [address] [place] [id number] Care Team Providers Care Acting Instructor Name Role Phone Morales Oneil MD Primary Care Provider Vipul Littlejohn [phone] Allergies No Known Allergies Reason For Referral [...] Notes: Nonsmoker; no sig alcohol. Came from [facility] in 1999 Problems Problem Type SNOMED Code ICD Code Onset Dates Problem Status W/U Status Risk Notes Problem 133284163 Colon cancer screening (Z12.11) Active confirmed Problem Diverticular disease of colon (219955155) Diverticulosis of large intestine without perforation or abscess without bleeding (K57.30) Active confirmed Problem [id number] Preprocedural examination (Z01.818) Active confirmed Plan Of Treatment Pending Test Test Name Order Date Pathology 12/07/2022 Future Test Test Name Order Date COLONOSCOPY 09/20/2022 Insurance Providers Payer Name Payer Address Payer Phone Subscriber Number Group Number Insured Name Patient Relationship to Insured Coverage Start Date Coverage End Date [facility] [address] [place] [phone] [id number] VICKIE RODRIGUEZ Self - patient is the insured Medical (General) History Medical History History ICD Code Hypertension CVA from a bleed--?SAH--no residual-2019 Back pain Denies MD,DM,Lung disease,renal disease Kidney stone Surgical History Surgery Date(Month/Year) Back surgery 2006
== END 2024-09-10 11:16 | disposition home or self-care (01) ==
LOC: HO.PMC 10:40
PROVIDERS: PCP Internal Medicine; Visit Provider Nurse Practitioner Family
DX: M96.1 Postlaminectomy syndrome, not elsewhere classified (principal); M51.369 Other intervertebral disc degeneration, lumbar region without mention of lumbar back pain or lower extremity pain; M54.16 Radiculopathy, lumbar region; Z96.89 Presence of other specified functional implants; M48.061 Spinal stenosis, lumbar region without neurogenic claudication
CPT/HCPCS: 99214; G2211

== ENCOUNTER 2024-09-30 13:08 | Outpatient (AMB) | payer OTHER, SELFPAY ==
--- NOTE | 2024-09-30 13:18 | A.OFFPC_ITS ---
Vital Signs 09/30/24 13:19 Height 5 ft 5 in Weight 146 lb 8 oz BMI 24.4 BP 122/64 Blood Pressure Location Lt brachial Position Sitting Pulse 74 Pulse Source Pulse Oximeter Temp 97.1 F Temp Source Temporal Artery Scan Pulse Oximetry (%) 98 Oxygen Delivery Method Room Air Intake Visit Reasons: pe Intake Note: Patient is here today for a physical. Desk Clerks Supervisor Required: No Corporate Legal Manager: Not Required per policy Accompanied by: Self / Same As Patient Allergies No Known Allergies Allergy (Verified 09/30/24 13:19) Medication List - Last Reconciled 09/30/24 by Carmen Jacobsen MD amlodipine 2.5 mg PO DAILY carisoprodol 350 mg PO QID PRN ibuprofen 600 mg PO QID oxycodone 10 mg PO BID PRN Tobacco use date assessed: 09/30/24 Dental Screening Dental Screen Date: 06/03/24 [facility] Medical History (Updated 09/30/24 @ 13:48 by Carmen Jacobsen MD) Caliectasis determined by ultrasound of kidney Abnormal angiogram of head Segmental and somatic dysfunction of rib cage Occipital neuralgia Cervicalgia Pain in right shoulder Myalgia Hemiplegia and hemiparesis following cerebral infarction affecting left non- dominant side Radiculopathy, cervical region Pain in thoracic spine Radiculopathy, lumbar region Opioid dependence History of kidney stones Stroke Hypertension Surgical History H/O left knee surgery History of back surgery Family History (Updated 09/30/24 @ 13:36 by Carmen Jacobsen MD) Father Heart attack Mother No problems noted. Brother CVA (cerebral vascular accident) Social History (Updated 09/30/24 @ 13:37 by Carmen Jacobsen MD) Household Members Other:: daughter Housing: House Are you a primary pharmacist critical care to a significant other at home: No Do you presently have visiting nurse or other home services: No Alcohol intake: never Comment: NO COUNTS NEEDED Patient Tobacco Use Status: Former Tobacco user Years Smoked: 2019 gum stopped smoking 2016 e-Cigarette/Vaping Use: Never Used Second Hand Smoke Exposure: Yes service: No Current occupational status: employed Cognitive needs: No Hearing needs: No Vision needs: Yes Questionnaire Thrive Questionnaire Date Thrive assessed: 01/06/25 OSORIO-7 AMB Questionnaire OSORIO-7 Date OSORIO - 7 assessed: 02/24/24 Source: Developed by Drs. Vipul Syed, Danielle Salas, Narayan Raines and colleagues, with an educational oamr from [employer]. Review of Systems Const Denies poor appetite and Denies weakness Eyes Denies no additional complaints ENT Reports Normal hearing present, Denies dizziness, Denies nasal congestion, Denies tinnitus and Denies sore throat Card Denies chest pain, Denies syncope, Denies rapid heart rate and Denies dyspnea Resp Denies cough and Denies dyspnea GI Denies change in stool character, Reports constipation, Denies diarrhea, Denies nausea and Denies vomiting Denies dysuria and Denies urinary frequency Neuro Reports Normal hearing present, Denies confusion, Denies dizziness, Denies syncope and Denies weakness Psych Denies confusion Physical exam (Primary Care) Vital Signs: Last Vital Signs Temp 97.1 F 09/30/24 13:19 Pulse 74 09/30/24 13:19 BP 122/64 09/30/24 13:19 Pulse Ox 98 09/30/24 13:19 Oxygen Delivery Method Room Air 09/30/24 13:19 BMI result Body Mass Index 24.4 Tobacco/Smoking Status: Tobacco use Status Tobacco use date assessed 09/30/24 09/30/24 13:25 Patient Tobacco Use Status Former Tobacco user 09/30/24 13:37 Tobacco use type Cigarette 09/30/24 13:37 e-Cigarette/Vaping Use Never Used 09/30/24 13:37 Thrive Assessment: Date of Thrive Assessment Date Thrive assessed 02/24/24 09/30/24 13:25 Const General: No confusion Orientation/consciousness: No confusion HENMT Head: Yes normocephalic Ears: external ears normal and TM's normal bilaterally Face and sinus: Yes normal facial exam Mouth: moist mucous membranes Throat: Yes tonsils normal Eyes Conjunctivae: conjunctivae normal Pupils: Equal, round and reactive pupils present and Pupil accommodation reflex normal Direct Ophthalmoscopy: normal light reflex Neck Neck: No lymphadenopathy Thyroid: Thyroid normal Chest Chest palpation & inspection: normal inspection of the chest Resp Effort & Inspection: normal respiratory effort and no audible wheezes Auscultation: clear to auscultation bilaterally, no crackles, no wheezes and lung sounds not diminished Cardio Rate: regular rate Rhythm: regular rhythm Peripheral pulses: radial pulses present and dorsalis pedis present GI Other: declined rectal , R inguinal bulge Palpation (GI): no masses Auscultation: normal bowel sounds and normoactive bowel sounds Rectal Exam - Male: Yes deferred Skin General skin exam: no rashes or lesions noted Rashes: no rashes Neuro General: No confusion Cranial nerves: Yes Equal, round and reactive pupils present and Yes Normal hearing present Cognition (Neuro): normal cognition Gait exam (Neuro): Normal gait present Motor exam (neuro): 5/5 motor strength present throughout Deep tendon reflexes (DTR's): Right brachioradialis reflex intensity grade: 2+, Left brachioradialis reflex intensity grade: 2+, Right patellar reflex intensity grade: 2+ and Left patellar reflex intensity grade: 2+ Extrem General: No edema Coding Level of Care Code Est Pt Prev Care 40-64y(96369) Diagnoses Annual physical exam Z00.00 Lumbar post-laminectomy syndrome M96.1 Caliectasis determined by ultrasound of kidney N28.89 LFT elevation R79.89 Hypertension I10 Right inguinal hernia K40.90 Assessment & Plan Assessment & Plan (1) Annual physical exam: Code(s): Z00.00 - Encounter for general adult medical examination without abnormal findings Category: Medical Plan: Patient is advised to eat healthy, keep well hydrated, keep active and have adequate sleep. (2) Lumbar post-laminectomy syndrome: Code(s): M96.1 - Postlaminectomy syndrome, not elsewhere classified Category: Medical Plan: Patient is being followed up by pain management and has had a spinal cord stimulator. (3) Caliectasis determined by ultrasound of kidney: Code(s): N28.89 - Other specified disorders of kidney and ureter Category: Medical Plan: Discussed about the problem with caliectasis and patient has seen Urology before. (4) LFT elevation: Comment: US negative 2024 Code(s): R79.89 - Other specified abnormal findings of blood chemistry Category: Medical Plan: Ultrasound done revealing negative results although mild splenomegaly (5) Hypertension: Code(s): I10 - Essential (primary) hypertension Category: Medical Plan: Continue with blood pressure medication. Decrease salt intake and exercise on amlodipine 2.5 mg once a day. (6) Right inguinal hernia: Code(s): K40.90 - Unilateral inguinal hernia, without obstruction or gangrene, not specified as recurrent Category: Medical Plan: mild and advised avoid heavy lifting Plan History of Present Illness The patient is a 59-year-old male presenting for an annual physical examination and management of chronic conditions. The patient has a history of hypertension, managed with amlodipine 2.5 mg daily. He reports no issues with his current medication regimen and denies any side effects. The patient has postlaminectomy lumbar syndrome and is followed by pain management. He has a spinal cord stimulator implanted in April 2023 and und erwent knee surgery in June 2023. He uses carisoprodol and oxycodone for pain management and reports occasional use of ibuprofen. The patient experienced a subarachnoid hemorrhage in 2018, with no reported recurrence. Recent blood work in May revealed anemia, normal electrolytes, renal function, blood sugar, and hemoglobin A1c. Liver function tests showed elevated levels, and thyroid function was mildly elevated at 4.94. Vitamin D levels were low, and cholesterol levels were within normal limits. An ultrasound in June showed a normal liver with mild splenomegaly and an incidental parapelvic cyst, suspected to be caliectasis. The patient denies alcohol consumption and smoking but uses nicotine gum. He reports increased nocturia, waking up one to four times per night to urinate. He has a family history of heart attack in his father and stroke in his brother. Health Maintenance - Colonoscopy in 2022 revealed tubular adenoma - Discussion of shingles vaccination, available at pharmacy - Encouraged to drink water, eat healthy, and stay active Social History - Denies alcohol consumption and smoking, uses nicotine gum - Reports increased nocturia, waking up one to four times per night to urinate - Family history of heart attack in father and stroke in brother Review of Systems - General: Denies dizziness, nausea, vomiting, fever - Cardiovascular: Denies chest pain, dyspnea, or palpitations - Respiratory: Denies cough or wheezing - Gastrointestinal: Denies heartburn, constipation, diarrhea - Genitourinary: Reports increased nocturia, denies dysuria - Neurological: Denies syncope or balance issues Physical Exam General: Cooperative, healthy appearing, comfortable, no acute distress and well developed Orientation: Patient oriented x3 Limitations: No limitations Head: Normal to inspection Ears: Hearing grossly normal bilaterally Nose: Normal external nose present Face and sinus: Normal facial exam Eyes: Appearance normal, both eyes and all related structures Neck: Normal visual inspection and Yes full ROM Respiratory: Normal respiratory effort and able to speak in complete sentences. Clear to auscultation bilaterally Cardiovascular: Regular rate and rhythm. Normal S1 and S2 GI: Normal to inspection. Soft to palpation and nontender Skin: No rashes or lesions noted Neuro: Patient oriented x3 Extremities: Normal to inspection Results - Labs: Anemia, normal electrolytes, renal function, blood sugar, hemoglobin A1c - Labs: Elevated liver function, mildly elevated thyroid function at 4.94, low vitamin D - Imaging: Ultrasound showed normal liver, mild splenomegaly, incidental parapelvic cyst Plan The patient will continue with amlodipine 2.5 mg daily for hypertension management, with no changes to the current regimen as he reports no side effects. Pain management will continue with the current medications, including carisoprodol and oxycodone, with occasional use of ibuprofen as needed. Follow-up blood work is recommended to monitor anemia, liver function, and thyroid levels, given the previous findings of elevated liver enzymes and mildly elevated thyroid function. The patient is advised to maintain hydration, a healthy diet, and regular physical activity to support overall health and manage nocturia. The incidental parapelvic cyst and mild splenomegaly will be monitored, with no immediate intervention required unless symptoms develop. The patient is informed about the presence of a hernia and advised to avoid heavy lifting to prevent exacerbation. Discussion about the shingles vaccine was conducted, and the patient is informed that it is available at the pharmacy if desired. Patient was informed and verbally consented to the use of an ambient scribe for clinic note documentation during this visit. Discussion Notes During the visit, I discussed the management of hypertension with the patient, confirming that he is tolerating amlodipine well without side effects. We reviewed his pain management regimen, emphasizing the importance of using ibuprofen sparingly due to potential side effects. I recommended follow-up blood work to monitor his anemia, liver function, and thyroid levels, given the previous abnormalities. We also discussed lifestyle modifications, including hydration, diet, and exercise, to support his overall health and manage nocturia. I informed the patient about the incidental findings of a parapelvic cyst and mild splenomegaly, advising that no immediate intervention is necessary unless symptoms arise. I explained the presence of a hernia and the importance of avoiding heavy lifting to prevent worsening. We discussed the shingles vaccine, and I informed him that it is available at the pharmacy if he chooses to receive it. Patient Instructions - Continue taking amlodipine 2.5 mg daily for blood pressure management. - Use ibuprofen sparingly and with food to avoid stomach upset. - Schedule follow-up blood work to monitor anemia, liver function, and thyroid levels. - Maintain hydration, eat a balanced diet, and engage in regular physical activity. - Avoid heavy lifting to prevent hernia exacerbation. - Consider receiving the shingles vaccine at the pharmacy.
[2024-09-30 13:19] VITALS: BP 122/64; PULSE 74; TEMP 36.2; O2SAT 98; BMI 24.4
--- OUTSIDE RECORDS SUMMARY | 2024-09-30 13:41 | XMS_ITS | Patient Health Record ---
Author Organization [facility] Address [address] [place] [id number] Care Team Providers Care Client Specialist Name Role Phone Morales Oneil MD Primary Care Provider Vipul Littlejohn [phone] Allergies No Known Allergies Reason For Referral [...] Notes: Nonsmoker; no sig alcohol. Came from [facility] in 1999 Problems Problem Type SNOMED Code ICD Code Onset Dates Problem Status W/U Status Risk Notes Problem [id number] Colon cancer screening (Z12.11) Active confirmed Problem Diverticular disease of colon (571978510) Diverticulosis of large intestine without perforation or abscess without bleeding (K57.30) Active confirmed Problem [id number] Preprocedural examination (Z01.818) Active confirmed Plan Of Treatment Pending Test Test Name Order Date Pathology 12/07/2022 Future Test Test Name Order Date COLONOSCOPY 09/20/2022 Insurance Providers Payer Name Payer Address Payer Phone Subscriber Number Group Number Insured Name Patient Relationship to Insured Coverage Start Date Coverage End Date [facility] [address] [place] [phone] [id number] VICKIE RODRIGUEZ Self - patient is the insured Medical (General) History Medical History History ICD Code Hypertension CVA from a bleed--?SAH--no residual-2019 Back pain Denies CA,DM,Lung disease,renal disease Kidney stone Surgical History Surgery Date(Month/Year) Back surgery 2006
== END 2024-09-30 14:00 | disposition home or self-care (01) ==
LOC: HO.HMCH 13:08
PROVIDERS: PCP Internal Medicine; Visit Provider Internal Medicine
DX: Z00.00 Encounter for general adult medical examination without abnormal findings (principal); M96.1 Postlaminectomy syndrome, not elsewhere classified; N28.89 Other specified disorders of kidney and ureter; R79.89 Other specified abnormal findings of blood chemistry; I10 Essential (primary) hypertension; K40.90 Unilateral inguinal hernia, without obstruction or gangrene, not specified as recurrent

== ENCOUNTER → 2024-10-04 08:26 | Outpatient (BNV) | payer OTHER, SELFPAY | PROVIDERS: PCP Internal Medicine; Visit Provider Radiology Diagnostic Radiology | DX: M51.369 Other intervertebral disc degeneration, lumbar region without mention of lumbar back pain or lower extremity pain (principal); Z96.89 Presence of other specified functional implants | CPT/HCPCS: 72148 ==

== ENCOUNTER 2024-10-04 08:34 | Outpatient (REF) | payer OTHER, SELFPAY ==
--- NOTE | ~2024-10-04 | MR_ITS ---
CLINICAL HISTORY: Z96.89 - Presence of other specified functional implants MR lumbar spine without gadolinium Comparison: CR/SR - XR LUMBAR SPINE 2-3 VIEWS - 06/21/23 11:[address]/SR - CT LUMBAR SPINE WITHOUT IV CONTRAST - 09/05/22 14:11 EDT Findings: Normal alignment. No acute fracture or pathologic bone lesion. Cauda equina and conus medullaris within normal limits. There is severe degenerative disc disease at the L4-5 level with destruction of the disc space and associated discogenic changes noted. Severely degenerated disc is also noted at the L5-S1 level with marked disc space narrowing. Disc desiccation is noted at all other levels. Multiple Schmorl nodes are present. There are no significant disc bulges or protrusions noted. Paraspinous musculature intact. Spinal cord stimulating wires enter the soft tissues at the L3-4 level and enter the spinal canal at L1-L2. IMPRESSION: 1. No acute findings. 2. Chronic degenerative disc disease as above with discogenic changes and Schmorl's nodes. 3. Spinal stimulation wires as described. This document has been electronically signed by: Yusuf Archer MD on 10/04/2024 09:42:35
== END 2024-10-04 08:35 | disposition home or self-care (01) ==
LOC: HO.MRI 08:34
PROVIDERS: PCP Internal Medicine; Visit Provider Nurse Practitioner Family
DX: M48.061 Spinal stenosis, lumbar region without neurogenic claudication (principal); M54.16 Radiculopathy, lumbar region; M54.51 Vertebrogenic low back pain; Z96.89 Presence of other specified functional implants; M96.1 Postlaminectomy syndrome, not elsewhere classified
CPT/HCPCS: 72148

== ENCOUNTER 2024-10-05 09:56 | Outpatient (REF) | payer OTHER, SELFPAY ==
--- OUTSIDE RECORDS SUMMARY | 2024-10-05 10:50 | XMS_ITS | Patient Health Record ---
Author Organization [facility] Address [address] [place] [id number] Care Team Providers Care Airline Radio Operator Name Role Phone Morales Oneil MD Primary Care Provider Vipul Littlejohn Unavailable [phone] Allergies No Known Allergies Reason For Referral [...] Notes: Nonsmoker; no sig alcohol. Came from [facility] in 1999 Problems Problem Type SNOMED Code ICD Code Onset Dates Problem Status W/U Status Risk Notes Problem [id number] Colon cancer screening (Z12.11) Active confirmed Problem Diverticulosis o f large intestine without perforation or abscess without bleeding (K57.30) Active confirmed Problem [id number] Preprocedural examination (Z01.818) Active confirmed Plan Of Treatment Pending Test Test Name Order Date Pathology 12/07/2022 Future Test Test Name Order Date COLONOSCOPY 09/20/2022 Insurance Providers Payer Name Payer Address Payer Phone Subscriber Number Group Number Insured Name Patient Relationship to Insured Coverage Start Date Coverage End Date [facility] [address] [place] [phone] [id number] VICKIE RODRIGUEZ Self - patient is the insured Medical (General) History Medical History History ICD Code Hypertension CVA from a bleed--?SAH--no residual-2019 Back pain Denies [place],DM,Lung disease,renal disease Kidney stone Surgical History Surgery Date(Month/Year) Back surgery 2006
[2024-10-05 11:50] LABS: Alanine Aminotransferase 40 U/L (0-40); Albumin Level 4.5 g/dL (3.5-5.0); Alkaline Phosphatase 181 U/L (39-117); Aspartate Amino Transferase 35 U/L (5-37); Total Protein 6.7 g/dL (6.5-8.0)
[2024-10-05 12:05] LABS: HBS Num1 159.75 mIU/mL (0-7.99); HBc Num1 10.03 S/CO (0.00-0.79); HBsAGNum1 0.37 S/CO (0.00-0.99); Hepatitis B Surface Antigen Negative (Negative); ~HepC Num1 0.06 S/CO (0.00-0.79); ~Hepatitis B Surface Antibody REACTIVE (Nonreactive); ~Hepatitis C Antibody Nonreactive (Nonreactive)
[2024-10-05 12:10] LABS: Free T4 (Free Thyroxine) 0.97 ng/dL (0.71-1.85); Thyroid Stimulating Hormone 2.27 uIU/mL (0.32-4.0)
[2024-10-05 14:37] LABS: HBc Num2 10.53 S/CO; HBc Num3 9.84 S/CO
[2024-10-07 04:33] LABS: Hepatitis B Core Antibody IgM NON-REACTIVE (NON-REACTIVE)
== END 2024-10-05 09:57 | disposition home or self-care (01) ==
LOC: HO.LAB 09:56
PROVIDERS: PCP Internal Medicine; Visit Provider Internal Medicine
DX: R79.89 Other specified abnormal findings of blood chemistry (principal); Z13.29 Encounter for screening for other suspected endocrine disorder; Z11.59 Encounter for screening for other viral diseases
CPT/HCPCS: 36415; 80076; 84439; 84443; 86704; 86705; 86706; 86803; 87340

== ENCOUNTER 2024-10-14 10:41 | Outpatient (AMB) | payer OTHER, SELFPAY ==
--- NOTE | 2024-10-14 10:43 | MHC.OFFVIS ---
Intake Visit Reasons: Renal Cyst evaluation Intake Note: Patient is present for RENAL CYST EVALUATION Urology Medication:NONE Antibiotic Allergy:NONE Blood Thinner:NONE TODAY'S PVR 0ML'S Real Estate Director Required: No Allergies No Known Allergies Allergy (Verified 10/14/24 11:20) Medication List - Last Reconciled 10/14/24 by RAYMOND Deutsch-ANABELLE amlodipine 2.5 mg PO DAILY ibuprofen 600 mg PO QID oxycodone 10 mg PO BID PRN HPI Comments Details: Ruben is a pleasant 59-year-old male patient of . 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 He presents to the office today as a new patient for peripelvic cysts. In discussion with the patient today he reports having had recent abdominal imaging for abnormal LFTs at which time he was noted to have pelviectasis versus peripelvic cysts and recommendations were made for urology referral for further assessment evaluation. These results were reviewed and communicated with the patient today. 07/12 bilateral kidneys with normal cortical with and echotexture. No solid renal masses or nephrolithiasis noted. Left kidney with pelviectasis rather than peripelvic cyst recommendations for CT urogram per radiology report. When asked he denies any bothersome urinary issues or concerns. He discusses at length his previous medical history with chronic back pain as well as previous subarachnoid bleed. In review of patient's chart it appears PSA 06/12 1.4. When asked he denies urinary urgency, urinary frequency, incontinence, nocturia, hematuria, dysuria, foul smelling urine, changes to urinary stream, flank pain, fever, and or chills. He is happy with his current voiding parameters. We discussed peripelvic cysts and pelviectasis. We discussed classifications as well as further treatment options and risks and benefits of these treatment options. All questions were answered. He otherwise offers no other issues or concerns at this time. BUN:07/06 11, 08/08 10, 10/09 13, 10/10 11, 06/12 Creatinine:07/06 0.89, 08/08 0.94, 10/09 0.91, 10/10 0.91, 06/12 0.82 [facility] Medical History (Updated 10/14/24 @ 11:19 by Sandy Bal [facility]) Caliectasis determined by ultrasound of kidney Abnormal angiogram of head Segmental and somatic dysfunction of rib cage Occipital neuralgia Cervicalgia Pain in right shoulder Myalgia Hemiplegia and hemiparesis following cerebral infarction affecting left non-dominant side Radiculopathy, cervical region Pain in thoracic spine Radiculopathy, lumbar region Opioid dependence History of kidney stones Stroke Hypertension Surgical History H/O left knee surgery History of back surgery Family History (Updated 09/30/24 @ 13:36 by Carmen Jacobsen MD) Father Heart attack Mother No problems noted. Brother CVA (cerebral vascular accident) Social History (Updated 09/30/24 @ 13:37 by Carmen Jacobsen MD) Household Members Other:: daughter Housing: House Are you a primary residential caregiver to a significant other at home: No Do you presently have visiting nurse or other home services: No Alcohol intake: never Comment: NO COUNTS NEEDED Patient Tobacco Use Status: Former Tobacco user Years Smoked: 2019 gum stopped smoking 2016 e-Cigarette/Vaping Use: Never Used Second Hand Smoke Exposure: Yes service: No Current occupational status: employed Cognitive needs: No Hearing needs: No Vision needs: Yes Review of Systems Const All systems reviewed & are unremarkable except as noted in HPI and below Physical Exam Const General: cooperative, healthy appearing, comfortable, no acute distress, well developed, alert and awake Orientation/consciousness: patient oriented x3 Limitations: no limitations HEENT Head: Yes normal to inspection, Yes normocephalic and Yes atraumatic Ears: hearing grossly normal bilaterally Eyes General: appearance normal, both eyes and all related structures Neck Neck: Yes normal visual inspection and Yes trachea midline Chest Chest palpation & inspection: normal inspection of the chest Resp Effort & Inspection: normal respiratory effort and able to speak in complete sentences Cardio Rate: regular rate GI Inspection: Yes normal to inspection General: Yes no CVA tenderness Back/Spine/Pelvis Back: no CVA tenderness Skin General skin exam: no rashes or lesions noted Neuro General: patient oriented x3 Extrem General: Yes normal to inspection Psych Appearance: grossly normal and well kempt Mental Status: mental status grossly normal Speech and movement: Normal speech and movement present and Clear speech present Affect: normal affect Attitude: cooperative Thought process: Normal thought process present Thought content: Normal thought content present Insight: Fair insight present (Psych) Judgement: Fair judgement present (Psych) Office Procedures Post Void Residual Post Residual Void Post Void Residual (PVR): 0 [id number] Void Residual by ultrasound Results AMB Urinalysis, Automated UA Leukoctes 0 Kassandra/uL Last Edit by HERNANDO Richey on 10/14/24 10:55 UA Nitrite Negative Last Edit by Bogdan Soto [facility] on 10/14/24 10:55 UA Urobilinogen 3.5 mg/dL Last Edit by Bogdan Soto [facility] on 10/14/24 10:55 UA Protein 15 mg/dL Last Edit by Bogdan Soto [facility] on 10/14/24 10:55 UA pH 6.0 Last Edit by Bogdan Soto [facility] on 10/14/24 10:55 UA Blood 0 Justino/uL Last Edit by Bogdan Soto [facility] on 10/14/24 10:55 UA Specific [place] 1.025 Last Edit by Bogdan Soto [facility] on 10/14/24 10:55 UA Ketone Negative Last Edit by Bogdan Soto [facility] on 10/14/24 10:55 UA Bilirubin 0 mg/dL Last Edit by Bogdan Soto [facility] on 10/14/24 10:55 UA Glucose 0 mg/dL Last Edit by Bogdan Soto [facility] on 10/14/24 10:55 Results Reviewed Results Reviewed: Laboratory Last Values Urine pH (Auto) 6.0 10/14/24 10:54 Specific [place] (Auto) 1.025 10/14/24 10:54 Urine Protein (Auto) 15 mg/dL 10/14/24 10:54 Glucose (UA)(Auto) 0 mg/dL 10/14/24 10:54 Urine Ketones (Auto) Negative 10/14/24 10:54 Urine Blood (Auto) 0 Justino/uL 10/14/24 10:54 Urine Nitrite (Auto) Negative 10/14/24 10:54 Urine Bilirubin (Auto) 0 mg/dL 10/14/24 10:54 Urine Urobilinogen (Auto) 3.5 mg/dL 10/14/24 10:54 Leukocyte Esterase (Auto) 0 Kassandra/uL 10/14/24 10:54 Date of Service: 07/06/24 Procedure(s): US abdomen complete Findings: The visualized pancreas, aorta, and inferior vena cava are unremarkable. Liver normal size and echotexture. Right lobe 16.0 cm length. No focal hepatic masses. Common duct 3.7 mm diameter. Physiologic distention of the gallbladder. No gallstones or sludge. No gallbladder wall thickening. No pericholecystic fluid. No sonographic Tejada sign. Right kidney normal size, 10.8 cm in length. Normal cortical width and echotexture. No solid renal masses. Incidental parapelvic cyst midpole measuring 1.4 x 2.2 x 2.0 cm Left kidney normal, 10.3 cm in length. Normal cortical width and echotexture. Pelvicaliectasis rather than parapelvic cysts can be correlated with CT urogram. No nephrolithiasis. Spleen measures 14.0 cm. No splenic masses. No ascites. No lymphadenopathy. Impression: 1. Liver normal size and echotexture no focal hepatic lesions. 2. Mild splenomegaly 3. Incidental parapelvic cyst on the right. Suspect pelvicaliectasis rather than parapelvic cysts on the left. CT urogram would be confirmatory. Assessment & Plan Assessment & Plan (1) Renal cyst: Code(s): N28.1 - Cyst of kidney, acquired Category: Medical (2) Caliectasis determined by ultrasound of kidney: Code(s): N28.89 - Other specified disorders of kidney and ureter Category: Medical Plan In office urinalysis results reviewed the patient today; as noted above. Previous abdominal imaging results reviewed with the patient today; as noted above. Recent PSA results reviewed with the patient today; as noted above. All questions were answered. Will obtain CT urogram for further assessment evaluation. BUN and creatinine ordered for imaging. Currently denies any bothersome urinary issues or concerns. He reports be happy with current voiding parameters. We discussed peripelvic cysts/ renal cysts; classifications. Follow-up in 1-3 months with imaging and labs; or sooner with any issues, concerns, and or questions. Orders: Orders Blood Urea Nitrogen Today R39.15 - Urgency of urination AMB Urinalysis Automated Today Z13.9 - Encounter for screening, unspecified CT urogram Today N28.1 - Cyst of kidney, acquired, R31.0 - Gross hematuria Creatinine Today R39.15 - Urgency of urination Patient Instructions: The patient had an opportunity to ask questions regarding the treatment plan. All questions were answered. Physical exam, labs, and imaging were discussed and reviewed in detail. As well as risks, benefits, and discussion of treatment choices. No major barriers to understanding were identified. The patient expressed understanding and agreement with the above treatment plan. The patient was made aware they should contact our office by phone for worsening of their current condition, the appearance of new symptoms, or with any questions or concerns. Compliance is encouraged with any medications and follow up testing that is ordered. It is a privilege to be allowed the opportunity to participate in? your urological care.? Again, if you have any questions or concerns If you have any questions or concerns please do not hesitate to contact me. The office is [phone]. This note is constructed using voice recognition software. While every effort has been made to ensure accuracy commuter train operator errors may have been included. Yours sincerely, BERRY Deutsch Coding Level of Care Code New Pt Level 3 (60302) Diagnoses Renal cyst N28.1 Caliectasis determined by ultrasound of kidney N28.89 CPT Codes Post Residual Void - PVR CPT Code: 44219-Gczs Void Residual by ultrasound ([id number])
--- OUTSIDE RECORDS SUMMARY | 2024-10-14 11:36 | XMS_ITS | Patient Health Record ---
Author Organization [facility] Address [address] [place] [id number] Care Team Providers Care Glass Smoother Name Role Phone Morales Oneil MD Primary Care Provider Vipul Littlejohn Unavailable [phone] Allergies No Known Allergies Reason For Referral [...] Notes: Nonsmoker; no sig alcohol. Came from [facility] in 1999 Problems Problem Type SNOMED Code ICD Code Onset Dates Problem Status W/U Status Risk Notes Problem 381241991 Colon cancer screening (Z12.11) Active confirmed Problem Diverticulosis o f large intestine without perforation or abscess without bleeding (K57.30) Active confirmed Problem [id number] Preprocedural examination (Z01.818) Active confirmed Plan Of Treatment Pending Test Test Name Order Date Pathology 12/07/2022 Future Test Test Name Order Date COLONOSCOPY 09/20/2022 Insurance Providers Payer Name Payer Address Payer Phone Subscriber Number Group Number Insured Name Patient Relationship to Insured Coverage Start Date Coverage End Date [facility] [address] [place] [phone] [id number] VICKIE RODRIGUEZ Self - patient is the insured Medical (General) History Medical History History ICD Code Hypertension CVA from a bleed--?SAH--no residual-2019 Back pain Denies [place],DM,Lung disease,renal disease Kidney stone Surgical History Surgery Date(Month/Year) Back surgery 2006
== END 2024-10-14 11:20 | disposition home or self-care (01) ==
LOC: HO.HUSH 10:42
PROVIDERS: PCP Internal Medicine; Visit Provider Nurse Practitioner Family
DX: N28.1 Cyst of kidney, acquired (principal); N28.89 Other specified disorders of kidney and ureter; Z13.9 Encounter for screening, unspecified
CPT/HCPCS: 99203

== ENCOUNTER → 2024-10-14 10:41 | Outpatient (BNVA) | payer OTHER, SELFPAY | PROVIDERS: PCP Internal Medicine; Visit Provider Nurse Practitioner Family | DX: N28.1 Cyst of kidney, acquired (principal); N31.0 Uninhibited neuropathic bladder, not elsewhere classified; N28.89 Other specified disorders of kidney and ureter; R39.15 Urgency of urination; Z13.9 Encounter for screening, unspecified | CPT/HCPCS: 51798; 81003 ==

== ENCOUNTER 2024-12-17 10:40 | Outpatient (REF) | payer OTHER, SELFPAY ==
--- NOTE | ~2024-12-17 | XR_ITS ---
EXAMINATION: XR HIP, RIGHT CLINICAL INFORMATION: M53.3 - Sacrococcygeal disorders, not elsewhere classified COMPARISON: July 05, 2017. Correlated to CT lumbar spine dated September 05, 2022. TECHNIQUE: AP view pelvis. AP and oblique views of the right hip. FINDINGS: There is a metallic device overlapping the right coxofemoral joint with electrode leads towards the spine. No acute cortical disruption or malalignment. No lytic or blastic lesions. There is preservation of the joint spaces. Syndesmophyte formation and marginal osteophyte formation L4-5 and L5-S1. XR/XR hip RT w PEL1V IMPRESSION: Limited examination demonstrated the no gross abnormality in the right coxofemoral joint. Status post placement of intraspinal canal neurostimulator device overlapping the right hip. Electronically signed by: Joni Soliz MD 12/17/2024 11:29 AM EDT
== END 2024-12-17 10:41 | disposition home or self-care (01) ==
LOC: HO.XRAY 10:40
PROVIDERS: PCP Internal Medicine; Visit Provider Nurse Practitioner Family
DX: M53.3 Sacrococcygeal disorders, not elsewhere classified (principal); M51.360 Other intervertebral disc degeneration, lumbar region with discogenic back pain only; M96.1 Postlaminectomy syndrome, not elsewhere classified; M16.11 Unilateral primary osteoarthritis, right hip; G89.4 Chronic pain syndrome; Z96.89 Presence of other specified functional implants
CPT/HCPCS: 73502

== ENCOUNTER 2024-12-17 10:40 | Outpatient (AMB) | payer OTHER, SELFPAY ==
--- NOTE | 2024-12-17 10:42 | A.OFFVIS_ITS ---
Vital Signs 12/17/24 10:50 Height 5 ft 5 in Weight 145 lb 2 oz BMI 24.1 BP 139/81 Blood Pressure Location Rt brachial Position Sitting Pulse 89 Pulse Source Pulse Oximeter Pulse Oximetry (%) 98 Oxygen Delivery Method Room Air Intake Visit Reasons: MRI follow up Intake Note: Pain today 09/27 Endo Tech Required: No Allergies No Known Allergies Allergy (Verified 12/17/24 10:46) HPI Comments Details: The patient is a 59-year-old male presenting with chronic pain management concerns. He has a history of significant lumbar disc disease, particularly at the l4-L5 and L5-S1 levels. The pain is exacerbated by bending, walking, and certain movements, and it has been persistent despite SCS device use and medical pain management. Recently, the patient has also been experiencing right hip pain, which sometimes radiates to the groin and is comparable in severity to his back pain. The hip pain is aggravated by movement and has not responded to recent spinal cord stimulation adjustments. There is no history of trauma or falls associated with the onset of this pain. The patient has been using Oxycontin for pain management, which he finds more effective than oxycodone. He reports difficulty sleeping on his right side or supine due to pain, and he typically sleeps on his stomach, which is not ideal for his neck health. Denies any recent cough, cold, infection, fever or any other significant changes in medical history since last office visit. - Onset: Chronic pain with recent exacerbation in the right hip. - Quality: Described as severe, comparable to being hit with a hammer. - Location: Primarily in the lumbar region and right hip, with radiation to the groin. - Exacerbating factors: Bending, walking, and certain movements. - Relieving factors: Temporary relief with spinal cord stimulation adjustments, though not effective for hip pain. - Interference: Affects sleep, particularly when lying on the right side. - Affect: Pain impacts sleep and daily activities. - Analgesia: Currently using oxycontin, which is preferred over oxycodone. - Adverse Effects: Difficulty sleeping on the right side due to pain. - Activities of Daily Living: Pain affects mobility and ability to perform certain movements. - Aberrant Drug Related Behaviors: None reported. Past Procedures: 08/27/24: Bilateral Diagnostic SI joint injections- 0% pain relief 05/01/23: Lumbar Nevro SCS implant- minimal pain relief 01/16/23: Lumbar Nevro SCS trial-80% pain relief 11/21/22: Caudal ANIA with catheter-0% pain relief 10/29/22: Right therapeutic subacromial injection-50% pain relief, ongoing PRIOR: Patient is a pleasant 57 years old female with prior L4-L5 decompression in 2006 and lumbar degenerative disc disease presents today with significant low back pain with bilateral leg pain for over one year. Patient also reports right shoulder pain. He is accompanied by his daughter who assists with translation. Denies any recent trauma, injury or falls. Reports increase in right shoulder pain with overhead and backside pocket reaches due to repetitive motion at his work. He was seen in [facility] ER recently for right shoulder pain and received Ketorolac and lidocaine injection without any relief with imaging showi ng calcific tendinitis and bursitis. Patient reports increased falling due to worsening back pain and bilateral leg weakness and legs giving out due to pain. Back pain is axial and also radiates in lateral distribution of both legs and dorsal feet with numbness and tingling, worse on the right side. Patient describes his pain as sharp, shooting and significant pressure sensation that radiates into his lateral hips bilaterally. He was seen by multiple providers, including Dr. Bill at [facility] and Jason BRUCE at [facility] due to lumbar L4-L5 almost complete fusion but was deemed non surgical at this time. Per recent lumbar spine MRI and CT scan reports, patient also has significant degenerative changes on the endplates with almost disc fusion L4-L5 disc level, with Schmorl's nodes and Modic changes. These findings correlate with his symptoms of bilateral lower extremity pain and weakness as well as axial low back pain that has been interfering with his ability to ambulate. Reports history of back injections at [facility] with partial pain relief. He is currently takes oxycodone and Tylenol that provides him mild analgesia. Pain affects his daily activities, functioning, sleep, mood and quality of life. Given worsening of back pain with recent right shoulder pain, he does not believe he can continue to work, even with light duty arrangements. Denies any fever, weight loss, abdominal or groin pain, foot drop, bladder/bowel dysfunction or saddle anesthesia. Location Lower back pain with radiation to lower extremities, right shoulder pain Duration Chronic pain >1.5 years Characteristics of symptom or complaint Aching, heavy, pressure, numbness, burning, pinching, sharp, throbbing Aggravating or associated factors Walking, standing, prolonged sitting, bending, twisting, movements Relieving factors Oxycodone 10mg, Tylenol, ice/heat therapy, rest, activity modifications Treatment PT, back injections, right shoulder injection-minimal effects PFSH Medical History Caliectasis determined by ultrasound of kidney Abnormal angiogram of head Segmental and somatic dysfunction of rib cage Occipital neuralgia Cervicalgia Pain in right shoulder Myalgia Hemiplegia and hemiparesis following cerebral infarction affecting left non- dominant side Radiculopathy, cervical region Pain in thoracic spine Radiculopathy, lumbar region Opioid dependence History of kidney stones Stroke Hypertension Surgical History H/O left knee surgery History of back surgery Family History Father Heart attack Mother No problems noted. Brother CVA (cerebral vascular accident) Social History Household Members Other:: daughter Housing: House Are you a primary career technical counselor to a significant other at home: No Do you presently have visiting nurse or other home services: No Alcohol intake: never Comment: NO COUNTS NEEDED Patient Tobacco Use Status: Former Tobacco user Years Smoked: 2019 gum stopped smoking 2017 e-Cigarette/Vaping Use: Never Used Second Hand Smoke Exposure: Yes service: No Current occupational status: employed Cognitive needs: No Hearing needs: No Vision needs: Yes Review of Systems Const Details: - Musculoskeletal: Reports chronic lumbar pain and right hip pain radiating to the groin. - Neurological: Denies any new neurological deficits, denies bladder or bowel dysfunction or saddle anesthesia. All systems reviewed & are unremarkable except as noted in HPI and below Physical Exam General: Appears afebrile. Alert and oriented. Mood and affect appropriate. Follows and participates in conversation appropriately. Respiratory effort is unlabored. No cough. Able to transition from sit to stand unassisted. Ambulates with bilaterally normal heel strike and toe off. Mildly antalgic gait, non-spastic. Leg length discrepancy present, right<left. General: Yes no CVA tenderness Back/Spine/Pelvis Other: Limited lumbar ROM due to pain. Antalgic gait, no limping. Lumbar flexion forward, bending and extension reproduces moderate pain. Demonstrates 4/5 right and 5/5 left strength of quadriceps bilaterally as well as flexion/dorsiflexion of bilateral feet against resistance. 2+ pedal pulses bilaterally. Seated straight leg rise with dorsiflexion negative bilaterally. +1 patellar and achilles reflexes bilaterally. Facet loading test positive bilaterally. Daren?s, Gaenslen, pelvic compression and Stinchfield tests are positive bilaterally. Moderate right groin pain with I/E hip rotations. Valsalva maneuver is negative. Back: no CVA tenderness Cervical Spine: cervical ROM normal, cervical muscular tenderness and No Cervical spine tenderness Thoracic/Lumbar Spine: thoracic and lumbar spine normal to inspection, Thoracic/lumbar spine scar(s), Lasegue's sign negative, straight leg raise negative bilaterally, pain with thoraco-lumbar ROM, thoraco-lumbar ROM limited, No thoracic spinal tenderness and No lumbar spinal tenderness Sacroiliac joints: bilaterally tender to palpation Extrem General: Yes capillary refill normal, Yes no clubbing, cyanosis or edema and Yes no calf tenderness Results Reviewed Results Reviewed: MR lumbar spine wo con 10/04/24 Comparison: CR/SR - XR LUMBAR SPINE 2-3 VIEWS - 06/21/23 11:[address]/SR - CT LUMBAR SPINE WITHOUT IV CONTRAST - 09/05/22 14:11 EDT Findings: Normal alignment. No acute fracture or pathologic bone lesion. Cauda equina and conus medullaris within normal limits. There is severe degenerative disc disease at the L4-5 level with destruction of the disc space and associated discogenic changes noted. Severely degenerated disc is also noted at the L5-S1 level with marked disc space narrowing. Disc desiccation is noted at all other levels. Multiple Schmorl nodes are present. There are no significant disc bulges or protrusions noted. Paraspinous musculature intact. Spinal cord stimulating wires enter the soft tissues at the L3-4 level and enter the spinal canal at L1-L2. IMPRESSION: 1. No acute findings. 2. Chronic degenerative disc disease as above with discogenic changes and Schmorl's nodes. 3. Spinal stimulation wires as described. Assessment & Plan Assessment & Plan (1) Sacroiliac joint pain: Code(s): M53.3 - Sacrococcygeal disorders, not elsewhere classified Category: Medical (2) Right hip pain: Code(s): M25.551 - Pain in right hip Category: Medical (3) Lumbar post-laminectomy syndrome: Code(s): M96.1 - Postlaminectomy syndrome, not elsewhere classified Category: Medical (4) Degeneration of lumbar intervertebral disc: Code(s): M51.36 - Other intervertebral disc degeneration, lumbar region Category: Medical (5) Vertebrogenic low back pain: Code(s): M54.51 - Vertebrogenic low back pain Category: Medical (6) Spinal cord stimulator status: Comment: 2023 Code(s): Z96.89 - Presence of other specified functional implants Category: Medical (7) Chronic pain syndrome: Code(s): G89.4 - Chronic pain syndrome Category: Medical Plan The plan includes obtaining an x-ray of the hip and pelvis to assess for arthritis or other structural issues contributing to the ongoing pain. A right hip steroidal intra-articular injection will be considered. The spinal cord stimulator will continue to be used for lumbar pain management, but adjustments may not alleviate hip pain. All questions and concerns have been answered and patient agreed with the treatment plan. Follow up for xray results and sooner as needed. Patient was informed and verbally consented to the use of an ambient scribe for clinic note documentation during this visit. Orders: Orders XR hip RT w PEL1V Today M25.551 - Pain in right hip, M53.3 - Sacrococcygeal disorders, not elsewhere classified Coding Level of Care Code Est Pt Level 4 (82375) Complex EM visit Add On G2211 Diagnoses Sacroiliac joint pain M53.3 Right hip pain M25.551 Lumbar post-laminectomy syndrome M96.1 Degeneration of lumbar intervertebral disc M51.36 Vertebrogenic low back pain M54.51 Spinal cord stimulator status Z96.89 Chronic pain syndrome G89.4
[2024-12-17 10:50] VITALS: BP 139/81; PULSE 89; O2SAT 98; BMI 24.1
--- OUTSIDE RECORDS SUMMARY | 2024-12-17 13:10 | XMS_ITS | Patient Health Record ---
Author Organization [facility] Address [address] [place] [address] Care Team Providers Care Fourth Grade Teacher Name Role Phone Morales Oneil MD Primary Care Provider Vipul Littlejohn [phone] Allergies No Known Allergies Reason For Referral No Information Medications Medication SIG (Take, Route, Frequency, Duration) Notes Start Date End Date Status oxyCODONE HCl 5 MG Oral; Duration: 8 Active amLODIPine Besylate 2.5 MG TAKE 1 TABLET BY MOUTH EVERY DAY Oral; Duration: 90 Active Social History Tobacco Use: Social History Observation Description Date Details (start date - stop date) Former Smoker NA - NA Tobacco Use/Smoking Question Answer Notes Patient is a former smoker How long has it been since you last smoked? 3-6 months Section Notes: Nonsmoker; no sig alcohol. Came from [facility] in 1999 Problems Problem Type SNOMED Code ICD Code Onset Dates Problem Status W/U Status Risk Notes Problem Colon cancer screening (932668921) Colon cancer screening (Z12.11) Active confirmed Problem Diverticular disease of colon (793979205) Diverticulosis of large intestine without perforation or abscess without bleeding (K57.30) Active confirmed Problem Preprocedural examination (093522773944872) Preprocedural examination (Z01.818) Active confirmed Plan Of Treatment Pending Test Test Name Order Date Pathology 12/07/2022 Future Test Test Name Order Date COLONOSCOPY 09/20/2022 Insurance Providers Payer Name Payer Address Payer Phone Subscriber Number Group Number Insured Name Patient Relationship to Insured Coverage Start Date Coverage End Date [facility] [address] [place] [phone] [id number] VICKIE RODRIGUEZ Self - patient is the insured Medical (General) History Medical History History ICD Code Hypertension CVA from a bleed--?SAH--no residual-2019 Back pain Denies [place],DM,Lung disease,renal disease Kidney stone Surgical History Surgery Date(Month/Year) Back surgery 2006
== END 2024-12-17 11:00 | disposition home or self-care (01) ==
PROVIDERS: PCP Internal Medicine; Visit Provider Nurse Practitioner Family
DX: M53.3 Sacrococcygeal disorders, not elsewhere classified (principal); M25.551 Pain in right hip; M96.1 Postlaminectomy syndrome, not elsewhere classified; M51.369 Other intervertebral disc degeneration, lumbar region without mention of lumbar back pain or lower extremity pain; M54.51 Vertebrogenic low back pain; Z96.89 Presence of other specified functional implants; G89.4 Chronic pain syndrome
CPT/HCPCS: 99214; G2211

== ENCOUNTER → 2024-12-17 11:15 | Outpatient (BNV) | payer OTHER, SELFPAY | PROVIDERS: PCP Internal Medicine; Visit Provider Radiology Diagnostic Radiology | DX: M53.3 Sacrococcygeal disorders, not elsewhere classified (principal); Z96.82 Presence of neurostimulator | CPT/HCPCS: 73502 ==

== ENCOUNTER 2024-12-25 06:56 | Outpatient (REF) | payer OTHER, SELFPAY ==
--- OUTSIDE RECORDS SUMMARY | 2024-12-25 06:59 | XMS_ITS | Patient Health Record ---
Author Organization [facility] Address [address] [place] [address] Care Team Providers Care Cost Accounting Clerk Name Role Phone Morales Oneil MD Primary Care Provider Vipul Littlejohn [phone] Allergies No Known Allergies Reason For Referral [...] Notes: Nonsmoker; no sig alcohol. Came from [facility] in 1999 Problems Problem Type SNOMED Code ICD Code Onset Dates Problem Status W/U Status Risk Notes Problem Colon cancer screening (260033572) Colon cancer screening (Z12.11) Active confirmed Problem Diverticular disease of colon (245627034) Diverticulosis of large intestine without perforation or abscess without bleeding (K57.30) Active confirmed Problem Preprocedural examination (776484857164282) Preprocedural examination (Z01.818) Active confirmed Plan Of Treatment Pending Test Test Name Order Date Pathology 12/07/2022 Future Test Test Name Order Date COLONOSCOPY 09/20/2022 Insurance Providers Payer Name Payer Address Payer Phone Subscriber Number Group Number Insured Name Patient Relationship to Insured Coverage Start Date Coverage End Date [facility] [address] [place] [phone] [id number] VICKIE RODRIGUEZ Self - patient is the insured Medical (General) History Medical History History ICD Code Hypertension CVA from a bleed--?SAH--no residual-2019 Back pain Denies [place],DM,Lung disease,renal disease Kidney stone Surgical History Surgery Date(Month/Year) Back surgery 2006
[2024-12-25 08:02] LABS: Blood Urea Nitrogen 15 mg/dL (9-16); Estimated Glomerular Filt Rate > 60
== END 2024-12-25 06:57 | disposition home or self-care (01) ==
LOC: HO.LAB 06:56
PROVIDERS: PCP Internal Medicine; Visit Provider Nurse Practitioner Family
DX: R39.15 Urgency of urination (principal)
CPT/HCPCS: 36415; 82565; 84520

== ENCOUNTER 2024-12-28 07:56 | Outpatient (REF) | payer OTHER, SELFPAY ==
--- NOTE | ~2024-12-28 | CT_ITS ---
CLINICAL HISTORY: R31.0 - Gross hematuria Exam: CT urogram without and with IV contrast Comparison: None provided Findings: Normal lung bases. No urolithiasis or obstructive uropathy. Bilateral renal parapelvic cysts. Left renal scar lateral interpolar region. Right renal too small to characterize hypodensity posterior midpole. 9 mm exophytic lesion left kidney posterior interpolar region, isodense on precontrast with enhancement on the delayed phase, series 8, image 31. Symmetrical contrast excretion of the bilateral kidneys, no filling defects in the renal collecting systems, ureters or opacified bladder. Liver, gallbladder, pancreas, adrenal glands are unremarkable. Splenomegaly, spleen measures 15.3 cm in maximum axial dimension, no splenic lesion is seen. Prostatomegaly with mild mass effect to the bladder. Unremarkable GI tract, normal appendix. Moderate atherosclerotic disease. No lymphadenopathy, ascites or pneumoperitoneum. Unremarkable abdominopelvic wall. Degenerative changes of the imaged spine. Impression: 1. Left renal 9 mm enhancing mass is concerning for malignancy, recommend dedicated renal CT or MRI for complete evaluation and urology follow-up. 2. Bilateral renal parapelvic cysts. 3. Splenomegaly. This document has been electronically signed by: Dulce Maria Giles MD on 12/29/2024 11:08:11
--- OUTSIDE RECORDS SUMMARY | 2024-12-28 08:01 | XMS_ITS | Patient Health Record ---
Author Organization [facility] Address [address] [place] [address] Care Team Providers Care Smearer Name Role Phone Morales Oneil MD Primary Care Provider Vipul Littlejohn [phone] Allergies No Known Allergies Reason For Referral [...] Notes: Nonsmoker; no sig alcohol. Came from [facility] in 1999 Problems Problem Type SNOMED Code ICD Code Onset Dates Problem Status W/U Status Risk Notes Problem Colon cancer screening (197982542) Colon cancer screening (Z12.11) Active confirmed Problem Diverticular disease of colon (335310595) Diverticulosis of large intestine without perforation or abscess without bleeding (K57.30) Active confirmed Problem Preprocedural examination (673627480904718) Preprocedural examination (Z01.818) Active confirmed Plan Of Treatment Pending Test Test Name Order Date Pathology 12/07/2022 Future Test Test Name Order Date COLONOSCOPY 09/20/2022 Insurance Providers Payer Name Payer Address Payer Phone Subscriber Number Group Number Insured Name Patient Relationship to Insured Coverage Start Date Coverage End Date [facility] [address] [place] [phone] [id number] VICKIE RODRIGUEZ Self - patient is the insured Medical (General) History Medical History History ICD Code Hypertension CVA from a bleed--?SAH--no residual-2019 Back pain Denies [place],DM,Lung disease,renal disease Kidney stone Surgical History Surgery Date(Month/Year) Back surgery 2006
[2024-12-28] MEDS: iohexoL 350 MG/ML 100 ML INFUS..BTL IV (09:09)
== END 2024-12-28 07:57 | disposition home or self-care (01) ==
LOC: HO.CT 07:56
PROVIDERS: PCP Internal Medicine; Visit Provider Nurse Practitioner Family
DX: R31.0 Gross hematuria (principal); N28.1 Cyst of kidney, acquired
CPT/HCPCS: 74178; Q9967

== ENCOUNTER → 2024-12-28 07:57 | Outpatient (BNV) | payer OTHER, SELFPAY | PROVIDERS: PCP Internal Medicine; Visit Provider Radiology Diagnostic Radiology | DX: R31.0 Gross hematuria (principal) | CPT/HCPCS: 74178 ==

== ENCOUNTER 2025-01-04 09:28 | Outpatient (AMB) | payer OTHER, SELFPAY ==
--- NOTE | 2025-01-04 09:34 | A.OFFVIS_ITS ---
Intake Visit Reasons: 3m/CT/labs Intake Note: Patient is Present for Follow Up CT/Labs Urology Medication: None Antibiotic Allergies: None Blood Thinners: None Idea Man Required: No Accompanied by: Self / Same As Patient Allergies No Known Allergies Allergy (Verified 01/04/25 22:36) Medication List - Last Reconciled 01/04/25 by MALLY DeutschP- amlodipine 2.5 mg PO DAILY finasteride 5 mg PO DAILY 90 days ibuprofen 600 mg PO QID oxycodone ER (OxyContin) 20 mg PO BID HPI Comments Details: Ruben is a pleasant 59-year-old male patient of . 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 He presents to the office today for follow-up of his peripelvic cysts. Of note, patient was seen approximately 3 months ago as a new patient at which time a CT urogram was ordered for further assessment evaluation. These results were reviewed and communicated with the patient today. 01/12 left renal 9 mm enhancing masses concerning for malignancy, recommend MRI renal mass protocol per radiology report. Bilateral renal peripelvic cysts. Prostatomegaly with mild mass effect on the bladder. He does feel he has had urinary frequency since insertion of spinal cord stimulation implant April of last year (2022) PSA: 06/12 1.4 We did discussed obtaining MRI renal mass protocol for further assessment evaluation. We discussed renal mass as well as further treatment options and risks and benefits of these treatment options. We also discussed correlation of prostatomegaly in relation to lower urinary tract symptoms. We also discussed further treatment options of this urological conditions. He discusses at length his previous medical history with chronic back pain as well as previous subarachnoid bleed. He discusses he continues to follow-up with pain management regarding his ongoing chronic low-back pain. In office urinalysis results reviewed with the patient today. When asked he denies incontinence, hematuria, dysuria, foul smelling urine, changes to urinary stream, flank pain, fever, and or chills. He does also reports episodes of nocturia. All questions were answered. He otherwise offers no other issues or concerns at this time. BUN:07/06 11, 08/08 10, 10/09 13, 10/10 11, 06/12 25, 01/12 15 Creatinine:07/06 0.89, 08/08 0.94, 10/09 0.91, 10/10 0.91, 06/12 0.82, 01/12 0.78 PFSH Medical History Caliectasis determined by ultrasound of kidney Abnormal angiogram of head Segmental and somatic dysfunction of rib cage Occipital neuralgia Cervicalgia Pain in right shoulder Myalgia Hemiplegia and hemiparesis following cerebral infarction affecting left non- dominant side Radiculopathy, cervical region Pain in thoracic spine Radiculopathy, lumbar region Opioid dependence History of kidney stones Stroke Hypertension Surgical History H/O left knee surgery History of back surgery Family History Father Heart attack Mother No problems noted. Brother CVA (cerebral vascular accident) Social History Household Members Other:: daughter Housing: House Are you a primary healthcare interpreter to a significant other at home: No Do you presently have visiting nurse or other home services: No Alcohol intake: never Comment: NO COUNTS NEEDED Patient Tobacco Use Status: Former Tobacco user Years Smoked: 2018 gum stopped smoking 2016 e-Cigarette/Vaping Use: Never Used Second Hand Smoke Exposure: Yes service: No Current occupational status: employed Cognitive needs: No Hearing needs: No Vision needs: Yes Review of Systems Const All systems reviewed & are unremarkable except as noted in HPI and below Physical Exam Const General: cooperative, healthy appearing, comfortable, no acute distress, well developed, alert and awake Orientation/consciousness: patient oriented x3 Limitations: no limitations HEENT Head: Yes normal to inspection, Yes normocephalic and Yes atraumatic Ears: hearing grossly normal bilaterally Eyes General: appearance normal, both eyes and all related structures Neck Neck: Yes normal visual inspection and Yes trachea midline Chest Chest palpation & inspection: normal inspection of the chest Resp Effort & Inspection: normal respiratory effort and able to speak in complete sentences Cardio Rate: regular rate GI Inspection: Yes normal to inspection General: Yes no CVA tenderness Back/Spine/Pelvis Back: no CVA tenderness Skin General skin exam: no rashes or lesions noted Neuro General: patient oriented x3 Extrem General: Yes normal to inspection Psych Appearance: grossly normal and well kempt Mental Status: mental status grossly normal Speech and movement: Normal speech and movement present and Clear speech present Affect: normal affect Attitude: cooperative Thought process: Normal thought process present Thought content: Normal thought content present Insight: Fair insight present (Psych) Judgement: Fair judgement present (Psych) Results AMB Urinalysis, Automated UA Leukoctes 0 Kassandra/uL Last Edit by Desiree Murry Zane on 01/04/25 09:45 UA Nitrite Negative Last Edit by Desiree Murry [facility] on 01/04/25 09:45 UA Urobilinogen 0.2 mg/dL Last Edit by Desiree Murry [facility] on 01/04/25 09:4 5 UA Protein 15 mg/dL Last Edit by Desiree Murry [facility] on 01/04/25 09:45 UA pH 5.5 Last Edit by Desiree Murry [facility] on 01/04/25 09:45 UA Blood 0 Justino/uL Last Edit by Desiree Murry [facility] on 01/04/25 09:45 UA Specific [place] 1.020 Last Edit by Desiree Murry [facility] on 01/04/25 09: 45 UA Ketone Negative Last Edit by Desiree Murry [facility] on 01/04/25 09:45 UA Bilirubin 0 mg/dL Last Edit by Desiree Murry [facility] on 01/04/25 09:45 UA Glucose 0 mg/dL Last Edit by Desiree Murry [facility] on 01/04/25 09:45 Results Reviewed Results Reviewed: Laboratory Last Values Urine pH (Auto) 5.5 01/04/25 09:45 Specific [place] (Auto) 1.020 01/04/25 09:45 Urine Protein (Auto) 15 mg/dL 01/04/25 09:45 Glucose (UA)(Auto) 0 mg/dL 01/04/25 09:45 Urine Ketones (Auto) Negative 01/04/25 09:45 Urine Blood (Auto) 0 Justino/uL 01/04/25 09:45 Urine Nitrite (Auto) Negative 01/04/25 09:45 Urine Bilirubin (Auto) 0 mg/dL 01/04/25 09:45 Urine Urobilinogen (Auto) 0.2 mg/dL 01/04/25 09:45 Leukocyte Esterase (Auto) 0 Kassandra/uL 01/04/25 09:45 Date of Service: 12/28/24 Procedure(s): CT urogram Findings: Normal lung bases. No urolithiasis or obstructive uropathy. Bilateral renal parapelvic cysts. Left renal scar lateral interpolar region. Right renal too small to characterize hypodensity posterior midpole. 9 mm exophytic lesion left kidney posterior interpolar region, isodense on precontrast with enhancement on the delayed phase, series 8, image 31. Symmetrical contrast excretion of the bilateral kidneys, no filling defects in the renal collecting systems, ureters or opacified bladder. Liver, gallbladder, pancreas, adrenal glands are unremarkable. Splenomegaly, spleen measures 15.3 cm in maximum axial dimension, no splenic lesion is seen. Prostatomegaly with mild mass effect to the bladder. Unremarkable GI tract, normal appendix. Moderate atherosclerotic disease. No lymphadenopathy, ascites or pneumoperitoneum. Unremarkable abdominopelvic wall. Degenerative changes of the imaged spine. Impression: 1. Left renal 9 mm enhancing mass is concerning for malignancy, recommend dedicated renal CT or MRI for complete evaluation and urology follow-up. 2. Bilateral renal parapelvic cysts. 3. Splenomegaly. Assessment & Plan Assessment & Plan (1) Renal mass: Code(s): N28.89 - Other specified disorders of kidney and ureter Category: Medical (2) Prostate enlargement: Code(s): N40.0 - Benign prostatic hyperplasia without lower urinary tract symptoms Category: Medical Plan In office urinalysis results reviewed with the patient today; as noted above. Most recent CT results reviewed with the patient today; as noted above. We did discussed potential renal cancer as well as prostatomegaly; we discussed further treatment options of these urological conditions and risks and benefits of these treatment options. All questions were answered Will obtain MRI renal mass protocol. Start finasteride as discussed and prescribed. Follow-up in 1-3 months with imaging and PVR to be completed prior; or sooner with any issues, concerns, and or questions. Orders: Orders AMB Urinalysis Automated Today Z13.9 - Encounter for screening, unspecified MR abdomen wo/w con Today N28.89 - Other specified disorders of kidney and ureter, N40.0 - Benign prostatic hyperplasia without lower urinary tract symptoms Medications: New finasteride 5 mg PO DAILY 90 tabs 1RF 90 days N13.8 - Other obstructive and reflux uropathy, N40.1 - Benign prostatic hyperplasia with lower urinary tract symptoms, R33.9 - Retention of urine, unspecified Patient Instructions: The patient had an opportunity to ask questions regarding the treatment plan. All questions were answered. Physical exam, labs, and imaging were discussed and reviewed in detail. As well as risks, benefits, and discussion of treatment choices. No major barriers to understanding were identified. The patient expressed understanding and agreement with the above treatment plan. The patient was made aware they should contact our office by phone for worsening of their current condition, the appearance of new symptoms, or with any questions or concerns. Compliance is encouraged with any medications and follow up testing that is ordered. It is a privilege to be allowed the opportunity to participate in? your urological care.? Again, if you have any questions or concerns If you have any questions or concerns please do not hesitate to contact me. The office is [phone]. This note is constructed using voice recognition software. While every effort has been made to ensure accuracy treasurer [employer] errors may have been included. Yours sincerely, BERRY Deutsch Coding Level of Care Code Est Pt Level 4 (28508) Complex EM visit Add On G2211 Diagnoses Renal mass N28.89 Prostate enlargement N40.0
== END 2025-01-04 10:10 | disposition home or self-care (01) ==
LOC: HO.HUSH 09:29
PROVIDERS: PCP Internal Medicine; Visit Provider Nurse Practitioner Family
DX: N28.89 Other specified disorders of kidney and ureter (principal); N40.0 Benign prostatic hyperplasia without lower urinary tract symptoms; Z13.9 Encounter for screening, unspecified
CPT/HCPCS: 99214; G2211

== ENCOUNTER → 2025-01-04 09:28 | Outpatient (BNVA) | payer OTHER, SELFPAY | PROVIDERS: PCP Internal Medicine; Visit Provider Nurse Practitioner Family | DX: N40.0 Benign prostatic hyperplasia without lower urinary tract symptoms (principal) | CPT/HCPCS: 81003 ==

== ENCOUNTER 2025-01-12 06:11 | Outpatient (REF) | payer OTHER, SELFPAY ==
--- NOTE | ~2025-01-12 | FL_ITS ---
EXAMINATION: XR FLUOROSCOPY WITH IMAGES CLINICAL INFORMATION: Hip pain COMPARISON: None available. TECHNIQUE: Fluoroscopy time: 13 seconds DAP: 2.7 mGycm2 Images: 4 FINDINGS: Fluoroscopy provided for procedure. Needle projected over the hip joint, with contrast injection. FL/FL guidance in treatment room IMPRESSION: Fluoroscopy provided for procedure. See procedure report for details. Electronically signed by: Romel Issa MD 01/13/2025 08:31 AM RONALD
== END 2025-01-12 06:12 | disposition home or self-care (01) ==
LOC: CF 06:11
PROVIDERS: Visit Provider Anesthesiology
DX: M16.11 Unilateral primary osteoarthritis, right hip (principal)
CPT/HCPCS: J2795; J3301; Q9967

== ENCOUNTER 2025-01-12 09:05 | Outpatient (AMB) | payer OTHER, SELFPAY ==
--- NOTE | 2025-01-12 09:06 | MHC.OFFVIS ---
Vital Signs 01/12/25 09:07 01/12/25 09:49 Height 5 ft 5 in Weight 145 lb BMI 24.1 BP 147/71 H 131/68 Blood Pressure Location Lt brachial Lt brachial Position Sitting Sitting Respiration 16 16 Pulse 72 74 Pulse Source Pulse Oximeter Pulse Oximeter Pulse Oximetry (%) 100 100 Oxygen Delivery Method Room Air Room Air Intake Visit Reasons: Right hip intra-articular steroid inj Allergies No Known Allergies Allergy (Verified 01/04/25 22:36) [facility] Medical History Caliectasis determined by ultrasound of kidney Abnormal angiogram of head Segmental and somatic dysfunction of rib cage Occipital neuralgia Cervicalgia Pain in right shoulder Myalgia Hemiplegia and hemiparesis following cerebral infarction affecting left non-dominant side Radiculopathy, cervical region Pain in thoracic spine Radiculopathy, lumbar region Opioid dependence History of kidney stones Stroke Hypertension Surgical History H/O left knee surgery History of back surgery Family History Father Heart attack Mother No problems noted. Brother CVA (cerebral vascular accident) Social History Household Members Other:: daughter Housing: House Are you a primary customer care manager to a significant other at home: No Do you presently have visiting nurse or other home services: No Alcohol intake: never Comment: NO COUNTS NEEDED Patient Tobacco Use Status: Former Tobacco user Years Smoked: 2019 gum stopped smoking 2016 e-Cigarette/Vaping Use: Never Used Second Hand Smoke Exposure: Yes service: No Current occupational status: employed Cognitive needs: No Hearing needs: No Vision needs: Yes Physical Exam Vital Signs: Last Vital Signs Pulse 74 01/12/25 09:49 Resp 16 01/12/25 09:49 BP 131/68 01/12/25 09:49 Pulse Ox 100 01/12/25 09:49 Oxygen Delivery Method Room Air 01/12/25 09:49 BMI result Body Mass Index 24.1 Assessment & Plan Assessment & Plan (1) Right hip pain: Code(s): M25.551 - Pain in right hip Category: Medical (2) Arthritis of right hip: Code(s): M16.11 - Unilateral primary osteoarthritis, right hip Category: Medical Plan right hip steroid injection. ? ? ?Informed consent was explained to the patient. All questions were explained and? answered.? The patient was taken inside the operating room where he was positioned left lateral decubital position. Time-out was performed delineating correct site, side, the nature of the procedure, patient's allergy, . All operating room staff was participating in OR time-out procedure. ? ? The area of non dependent left hip was prepped with chloroprep and draped with self-adhesive utility towels. After that? C-arm was brought over the operating field and picture of right - smaller image of the joint was demonstrated on the screen. 22 Gauge 5 inch needle was inserted through the skin in the projection of the most upper point of the left trochanter. The needle was advanced to the silhouette of the joint under intermittent AP and lateral views. When the tip of the needle entered into the joint the injection of the contrast was performed demonstrating artrogram. After that injection of ropivacaine 0.5% mixed with kenalog 40 mg was performed into the joint. Upon completion of the injection the needle was removed and bandaid was applied, The patient tolerated the procedure well. Orders: Orders FL guidance in treatment room 01/12/25 M25.551 - Pain in right hip Coding Level of Care Code Procedure Only Diagnoses Right hip pain M25.551 Arthritis of right hip M16.11
[2025-01-12 09:07] VITALS: BP 147/71; PULSE 72; RESP 16; O2SAT 100; BMI 24.1
[2025-01-12 09:49] VITALS: BP 131/68; PULSE 74; RESP 16; O2SAT 100
== END 2025-01-12 09:49 | disposition home or self-care (01) ==
LOC: HO.PMCPRC 09:05
PROVIDERS: PCP Internal Medicine; Visit Provider Anesthesiology
DX: M25.551 Pain in right hip (principal); M16.11 Unilateral primary osteoarthritis, right hip
CPT/HCPCS: 20610; 77002

== ENCOUNTER 2025-02-10 09:31 | Outpatient (AMB) | payer OTHER, SELFPAY ==
[2025-02-10 09:33] VITALS: BP 138/76; PULSE 105; RESP 16; O2SAT 99; BMI 23.6
--- NOTE | 2025-02-10 09:33 | MHC.OFFVIS ---
Vital Signs 02/10/25 09:33 Height 5 ft 5 in Weight 142 lb BMI 23.6 BP 138/76 Blood Pressure Location Lt brachial Position Sitting Respiration 16 Pulse 105 H Pulse Source Pulse Oximeter Pulse Oximetry (%) 99 Oxygen Delivery Method Room Air Intake Visit Reasons: S/P Right hip intra-articular steroid inj Type Disk Quality Control Supervisor Required: No Accompanied by: Self / Same As Patient Allergies No Known Allergies Allergy (Verified 02/10/25 09:37) HPI Comments Details: Ruben is back in my office after therapeutic right hip steroid injection. He reports 60% pain improvement since the last injection which was 1 month ago. He started to perform I aerobic exercises such as treadmill running. I explained to him that walking and running or high impact aerobic exercises and recommended him to consider low-impact aerobic exercises such as swimming, stationary bicycle, or elliptical machine. Patient expressed understanding. He will go to [facility] to start swimming he is a good swimmer. We also discussed quitting smoking. He is using nicotine products to decrease amount of the cigarettes. This is not very good way to treat his smoking because most of the concerns are nicotine in cigarettes and not the tobacco stars for this patient. I recommended him to go to primary care physician to be placed on BuSpar or Chantix. He also wants to have conversation about total hip replacement with orthopedic surgeon. I will make a referral. Past Procedures: 08/27/24: Bilateral Diagnostic SI joint injections- 0% pain relief 05/01/23: Lumbar Nevro SCS implant- minimal pain relief 01/16/23: Lumbar Nevro SCS trial-80% pain relief 11/21/22: Caudal ANIA with catheter-0% pain relief 10/29/22: Right therapeutic subacromial injection-50% pain relief, ongoing PRIOR: Patient is a pleasant 57 years old female with prior L4-L5 decompression in 2006 and lumbar degenerative disc disease presents today with significant low back pain with bilateral leg pain for over one year. Patient also reports right shoulder pain. He is accompanied by his daughter who assists with translation. Denies any recent trauma, injury or falls. Reports increase in right shoulder pain with overhead and backside pocket reaches due to repetitive motion at his work. He was seen in [facility] ER recently for right shoulder pain and received Ketorolac and lidocaine injection without any relief with imaging showing calcific tendinitis and bursitis. Patient reports increased falling due to worsening back pain and bilateral leg weakness and legs giving out due to pain. Back pain is axial and also radiates in lateral distribution of both legs and dorsal feet with numbness and tingling, worse on the right side. Patient describes his pain as sharp, shooting and significant pressure sensation that radiates into his lateral hips bilaterally. He was seen by multiple providers, including Dr. Bill at [facility] and Jason BRUCE at [facility] due to lumbar L4-L5 almost complete fusion but was deemed non surgical at this time. Per recent lumbar spine MRI and CT scan reports, patient also has significant degenerative changes on the endplates with almost disc fusion L4-L5 disc level, with Schmorl's nodes and Modic changes. These findings correlate with his symptoms of bilateral lower extremity pain and weakness as well as axial low back pain that has been interfering with his ability to ambulate. Reports history of back injections at [facility] with partial pain relief. He is currently takes oxycodone and Tylenol that provides him mild analgesia. Pain affects his daily activities, functioning, sleep, mood and quality of life. Given worsening of back pain with recent right shoulder pain, he does not believe he can continue to work, even with light duty arrangements. Denies any fever, weight loss, abdominal or groin pain, foot drop, bladder/bowel dysfunction or saddle anesthesia. Location Lower back pain with radiation to lower extremities, right shoulder pain Duration Chronic pain >1.5 years Characteristics of symptom or complaint Aching, heavy, pressure, numbness, burning, pinching, sharp, throbbing Aggravating or associated factors Walking, standing, prolonged sitting, bending, twisting, movements Relieving factors Oxycodone 10mg, Tylenol, ice/heat therapy, rest, activity modifications Treatment PT, back injections, right shoulder injection-minimal effects [facility] Medical History Caliectasis determined by ultrasound of kidney Abnormal angiogram of head Segmental and somatic dysfunction of rib cage Occipital neuralgia Cervicalgia Pain in right shoulder Myalgia Hemiplegia and hemiparesis following cerebral infarction affecting left non-dominant side Radiculopathy, cervical region Pain in thoracic spine Radiculopathy, lumbar region Opioid dependence History of kidney stones Stroke Hypertension Surgical History H/O left knee surgery History of back surgery Family History Father Heart attack Mother No problems noted. Brother CVA (cerebral vascular accident) Social History Household Members Other:: daughter Housing: House Are you a primary health care facilities inspector to a significant other at home: No Do you presently have visiting nurse or other home services: No Alcohol intake: never Comment: NO COUNTS NEEDED Patient Tobacco Use Status: Former Tobacco user Years Smoked: 2018 gum stopped smoking 2016 e-Cigarette/Vaping Use: Never Used Second Hand Smoke Exposure: Yes service: No Current occupational status: employed Cognitive needs: No Hearing needs: No Vision needs: Yes Review of Systems Const All systems reviewed & are unremarkable except as noted in HPI and below Physical Exam Vital Signs: Last Vital Signs Pulse 105 H 02/10/25 09:33 Resp 16 02/10/25 09:33 BP 138/76 02/10/25 09:33 Pulse Ox 99 02/10/25 09:33 Oxygen Delivery Method Room Air 02/10/25 09:33 BMI result Body Mass Index 23.6 General: Appears afebrile. Alert and oriented. Mood and affect appropriate. Follows and participates in conversation appropriately. Respiratory effort is unlabored. No cough. Able to transition from sit to stand unassisted. Ambulates with bilaterally normal heel strike and toe off. Mildly antalgic gait, non-spastic. Leg length discrepancy present, right<left. General: Yes no CVA tenderness Back/Spine/Pelvis Other: Limited lumbar ROM due to pain. Antalgic gait, no limping. Lumbar flexion forward, bending and extension reproduces moderate pain. Demonstrates 4/5 right and 5/5 left strength of quadriceps bilaterally as well as flexion/dorsiflexion of bilateral feet against resistance. 2+ pedal pulses bilaterally. Seated straight leg rise with dorsiflexion negative bilaterally. +1 patellar and achilles reflexes bilaterally. Facet loading test positive bilaterally. Daren?s, Gaenslen, pelvic compression and Stinchfield tests are positive bilaterally. Moderate right groin pain with I/E hip rotations. Valsalva maneuver is negative. Back: no CVA tenderness Cervical Spine: cervical ROM normal, cervical muscular tenderness and No Cervical spine tenderness Thoracic/Lumbar Spine: thoracic and lumbar spine normal to inspection, Thoracic/lumbar spine scar(s), Lasegue's sign negative, straight leg raise negative bilaterally, pain with thoraco-lumbar ROM, thoraco-lumbar ROM limited, No thoracic spinal tenderness and No lumbar spinal tenderness Sacroiliac joints: bilaterally tender to palpation Extrem General: Yes capillary refill normal, Yes no clubbing, cyanosis or edema and Yes no calf tenderness Assessment & Plan Assessment & Plan (1) Sacroiliac joint pain: Code(s): M53.3 - Sacrococcygeal disorders, not elsewhere classified Category: Medical (2) Right hip pain: Code(s): M25.551 - Pain in right hip Category: Medical (3) Lumbar post-laminectomy syndrome: Code(s): M96.1 - Postlaminectomy syndrome, not elsewhere classified Category: Medical (4) Degeneration of lumbar intervertebral disc: Code(s): M51.36 - Other intervertebral disc degeneration, lumbar region Category: Medical (5) Vertebrogenic low back pain: Code(s): M54.51 - Vertebrogenic low back pain Category: Medical (6) Spinal cord stimulator status: Comment: 2023 Code(s): Z96.89 - Presence of other specified functional implants Category: Medical (7) Chronic pain syndrome: Code(s): G89.4 - Chronic pain syndrome Category: Medical (8) Osteoarthritis of right hip: Code(s): M16.11 - Unilateral primary osteoarthritis, right hip Category: Medical Plan Relatively good results of the intra-articular right hip steroid injection. However patient reports that pain is starting to come back. I will refer him to Orthopedic surgery. He wants to discuss total hip replacement. Also he tries to stop smoking. See discussion as above. Also he wants to exercise aerobically. See discussion as above. Next appointment with Celina as needed. Orders: Referrals Orthopedics Referral M16.11 - Unilateral primary osteoarthritis, right hip Coding Level of Care Code Est Pt Level 3 (68107) Diagnoses Sacroiliac joint pain M53.3 Right hip pain M25.551 Lumbar post-laminectomy syndrome M96.1 Degeneration of lumbar intervertebral disc M51.36 Vertebrogenic low back pain M54.51 Spinal cord stimulator status Z96.89 Chronic pain syndrome G89.4 Osteoarthritis of right hip M16.11
--- OUTSIDE RECORDS SUMMARY | 2025-02-10 09:36 | XMS_ITS | Patient Health Record ---
Author Organization [facility] Address [address] [place] [id number] Care Team Providers Care Diesel Technology Instructor Name Role Phone Morales Oneil MD Primary Care Provider Vipul Littlejohn [phone] Allergies No Known Allergies Reason For Referral No Information Medications Medication SIG (Take, Route, Frequency, Duration) Notes Start Date End Date Status oxyCODONE HCl 5 MG Tablet Oral; Duration: 8 Active amLODIPine Besylate 2.5 MG Tablet TAKE 1 TABLET BY MOUTH EVERY DAY Oral; Duration: 90 Active Social History Tobacco Use: Social History Observation Description Date Details (start date - stop date) Former Smoker NA - NA Social History Tobacco Use: Social Info Question Answer Notes Tobacco Use/Smoking Patient is a former smoker How long has it been since you last smoked? 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 Came from [facility] in 1999 Problems Problem Type SNOMED Code ICD Code Onset Dates Problem Status W/U Status Risk Notes Problem Colon cancer screening (676840559) Colon cancer screening (Z12.11) Active confirmed Problem Diverticular disease of colon (047596481) Diverticulosis of large intestine without perforation or abscess without bleeding (K57.30) Active confirmed Problem Preprocedural examination (465547463090793) Preprocedural examination (Z01.818) Active confirmed Plan Of Treatment Pending Test Test Name Order Date Pathology 12/07/2022 Future Test Test Name Order Date COLONOSCOPY 09/20/2022 Insurance Providers Payer Name Payer Address Payer Phone Subscriber Number Group Number Insured Name Patient Relationship to Insured Coverage Start Date Coverage End Date [facility] [address] [facility] [phone] [id number] VICKIE RODRIGUEZ Self - patient is the insured Medical (General) History Medical History History ICD Code Hypertension CVA from a bleed--?SAH--no residual-2019 Back pain Denies NE,DM,Lung disease,renal disease Kidney stone Surgical History Surgery Date(Month/Year) Back surgery 2006
== END 2025-02-10 09:45 | disposition home or self-care (01) ==
LOC: HO.PMC 09:32
PROVIDERS: PCP Internal Medicine; Visit Provider Anesthesiology
DX: M53.3 Sacrococcygeal disorders, not elsewhere classified (principal); M25.551 Pain in right hip; M96.1 Postlaminectomy syndrome, not elsewhere classified; M51.369 Other intervertebral disc degeneration, lumbar region without mention of lumbar back pain or lower extremity pain; M54.51 Vertebrogenic low back pain; Z96.89 Presence of other specified functional implants; G89.4 Chronic pain syndrome; M16.11 Unilateral primary osteoarthritis, right hip
CPT/HCPCS: 99213